=== PATIENT | male | born 1930 | race Caucasian/White ===

== ENCOUNTER 2016-08-02 15:20 | Emergency (ER) | payer OTHER ==
[~2016-08-02] VITALS: Ht 175.3 cm; Wt 87.0 kg
[~2016-08-02 15:20] MED LIST: ADVIN25/60 INH; ALBU1AER9 INH; AMLO-110 PO; AZITTAB PO; CLR10 PO; CYAN500T PO; CZR50 PO; FERR325T51 PO; PRED10TA PO; ZNTT/150 PO
[2016-08-02 15:33] VITALS: TEMP 37; Ht 175.3 cm; Wt 87.0 kg
[2016-08-02] MEDS ORDERED: NVLRPUC SQ (15:54)
[2016-08-02] MEDS ORDERED: METF500T5 PO (15:54)
[2016-08-02] MEDS ORDERED: LEVOFLOXACIN 250 MG TAB PO STA (15:58)
[2016-08-02] MEDS ORDERED: OXYCODONE/ACETAMINOPHEN 5-325 TAB PO ONE (16:00)
[2016-08-02] MEDS ORDERED: OXYC-57 PO (16:02)
[2016-08-02] MEDS ORDERED: LEVO1TAB34 PO (16:02)
--- NOTE | 2016-08-02 16:04 | EMERGENCY ROOM VISIT NOTE ---
History Report prepared by Carol: Jenn Jhaveri Under the Supervision of: Dr. Hitesh Rehman D.O. First contact with patient: 15:38 Chief Complaint: OTHER COMPLAINT Stated Complaint: ACHES,SLEEPLESSNESS,AORTIC ANEURYSM History of Present Illness The patient is a 86 year old male who presents to the Emergency Room with complaints of hip pain worsening for the last several days [employer]. The patient rates his current pain as a 7/10 in severity. The patient also states that the pain radiates up to his back between his shoulder blades. He states that his hip pain is chronic and has discussed the possibility to getting his hips replaced but they did not decide to replace them. The patient;s family states they called his doctor at the [facility] and they said his increase in pain recently could be do to his prostate cancer or his aortic aneurysm. The patient' s family states the patient has also been complaining of a productive yellow cough along with body aches. Source of History: patient, family Onset: several days [employer] Position: pelvis Symptom Intensity: 7/10 Timing: worsening Associated Symptoms: + back pain, + cough (productive) Note: Associated symptoms: body aches. Review of Systems See HPI for pertinent positives & negatives. A total of 10 systems reviewed and were otherwise negative. Past Medical & Surgical Medical Problems: (1) Abdominal aortic aneurysm (2) Anemia (3) Chronic kidney disease stage 3 (4) Chronic obstructive lung disease (5) Diabetes mellitus (6) Hyperlipidemia (7) Hypertension (8) Osteoarthritis of knee (9) Prostate Cancer (10) Small bowel obstruction Surgical Problems: (1) H/O colonoscopy with polypectomy (2) History of back surgery (3) Hx of cataract surgery Family History Diabetes mellitus FH: cancer FH: heart disease FH: lung disease Hypertension Social History Smoking Status: Former Smoker Alcohol Use: none Drug Use: none Marital Status: Housing Status: lives with significant other Occupation Status: retired Current/Historical Medications Scheduled Amlodipine (Norvasc), 5 MG PO QAM Azithromycin (Zithromax Z-Aamir), 1 PKT PO UD Cyanocobalamin (Vitamin B-12), 500 MCG PO QAM Ferrous Sulfate (Iron Supplement), 1 TAB PO QAM Insulin Human Regular (Novolin R), 1 DOSE SQ SLIDING SCALE Levofloxacin (Levaquin), 1 TAB PO DAILY Loratadine (Claritin), 10 MG PO QAM Losartan Potassium (Losartan Potassium), 50 MG PO QAM Metformin Hcl Er (Glucophage Er), 500 MG PO BID Prednisone Tab (Prednisone), 10 MG PO UD Ranitidine (Zantac), 150 MG PO QAM Scheduled PRN Albuterol (Proair Hfa), 2 PUFF INH UD PRN for Shortness of Breath Fluticasone Prop/Salmeterol (Advair Diskus 250/50 60 Dose), 1 PUFF INH BID PRN for COPD Oxycodone/Acetaminophen 5MG/325MG (Percocet 5MG/325MG), 1 TAB PO Q6H PRN for Pain Allergies Coded Allergies: No Known Allergies (Unverified , 08/02/16) Physical Exam Vital Signs Date Time Temp Pulse Resp B/P Pulse Ox O2 Delivery O2 Flow Rate FiO2 08/02/16 15:33 37.0 91 18 133/74 94 Room Air Physical Exam CONSTITUTIONAL/VITAL SIGNS: Reviewed / noted above. GENERAL: Non-toxic in appearance. INTEGUMENTARY: Warm, dry, and [place]. HEAD: Normocephalic. EYES: without scleral icterus or trauma. ENT/OROPHARYNX: clear and moist. LYMPHADENOPATHY/NECK: Is supple without lymphadenopathy or meningismus. RESPIRATORY: Lungs have crackles in left base. CARDIOVASCULAR: Regular rate and rhythm. GI/ABDOMEN: Soft and nontender. No organomegaly or pulsatile mass. No rebound or guarding. Normal bowel sounds. EXTREMITIES: Warm and well perfused. BACK: No CVA tenderness. NEUROLOGICAL: Intact without focal deficits. PSYCHIATRIC: normal affect. MUSCULOSKELETAL: Normally developed with good muscle tone. Medical Decision & Procedures ED Course 1540: Previous medical records were reviewed. The patient was evaluated in room C6. A complete history and physical examination was performed. I discussed with him a treatment plan and he agreed to the plan. The patient was hemodynamically stable and the patient was discharged home. 1558: Ordered Levaquin Tab 500 mg PO. 1600: Ordered Oxycodone/ Acetaminophen 1 tab PO. Medical Decision Differential includes acute coronary syndrome, myocardial infarction, CVA, TIA, anemia, infection, pneumonia, UTI, pyelonephritis, poor nutrition, dehydration, electrolyte disturbance,hypoglycemia. This is an 86-year-old male who presents to the ED with a chief complaint of body aches for the past 3 weeks. He is also been increasingly sleepy. He has a history of chronic back and hip pain. He has not yet seen an orthopedist. He reports a cough with yellow sputum and some shortness of breath with exertion. His vital signs are stable. Physical exam revealed some crackles in the left base. Is in no distress. He is well-appearing. Based on the patient' s symptoms, he appears to have at a minimum bronchitis and likely pneumonia. He was discharged on Levaquin after being given a dose here. He was given a prescription for Percocet for his pain and cough. He was told to follow-up with orthopedist for his chronic hip and back pain. He was felt to be stable for discharge. Impression Primary Impression: Bronchitis Additional Impression: LLL pneumonia Scribe Attestation The scribe's documentation has been prepared under my direction and personally reviewed by me in its entirety. I confirm that the note above accurately reflects all work, treatment, procedures, and medical decision making performed by me. Departure Information Dispostion Home / Self-Care Prescriptions Levofloxacin (LEVAQUIN) 500 Mg Tab 1 TAB PO DAILY for 7 Days, #7 TAB Prov: Hitesh Rehman D.O. 08/02/16 Oxycodone/Acetaminophen 5MG/325MG (PERCOCET 5MG/325MG) Tab 1 TAB PO Q6H Y for Pain, #20 TAB Prov: Hitesh Rehman D.O. 08/02/16 Referrals Johnson Gordon M.D. (PCP) Forms HOME CARE DOCUMENTATION FORM, IMPORTANT VISIT INFORMATION, WORK / SCHOOL INSTRUCTIONS Patient Instructions My [facility] Additional Instructions Levaquin as prescribed. Percocet as prescribed. No driving within 6 hours of use. Do not take additional Tylenol while taking Percocet. Follow-up with your doctor for further care and evaluation in 1-2 days. Return to the emergency department for worsening or new symptoms or any concerns. You have been examined and treated today on an emergency basis only. This is not a substitute for, or an effort to provide, complete comprehensive medical care. It is impossible to recognize and treat all injuries or illnesses in a single emergency department visit. It is therefore important that you follow up closely with your doctor. Call as soon as possible for an appointment. Problem Qualifiers
[2016-08-02 16:20] VITALS: BP 147/83; PULSE 80; O2SAT 97
== END 2016-08-02 16:30 | disposition home or self-care (01) ==
LOC: C.EDB 15:22 → C.EDC 16:30
DX: J40 Bronchitis, not specified as acute or chronic (principal); J18.9 Pneumonia, unspecified organism; N18.3 Chronic kidney disease, stage 3 (moderate); E11.22 Type 2 diabetes mellitus with diabetic chronic kidney disease; I12.9 Hypertensive chronic kidney disease with stage 1 through stage 4 chronic kidney disease, or unspecified chronic kidney disease; Z79.899 Other long term (current) drug therapy; Z79.4 Long term (current) use of insulin

== ENCOUNTER 2017-06-10 10:00 | Inpatient (IN) | payer OTHER ==
[~2017-06-10] VITALS: Ht 175.3 cm; Wt 85.2 kg
[~2017-06-10 10:00] MED LIST changes: +METF500T5 PO; +NVLRPUC SQ
[2017-06-10] MEDS ORDERED: ALBUT/IPRATROP 3MG/0.5MG NEB 3 ML VIAL INH STA (10:49)
--- NOTE | 2017-06-10 11:07 | EMERGENCY ROOM VISIT NOTE ---
History Report prepared by Carol: Daniela Robert Under the Supervision of: Dr. Chase Smith D.O. First contact with patient: 10:44 Chief Complaint: SHORTNESS OF BREATH Stated Complaint: VERY SHORT OF BREATH, COUGH,HAS FLU Nursing Triage Summary: pt to the ED with c/o SOB and couging up yellow sputum pt has the flu History of Present Illness The patient is a 87 year old male who presents to the Emergency Room with complaints of persistent shortness of breath that worsened yesterday. The patient states that he recently tested positive for the flu. He notes that since yesterday he has been experiencing body aches and coughing. The patient denies any swelling in the legs or having a fever. He notes that he has an inhaler at home, which helped relieved some of his symptoms. The patient notes a history of COPD, noting it originated from bronchitis. He states that he has not smoked in over 30 years. He notes a 5.7cm aneurism. Source of History: patient Onset: yesterday Position: other (global) Quality: other (shortness of breath) Timing: other (persistent ) Associated Symptoms: + cough, No fevers Review of Systems See HPI for pertinent positives & negatives. A total of 10 systems reviewed and were otherwise negative. Past Medical & Surgical Medical Problems: (1) Abdominal aortic aneurysm (2) Allergic reaction (3) Anemia (4) Chronic kidney disease stage 3 (5) Chronic obstructive lung disease (6) COPD exacerbation (7) Diabetes mellitus (8) Hyperlipidemia (9) Hypertension (10) Influenza (11) Osteoarthritis of knee (12) Pneumonia (13) Prostate Cancer (14) Small bowel obstruction Surgical Problems: (1) H/O colonoscopy with polypectomy (2) History of back surgery (3) Hx of cataract surgery Family History Diabetes mellitus FH: cancer FH: heart disease FH: lung disease Hypertension Social History Smoking Status: Former Smoker Alcohol Use: none Drug Use: none Marital Status: Housing Status: lives with significant other Occupation Status: retired Current/Historical Medications Scheduled Amlodipine (Norvasc), 5 MG PO QAM Azithromycin (Zithromax Z-Aamir), 1 PKT PO UD Cyanocobalamin (Vitamin B-12), 500 MCG PO QAM Fluticasone Propionate (Nasal) (Flonase Allergy Relief), 2 SPRAYS AUNG DAILY Losartan Potassium (Losartan Potassium), 50 MG PO QAM Metformin HCl (Metformin HCl ER), 1 TAB PO BID Prednisone Tab (Prednisone), 10 MG PO UD Scheduled PRN Albuterol Hfa (Ventolin Hfa), 2 PUFFS INH Q6H PRN for SOB/Wheezing Allergies Coded Allergies: No Known Allergies (Unverified , 06/10/17) Physical Exam Vital Signs Date Time Temp Pulse Resp B/P (MAP) Pulse Ox O2 Delivery O2 Flow Rate FiO2 06/10/17 12:30 97 20 131/71 91 Room Air 06/10/17 11:08 94 06/10/17 11:00 90 Room Air 06/10/17 10:10 37.8 105 20 151/84 93 Room Air Physical Exam GENERAL: Patient is awake, alert, and in no acute distress. Patient is resting comfortably and showing no signs of anxiety EYES: The conjunctivae are clear. The pupils are round and reactive. EARS, NOSE, MOUTH AND THROAT: The nose is without any evidence of any deformity. Mucous membranes are moist tongue is midline NECK: The neck is nontender and supple. RESPIRATORY: Lung sounds diminished with scattered rhonchi. No tachypnea or conversational dyspnea noted. CARDIOVASCULAR: Regular rate and rhythm noted there no murmurs rubs or gallops normal S1 normal S2 GASTROINTESTINAL: The abdomen is soft. Bowel sounds are present in all quadrants. Abdomen is nontender MUSCULOSKELETAL/EXTREMITIES: There is no evidence of gross deformity full range of motion is noted in the hips and shoulders SKIN: There is no obvious evidence of any rash. There are no petechiae, pallor or cyanosis noted. NEUROLOGIC: Patient is awake alert and oriented x3 strength is symmetric patellar reflexes are 2+ bilaterally Medical Decision & Procedures ER Provider Diagnostic Interpretation: Radiology results as stated below per my review and radiologist interpretation: CHEST ONE VIEW PORTABLE CLINICAL HISTORY: Sepsis COMPARISON STUDY: Chest radiograph May 2012. FINDINGS: There is apparent mild nodular left basilar opacity. There is minimal right lower lung opacity. Cardiac size is normal. Pulmonary vascularity is normal. IMPRESSION: Mild bibasilar opacities, greater on the left. The findings may reflect pneumonia. Radiographic follow-up to ensure resolution is recommended. Electronically signed by: Robin Gamez M.D. 06/10/2017 11:20 AM Dictated Date/Time: 06/10/2017 11:13 AM Laboratory Results 06/10/17 11:05 Red Blood Count 3.73, Mean Corpuscular Volume 92.5, Mean Corpuscular Hemoglobin 30.3, Mean Corpuscular Hemoglobin Concent 32.8, Mean Platelet Volume 9.9, Neutrophils (%) (Auto) 88.3, Lymphocytes (%) (Auto) 4.7, Monocytes (%) (Auto) 6.1, Eosinophils (%) (Auto) 0.2, Basophils (%) (Auto) 0.1, Neutrophils # (Auto) 21.20, Lymphocytes # (Auto) 1.13, Monocytes # (Auto) 1.47, Eosinophils # (Auto) 0.06, Basophils # (Auto) 0.02 06/10/17 11:05 Test 06/10/17 11:05 06/10/17 11:16 White Blood Count 24.03 K/uL (4.8-10.8) Red Blood Count 3.73 M/uL (4.7-6.1) Hemoglobin 11.3 g/dL (14.0-18.0) Hematocrit 34.5 % (42-52) Mean Corpuscular Volume 92.5 fL (80-100) Mean Corpuscular Hemoglobin 30.3 pg (25-34) Mean Corpuscular Hemoglobin Concent 32.8 g/dl (32-36) Platelet Count 210 K/uL (130-400) Mean Platelet Volume 9.9 fL (7.4-10.4) Neutrophils (%) (Auto) 88.3 % Lymphocytes (%) (Auto) 4.7 % Monocytes (%) (Auto) 6.1 % Eosinophils (%) (Auto) 0.2 % Basophils (%) (Auto) 0.1 % Neutrophils # (Auto) 21.20 K/uL (1.4-6.5) Lymphocytes # (Auto) 1.13 K/uL (1.2-3.4) Monocytes # (Auto) 1.47 K/uL (0.11-0.59) Eosinophils # (Auto) 0.06 K/uL (0-0.5) Basophils # (Auto) 0.02 K/uL (0-0.2) RDW Standard Deviation 47.0 fL (36.4-46.3) RDW Coefficient of Variation 13.9 % (11.5-14.5) Immature Granulocyte % (Auto) 0.6 % Immature Granulocyte # (Auto) 0.15 K/uL (0.00-0.02) Erythrocyte Sedimentation Rate 13 mm/hr (0-14) Prothrombin Time 9.3 SECONDS (9.0-12.0) Prothromb Time International Ratio 0.9 (0.9-1.1) Activated Partial Thromboplast Time 21.7 SECONDS (21.0-31.0) Partial Thromboplastin Ratio 0.8 Anion Gap 7.0 mmol/L (3-11) Est Creatinine Clear Calc Drug Dose 43.0 ml/min Estimated GFR () 54.2 Estimated GFR (Non- 46.8 BUN/Creatinine Ratio 24.3 (10-20) Calcium Level 8.8 mg/dl (8.5-10.1) Magnesium Level 1.8 mg/dl (1.8-2.4) Total Bilirubin 0.5 mg/dl (0.2-1) Aspartate Amino Transf (AST/SGOT) 8 U/L (15-37) Alanine Aminotransferase (ALT/SGPT) 28 U/L (12-78) Alkaline Phosphatase 65 U/L (45-117) Total Creatine Kinase 43 U/L (39-308) Creatine Kinase MB 1.5 ng/ml (0.5-3.6) Creatine Kinase MB Ratio 3.5 (0-3.0) Troponin I < 0.015 ng/ml (0-0.045) C-Reactive Protein 1.90 mg/dl (0-0.29) Pro-B-Type Natriuretic Peptide 453 pg/ml (0-1800) Total Protein 6.7 gm/dl (6.4-8.2) Albumin 3.2 gm/dl (3.4-5.0) Globulin 3.5 gm/dl (2.5-4.0) Albumin/Globulin Ratio 0.9 (0.9-2) Beta-Hydroxybutyric Acid 1.49 mg/dL (0.2-2.81) Bedside Lactic Acid Venous 3.12 mmol/L (0.90-1.70) Laboratory results per my review. Medications Administered Medications (Trade) Dose Ordered Sig/Clara Route Start Time Stop Time Status Last Admin Dose Admin Albuterol/ Ipratropium (Duoneb) 3 ml NOW STAT INH 06/10/17 10:49 06/10/17 10:50 DC 06/10/17 11:15 3 ML Sodium Chloride 1,000 ml @ 999 mls/hr Q1H1M STAT IV 06/10/17 11:45 06/10/17 12:45 DC 06/10/17 12:25 999 MLS/HR Levofloxacin (Levaquin / D5W) 750 mg NOW STAT IV 06/10/17 11:45 06/10/17 11:47 DC 06/10/17 12:26 750 MG ECG Indication: SOB/dyspnea Rate (beats per minute): 97 Rhythm: normal sinus Findings: RBBB, no acute ischemic change, no ectopy Change: no significant change (12/05/15) ED Course 1045: The patient was evaluated in room C7. A complete history and physical examination were performed. 1049: Ordered Duoneb 3ml INH. 1145: Ordered Sodium Chloride 1000ml @ 999mls/hr IV and Levaquin 750mg IV. 1219: I discussed the patient's case with Leela Escobar PA-C. The patient will be evaluated for further management. Medical Decision Prior records/ancillary studies reviewed. Triage Nursing notes reviewed. Additional history obtained from the family. The patient's history was concerning for respiratory difficulties. Differential diagnosis: Etiologies such as infections, reactive airway disease, pneumonia, pneumothorax , COPD, CHF, cardiac ischemia, pulmonary embolism, musculoskeletal, gastrointestinal, as well as others were entertained. The patient is an 87-year-old male who presented to the emergency department with family members for an evaluation of cough and fever. The patient was diagnosed with influenza recently. The patient presents today with worsening symptoms of cough. His overall history and physical exam appear to be consistent with pneumonia. Chest x-ray did reveal signs of infiltrate. He was treated with IV fluids as well as IV antibiotic. He was also treated with bronchodilator therapy. On subsequent reevaluation he was feeling somewhat improved. I discussed the patient's condition with the on-call [facility] hospitalist group. They've agreed to evaluate the patient in the emergency apartment for further management and disposition. Medication Reconcilliation Current Medication List: was personally reviewed by me Consults Time Called: 1215 Consulting Physician: Leela Escobar PA-C Returned Call: [phone] I discussed the patient's case with Leela Escobar PA-C. The patient will be evaluated for further management. Impression Primary Impression: Pneumonia Additional Impressions: Fever Elevated white blood cell count Scribe Attestation The scribe's documentation has been prepared under my direction and personally reviewed by me in its entirety. I confirm that the note above accurately reflects all work, treatment, procedures, and medical decision making performed by me. Departure Information Dispostion Being Evaluated By Hospitalist Mukesh Almeida D.O. (PCP) Forms HOME CARE DOCUMENTATION FORM, IMPORTANT VISIT INFORMATION Patient Instructions My [facility] Problem Qualifiers Primary Impression: Pneumonia Pneumonia type: due to unspecified organism Laterality: unspecified laterality Lung location: unspecified part of lung Qualified Codes: J18.9 - Pneumonia, unspecified organism Additional Impressions: Fever Fever type: unspecified Qualified Codes: R50.9 - Fever, unspecified Elevated white blood cell count Leukocytosis type: unspecified Qualified Codes: D72.829 - Elevated white blood cell count, unspecified
--- NOTE | 2017-06-10 11:21 | DIAGNOSTIC IMAGING REPORT ---
CHEST ONE VIEW PORTABLE CLINICAL HISTORY: Sepsis COMPARISON STUDY: Chest radiograph May 2012. FINDINGS: There is apparent mild nodular left basilar opacity. There is minimal right lower lung opacity. Cardiac size is normal. Pulmonary vascularity is normal. IMPRESSION: Mild bibasilar opacities, greater on the left. The findings may reflect pneumonia. Radiographic follow-up to ensure resolution is recommended. Electronically signed by: Robin Gamez M.D. 06/10/2017 11:20 AM Dictated Date/Time: 06/10/2017 11:13 AM
[2017-06-10] MEDS ORDERED: VNTHFA/IN INH (11:23)
[2017-06-10 11:27] LABS: HEMATOCRIT 34.5 % (42-52); HEMOGLOBIN 11.3 g/dL (14.0-18.0); MEAN CELL VOLUME 92.5 fL (80-100); MEAN CORPUSCULAR HEMOGLOBIN 30.3 pg (25-34); MEAN CORPUSCULAR HGB CONC 32.8 g/dl (32-36); MEAN PLATELET VOLUME 9.9 fL (7.4-10.4); PLATELET COUNT 210 K/uL (130-400); RED CELL DISTRIBUTION WIDTH CV 13.9 % (11.5-14.5); WHITE BLOOD COUNT 24.03 K/uL (4.8-10.8)
[2017-06-10 11:37] LABS: INR 0.9 (0.9-1.1); PTT PATIENT 21.7 SECONDS (21.0-31.0)
[2017-06-10] MEDS ORDERED: LEVAQUIN 750MG / 150ML D5W IV STA (11:45)
[2017-06-10] MEDS ORDERED: SODIUM CHLORIDE 0.9% 1000ML 1,000 ML IV STA (11:45)
[2017-06-10 11:47] LABS: BASO % 0.1 %; BASO ABS # 0.02 K/uL (0-0.2); EOS % 0.2 %; EOS ABS # 0.06 K/uL (0-0.5); IG# 0.15 K/uL (0.00-0.02); LYMPH % 4.7 %; LYMPH ABS # 1.13 K/uL (1.2-3.4); MONO % 6.1 %; MONO ABS # 1.47 K/uL (0.11-0.59); NEUT % 88.3 %
[2017-06-10 11:58] LABS: ALBUMIN 3.2 gm/dl (3.4-5.0); ALKALINE PHOSPHATASE 65 U/L (45-117); ALT/SGPT 28 U/L (12-78); AST/SGOT 8 U/L (15-37); BLOOD UREA NITROGEN 33 mg/dl (7-18); CALCIUM 8.8 mg/dl (8.5-10.1); CARBON DIOXIDE 23 mmol/L (21-32); CKMB 1.5 ng/ml (0.5-3.6); CREATININE 1.36 mg/dl (0.60-1.40); GLUCOSE 371 mg/dl (70-99); POTASSIUM 4.3 mmol/L (3.5-5.1); SODIUM 131 mmol/L (136-145); TOTAL PROTEIN 6.7 gm/dl (6.4-8.2)
[2017-06-10] MEDS ORDERED: LEVALBUTEROL/IPRATROPIUM NEB INH PRN (13:30)
[2017-06-10] MEDS ORDERED: NITROGLYCERIN 0.4 MG SL PER TAB CHARGE SL PRN (13:30)
[2017-06-10] MEDS ORDERED: MAGNESIUM HYDROXIDE SUSP 30 ML UDC PO PRN (13:30)
[2017-06-10] MEDS ORDERED: ONDANSETRON INJ 2 MG/ML 2 ML VIAL IV PRN (13:30)
[2017-06-10] MEDS ORDERED: ACETAMINOPHEN 325 MG TAB PO PRN (13:30)
[2017-06-10] MEDS ORDERED: GLUCAGON FOR INJ 1 MG VIAL SQ PRN (13:45)
[2017-06-10] MEDS ORDERED: DEXTROSE 50% 50 ML SYR IV PRN (13:45)
[2017-06-10] MEDS ORDERED: GLUCOSE 10 TABS/TUBE PO PRN (13:45)
[2017-06-10] MEDS ORDERED: GLUCOSE 40% GEL 15 GM TUBE PO PRN (13:45)
[2017-06-10] MEDS ORDERED: FLUT0.15 NAE (13:51)
[2017-06-10] MEDS ORDERED: METF-841 PO (13:51)
[2017-06-10] MEDS ORDERED: PHARMACY GLYCEMIC MGMT CONSULT PRN (13:57)
[2017-06-10 14:27] VITALS: BP 118/65; PULSE 93; TEMP 37; O2SAT 95; BMI 28.9
--- NOTE | 2017-06-10 14:43 | History and Physical ---
History & Physical Date & Time of Service: Jun 10, 2017 at 13:53 Chief Complaint: Very Short Of Breath, Cough,Has Flu Primary Care Physician: Mukesh Ko D.O. History of Present Illness Source: patient, family, clinic records, hospital records Pt is 87 y/o M with PMH HTN, DM II, prostate CA, COPD, CKD III, AAA presented to ER with c/o SOB. Pt states greater than one week ago started with cough and slight SOB. He has rescue pack of prednisone 10mg tab taper (6 tabs po daily x 6 d, 5 po x 4 d, 4 po x 4 d and tapered down) and zithromax. He finished course of zithromax. States SOB and cough increased and cough productive yellow sputum. Also with rhinorrhea and scratchy throat. He saw PCP at [place] [facility] on 06/07 and had positive influenza swab and was started on tamiflu. Pt states still with SOB worse with exertion and cough and past several days feeling chills and sweats. He reports today started 2 tabs prednisone taper. Pt states increased BS since being on prednisone, fasting BS has been 150's. He reports was taken off his Advair but has albuterol inhaler to use and has been using that with some relief of SOB. States intermittent loose stools, none today or yesterday. Denies N/V, hematochezia, melena, hemoptysis, VILLALOBOS, dizziness, syncope, vision changes, neck pain, CP, orthopnea, palpitations, choking, otalgia,abdominal pain , paresthesias, extremity weakness, extremity edema, rashes, urinary symptoms. In ER temp: 37.8, P: 105-94, R: 20, BP: 131/71, 90-93% on RA, 95% on 2L O2. WBC : 24. lactic acid: 3. negative troponin. corrected Na: 135, Gluc:371. normal beta-hydroxybutyric acid. Cr: 1.3 (baseline 1.2). CXR: bibasilar opacities greater on left. pending blood cultures. EKG: NSR, RBBB. Given 1L NSS, Levaquin 750mg IV, Duoneb. Pt reports feeling much better after duoneb tx. Past Medical/Surgical History Medical Problems: (1) Abdominal aortic aneurysm Status: Chronic (2) Allergic reaction Status: Resolved (3) Anemia Permanent Comment: Fe deficiency CKD Status: Chronic (4) Chronic kidney disease stage 3 Status: Chronic (5) Chronic obstructive lung disease Status: Chronic (6) Diabetes mellitus Status: Chronic (7) Hyperlipidemia Status: Chronic (8) Hypertension Status: Chronic (9) Osteoarthritis of knee Status: Chronic (10) Prostate Cancer Status: Chronic (11) Small bowel obstruction Status: Resolved Surgical Problems: (1) H/O colonoscopy with polypectomy Permanent Comment: 5 polyps, 2010 Status: Resolved (2) History of back surgery Status: Chronic (3) Hx of cataract surgery Status: Chronic Family History Diabetes mellitus FH: cancer FH: heart disease FH: lung disease Hypertension Social History Smoking Status: Former Smoker (Quit 1979, smoked 3ppd x 28 years) Smokeless Tobacco Use: No Alcohol Use: 1 beer couple times a week Drug Use: none Marital Status: Housing status: lives with family Occupational Status: retired Immunizations History of Influenza Vaccine: Yes Influenza Vaccine Date: Feb 21, 2013 History of Tetanus Vaccine?: Unknown Tetanus Immunization Date: Dec 24, 2011 History of Pneumococcal: 2010 Pneumococcal Date: Dec 08, 2010 History of Hepatitis B Vaccine: No Multi-Drug Resistant Organisms History of MDRO: No Allergies Coded Allergies: No Known Allergies (Unverified , 06/10/17) Home Medications Scheduled Amlodipine (Norvasc), 5 MG PO QAM Azithromycin (Zithromax Z-Aamir), 1 PKT PO UD Cyanocobalamin (Vitamin B-12), 500 MCG PO QAM Fluticasone Propionate (Nasal) (Flonase Allergy Relief), 2 SPRAYS AUNG DAILY Losartan Potassium (Losartan Potassium), 50 MG PO QAM Metformin HCl (Metformin HCl ER), 1 TAB PO BID Prednisone Tab (Prednisone), 10 MG PO UD Scheduled PRN Albuterol Hfa (Ventolin Hfa), 2 PUFFS INH Q6H PRN for SOB/Wheezing Review of Systems Constitutional: + chills (see HPI), + sweats, + weakness, No weight loss Eyes: No eye pain, No redness, No discharge ENT: + problem reported (see HPI), No unusual epistaxis, No trouble swallowing Respiratory: + problem reported (see HPI) Cardiovascular: No chest pain, No orthopnea, No PND, No edema, No palpitations Abdomen: + problem reported (see HPI), No pain, No nausea, No vomiting, No constipation, No GI bleeding Musculoskeletal: No joint pain, No muscle pain, No swelling, No calf pain Genitourinary - Male: No hematuria, No dysuria, No urinary frequency, No urinary urgency Neurologic: No numbness/tingling, No vertigo Psychiatric: No depression symptoms, No anxiety Endocrine: No excessive thirst, No excessive urination Hematologic / Lymphatic: No abnormal bleeding/bruising, No clotting problems Integumentary: No rash, No itch Physical Exam Vital Signs Date Time Temp Pulse Resp B/P (MAP) Pulse Ox O2 Delivery O2 Flow Rate FiO2 06/10/17 13:04 98 06/10/17 12:30 97 20 131/71 91 Room Air 06/10/17 11:08 94 06/10/17 11:00 90 Room Air 06/10/17 10:10 37.8 105 20 151/84 93 Room Air General Appearance: WD/WN, no apparent distress Head: normocephalic, atraumatic Eyes: normal inspection, PERRL, EOMI, sclerae normal ENT: hearing grossly normal (with hearing aids), pharynx normal, + pertinent finding (mildly dry) Neck: supple, no JVD, trachea midline Respiratory/Chest: chest non-tender, no respiratory distress, no accessory muscle use, + pertinent finding (diminished throughout, faint wheeze) Cardiovascular: regular rate, rhythm (rate 96), no edema Abdomen/GI: normal bowel sounds, non tender, soft Extremities/Musculoskelatal: normal inspection, no calf tenderness, normal capillary refill, no pedal edema, non-tender Neurologic/Psych: alert, normal mood/affect, oriented x 3 Skin: normal color, warm/dry Diagnostics Laboratory Results Results Past 24 Hours Test 06/10/17 11:05 06/10/17 11:16 Range/Units White Blood Count 24.03 4.8-10.8 K/uL Red Blood Count 3.73 4.7-6.1 M/uL Hemoglobin 11.3 14.0-18.0 g/dL Hematocrit 34.5 42-52 % Mean Corpuscular Volume 92.5 80-100 fL Mean Corpuscular Hemoglobin 30.3 25-34 pg Mean Corpuscular Hemoglobin Concent 32.8 32-36 g/dl Platelet Count 210 130-400 K/uL Mean Platelet Volume 9.9 7.4-10.4 fL Neutrophils (%) (Auto) 88.3 % Lymphocytes (%) (Auto) 4.7 % Monocytes (%) (Auto) 6.1 % Eosinophils (%) (Auto) 0.2 % Basophils (%) (Auto) 0.1 % Neutrophils # (Auto) 21.20 1.4-6.5 K/uL Lymphocytes # (Auto) 1.13 1.2-3.4 K/uL Monocytes # (Auto) 1.47 0.11-0.59 K/uL Eosinophils # (Auto) 0.06 0-0.5 K/uL Basophils # (Auto) 0.02 0-0.2 K/uL RDW Standard Deviation 47.0 36.4-46.3 fL RDW Coefficient of Variation 13.9 11.5-14.5 % Immature Granulocyte % (Auto) 0.6 % Immature Granulocyte # (Auto) 0.15 0.00-0.02 K/uL Erythrocyte Sedimentation Rate 13 0-14 mm/hr Prothrombin Time 9.3 9.0-12.0 SECONDS Prothromb Time International Ratio 0.9 0.9-1.1 Activated Partial Thromboplast Time 21.7 21.0-31.0 SECONDS Partial Thromboplastin Ratio 0.8 Sodium Level 131 136-145 mmol/L Potassium Level 4.3 3.5-5.1 mmol/L Chloride Level 101 98-107 mmol/L Carbon Dioxide Level 23 21-32 mmol/L Anion Gap 7.0 3-11 mmol/L Blood Urea Nitrogen 33 7-18 mg/dl Creatinine 1.36 0.60-1.40 mg/dl Est Creatinine Clear Calc Drug Dose 43.0 ml/min Estimated GFR () 54.2 Estimated GFR (Non- 46.8 BUN/Creatinine Ratio 24.3 10-20 Random Glucose 371 70-99 mg/dl Calcium Level 8.8 8.5-10.1 mg/dl Magnesium Level 1.8 1.8-2.4 mg/dl Total Bilirubin 0.5 0.2-1 mg/dl Aspartate Amino Transf (AST/SGOT) 8 15-37 U/L Alanine Aminotransferase (ALT/SGPT) 28 12-78 U/L Alkaline Phosphatase 65 45-117 U/L Total Creatine Kinase 43 39-308 U/L Creatine Kinase MB 1.5 0.5-3.6 ng/ml Creatine Kinase MB Ratio 3.5 0-3.0 Troponin I < 0.015 0-0.045 ng/ml C-Reactive Protein 1.90 0-0.29 mg/dl Pro-B-Type Natriuretic Peptide 453 0-1800 pg/ml Total Protein 6.7 6.4-8.2 gm/dl Albumin 3.2 3.4-5.0 gm/dl Globulin 3.5 2.5-4.0 gm/dl Albumin/Globulin Ratio 0.9 0.9-2 Beta-Hydroxybutyric Acid 1.49 0.2-2.81 mg/dL Bedside Lactic Acid Venous 3.12 0.90-1.70 mmol/L Microbiology Results 06/10/17 Blood Culture, Received Pending 06/10/17 Blood Culture, Received Pending Diagnostic Radiology CXR: IMPRESSION: Mild bibasilar opacities, greater on the left. The findings may reflect pneumonia. Radiographic follow-up to ensure resolution is recommended. EKG EKG: NSR, rate 97, RBBB Impression Assessment and Plan SOB 2/2 COPD EXACERBATION, CAP, INFLUENZA Pt hx COPD started with cough almost 2 weeks ago, self started rescue pack of prednisone taper and zithromax. 06/07/16 flu + at [facility] started on tamiflu. Increased yellow productive cough and SOB. In ER temp: 37.8, P: 105-94, R: 20, BP: 131/71, 90-93% on RA, 95% on 2L O2. WBC: 24. lactic acid: 3. negative troponin. CXR: bibasilar opacities greater on left. pending blood cultures. EKG : NSR, RBBB. Given 1L NSS, Levaquin 750mg IV, Duoneb. Pt reports feeling much better after duoneb tx. -blood cultures pending, trend lactic acid -Xopenex/Atrovent nebs -Levaquin -Continue prednisone taper - 20mg daily -Tamiflu today and tomorrow to finish 5 day course -O2 per protocol -IVF -repeat CXR tomorrow -repeat CBC, PRP in am DM II Gluc:371. normal beta-hydroxybutyric acid. Give Insulin R 8 units and monitor glucose. -hold metformin -NovoLog sliding scale per protocol -glycemic pharmacy consult to assist as pt continue on steroids HYPONATREMIA Na: 131. corrected Na: 135 with Gluc:371. normal beta-hydroxybutyric acid. -prp in am CKD III Cr: 1.3 (baseline 1.2). -continue to monitor renal functions -avoid nephrotoxic agents HTN Stable -continue amlodipine -continue losartan DVT PROPHYLAXIS -heparin SQ DISPOSITION -admit tele -DNR, DNI as per discussion with pt -Follows with Dr Ko for routine care Pt was seen with Dr Monsivais. See addendum ADDENDUM: This is an 87 year old male with a recent diagnosis of influenza +, ongoing Tamiflu use at this time Complaining of shortness of breath - had been on a prednisone taper. Presented here and received duoneb treatments which helped his breathing. CXR suggests bilateral opacities. I saw him in room 209, with much improved symptoms; no wheezing on exam, no edema, no other issues to note. Plan: can finish course of Tamiflu (two more days) can finish course of prednisone; currently on 20mg Xopenox inhalers currently started on Levaquin for CAP wean O2 as tolerated Level of Care Telemetry Resuscitation Status DO NOT RESUSCITATE VTE Prophylaxis VTE Risk Assessment Done? Y/N: Yes Risk Level: Moderate Given or contraindicated: Unfractionated heparin SQ Additional Copies To Mukesh Ko D.O.
[2017-06-10] MEDS ORDERED: LEVALBUTEROL/IPRATROPIUM NEB INH SCH (15:00)
--- NOTE | 2017-06-10 15:07 | Pharmacy Progress Note ---
Glycemic Control Intl Consult Date of Service Jun 10, 2017. Scope Glycemic Pharmacist consulted for glycemic control and to write orders per [facility] inpatient glycemic control protocol Objective Weight (Kilograms): 88.800 Accuchecks BSG (last 24hrs): Test 06/10/17 11:05 Random Glucose 371 mg/dl (70-99) Laboratory Data (last 24hrs) Test 06/10/17 11:05 Anion Gap 7.0 mmol/L BUN/Creatinine Ratio 24.3 Blood Urea Nitrogen 33 mg/dl Creatinine 1.36 mg/dl Potassium Level 4.3 mmol/L Sodium Level 131 mmol/L White Blood Count 24.03 K/uL Red Blood Count 3.73 M/uL Hemoglobin 11.3 g/dL Hematocrit 34.5 % Mean Corpuscular Volume 92.5 fL Mean Corpuscular Hemoglobin 30.3 pg Mean Corpuscular Hemoglobin Concent 32.8 g/dl Platelet Count 210 K/uL Mean Platelet Volume 9.9 fL Neutrophils (%) (Auto) 88.3 % Lymphocytes (%) (Auto) 4.7 % Monocytes (%) (Auto) 6.1 % Eosinophils (%) (Auto) 0.2 % Basophils (%) (Auto) 0.1 % Neutrophils # (Auto) 21.20 K/uL Lymphocytes # (Auto) 1.13 K/uL Monocytes # (Auto) 1.47 K/uL Eosinophils # (Auto) 0.06 K/uL Basophils # (Auto) 0.02 K/uL HbA1c Item Value Date Time Hemoglobin A1c 10.4 % H 12/06/15 0552 Recent Pertinent Medications Outpatient Anti-diabetic Regimen: * metformin 1,000mg PO BIDM Risk Factors for Insulin Resistance: * Steroids * Infection * Diet Assessment & Plan ASSESSMENT: * 87yo T2DM male known to pharmacy from previous admissions/glycemic consults * Pt with unknown degree of outpatient control - A1c is outdated. Will re- ordered per protocol. * Pt with severe hyperglycemia secondary to infection and prednisone. * Pt is maintained on oral antidiabetic agents as an outpatient * Oral agents are not recommended for inpatient use d/t drug interactions, changing PO intake, and difficulty titrating for acute hyper/hypoglycemia. ADA recommends re-initiating outpatient oral agents 1-2 days prior to discharge if/ when appropriate if they were held on admission. * Will hold oral agents for admission and utilize SQ basal bolus insulin regimen which is the recommended regimen for inpatient glycemic control. * Will initiate weight based insulin dosing for insulin carmelo patient and titrate based on BSG trends. * Will use similar dosing from 11/2015 admission PLAN FOR INPATIENT GLYCEMIC CONTROL: * A1c with AM labs tomorrow * Holding outpatient oral diabetes medications * Basal insulin * NPH 18 units (0.2 units/kg) SQ daily - first dose now * This is based on once daily prednisone dosing of 20mg/day and weight * Bolus insulin * NovoLog per scale ACHS or Q6hrs while NPO * Goal Range: Low 140 mg/dL - High 180 mg/dL * Correction Factor: 25 mg/dL/unit * Nutritional / Prandial insulin per carb ratio of 1 unit per 9 grams CHO consumed * Please note that the plan above was derived based on current level of insulin resistance and hospital stress. These recommendations are appropriate for inpatient admission only. Plan of care upon discharge will need to be reassessed to avoid potential outpatient hypo/hyperglycemia. Thank you.
[2017-06-10] MEDS ORDERED: INSULIN HUMAN REGULAR PER UNIT 8 UNITS in SYRINGE 7.92 ML IV ONE (15:30)
[2017-06-10 15:37] VITALS: BP 174/78; PULSE 93; TEMP 37.1; O2SAT 94
[2017-06-10] MEDS ORDERED: SODIUM CHLORIDE 0.9% 1000ML 1,000 ML IV SCH (15:45)
[2017-06-10] MEDS ORDERED: IPRATROPIUM BROMIDE NEB SOLN 0.02% 2.5 ML VIAL INH PRN (15:45)
[2017-06-10] MEDS ORDERED: LEVALBUTEROL 1.25MG/0.5ML NEB INH PRN (15:45)
[2017-06-10] MEDS: INSULIN ASPART 100 UNITS/ML 3 ML PEN SC SCH ×2 (15:51→21:00)
[2017-06-10 15:58] VITALS: BMI 28.9
[2017-06-10] MEDS: INSULIN HUMAN NPH SC SCH (15:58)
[2017-06-10 16:00] VITALS: O2SAT 95
[2017-06-10] MEDS ORDERED: OSELTAMIVIR PHOSPHATE SUSP 30 MG/5 ML UDP PO SCH (16:00)
[2017-06-10] MEDS ORDERED: INSULIN GLARGINE SOLOSTAR 100 UNITS/ML 3 ML PEN SC SCH (16:45)
[2017-06-10] MEDS ORDERED: INSULIN HUMAN NPH SC SCH (16:45)
[2017-06-10 18:50] VITALS: BP_SYST 157; PULSE 92; TEMP 36.9; O2SAT 93
[2017-06-10] MEDS: LEVALBUTEROL 1.25MG/0.5ML NEB INH SCH (19:04)
[2017-06-10] MEDS: IPRATROPIUM BROMIDE NEB SOLN 0.02% 2.5 ML VIAL INH SCH (19:04)
[2017-06-10 19:06] VITALS: PULSE 86; O2SAT 94
[2017-06-10] MEDS: OSELTAMIVIR PHOSPHATE SUSP 30 MG/5 ML UDP PO SCH (22:11)
[2017-06-10] MEDS: HEPARIN SOD 5000 UNIT/0.5 ML CARP SQ SCH (22:14)
[2017-06-11] VITALS (10 sets, daily range): BP systolic 120–165; BP diastolic 63–85; PULSE 80–90; TEMP 36.5–37; O2SAT 91–96
[2017-06-11] MEDS: LEVALBUTEROL 1.25MG/0.5ML NEB INH SCH ×4 (03:17→19:23)
[2017-06-11] MEDS: IPRATROPIUM BROMIDE NEB SOLN 0.02% 2.5 ML VIAL INH SCH ×4 (03:17→19:23)
[2017-06-11] MEDS: INSULIN ASPART 100 UNITS/ML 3 ML PEN SC SCH ×6 (04:00→21:40)
[2017-06-11 06:26] LABS: BASO % 0.1 %; BASO ABS # 0.02 K/uL (0-0.2); EOS % 0.9 %; EOS ABS # 0.14 K/uL (0-0.5); HEMATOCRIT 30.9 % (42-52); HEMOGLOBIN 10.2 g/dL (14.0-18.0); IG# 0.09 K/uL (0.00-0.02); LYMPH % 19.5 %; LYMPH ABS # 3.19 K/uL (1.2-3.4); MEAN CELL VOLUME 92.5 fL (80-100); MEAN CORPUSCULAR HEMOGLOBIN 30.5 pg (25-34); MEAN PLATELET VOLUME 9.3 fL (7.4-10.4); MONO % 8.9 %; MONO ABS # 1.45 K/uL (0.11-0.59); NEUT ABS # 11.44 K/uL (1.4-6.5); PLATELET COUNT 173 K/uL (130-400); RED CELL DISTRIBUTION WIDTH CV 13.8 % (11.5-14.5); RED CELL DISTRIBUTION WIDTH SD 46.9 fL (36.4-46.3); WHITE BLOOD COUNT 16.33 K/uL (4.8-10.8)
[2017-06-11 07:00] LABS: CALCIUM 8.3 mg/dl (8.5-10.1); CREATININE 1.22 mg/dl (0.60-1.40); POTASSIUM 3.7 mmol/L (3.5-5.1)
[2017-06-11 07:01] LABS: HEMOGLOBIN A1C 8.4 % (4.5-5.6)
[2017-06-11] MEDS: LOSARTAN POTASSIUM 50 MG TAB PO SCH (07:54)
[2017-06-11] MEDS: FLUTICASONE PROPIONATE NA SPR 16 GM BTL NAE SCH (07:54)
[2017-06-11] MEDS: CYANOCOBALAMIN 500 MCG TAB (VIT B-12) PO SCH (07:55)
[2017-06-11] MEDS: AMLODIPINE BESYLATE 5 MG TAB PO SCH (07:55)
[2017-06-11] MEDS: INSULIN HUMAN NPH SC SCH (08:00)
[2017-06-11] MEDS: HEPARIN SOD 5000 UNIT/0.5 ML CARP SQ SCH ×2 (08:02→21:39)
--- NOTE | 2017-06-11 10:15 | DIAGNOSTIC IMAGING REPORT ---
CHEST 2 VIEWS ROUTINE CLINICAL HISTORY: sob, copd, pneumonia, flu dyspnea COMPARISON STUDY: 06/10/2017 FINDINGS: Improving focal parenchymal infiltrate left base. Mild residual interstitial prominence throughout both hemithoraces. No evidence for cardiac enlargement. Diaphragms are smooth. IMPRESSION: Improving parenchymal infiltrate left base. Slight bilateral interstitial prominence. The above report was generated using voice recognition software. It may contain grammatical, syntax or spelling errors. Electronically signed by: Skip Alfonso M.D. 06/11/2017 10:14 AM Dictated Date/Time: 06/11/2017 10:13 AM
[2017-06-11] MEDS: OSELTAMIVIR PHOSPHATE SUSP 30 MG/5 ML UDP PO SCH ×2 (10:28→21:40)
--- NOTE | 2017-06-11 18:55 | Progress Note ---
Internal Med Progress Note Date of Service: Jun 11, 2017. Provider Documentation: SUBJECTIVE: cough has improved minimum SOB , no audible wheeze, no fever or chills OBJECTIVE: Vital Signs-as noted below Exam: General-elderly male , pleasant , no sign of distress Eyes-sclera non icteric , PERRLA/EOMI ENT-moist oral mucosa Neck-no thyromegaly , trachea midline Lungs-diminished, scatted wheeze Heart-regular S1/S2 Abdomen-soft ,non tender . bowel sound active Extremities-no lower ext edema , no calf tenderness Neuro-AAO x3, no focal neurological deficit Lab data as noted below. ASSESSMENT & PLAN: SOB 2/2 COPD EXACERBATION, CAP, INFLUENZA presented with cough symptoms for 2 weeks , increased yellow productive cough , SOB no improvement with rescue pack of prednisone taper and Zithromax. 06/07/16 flu + at [place] [facility] started on Tamiflu. respiratory symptom much improved minimum cough no fever pt is continued with Levaquin will be changed PO next 24 hrs -Continue prednisone taper - 20mg daily -Tamiflu to complete total 5 days course TYPE 2 DM : Bsg elevated due to steroid -hold metformin -NovoLog sliding scale per protocol -glycemic pharmacy consult to assist as pt continue on steroids HYPONATREMIA corrected CKD III renal function to approx baseline HTN Stable -continue amlodipine -continue losartan DVT PROPHYLAXIS -heparin SQ DNR /DNI DISPOSITION expected to return home when medically stable -Follows with Dr Ko at [place] Vital Signs: Date Time Temp Pulse Resp B/P (MAP) Pulse Ox O2 Delivery O2 Flow Rate FiO2 06/12/17 18:44 36.8 78 18 90 06/12/17 16:25 Room Air 06/12/17 15:30 36.8 78 18 153/73 (99) 90 Room Air 06/12/17 14:15 85 16 94 Room Air 06/12/17 12:00 Room Air 06/12/17 12:00 36.9 87 20 137/69 (91) 92 Room Air 06/12/17 08:00 Room Air 06/12/17 07:35 36.6 86 20 182/76 (111) 92 Room Air 06/12/17 07:21 75 16 94 Room Air 06/12/17 04:07 36.6 82 18 107/63 (78) 95 Room Air 06/12/17 04:00 Room Air 06/12/17 00:31 36.7 86 19 133/73 (93) 93 Room Air 06/12/17 00:02 Room Air 06/11/17 20:00 Room Air 06/11/17 19:59 36.8 88 18 163/78 (106) 91 Room Air 06/11/17 19:24 81 16 95 Room Air Lab Results: Results Past 24 Hours Test 06/11/17 20:44 06/12/17 06:44 06/12/17 11:18 06/12/17 16:15 Range/Units Bedside Glucose 231 159 153 286 70-99 mg/dl
[2017-06-12] VITALS (11 sets, daily range): BP systolic 102–182; BP diastolic 59–76; PULSE 60–94; TEMP 36.6–36.9; O2SAT 90–95
[2017-06-12] MEDS: LEVALBUTEROL 1.25MG/0.5ML NEB INH SCH ×4 (01:59→19:13)
[2017-06-12] MEDS: IPRATROPIUM BROMIDE NEB SOLN 0.02% 2.5 ML VIAL INH SCH ×4 (01:59→19:13)
[2017-06-12] MEDS: CYANOCOBALAMIN 500 MCG TAB (VIT B-12) PO SCH (07:48)
[2017-06-12] MEDS: AMLODIPINE BESYLATE 5 MG TAB PO SCH (07:49)
[2017-06-12] MEDS: LOSARTAN POTASSIUM 50 MG TAB PO SCH (07:49)
[2017-06-12] MEDS: FLUTICASONE PROPIONATE NA SPR 16 GM BTL NAE SCH (07:49)
[2017-06-12] MEDS: INSULIN ASPART 100 UNITS/ML 3 ML PEN SC SCH ×4 (07:53→20:38)
[2017-06-12] MEDS: HEPARIN SOD 5000 UNIT/0.5 ML CARP SQ SCH ×2 (07:54→20:38)
[2017-06-12] MEDS ORDERED: LEVOFLOXACIN / D5W 750 MG in PREMIXED IN D5W 150 ML IV SCH (09:00)
[2017-06-12] MEDS ORDERED: INSULIN HUMAN NPH SC SCH (09:00)
--- NOTE | 2017-06-12 11:03 | Pharmacy Progress Note ---
Pharmacy Glycemic Short Note 2 Date of Service Jun 12, 2017. OUTPATIENT ANTIDIABETIC REGIMEN: * metformin 1,000mg PO BIDM ASSESSMENT: * 87yo T2DM male known to pharmacy from previous admissions/glycemic consults * Pt with adequate degree of outpatient control per A1c of 8.4% today. * Pt with severe hyperglycemia secondary to infection and prednisone, now resolving with the addition of SQ basal bolus insulin regimen while outpatient oral agents on hold * Pt is ordered NPH 0.2units/kg to cover Prednisone 20mg daily * BSGs adequate in the AM while fasting but then rise throughout the day indicating that a dose increase of NPH is needed. * BSGs 06/11: 124, 133, 188, 252, 231. Patient received 45 units of insulin ( 18 units NPH + 27 units NovoLog) * BSGs 06/12: 159 PLAN FOR INPATIENT GLYCEMIC CONTROL: * Hold outpatient oral diabetes medications * Basal insulin: increase dose * NPH 23 units (0.3 units/kg) SQ daily * Bolus insulin : no change * NovoLog per scale ACHS or Q6hrs while NPO * Goal Range: Low 140 mg/dL - High 180 mg/dL * Correction Factor: 25 mg/dL/unit * Nutritional / Prandial insulin per carb ratio of 1 unit per 9 grams CHO consumed
[2017-06-12] MEDS: OSELTAMIVIR PHOSPHATE SUSP 30 MG/5 ML UDP PO SCH (11:37)
--- NOTE | 2017-06-12 19:27 | Progress Note ---
Internal Med Progress Note Date of Service: Jun 12, 2017. Provider Documentation: SUBJECTIVE: has minimum dry cough denies of any SOB , no fever or chills no hypoxia noted able to ambulate OBJECTIVE: Vital Signs-as noted below Exam: General-elderly male , pleasant , no sign of distress Eyes-sclera non icteric , PERRLA/EOMI ENT-moist oral mucosa Neck-no thyromegaly , trachea midline Lungs-diminished, no audible wheeze Heart-regular S1/S2 Abdomen-soft ,non tender . bowel sound active Extremities-no lower ext edema , no calf tenderness Neuro-AAO x3, no focal neurological deficit Lab data as noted below. ASSESSMENT & PLAN: SEPSIS DUE TO PNEUMONIA , INFLUENZA presented with cough with productive sputum fever 37.8 /Tachycardia /Tachypnea leukocytosis 24K .Lactic acid 3.12 Hyperglycemia BSG 371 lactic acid level normalized with IV hydration pt is treated empirically with IV Levaquin blood cultures no growth remains afebrile Cxray : Improving parenchymal infiltrate left base. Slight bilateral interstitial prominence. INFLUENZA A 06/07/16 flu + at [place] [facility] started on Tamiflu. droplet isolation completed 5 days course of Tamiflu SOB/COPD EXACERBATION respiratory symptom much improved minimum cough no fever Levaquin changed to PO , on PO prednisone taper TYPE 2 DM : Bsg was elevated due to steroid -hold metformin -NovoLog sliding scale per protocol -appreciate glycemic pharmacy consult for blood sugar control HYPONATREMIA corrected CKD III renal function to approx baseline HTN Stable -continue amlodipine -continue losartan DVT PROPHYLAXIS -heparin SQ DNR /DNI DISPOSITION expected to return home tomorrow -Follows with Dr Ko at [place] Vital Signs: Date Time Temp Pulse Resp B/P (MAP) Pulse Ox O2 Delivery O2 Flow Rate FiO2 06/13/17 09:14 Room Air 06/13/17 07:36 36.5 80 18 154/66 (95) 99 Room Air 06/13/17 07:09 78 16 93 Room Air 06/13/17 00:00 Room Air 06/12/17 22:58 36.7 94 18 125/75 (92) 92 Room Air 06/12/17 20:00 Room Air 06/12/17 19:15 77 16 95 Room Air 06/12/17 18:44 36.8 78 18 90 06/12/17 16:25 Room Air 06/12/17 15:30 36.8 78 18 153/73 (99) 90 Room Air 06/12/17 14:15 85 16 94 Room Air 06/12/17 12:00 Room Air 06/12/17 12:00 36.9 87 20 137/69 (91) 92 Room Air Lab Results: Results Past 24 Hours Test 06/12/17 11:18 06/12/17 16:15 06/12/17 20:36 06/13/17 07:41 Range/Units Bedside Glucose 153 286 99 142 70-99 mg/dl Test 06/13/17 10:14 Range/Units
[2017-06-12] MEDS ORDERED: LVQ750 PO (19:29)
--- NOTE | 2017-06-12 19:33 | Discharge Instructions ---
Discharge Instructions Date of Service Jun 12, 2017. Admission Reason for Admission: Copd Exacerbation, Influenza, Pneumonia Discharge Discharge Diagnosis / Problem: SEPSIS /LEFT LOWER LOBE PNEUMONIA /INFLUENZA A / COPD EXACERBATION Discharge Goals Goal(s): Decrease discomfort, Improve function, Increase independence, Improve disease control, Diagnostic testing, Therapeutic intervention Activity Recommendations Activity Limitations: resume your previous activity . Instructions / Follow-Up Instructions / Follow-Up HOSPITAL FOLLOW UP WITH DR TK CHÁVEZ IN A WEEK PLEASE CALL OFFICE FOR APPOINTMENT Current Hospital Diet Patient's current hospital diet: Diabetes Type 2 Diet Discharge Diet Recommended Diet: Diabetes Type 2 Diet Pending Studies Studies pending at discharge: no Laboratory Results Hemoglobin A1c Test 06/11/17 06:13 Range/Units Estimated Average Glucose 194 mg/dl Hemoglobin A1c 8.4 H 4.5-5.6 % Medical Emergencies . Who to Call and When: Medical Emergencies: If at any time you feel your situation is an emergency, please call 911 immediately. . Non-Emergent Contact Non-Emergency issues call your: Primary Care Provider . . "Provider Documentation" section prepared by Amalia Haynes. . VTE Core Measure Inpt VTE Proph given/why not?: Unfractionated heparin SQ
[2017-06-13] MEDS: LEVALBUTEROL 1.25MG/0.5ML NEB INH SCH (03:00)
[2017-06-13] MEDS: IPRATROPIUM BROMIDE NEB SOLN 0.02% 2.5 ML VIAL INH SCH (03:00)
[2017-06-13 07:09] VITALS: PULSE 78; O2SAT 93
[2017-06-13 07:36] VITALS: BP 154/66; PULSE 80; TEMP 36.5; O2SAT 99
[2017-06-13] MEDS: LOSARTAN POTASSIUM 50 MG TAB PO SCH (07:59)
[2017-06-13] MEDS: CYANOCOBALAMIN 500 MCG TAB (VIT B-12) PO SCH (07:59)
[2017-06-13] MEDS: AMLODIPINE BESYLATE 5 MG TAB PO SCH (07:59)
[2017-06-13] MEDS: INSULIN ASPART 100 UNITS/ML 3 ML PEN SC SCH ×2 (08:08→11:00)
[2017-06-13] MEDS: HEPARIN SOD 5000 UNIT/0.5 ML CARP SQ SCH (08:08)
[2017-06-13] MEDS ORDERED: INSULIN HUMAN NPH SC SCH (09:00)
[2017-06-13] MEDS: FLUTICASONE PROPIONATE NA SPR 16 GM BTL NAE SCH (09:00)
--- NOTE | 2017-06-13 09:20 | Pharmacy Progress Note ---
Pharmacy Glycemic Short Note 2 Date of Service Jun 13, 2017. OUTPATIENT ANTIDIABETIC REGIMEN: * metformin 1,000mg PO BIDM ASSESSMENT: * 87yo T2DM male known to pharmacy from previous admissions/glycemic consults * Pt with adequate degree of outpatient control per A1c of 8.4% . This is in goal range for patient based on age/comorbidities. * Pt with severe hyperglycemia secondary to infection and prednisone, now resolving with the addition of SQ basal bolus insulin regimen while outpatient oral agents on hold * Pt is ordered NPH 0.25units/kg (23 units) to cover hyperglycemia from Prednisone 20mg daily * BSGs 06/11: 124, 133, 188, 252, 231. Patient received 45 units of insulin ( 18 units NPH + 27 units NovoLog) * BSGs 06/12: 159, 153, 286, 99 * Prednisone discontinued. Will empirically reduce SQ insulin dosing for step down in steroid dosing. Will continue conservative SQ basal bolus insulin regimen while metformin on hold. PLAN FOR INPATIENT GLYCEMIC CONTROL: * Hold outpatient oral diabetes medications * Basal insulin: decrease dose * NPH 20 units (0.2 units/kg) SQ daily * Bolus insulin : no change * NovoLog per scale ACHS or Q6hrs while NPO * Goal Range: Low 140 mg/dL - High 180 mg/dL * Correction Factor: 25 mg/dL/unit * Nutritional / Prandial insulin per carb ratio of 1 unit per 9 grams CHO consumed Looking ahead to discharge: * Degree of outpatient control is adequate with metformin. No changes needed to outpatient regimen. A1c may even be slightly elevated secondary to recent prednisone use causing hyperglycemia.
--- NOTE | 2017-06-13 09:54 | Clinical Documentation Query ---
CLINICAL DOCUMENTATION QUERY Dr. HUGHES, In your clinical opinion is this patient being managed for: (x ) possible Sepsis, POA ( ) Not Agree ( ) Other explanation of clinical findings (Please Explain) ( ) Unable to determine (Please Define) ( ) Need to Discuss The medical record reflects the following clinical findings, treatment, and risk factors. Clinical Indicators: 87 yo male presenting with persistent dyspnea and cough productive for yellow sputum. VS 37.8-105-20, 151/84, 93% on Room Air. WBC 24.03, lactic acid 3.12, glucose 371 Treatment: blood cultures, IV levaquin, 1L NSS bolus, prednisone, tamiflu, nebs, O2 support, IV fluids, serial CBC/PRP Risk Factors:outpatient treatment with unresolved/worsening symptoms, COPD, DM, CKD stage III Please clarify and document your clinical opinion in the progress notes and discharge summary. Terms such as "probable", "suspected", "likely", "questionable", "possible", or "still to be ruled out" are acceptable. IF IN AGREEMENT, YOU MUST DOCUMENT ABOVE DIAGNOSTIC STATEMENT IN DAILY PROGRESS NOTES AND DISCHARGE SUMMARY. This document is not part of the patient's record. Thank You, Kaykay Toscano, KARSON [phone]
[2017-06-13] MEDS ORDERED: BENZONATATE 100MG CAP PO PRN (10:30)
[2017-06-13 10:54] LABS: HEMATOCRIT 32.9 % (42-52); HEMOGLOBIN 10.9 g/dL (14.0-18.0); MEAN CELL VOLUME 92.4 fL (80-100); MEAN CORPUSCULAR HEMOGLOBIN 30.6 pg (25-34); MEAN CORPUSCULAR HGB CONC 33.1 g/dl (32-36); MEAN PLATELET VOLUME 9.6 fL (7.4-10.4); PLATELET COUNT 237 K/uL (130-400); RED CELL DISTRIBUTION WIDTH CV 13.8 % (11.5-14.5); WHITE BLOOD COUNT 14.77 K/uL (4.8-10.8)
--- NOTE | 2017-06-13 12:19 | Progress Note ---
Subjective Date of Service: Jun 13, 2017. Subjective Pt evaluation today including: conversation w/ patient, physical exam, lab review, review of studies, review of inpatient medication list Saw/examined the patient in room 257 He's doing well today c/o cough, but no shortness of breath, no fevers/chills, no chest pain/ palpitations Eager to get home. Problem List Medical Problems: (1) Balanitis Status: Acute (2) Bronchitis Status: Acute (3) Elevated white blood cell count Status: Acute (4) Fever Status: Acute (5) Hyperglycemia Status: Acute (6) LLL pneumonia Status: Acute (7) On prednisone therapy Status: Acute (8) Recurrent urticaria Status: Acute (9) Renal insufficiency Status: Acute Review of Systems Constitutional: No fever, No chills, No weakness Respiratory: + cough, + sputum, No wheezing, No shortness of breath, No dyspnea on exertion, No dyspnea at rest, No hemoptysis Cardiac: No chest pain, No edema, No palpitations Medications Current Inpatient Medications Medications (Trade) Dose Ordered Sig/Clara Route Start Time Stop Time Status Last Admin Dose Admin Heparin Sodium (Porcine) (Heparin Sq 5000 Unit/0.5ml) 5,000 unit Q12 SQ 06/10/17 21:00 07/10/17 20:59 06/13/17 08:08 5,000 UNIT Acetaminophen (Tylenol Tab) 650 mg Q4H PRN PO 06/10/17 13:30 07/10/17 13:29 Magnesium Hydroxide (Milk Of Magnesia Susp) 30 ml Q12H PRN PO 06/10/17 13:30 07/10/17 13:29 Ondansetron HCl (Zofran Inj) 4 mg Q6H PRN IV 06/10/17 13:30 07/10/17 13:29 Nitroglycerin (Nitrostat Tab) 0.4 mg UD PRN SL 06/10/17 13:30 07/10/17 13:29 Insulin Aspart (novoLOG ASPART) SLIDING SCALE If C... ACHS SC 06/10/17 16:00 07/10/17 15:59 06/13/17 08:08 8 UNITS Glucose (Glucose 40% Gel) 15-30 GRAMS 15 GRAMS... UD PRN PO 1/12/18 13:45 07/10/17 13:44 Glucose (Glucose Chew Tab) 4-8 Tablets 4 Tabl... UD PRN PO 06/10/17 13:45 07/10/17 13:44 Dextrose (Dextrose 50% 50ML Syringe) 25-50ML OF 50% DW IV FOR... UD PRN IV 06/10/17 13:45 07/10/17 13:44 Glucagon (Glucagon Inj) 1 mg UD PRN SQ 06/10/17 13:45 07/10/17 13:44 Miscellaneous Information (Consult Glycemic Management Pharmacy) 1 ea UD PRN N/A 06/10/17 13:57 07/10/17 13:56 Amlodipine Besylate (Norvasc Tab) 5 mg QAM PO 06/11/17 09:00 07/11/17 08:59 06/13/17 07:59 5 MG Cyanocobalamin (Vitamin B-12 Tab) 500 mcg QAM PO 06/11/17 09:00 07/11/17 08:59 06/13/17 07:59 500 MCG Fluticasone Propionate (Flonase Nasal [place]) 2 sprays DAILY AUNG 06/11/17 09:00 07/11/17 08:59 06/13/17 09:00 2 SPRAYS Losartan Potassium (coZAAR TAB) 50 mg QAM PO 06/11/17 09:00 07/11/17 08:59 06/13/17 07:59 50 MG Ipratropium [place] (Atrovent 0.02% 0.5MG/2.5ML Neb) 0.5 mg Q6R INH 06/10/17 21:00 07/10/17 20:59 06/12/17 19:13 0.5 MG Levalbuterol (Xopenex 1.25MG/ 0.5ML Neb) 1.25 mg Q6R INH 06/10/17 21:00 07/10/17 20:59 06/12/17 19:13 1.25 MG Levalbuterol (Xopenex 1.25MG/ 0.5ML Neb) 1.25 mg Q6R PRN INH 06/10/17 15:45 07/10/17 15:44 Ipratropium [place] (Atrovent 0.02% 0.5MG/2.5ML Neb) 0.5 mg Q6R PRN INH 06/10/17 15:45 07/10/17 15:44 Levofloxacin (Levaquin Tab) 750 mg Q2D@11 PO 06/14/17 11:00 06/16/17 23:59 Insulin Human NPH (novoLIN-N NPH) 20 units QAM SC 06/13/17 09:00 07/13/17 08:59 06/13/17 08:08 20 UNITS Benzonatate (Tessalon Perles Cap) 100 mg TID PRN PO 06/13/17 10:30 07/13/17 10:29 Objective Vital Signs Date Time Temp Pulse Resp B/P (MAP) Pulse Ox O2 Delivery O2 Flow Rate FiO2 06/13/17 09:14 Room Air 06/13/17 07:36 36.5 80 18 154/66 (95) 99 Room Air 06/13/17 07:09 78 16 93 Room Air 06/13/17 00:00 Room Air 06/12/17 22:58 36.7 94 18 125/75 (92) 92 Room Air 06/12/17 20:00 Room Air 06/12/17 19:15 77 16 95 Room Air 06/12/17 18:44 36.8 78 18 90 06/12/17 16:25 Room Air 06/12/17 15:30 36.8 78 18 153/73 (99) 90 Room Air 06/12/17 14:15 85 16 94 Room Air Physical Exam General Appearance: no apparent distress Respiratory/Chest: chest non-tender, lungs clear, normal breath sounds, no respiratory distress, no accessory muscle use Cardiovascular: regular rate, rhythm, no edema, no murmur Extremities: normal inspection, no pedal edema Laboratory Results Last 24 Hours Test 06/12/17 16:15 06/12/17 20:36 06/13/17 07:41 06/13/17 10:33 Bedside Glucose 286 mg/dl 99 mg/dl 142 mg/dl White Blood Count 14.77 K/uL Red Blood Count 3.56 M/uL Hemoglobin 10.9 g/dL Hematocrit 32.9 % Mean Corpuscular Volume 92.4 fL Mean Corpuscular Hemoglobin 30.6 pg Mean Corpuscular Hemoglobin Concent 33.1 g/dl RDW Standard Deviation 47.0 fL RDW Coefficient of Variation 13.8 % Platelet Count 237 K/uL Mean Platelet Volume 9.6 fL Test 06/13/17 11:03 Bedside Glucose 118 mg/dl Assessment and Plan This is an 87 year old male with a recent diagnosis of influenza +, HTN, DM2, COPD, CKD stage 3 presents with shortness of breath and found to have pneumonia Community Acquired Pneumonia on admission, CXR suggested bibasilar opacities L > R was started on Levaquin - WBC improved from 24k to 14k repeat CXR suggested improving infiltrate afebrile and hemodynamically stable will d/c on Levaquin to total 10 days (5 more days) Acute COPD Exacerbation - resolved patient with wheezing on admission likely secondary to influenza and pneumonia now off of the prednisone should be on a maintenance inhaler as an outpatient (Spiriva vs. combined LABA/ ICS) follow-up with outpatient doctor regarding this Influenza A completed Tamiflu course recommended to stay well hydrated DM2 uncontrolled due to steroid use initially will continue metformin 1000mg BID f/u with PCP for Ha1c recheck in 3 months CKD stage 3 creatinine at baseline HTN BP stable, continue home medications DVT ppx subq heparin DNR/DNI
[2017-06-13] MEDS ORDERED: BENZ100C7 PO (12:20)
--- NOTE | 2017-06-13 12:26 | Discharge Instructions ---
Discharge Instructions Date of Service Jun 13, 2017. Admission Reason for Admission: Copd Exacerbation, Influenza, Pneumonia Discharge Discharge Diagnosis / Problem: Acute COPD Exacerbation, Pneumonia, Influenza Discharge Goals Goal(s): Decrease discomfort, Improve function, Diagnostic testing, Therapeutic intervention Activity Recommendations Activity Limitations: resume your previous activity . Instructions / Follow-Up Instructions / Follow-Up Please follow-up with Dr. Ko (primary care physician) on 06/14 at 9AM * You will be discharged on one more day of Levaquin - take this on 06/14 * Primary care physician should discuss starting you on an inhaler like Advair, Dulera, or Spiriva * You can take tessalon perles (cough medication) up to three times daily; do not take this for longer than 5 days without discussing it with primary care doctor * Your Ha1c is 8.4% which means your diabetes is not well controlled; please follow-up with your primary care to recheck this in around 3 months Current Hospital Diet Patient's current hospital diet: Diabetes Type 2 Diet Discharge Diet Recommended Diet: Diabetes Type 2 Diet Pending Studies Studies pending at discharge: no Laboratory Results Hemoglobin A1c Test 06/11/17 06:13 Range/Units Estimated Average Glucose 194 mg/dl Hemoglobin A1c 8.4 H 4.5-5.6 % Medical Emergencies . Who to Call and When: Medical Emergencies: If at any time you feel your situation is an emergency, please call 911 immediately. . Non-Emergent Contact Non-Emergency issues call your: Primary Care Provider . . "Provider Documentation" section prepared by [place]. . VTE Core Measure Inpt VTE Proph given/why not?: Unfractionated heparin SQ
--- NOTE | 2017-06-13 12:29 | Discharge Summary ---
Discharge Summary Date of Service Jun 13, 2017. Discharge Summary Admission Date: Jun 10, 2017 at 12:52 Discharge Date: Jun 13, 2017 Discharge Disposition: Home Principal Diagnosis: Community Acquired Pneumonia Acute COPD Exacerbation Influenza A Uncontrolled DM2 Medication Reconciliation New Medications: Benzonatate (Benzonatate) 100 Mg Cap 100 MG PO TID PRN for cough for 5 Days, #15 CAP Levofloxacin (Levofloxacin) 750 Mg Tab 750 MG PO Q2D, #1 TAB take it on tuesday06/14/16 Continued Medications: Albuterol Hfa (Ventolin Hfa) 200 Puffs/20494 Mcg Aers 2 PUFFS INH Q6H PRN for SOB/Wheezing, #1 INHALER Amlodipine (Norvasc) 5 Mg Tab 5 MG PO QAM Azithromycin (Zithromax Z-Aamir) 250 Mg Tab 1 PKT PO UD for 5 Days, #6 TAB COPD RESCUE KIT Cyanocobalamin (Vitamin B-12) 500 Mcg Tab 500 MCG PO QAM Fluticasone Propionate (Nasal) (Flonase Allergy Relief) 50 Mcg/Act Spr 2 SPRAYS AUNG DAILY Losartan Potassium (Losartan Potassium) 50 Mg Tab 50 MG PO QAM Metformin HCl (Metformin HCl ER) 1,000 Mg Tab 1 TAB PO BID Prednisone Tab (Prednisone) 10 Mg Tab 10 MG PO UD, TAB COPD RESCUE KIT Admission Information HPI (per Admitting provider): Pt is 87 y/o M with PMH HTN, DM II, prostate CA, COPD, CKD III, AAA presented to ER with c/o SOB. Pt states greater than one week ago started with cough and slight SOB. He has rescue pack of prednisone 10mg tab taper (6 tabs po daily x 6 d, 5 po x 4 d, 4 po x 4 d and tapered down) and zithromax. He finished course of zithromax. States SOB and cough increased and cough productive yellow sputum. Also with rhinorrhea and scratchy throat. He saw PCP at [facility] on 06/07 and had positive influenza swab and was started on tamiflu. Pt states still with SOB worse with exertion and cough and past several days feeling chills and sweats. He reports today started 2 tabs prednisone taper. Pt states increased BS since being on prednisone, fasting BS has been 150's. He reports was taken off his Advair but has albuterol inhaler to use and has been using that with some relief of SOB. States intermittent loose stools, none today or yesterday. Denies N/V, hematochezia, melena, hemoptysis, VILLALOBOS, dizziness, syncope, vision changes, neck pain, CP, orthopnea, palpitations, choking, otalgia,abdominal pain , paresthesias, extremity weakness, extremity edema, rashes, urinary symptoms. In ER temp: 37.8, P: 105-94, R: 20, BP: 131/71, 90-93% on RA, 95% on 2L O2. WBC : 24. lactic acid: 3. negative troponin. corrected Na: 135, Gluc:371. normal beta-hydroxybutyric acid. Cr: 1.3 (baseline 1.2). CXR: bibasilar opacities greater on left. pending blood cultures. EKG: NSR, RBBB. Given 1L NSS, Levaquin 750mg IV, Duoneb. Pt reports feeling much better after duoneb tx. Physical Exam (per Admitting): General Appearance: WD/WN, no apparent distress Head: normocephalic, atraumatic Eyes: normal inspection, PERRL, EOMI, sclerae normal ENT: hearing grossly normal (with hearing aids), pharynx normal, + pertinent finding (mildly dry) Neck: supple, no JVD, trachea midline Respiratory/Chest: chest non-tender, no respiratory distress, no accessory muscle use, + pertinent finding (diminished throughout, faint wheeze) Cardiovascular: regular rate, rhythm (rate 96), no edema Abdomen/GI: normal bowel sounds, non tender, soft Extremities/Musculoskelatal: normal inspection, no calf tenderness, normal capillary refill, no pedal edema, non-tender Neurologic/Psych: alert, normal mood/affect, oriented x 3 Skin: normal color, warm/dry Hospital Course This is an 87 year old male with a recent diagnosis of influenza +, HTN, DM2, COPD, CKD stage 3 presents with shortness of breath and found to have pneumonia Community Acquired Pneumonia on admission, CXR suggested bibasilar opacities L > R was started on Levaquin - WBC improved from 24k to 14k repeat CXR suggested improving infiltrate afebrile and hemodynamically stable will d/c on Levaquin to total 10 days (5 more days) Acute COPD Exacerbation - resolved patient with wheezing on admission likely secondary to influenza and pneumonia now off of the prednisone should be on a maintenance inhaler as an outpatient (Spiriva vs. combined LABA/ ICS) follow-up with outpatient doctor regarding this Influenza A completed Tamiflu course recommended to stay well hydrated DM2 uncontrolled due to steroid use initially will continue metformin 1000mg BID f/u with PCP for Ha1c recheck in 3 months CKD stage 3 creatinine at baseline HTN BP stable, continue home medications DVT ppx subq heparin DNR/DNI Total time spent on discharge = 35 minutes This includes examination of the patient, discharge planning, medication reconciliation, and communication with other providers. Discharge Instructions Please follow-up with Dr. Ko (primary care physician) on 06/14 at 9AM * You will be discharged on one more day of Levaquin - take this on 06/14 * Primary care physician should discuss starting you on an inhaler like Advair, Dulera, or Spiriva * You can take tessalon perles (cough medication) up to three times daily; do not take this for longer than 5 days without discussing it with primary care doctor * Your Ha1c is 8.4% which means your diabetes is not well controlled; please follow-up with your primary care to recheck this in around 3 months
[2017-06-13 13:00] VITALS: Ht 175.3 cm; Wt 85.2 kg
[2017-06-13 13:13] VITALS: BP 154/66; PULSE 80; TEMP 36.5; O2SAT 99
[2017-06-14] MEDS ORDERED: LEVOFLOXACIN 750 MG TAB PO SCH (11:00)
== END 2017-06-13 13:31 | disposition home or self-care (01) | DRG 871 ==
LOC: C.EDB 10:02 → C.2E 12:52 → ENRESERV 13:15 → C.MS2W 06-12 20:19
PROVIDERS: ADMIT Family Medicine; ATTEND Family Medicine
DX: A41.9 Sepsis, unspecified organism (principal); J11.00 Influenza due to unidentified influenza virus with unspecified type of pneumonia; E87.1 Hypo-osmolality and hyponatremia; J44.1 Chronic obstructive pulmonary disease with (acute) exacerbation; N18.3 Chronic kidney disease, stage 3 (moderate); E11.9 Type 2 diabetes mellitus without complications; I12.9 Hypertensive chronic kidney disease with stage 1 through stage 4 chronic kidney disease, or unspecified chronic kidney disease; E78.5 Hyperlipidemia, unspecified; Z66 Do not resuscitate; Z83.6 Family history of other diseases of the respiratory system; Z87.01 Personal history of pneumonia (recurrent); Z85.46 Personal history of malignant neoplasm of prostate; Z87.891 Personal history of nicotine dependence; Z83.3 Family history of diabetes mellitus; Z82.49 Family history of ischemic heart disease and other diseases of the circulatory system

== ENCOUNTER 2017-06-18 16:20 | Inpatient (IN) | payer OTHER ==
[~2017-06-18] VITALS: Ht 175.3 cm; Wt 90.0 kg
[~2017-06-18 16:20] MED LIST changes: -ADVIN25/60 INH; -ALBU1AER9 INH; +BENZ100C7 PO; -CLR10 PO; -FERR325T51 PO; +FLUT0.15 NAE; +LVQ750 PO; +METF-841 PO; -METF500T5 PO; -NVLRPUC SQ; +VNTHFA/IN INH; -ZNTT/150 PO
[2017-06-18] MEDS ORDERED: ALBUTEROL 0.083% NEBU SOLN 3 ML VIAL INH STA (16:33)
[2017-06-18] MEDS ORDERED: SODIUM CHLORIDE 0.9% 500ML 500 ML IV STA (16:33)
--- NOTE | 2017-06-18 16:48 | DIAGNOSTIC IMAGING REPORT ---
SINGLE VIEW CHEST CLINICAL HISTORY: Atypical chest pain. FINDINGS: An AP, portable, upright chest radiograph is compared to study dated 06/11/2017. The heart is mildly enlarged and there is atherosclerotic calcification of the thoracic aorta. The pulmonary vasculature is noncongested. Patchy airspace opacities are present at both lung bases. No large pleural effusion or pneumothorax is seen. The skeletal structures are osteopenic. The bony thorax is grossly intact. IMPRESSION: 1. Cardiac enlargement without radiographic evidence of congestive failure. 2. Patchy airspace opacities are present at both lung bases. This could represent atelectasis versus an infectious/inflammatory pneumonitis. Clinical correlation will be required. Electronically signed by: Terrance Fang M.D. 06/18/2017 4:46 PM Dictated Date/Time: 06/18/2017 4:45 PM
[2017-06-18] MEDS ORDERED: HYDROCODONE/HOMATROPINE SYRUP 5MG/1.5MG 5ML UDP PO STA ×2 (17:05→18:32)
[2017-06-18 17:58] LABS: BASO % 0.2 %; BASO ABS # 0.02 K/uL (0-0.2); EOS % 2.1 %; EOS ABS # 0.25 K/uL (0-0.5); HEMATOCRIT 29.6 % (42-52); HEMOGLOBIN 9.7 g/dL (14.0-18.0); IG# 0.04 K/uL (0.00-0.02); LYMPH % 15.3 %; LYMPH ABS # 1.86 K/uL (1.2-3.4); MEAN CELL VOLUME 91.4 fL (80-100); MEAN CORPUSCULAR HEMOGLOBIN 29.9 pg (25-34); MEAN CORPUSCULAR HGB CONC 32.8 g/dl (32-36); MEAN PLATELET VOLUME 9.2 fL (7.4-10.4); MONO ABS # 1.82 K/uL (0.11-0.59); NEUT % 67.1 %; NEUT ABS # 8.17 K/uL (1.4-6.5); PLATELET COUNT 270 K/uL (130-400); RED CELL DISTRIBUTION WIDTH CV 13.8 % (11.5-14.5); RED CELL DISTRIBUTION WIDTH SD 46.2 fL (36.4-46.3); WHITE BLOOD COUNT 12.16 K/uL (4.8-10.8)
[2017-06-18 18:02] LABS: INFLUENZA B ANTIGEN Neg for Influ B (NEG)
[2017-06-18] MEDS ORDERED: METHYLPREDNISOLONE 125 MG VIAL IV STA (18:06)
[2017-06-18 18:16] LABS: BLOOD UREA NITROGEN 20 mg/dl (7-18); CALCIUM 8.9 mg/dl (8.5-10.1); CARBON DIOXIDE 26 mmol/L (21-32); CREATININE 1.39 mg/dl (0.60-1.40); GLUCOSE 138 mg/dl (70-99); SODIUM 132 mmol/L (136-145)
[2017-06-18] MEDS ORDERED: LEVALBUTEROL 0.63MG/3 ML NEB INH STA (18:32)
[2017-06-18] MEDS ORDERED: GLUCOSE 40% GEL 15 GM TUBE PO PRN (18:45)
[2017-06-18] MEDS ORDERED: GLUCAGON FOR INJ 1 MG VIAL SQ PRN (18:45)
[2017-06-18] MEDS ORDERED: ACETAMINOPHEN 325 MG TAB PO PRN (18:45)
[2017-06-18] MEDS ORDERED: DEXTROSE 50% 50 ML SYR IV PRN ×2 (18:45)
[2017-06-18] MEDS ORDERED: GLUCOSE 10 TABS/TUBE PO PRN (18:45)
--- NOTE | 2017-06-18 19:15 | History and Physical ---
History & Physical Date & Time of Service: Jun 18, 2017 at 18:59 Chief Complaint: Cough 20/12, Run Down, No Sleep Primary Care Physician: Mukesh Ko D.O. History of Present Illness Source: patient, family, clinic records, hospital records This is an 87 year old male with a PMH of CKD stage 3, HTN, HLD, DM2, AAA - presents with worsening cough. He was admitted at [facility] - discharged on 06/13. He was diagnosed with Influenza at that time and completed his course of Tamiflu. He was also diagnosed with CAP and COPD exacerbation at that time. He completed his course of antibiotics and received his steroid course as well. He got home and stated that the cough was bad - he took Tessalon, but no help. He took OTC cough medication with no help. As per , she developed bronchitis earlier in the week and is wondering if he could have gotten it from her. She states that he does not sleep at night due to this cough and now has lack of appetite. Denies fevers/chills, denies chest pain. Past Medical/Surgical History Medical Problems: (1) Abdominal aortic aneurysm Status: Chronic (2) Allergic reaction Status: Resolved (3) Anemia Permanent Comment: Fe deficiency CKD Status: Chronic (4) Chronic kidney disease stage 3 Status: Chronic (5) Chronic obstructive lung disease Status: Chronic (6) Diabetes mellitus Status: Chronic (7) Hyperlipidemia Status: Chronic (8) Hypertension Status: Chronic (9) Osteoarthritis of knee Status: Chronic (10) Prostate Cancer Status: Chronic (11) Small bowel obstruction Status: Resolved Surgical Problems: (1) H/O colonoscopy with polypectomy Permanent Comment: 5 polyps, 2010 Status: Resolved (2) History of back surgery Status: Chronic (3) Hx of cataract surgery Status: Chronic Family History Diabetes mellitus FH: cancer FH: heart disease FH: lung disease Hypertension Social History Smoking Status: Former Smoker Drug Use: none Marital Status: Housing status: lives with family Occupational Status: retired Immunizations History of Influenza Vaccine: Yes Influenza Vaccine Date: Feb 21, 2013 History of Tetanus Vaccine?: Unknown Tetanus Immunization Date: Dec 24, 2011 History of Pneumococcal: 2010 Pneumococcal Date: Dec 08, 2010 History of Hepatitis B Vaccine: No Multi-Drug Resistant Organisms History of MDRO: No Allergies Coded Allergies: No Known Allergies (Unverified , 06/10/17) Home Medications Scheduled Amlodipine (Norvasc), 5 MG PO QAM Cyanocobalamin (Vitamin B-12), 500 MCG PO QAM Fluticasone Propionate (Nasal) (Flonase Allergy Relief), 2 SPRAYS AUNG DAILY Losartan Potassium (Losartan Potassium), 50 MG PO QAM Metformin HCl (Metformin HCl ER), 1 TAB PO BID Scheduled PRN Albuterol Hfa (Ventolin Hfa), 2 PUFFS INH Q6H PRN for SOB/Wheezing Review of Systems Constitutional: + weakness, + fatigue, No fever, No chills Respiratory: + cough, + sputum, + wheezing, + shortness of breath, No dyspnea on exertion, No dyspnea at rest, No hemoptysis Cardiovascular: No chest pain, No edema, No palpitations Abdomen: No pain, No nausea, No vomiting, No diarrhea Musculoskeletal: No joint pain, No muscle pain Neurologic: + weakness, No numbness/tingling, No vertigo Psychiatric: No depression symptoms, No anxiety, No insomnia Endocrine: No fatigue Hematologic / Lymphatic: No abnormal bleeding/bruising Integumentary: No rash Allergic / Immunologic: No environmental allergies, No seasonal allergies Physical Exam Vital Signs Date Time Temp Pulse Resp B/P (MAP) Pulse Ox O2 Delivery O2 Flow Rate FiO2 06/18/17 18:09 92 06/18/17 18:01 96 Nasal Cannula 3.0 06/18/17 17:55 97 20 169/76 89 Room Air 06/18/17 17:45 88 Room Air 06/18/17 17:31 94 Room Air 06/18/17 16:35 93 Room Air 06/18/17 16:22 37.5 98 20 112/73 94 Room Air General Appearance: WD/WN, no apparent distress, + pertinent finding (O2 via nasal cannula) Head: normocephalic, atraumatic Respiratory/Chest: lungs clear, normal breath sounds, no respiratory distress, no accessory muscle use Cardiovascular: no edema, no murmur, + tachycardia Abdomen/GI: normal bowel sounds, non tender, soft Extremities/Musculoskelatal: normal inspection, no calf tenderness, normal capillary refill, no pedal edema, normal range of motion 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, no motor/sensory deficits, alert, normal mood/affect, oriented x 3 Skin: normal color, warm/dry, no rash Lymphatic: no adenopathy Diagnostics Laboratory Results Results Past 24 Hours Test 06/18/17 17:15 06/18/17 17:50 06/18/17 18:32 Range/Units Influenza Type A Antigen Neg for Influ A NEG Influenza Type B Antigen Neg for Influ B NEG White Blood Count 12.16 4.8-10.8 K/uL Red Blood Count 3.24 4.7-6.1 M/uL Hemoglobin 9.7 14.0-18.0 g/dL Hematocrit 29.6 42-52 % Mean Corpuscular Volume 91.4 80-100 fL Mean Corpuscular Hemoglobin 29.9 25-34 pg Mean Corpuscular Hemoglobin Concent 32.8 32-36 g/dl Platelet Count 270 130-400 K/uL Mean Platelet Volume 9.2 7.4-10.4 fL Neutrophils (%) (Auto) 67.1 % Lymphocytes (%) (Auto) 15.3 % Monocytes (%) (Auto) 15.0 % Eosinophils (%) (Auto) 2.1 % Basophils (%) (Auto) 0.2 % Neutrophils # (Auto) 8.17 1.4-6.5 K/uL Lymphocytes # (Auto) 1.86 1.2-3.4 K/uL Monocytes # (Auto) 1.82 0.11-0.59 K/uL Eosinophils # (Auto) 0.25 0-0.5 K/uL Basophils # (Auto) 0.02 0-0.2 K/uL RDW Standard Deviation 46.2 36.4-46.3 fL RDW Coefficient of Variation 13.8 11.5-14.5 % Immature Granulocyte % (Auto) 0.3 % Immature Granulocyte # (Auto) 0.04 0.00-0.02 K/uL Sodium Level 132 136-145 mmol/L Potassium Level 4.0 3.5-5.1 mmol/L Chloride Level 99 98-107 mmol/L Carbon Dioxide Level 26 21-32 mmol/L Anion Gap 7.0 3-11 mmol/L Blood Urea Nitrogen 20 7-18 mg/dl Creatinine 1.39 0.60-1.40 mg/dl Est Creatinine Clear Calc Drug Dose 42.3 ml/min Estimated GFR () 52.8 Estimated GFR (Non- 45.6 BUN/Creatinine Ratio 14.2 10-20 Random Glucose 138 70-99 mg/dl Calcium Level 8.9 8.5-10.1 mg/dl Troponin I < 0.015 0-0.045 ng/ml Diagnostic Radiology SINGLE VIEW CHEST CLINICAL HISTORY: Atypical chest pain. FINDINGS: An AP, portable, upright chest radiograph is compared to study dated 06/11/2017. The heart is mildly enlarged and there is atherosclerotic calcification of the thoracic aorta. The pulmonary vasculature is noncongested. Patchy airspace opacities are present at both lung bases. No large pleural effusion or pneumothorax is seen. The skeletal structures are osteopenic. The bony thorax is grossly intact. IMPRESSION: 1. Cardiac enlargement without radiographic evidence of congestive failure. 2. Patchy airspace opacities are present at both lung bases. This could represent atelectasis versus an infectious/inflammatory pneumonitis. Clinical correlation will be required. EKG NSR, RBBB No change from prior EKG Impression Assessment and Plan This is an 87 year old male with a PMH of CKD stage 3, HTN, HLD, DM2, AAA - presents with worsening cough Acute, Complicated Bronchitis in the setting of COPD and recent Infection at this point, this likely represents a post-infectious reactive airway disease is also sick with bronchitis I would like to start solu-medrol 40mg q12; he is not wheezing, but it may decrease bronchiole inflammation I will start Hycodan PRN for significant coughing fits nebulizers - Xopenex prior to discharge will write a script for Xopenox as he has a nebulizer machine at home elevated white count; unsure if due to recent prednisone use vs. infectious process will check lactic acid and procalcitonin recheck CXR in AM will give one dose of Azithromycin for now HTN continue current medications DM2 hold oral agents tight sliding scale DVT ppx subq heparin DNR VTE Prophylaxis VTE Risk Assessment Done? Y/N: Yes Risk Level: Moderate
[2017-06-18 19:27] VITALS: BMI 29.3
[2017-06-18 20:00] VITALS: BP 155/77; PULSE 93; TEMP 37.3; O2SAT 95
[2017-06-18 20:30] VITALS: O2SAT 96
[2017-06-18] MEDS ORDERED: AZITHROMYCIN IV 500 MG in DEXTROSE 5% 250ML 250 ML IV ONE (20:30)
[2017-06-18] MEDS: METHYLPREDNISOLONE IV 40 MG in SYRINGE 0 ML IV SCH (21:27)
[2017-06-18] MEDS: INSULIN ASPART 100 UNITS/ML 3 ML PEN SC SCH (21:29)
[2017-06-18] MEDS: LEVALBUTEROL 0.63MG/3 ML NEB INH SCH (21:35)
[2017-06-18 21:37] VITALS: PULSE 94; O2SAT 96
[2017-06-18 21:44] LABS: HEMATOCRIT 29.2 % (42-52); HEMOGLOBIN 9.4 g/dL (14.0-18.0); MEAN CELL VOLUME 91.5 fL (80-100); MEAN CORPUSCULAR HEMOGLOBIN 29.5 pg (25-34); MEAN CORPUSCULAR HGB CONC 32.2 g/dl (32-36); MEAN PLATELET VOLUME 9.4 fL (7.4-10.4); PLATELET COUNT 271 K/uL (130-400); RED CELL DISTRIBUTION WIDTH CV 13.6 % (11.5-14.5); RED CELL DISTRIBUTION WIDTH SD 45.4 fL (36.4-46.3); WHITE BLOOD COUNT 13.59 K/uL (4.8-10.8)
[2017-06-18 21:55] LABS: PTT PATIENT 33.3 SECONDS (21.0-31.0)
--- NOTE | 2017-06-18 23:54 | EMERGENCY ROOM VISIT NOTE ---
History Report prepared by Ericibsarah: Teja Anders Under the Supervision of: Dr. Jarrett Cox D.O. 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 The patient was recently hospitalized June 10, 2017 and discharged June 13, 2017 for influenza A and pneumonia. The patient has had OTC NyQuil, though no relief. He states that his cough is bothering him the most, though he also notes a sore throat, runny nose, and general weakness. He currently rates his discomfort a 6/10 in severity. Per family, the patient has not been sleeping or eating well. The patient notes back pain, though he states that he sleeps in a chair from time to time. The patient has a history of COPD. Pt denies headache, change in vision , ear pain, fevers, chest pain, shortness of breath, nausea, vomiting, diarrhea , pain with urination, and melena. 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 He denies any change in vision or ear pain. Review of Systems See HPI for pertinent positives & negatives. A total of 10 systems reviewed and were otherwise negative. Past Medical & Surgical Medical Problems: (1) Abdominal aortic aneurysm (2) Allergic reaction (3) Anemia (4) Chronic kidney disease stage 3 (5) Chronic obstructive lung disease (6) COPD exacerbation (7) Diabetes mellitus (8) Hyperlipidemia (9) Hypertension (10) Influenza (11) Osteoarthritis of knee (12) Pneumonia (13) Prostate Cancer (14) Reactive airway disease (15) Small bowel obstruction Surgical Problems: (1) H/O colonoscopy with polypectomy (2) History of back surgery (3) Hx of cataract surgery Family History Diabetes mellitus FH: cancer FH: heart disease FH: lung disease Hypertension Social History Smoking Status: Former Smoker Alcohol Use: none Drug Use: none Marital Status: Housing Status: lives with significant other Occupation Status: retired Current/Historical Medications Scheduled Amlodipine (Norvasc), 5 MG PO QAM Cyanocobalamin (Vitamin B-12), 500 MCG PO QAM Fluticasone Propionate (Nasal) (Flonase Allergy Relief), 2 SPRAYS AUNG DAILY Losartan Potassium (Losartan Potassium), 50 MG PO QAM Metformin HCl (Metformin HCl ER), 1 TAB PO BID Scheduled PRN Albuterol Hfa (Ventolin Hfa), 2 PUFFS INH Q6H PRN for SOB/Wheezing Allergies Coded Allergies: No Known Allergies (Unverified , 06/10/17) Physical Exam Vital Signs Date Time Temp Pulse Resp B/P (MAP) Pulse Ox O2 Delivery O2 Flow Rate FiO2 06/18/17 18:09 92 06/18/17 18:01 96 Nasal Cannula 3.0 06/18/17 17:55 97 20 169/76 89 Room Air 06/18/17 17:45 88 Room Air 06/18/17 17:31 94 Room Air 06/18/17 16:35 93 Room Air 06/18/17 16:22 37.5 98 20 112/73 94 Room Air Physical Exam GENERAL: Sitting up in bed, alert, well appearing, well nourished, no distress, non-toxic EYE EXAM: normal conjunctiva. OROPHARYNX: no exudate, no erythema, lips, buccal mucosa, and tongue normal and mucous membranes are moist NECK: supple, no nuchal rigidity, no adenopathy, non-tender. No JVD. LUNGS: Faint wheezing bilaterally. Normal chest wall mechanics HEART: no murmurs, S1 normal and S2 normal ABDOMEN: abdomen soft, non-tender, normo-active bowel sounds, no masses, no rebound or guarding. BACK: Back is symmetrical on inspection and there is no deformity, no midline tenderness, no CVA tenderness. SKIN: no rashes and no bruising UPPER EXTREMITIES: upper extremities are grossly normal. LOWER EXTREMITIES: No pitting edema. Calves are equal and bilateral. NEURO EXAM: Normal sensorium, cranial nerves II-XII grossly intact, normal speech, no gross weakness of arms, no gross weakness of legs. Medical Decision & Procedures ER Provider Diagnostic Interpretation: Radiology results as stated below per my review and the radiologist's interpretation: SINGLE VIEW CHEST CLINICAL HISTORY: Atypical chest pain. FINDINGS: An AP, portable, upright chest radiograph is compared to study dated 06/11/2017. The heart is mildly enlarged and there is atherosclerotic calcification of the thoracic aorta. The pulmonary vasculature is noncongested. Patchy airspace opacities are present at both lung bases. No large pleural effusion or pneumothorax is seen. The skeletal structures are osteopenic. The bony thorax is grossly intact. IMPRESSION: 1. Cardiac enlargement without radiographic evidence of congestive failure. 2. Patchy airspace opacities are present at both lung bases. This could represent atelectasis versus an infectious/inflammatory pneumonitis. Clinical correlation will be required. Electronically signed by: Terrance Fang M.D. 06/18/2017 4:46 PM Dictated Date/Time: 06/18/2017 4:45 PM Laboratory Results 06/18/17 17:50 Test 06/18/17 17:15 06/18/17 17:50 Influenza Type A Antigen Neg for Influ A (NEG) Influenza Type B Antigen Neg for Influ B (NEG) Immature Granulocyte % (Auto) 0.3 % White Blood Count 12.16 K/uL (4.8-10.8) Red Blood Count 3.24 M/uL (4.7-6.1) Hemoglobin 9.7 g/dL (14.0-18.0) Hematocrit 29.6 % (42-52) Mean Corpuscular Volume 91.4 fL (80-100) Mean Corpuscular Hemoglobin 29.9 pg (25-34) Mean Corpuscular Hemoglobin Concent 32.8 g/dl (32-36) Platelet Count 270 K/uL (130-400) Mean Platelet Volume 9.2 fL (7.4-10.4) Neutrophils (%) (Auto) 67.1 % Lymphocytes (%) (Auto) 15.3 % Monocytes (%) (Auto) 15.0 % Eosinophils (%) (Auto) 2.1 % Basophils (%) (Auto) 0.2 % Neutrophils # (Auto) 8.17 K/uL (1.4-6.5) Lymphocytes # (Auto) 1.86 K/uL (1.2-3.4) Monocytes # (Auto) 1.82 K/uL (0.11-0.59) Eosinophils # (Auto) 0.25 K/uL (0-0.5) Basophils # (Auto) 0.02 K/uL (0-0.2) Immature Granulocyte # (Auto) 0.04 K/uL (0.00-0.02) Anion Gap 7.0 mmol/L (3-11) Est Creatinine Clear Calc Drug Dose 42.3 ml/min Estimated GFR () 52.8 Estimated GFR (Non- 45.6 BUN/Creatinine Ratio 14.2 (10-20) Calcium Level 8.9 mg/dl (8.5-10.1) Troponin I < 0.015 ng/ml (0-0.045) Laboratory results per my review. Medications Administered Medications (Trade) Dose Ordered Sig/Clara Route Start Time Stop Time Status Last Admin Dose Admin Sodium Chloride 500 ml @ 999 mls/hr Q31M STAT IV 06/18/17 16:33 06/18/17 17:03 DC 06/18/17 17:51 999 MLS/HR Albuterol Sulfate (Ventolin 0.083% 2.5MG/3ML Neb) 2.5 mg NOW STAT INH 06/18/17 16:33 06/18/17 16:35 DC 06/18/17 17:20 2.5 MG Hydrocodone Bit/ Homatropine Methylb (Hycodan Syrup) 5 ml NOW STAT PO 06/18/17 17:05 06/18/17 17:06 DC 06/18/17 17:20 5 ML Methylprednisolone Sodium Succinate (Solu-Medrol IV) 125 mg NOW STAT IV 06/18/17 18:06 06/18/17 18:08 DC 06/18/17 18:49 125 MG Hydrocodone Bit/ Homatropine Methylb (Hycodan Syrup) 5 ml NOW STAT PO 06/18/17 18:32 06/18/17 20:48 DC 06/18/17 21:26 5 ML ECG Indication: SOB/dyspnea Rate (beats per minute): 91 Rhythm: normal sinus Findings: 1st degree AV block, nonspecific-ST abn (Inferior), RBBB, left axis deviation Comparison ECG Date: Patient's electrocardiogram interpreted by me ED Course ED COURSE: Vital signs were reviewed and showed normal. The patients medical record was reviewed The above diagnostic studies were performed and reviewed. ED treatments and interventions as stated above. 1626: The patient was evaluated in room B2. A complete history and physical examination was performed. 1633: Ordered Albuterol Sulfate 2.5 mg INH and Sodium Chloride 500 ml @ 999 mls/ hr IV 1705: Ordered Hycodan 5 ml PO 180: Ordered Solu-Medrol 125 mg IV 1809: [facility] We discussed the patients case. [facility]. 1811: Upon reevaluation, I discussed my findings with the patient and he understands and agrees with the treatment plan. Based on the patients age, coexisting illnesses, exam and lab findings the decision to treat as an inpatient was made. The patient remained stable while under my care. The patient will be evaluated for further management. Medical Decision Differential diagnoses includes but is not limited to pneumonia, bronchitis, COPD/Asthma exacerbation, pneumothorax, pulmonary embolism, congestive heart failure, acute coronary syndrome. Patient is an 87-year-old male who presents to ER for runny nose, cough and a history of COPD. He was recently admitted and discharged for pneumonia and influenza. He notes he has been coughing and more short of breath recently. On exam he is hypoxic at 88% on room air. Placed on nasal cannula. CBC shows a mild leukocytosis. BMP was unremarkable. Lactate was normal. Troponin was negative. Influence and B were negative. Patient was given a neb. Chest x- ray was slightly improved from previous. Discussed with family patient was admitted to internal medicine for hypoxia likely secondary to COPD exacerbation is a resolving pneumonia/influenza. Medication Reconcilliation Current Medication List: was personally reviewed by me Blood Pressure Screening Patient's blood pressure: Normal blood pressure Consults Time Called: 1804 [facility]ing Phys[facility] Returned Call: 1809 I [facility] We discussed the patients case. [facility]. Impression Primary Impression: COPD exacerbation Additional Impression: Hypoxia Scribe Attestation The scribe's documentation has been prepared under my direction and personally reviewed by me in its entirety. I confirm that the note above accurately reflects all work, treatment, procedures, and medical decision making performed by me. Departure Information Dispostion Being Evaluated By Hospitalist Referrals Mukesh Ko D.O. (PCP) Patient Instructions My [facility] Problem Qualifiers
[2017-06-19] VITALS (9 sets, daily range): BP systolic 121–154; BP diastolic 69–75; PULSE 71–88; TEMP 36.4–36.7; O2SAT 93–97
[2017-06-19] MEDS: LEVALBUTEROL 0.63MG/3 ML NEB INH SCH ×4 (02:06→19:39)
[2017-06-19 07:19] LABS: HEMATOCRIT 30.4 % (42-52); HEMOGLOBIN 10.2 g/dL (14.0-18.0); MEAN CELL VOLUME 90.5 fL (80-100); MEAN CORPUSCULAR HEMOGLOBIN 30.4 pg (25-34); MEAN CORPUSCULAR HGB CONC 33.6 g/dl (32-36); MEAN PLATELET VOLUME 9.4 fL (7.4-10.4); PLATELET COUNT 276 K/uL (130-400); RED CELL DISTRIBUTION WIDTH CV 13.2 % (11.5-14.5); RED CELL DISTRIBUTION WIDTH SD 43.8 fL (36.4-46.3); WHITE BLOOD COUNT 12.27 K/uL (4.8-10.8)
--- NOTE | 2017-06-19 07:25 | DIAGNOSTIC IMAGING REPORT ---
CHEST ONE VIEW PORTABLE HISTORY: 87 years-old Male r/o pna acute atypical chest pain. Bibasilar opacities and comparison study. COMPARISON: Chest radiograph 06/18/2017, 06/11/2017, 06/10/2017, CT 02/05/2015 TECHNIQUE: Portable AP view the chest FINDINGS: Cardiac silhouette is upper limits of normal, unchanged. Atherosclerosis of the aorta. No pneumothorax or pleural effusion. Subtle patchy subsegmental bibasilar opacities redemonstrated. Bones of the chest appear grossly intact. IMPRESSION: Persistent subtle subsegmental bibasilar opacities suggest atelectasis with pneumonia thought to be less likely. The above report was generated using voice recognition software. It may contain grammatical, syntax or spelling errors. Electronically signed by: Waylon Morillo M.D. 06/19/2017 7:24 AM Dictated Date/Time: 06/19/2017 7:21 AM
[2017-06-19 08:00] LABS: CALCIUM 9.3 mg/dl (8.5-10.1); CREATININE 1.23 mg/dl (0.60-1.40); POTASSIUM 4.2 mmol/L (3.5-5.1)
[2017-06-19] MEDS: LOSARTAN POTASSIUM 50 MG TAB PO SCH (08:18)
[2017-06-19] MEDS: METHYLPREDNISOLONE IV 40 MG in SYRINGE 0 ML IV SCH (08:18)
[2017-06-19] MEDS: AMLODIPINE BESYLATE 5 MG TAB PO SCH (08:19)
[2017-06-19] MEDS: FLUTICASONE PROPIONATE NA SPR 16 GM BTL NAE SCH (08:19)
[2017-06-19] MEDS ORDERED: INSULIN HUMAN REGULAR PER UNIT 10 UNITS in SYRINGE 9.9 ML IV STA (08:20)
[2017-06-19] MEDS: INSULIN ASPART 100 UNITS/ML 3 ML PEN SC SCH ×4 (08:21→20:24)
[2017-06-19] MEDS: HEPARIN SOD 5000 UNIT/0.5 ML CARP SQ SCH ×2 (08:22→20:27)
[2017-06-19] MEDS: CYANOCOBALAMIN 500 MCG TAB (VIT B-12) PO SCH (08:23)
[2017-06-19] MEDS ORDERED: INSULIN GLARGINE SOLOSTAR 100 UNITS/ML 3 ML PEN SC SCH ×2 (09:00→21:00)
--- NOTE | 2017-06-19 10:44 | Progress Note ---
Subjective Date of Service: Jun 19, 2017. Subjective Pt evaluation today including: conversation w/ patient, physical exam, lab review, review of studies, review of inpatient medication list Saw/examined the patient in room 254 Patient states he's breathing better cough persists, but he did get some sleep last night, which he could not do at home blood sugars very elevated this morning. Problem List Medical Problems: (1) Balanitis Status: Acute (2) Bronchitis Status: Acute (3) Elevated white blood cell count Status: Acute (4) Fever Status: Acute (5) Hyperglycemia Status: Acute (6) Hypoxia Status: Acute (7) LLL pneumonia Status: Acute (8) On prednisone therapy Status: Acute (9) Recurrent urticaria Status: Acute (10) Renal insufficiency Status: Acute Review of Systems Constitutional: No fever, No chills Respiratory: + cough, + sputum, No wheezing, No shortness of breath, No dyspnea on exertion, No dyspnea at rest, No hemoptysis Cardiac: No chest pain, No palpitations Medications Current Inpatient Medications Medications (Trade) Dose Ordered Sig/Clara Route Start Time Stop Time Status Last Admin Dose Admin Hydrocodone Bit/ Homatropine Methylb (Hycodan Syrup) 5 ml Q8 PRN PO 06/18/17 18:45 2 18:44 Amlodipine Besylate (Norvasc Tab) 5 mg QAM PO 06/19/17 09:00 07/19/17 08:59 06/19/17 08:19 5 MG Cyanocobalamin (Vitamin B-12 Tab) 500 mcg QAM PO 06/19/17 09:00 07/19/17 08:59 Fluticasone Propionate (Flonase Nasal [place]) 2 sprays DAILY AUNG 06/19/17 09:00 07/19/17 08:59 06/19/17 08:19 2 SPRAYS Losartan Potassium (coZAAR TAB) 50 mg QAM PO 06/19/17 09:00 07/19/17 08:59 06/19/17 08:18 50 MG Levalbuterol (Xopenex 0.63 Mg/ 3 Ml Neb) 0.63 mg Q6R INH 06/18/17 21:00 07/18/17 20:59 06/19/17 07:09 0.63 MG Acetaminophen (Tylenol Tab) 650 mg Q4H PRN PO 06/18/17 18:45 07/18/17 18:44 Heparin Sodium (Porcine) (Heparin Sq 5000 Unit/0.5ml) 5,000 unit Q12H SQ 06/19/17 09:00 07/19/17 08:59 06/19/17 08:22 5,000 UNIT Glucose (Glucose 40% Gel) 15-30 GRAMS 15 GRAMS... UD PRN PO 06/18/17 18:45 07/18/17 18:44 Glucose (Glucose Chew Tab) 4-8 Tablets 4 Tabl... UD PRN PO 06/18/17 18:45 07/18/17 18:44 Glucagon (Glucagon Inj) 1 mg UD PRN SQ 06/18/17 18:45 07/18/17 18:44 Dextrose (Dextrose 50% 50ML Syringe) 25-50ML OF 50% DW IV FOR... UD PRN IV 06/18/17 18:45 07/18/17 18:44 Insulin Aspart (novoLOG ASPART) SLIDING SCALE If C... ACHS SC 06/18/17 21:00 07/18/17 20:59 06/19/17 08:21 15 UNITS Insulin Glargine (Lantus Solostar Pen) 10 units BID SC 06/19/17 09:00 07/19/17 08:59 06/19/17 08:46 10 UNITS Prednisone (PredniSONE TAB) 40 mg DAILY PO 06/20/17 09:00 07/20/17 08:59 UNV Objective Vital Signs Date Time Temp Pulse Resp B/P (MAP) Pulse Ox O2 Delivery O2 Flow Rate FiO2 06/19/17 07:27 36.4 78 18 145/75 (98) 94 Nasal Cannula 2.0 06/19/17 07:11 74 16 95 Nasal Cannula 2.0 06/19/17 02:08 71 18 97 Nasal Cannula 2.0 06/19/17 00:20 Nasal Cannula 2.0 06/19/17 00:17 36.7 88 20 121/73 (89) 93 2.0 06/18/17 21:37 94 18 96 Nasal Cannula 2.0 06/18/17 20:30 96 Nasal Cannula 2.0 06/18/17 20:00 37.3 93 20 155/77 (103) 95 Nasal Cannula 2.0 06/18/17 19:27 Nasal Cannula 3.0 06/18/17 18:09 92 06/18/17 18:01 96 Nasal Cannula 3.0 06/18/17 17:55 97 20 169/76 89 Room Air 06/18/17 17:45 88 Room Air 06/18/17 17:31 94 Room Air 06/18/17 16:35 93 Room Air 06/18/17 16:22 37.5 98 20 112/73 94 Room Air Physical Exam General Appearance: no apparent distress Respiratory/Chest: chest non-tender, lungs clear, normal breath sounds, no respiratory distress, no accessory muscle use Cardiovascular: regular rate, rhythm, no edema, no murmur Extremities: normal inspection, no pedal edema Neurologic/Psychiatric: no motor/sensory deficits, alert, normal mood/affect Laboratory Results Last 24 Hours Test 06/18/17 17:15 06/18/17 17:50 06/18/17 19:08 06/18/17 21:16 Influenza Type A Antigen Neg for Influ A Influenza Type B Antigen Neg for Influ B White Blood Count 12.16 K/uL 13.59 K/uL Red Blood Count 3.24 M/uL 3.19 M/uL Hemoglobin 9.7 g/dL 9.4 g/dL Hematocrit 29.6 % 29.2 % Mean Corpuscular Volume 91.4 fL 91.5 fL Mean Corpuscular Hemoglobin 29.9 pg 29.5 pg Mean Corpuscular Hemoglobin Concent 32.8 g/dl 32.2 g/dl Platelet Count 270 K/uL 271 K/uL Mean Platelet Volume 9.2 fL 9.4 fL Neutrophils (%) (Auto) 67.1 % Lymphocytes (%) (Auto) 15.3 % Monocytes (%) (Auto) 15.0 % Eosinophils (%) (Auto) 2.1 % Basophils (%) (Auto) 0.2 % Neutrophils # (Auto) 8.17 K/uL Lymphocytes # (Auto) 1.86 K/uL Monocytes # (Auto) 1.82 K/uL Eosinophils # (Auto) 0.25 K/uL Basophils # (Auto) 0.02 K/uL RDW Standard Deviation 46.2 fL 45.4 fL RDW Coefficient of Variation 13.8 % 13.6 % Immature Granulocyte % (Auto) 0.3 % Immature Granulocyte # (Auto) 0.04 K/uL Sodium Level 132 mmol/L Potassium Level 4.0 mmol/L Chloride Level 99 mmol/L Carbon Dioxide Level 26 mmol/L Anion Gap 7.0 mmol/L Blood Urea Nitrogen 20 mg/dl Creatinine 1.39 mg/dl Est Creatinine Clear Calc Drug Dose 42.3 ml/min Estimated GFR () 52.8 Estimated GFR (Non- 45.6 BUN/Creatinine Ratio 14.2 Random Glucose 138 mg/dl Calcium Level 8.9 mg/dl Troponin I < 0.015 ng/ml Lactic Acid Level 0.7 mmol/L Procalcitonin 0.18 ng/ml Prothrombin Time 10.2 SECONDS Prothromb Time International Ratio 1.0 Activated Partial Thromboplast Time 33.3 SECONDS Partial Thromboplastin Ratio 1.3 Test 06/18/17 21:18 06/19/17 06:57 06/19/17 08:03 Bedside Glucose 272 mg/dl 356 mg/dl White Blood Count 12.27 K/uL Red Blood Count 3.36 M/uL Hemoglobin 10.2 g/dL Hematocrit 30.4 % Mean Corpuscular Volume 90.5 fL Mean Corpuscular Hemoglobin 30.4 pg Mean Corpuscular Hemoglobin Concent 33.6 g/dl RDW Standard Deviation 43.8 fL RDW Coefficient of Variation 13.2 % Platelet Count 276 K/uL Mean Platelet Volume 9.4 fL Sodium Level 132 mmol/L Potassium Level 4.2 mmol/L Chloride Level 100 mmol/L Carbon Dioxide Level 21 mmol/L Anion Gap 11.0 mmol/L Blood Urea Nitrogen 26 mg/dl Creatinine 1.23 mg/dl Est Creatinine Clear Calc Drug Dose 47.8 ml/min Estimated GFR () 61.2 Estimated GFR (Non- 52.8 BUN/Creatinine Ratio 21.1 Random Glucose 368 mg/dl Calcium Level 9.3 mg/dl Magnesium Level 2.4 mg/dl Beta-Hydroxybutyric Acid 6.10 mg/dL Assessment and Plan This is an 87 year old male with a PMH of CKD stage 3, HTN, HLD, DM2, AAA - presents with worsening cough Acute, Complicated Bronchitis in the setting of COPD and recent Infection 06/19 patient is doing better today plan to taper solu-medrol 40mg q12 to prednisone 40mg daily continue nebulizers continue Hycodan PRN no need for abx. 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 infectious process will check lactic acid and procalcitonin recheck CXR in AM will give one dose of Azithromycin for now DM2 patient's blood sugars have been >350 will taper steroids down given 10 units of IV regular insulin plan for an insulin drip glycemic control pharmacist consulted HTN continue current medications DVT ppx subq heparin DNR
[2017-06-19] MEDS ORDERED: INSULIN IV INFUSION PROTOCOL STA (10:49)
[2017-06-19] MEDS ORDERED: PHARMACY GLYCEMIC MGMT CONSULT SCH (10:52)
[2017-06-19] MEDS ORDERED: INSULIN HUMAN REGULAR IV BOLUS 3.5 UNIT in SYRINGE 0 ML IV SCH (11:00)
[2017-06-19] MEDS ORDERED: SEVERE STRESS LEVEL ONE (11:00)
[2017-06-19] MEDS ORDERED: INSULIN PROTOCOL GOAL RANGE ONE (11:00)
[2017-06-19] MEDS: HYDROCODONE/HOMATROPINE SYRUP 5MG/1.5MG 5ML UDP PO PRN ×2 (11:03→20:28)
[2017-06-19] MEDS: INSULIN REGULAR 250 UNITS in SODIUM CHLORIDE 0.9% 250ML 250 ML IV SCH ×8 (11:12→18:21)
[2017-06-19] MEDS ORDERED: NURSING VERBAL MED ORDER ONE (11:30)
[2017-06-19] MEDS ORDERED: SODIUM CHLORIDE 0.9% 1000ML 1,000 ML IV SCH (11:45)
--- NOTE | 2017-06-19 14:08 | Pharmacy Progress Note ---
Glycemic Control Intl Consult Date of Service Jun 19, 2017. Scope Glycemic Pharmacist consulted by Dr Monsivais on 06/19/17 for glycemic control and to write orders per [facility] inpatient glycemic control protocol Objective Weight (Kilograms): 90.000 Accuchecks BSG (last 24hrs): Test 06/18/17 17:50 06/18/17 21:18 06/19/17 06:57 06/19/17 08:03 Random Glucose 138 mg/dl (70-99) 368 mg/dl (70-99) Bedside Glucose 272 mg/dl (70-99) 356 mg/dl (70-99) Test 06/19/17 10:59 06/19/17 12:10 06/19/17 13:14 Bedside Glucose 393 mg/dl (70-99) 344 mg/dl (70-99) 390 mg/dl (70-99) Laboratory Data (last 24hrs) Test 06/18/17 17:50 06/18/17 21:16 06/19/17 06:57 Anion Gap 7.0 mmol/L 11.0 mmol/L BUN/Creatinine Ratio 14.2 21.1 Blood Urea Nitrogen 20 mg/dl 26 mg/dl Creatinine 1.39 mg/dl 1.23 mg/dl Potassium Level 4.0 mmol/L 4.2 mmol/L Sodium Level 132 mmol/L 132 mmol/L White Blood Count 12.16 K/uL 13.59 K/uL 12.27 K/uL Red Blood Count 3.24 M/uL Hemoglobin 9.7 g/dL Hematocrit 29.6 % Mean Corpuscular Volume 91.4 fL Mean Corpuscular Hemoglobin 29.9 pg Mean Corpuscular Hemoglobin Concent 32.8 g/dl Platelet Count 270 K/uL Mean Platelet Volume 9.2 fL Neutrophils (%) (Auto) 67.1 % Lymphocytes (%) (Auto) 15.3 % Monocytes (%) (Auto) 15.0 % Eosinophils (%) (Auto) 2.1 % Basophils (%) (Auto) 0.2 % Neutrophils # (Auto) 8.17 K/uL Lymphocytes # (Auto) 1.86 K/uL Monocytes # (Auto) 1.82 K/uL Eosinophils # (Auto) 0.25 K/uL Basophils # (Auto) 0.02 K/uL HbA1c 06/11/17 = 8.4% Recent Pertinent Medications Outpatient Anti-diabetic Regimen: * Metformin ER 1000mg PO BID * A1c = 8.4 % 06/11/17 The patient is currently receiving: * Basal insulin: Lantus 10 units every 12 hours * Correctional Insulin: Novolog Correction per scale ACHS Goal Range: Low 140 mg/dL - High 180 mg/dL Correction Factor: 20 mg/dL/unit * Prandial insulin: Per carb ratio of 1 unit per 7 grams CHO consumed * Oral Agents: None currently Risk Factors for Insulin Resistance: * Steroids: Solu-medrol 125mg IV x 1 yesterday evening, then 40mg IV Q 12 hours x 2 doses, changing to prednisone 40mg PO daily * Diet: ordered T2DM diet Assessment & Plan ASSESSMENT: 06/19/17 * Type 2 diabetic, managed w/ metformin monotherapy prior to admission, admitted for worsening cough, recent dx PNX and COPD exacerbation * Glycemic control deteriorated quickly with the administration of high dose IV corticosteroids - despite current SQ orders * Severe hyperglycemia present on AM labs with mild elevation in BOHB, but no AG or acidosis * Plan is to begin IV insulin protocol to quickly and safely gain control of hyperglycemia * Would like to transition to a SQ regimen tomorrow AM once hyperglycemia is better controlled. This patient may be a candidate for once daily NPH in the AM with prednisone. PLAN FOR INPATIENT GLYCEMIC CONTROL: * Starting IV insulin infusion per SEVERE stress protocol * Goal Range 120 - 210 mg/dl * plan is to continue the insulin drip through tomorrow AM given current BSGs still in the upper 300's range at this time of day * Holding outpatient oral diabetes medications (metformin) * Discontinue current Lantus order in anticipation of converting the patient to NPH tomorrow AM (with AM dose of Prednisone) * Correctional Insulin with NOVOLOG per insulin infusion adjustment calculator * Please note that the plan above was derived based on current level of insulin resistance and hospital stress. These recommendations are appropriate for inpatient admission only. Plan of care upon discharge will need to be reassessed to avoid potential outpatient hypo/hyperglycemia. Thank you.
[2017-06-19] MEDS: SODIUM CHLORIDE 0.9% 1000ML 1,000 ML IV SCH (14:19)
[2017-06-20] VITALS (8 sets, daily range): BP systolic 125–173; BP diastolic 65–89; PULSE 61–89; TEMP 36.5–36.7; O2SAT 92–95; Ht 175.3 cm; Wt 90.0 kg
[2017-06-20] MEDS: SODIUM CHLORIDE 0.9% 1000ML 1,000 ML IV SCH (00:27)
[2017-06-20] MEDS: LEVALBUTEROL 0.63MG/3 ML NEB INH SCH ×4 (02:05→20:07)
[2017-06-20] MEDS ORDERED: NURSING VERBAL MED ORDER ONE (07:30)
[2017-06-20] MEDS: FLUTICASONE PROPIONATE NA SPR 16 GM BTL NAE SCH (07:43)
[2017-06-20] MEDS: LOSARTAN POTASSIUM 50 MG TAB PO SCH (07:43)
[2017-06-20] MEDS: AMLODIPINE BESYLATE 5 MG TAB PO SCH (07:43)
[2017-06-20] MEDS: CYANOCOBALAMIN 500 MCG TAB (VIT B-12) PO SCH (07:44)
[2017-06-20] MEDS: HEPARIN SOD 5000 UNIT/0.5 ML CARP SQ SCH ×2 (07:47→20:54)
[2017-06-20] MEDS: INSULIN ASPART 100 UNITS/ML 3 ML PEN SC SCH ×4 (09:20→20:53)
[2017-06-20] MEDS: INSULIN HUMAN NPH SC SCH (09:21)
--- NOTE | 2017-06-20 11:25 | Progress Note ---
Subjective Date of Service: Jun 20, 2017. Subjective Pt evaluation today including: conversation w/ patient, physical exam, lab review, review of studies, review of inpatient medication list Saw/examined the patient in room 254 +coughing persists breathing is improving no chest pain, no fevers/chills +weakness Problem List Medical Problems: (1) Balanitis Status: Acute (2) Bronchitis Status: Acute (3) Elevated white blood cell count Status: Acute (4) Fever Status: Acute (5) Hyperglycemia Status: Acute (6) Hypoxia Status: Acute (7) LLL pneumonia Status: Acute (8) On prednisone therapy Status: Acute (9) Recurrent urticaria Status: Acute (10) Renal insufficiency Status: Acute Review of Systems Constitutional: + weakness, + fatigue, No fever, No chills Respiratory: + cough, + sputum, No wheezing, No shortness of breath, No dyspnea on exertion, No dyspnea at rest, No hemoptysis Cardiac: No chest pain, No edema, No palpitations Medications Current Inpatient Medications Medications (Trade) Dose Ordered Sig/Clara Route Start Time Stop Time Status Last Admin Dose Admin Hydrocodone Bit/ Homatropine Methylb (Hycodan Syrup) 5 ml Q8 PRN PO 06/18/17 18:45 07/02/17 18:44 06/19/17 20:28 5 ML Amlodipine Besylate (Norvasc Tab) 5 mg QAM PO 06/19/17 09:00 07/19/17 08:59 06/20/17 07:43 5 MG Cyanocobalamin (Vitamin B-12 Tab) 500 mcg QAM PO 06/19/17 09:00 07/19/17 08:59 Fluticasone Propionate (Flonase Nasal [place]) 2 sprays DAILY AUNG 06/19/17 09:00 07/19/17 08:59 06/20/17 07:43 2 SPRAYS Losartan Potassium (coZAAR TAB) 50 mg QAM PO 06/19/17 09:00 07/19/17 08:59 06/20/17 07:43 50 MG Levalbuterol (Xopenex 0.63 Mg/ 3 Ml Neb) 0.63 mg Q6R INH 06/18/17 21:00 07/18/17 20:59 06/20/17 07:33 0.63 MG Acetaminophen (Tylenol Tab) 650 mg Q4H PRN PO 06/18/17 18:45 07/18/17 18:44 Heparin Sodium (Porcine) (Heparin Sq 5000 Unit/0.5ml) 5,000 unit Q12H SQ 06/19/17 09:00 07/19/17 08:59 06/20/17 07:47 5,000 UNIT Glucose (Glucose 40% Gel) 15-30 GRAMS 15 GRAMS... UD PRN PO 06/18/17 18:45 07/18/17 18:44 Glucose (Glucose Chew Tab) 4-8 Tablets 4 Tabl... UD PRN PO 06/18/17 18:45 07/18/17 18:44 Glucagon (Glucagon Inj) 1 mg UD PRN SQ 06/18/17 18:45 07/18/17 18:44 Dextrose (Dextrose 50% 50ML Syringe) 25-50ML OF 50% DW IV FOR... UD PRN IV 06/18/17 18:45 07/18/17 18:44 Prednisone (PredniSONE TAB) 40 mg DAILY PO 06/20/17 09:00 07/20/17 08:59 06/20/17 07:44 40 MG Miscellaneous Information (Consult Glycemic Management Pharmacy) 1 ea UD N/A 06/19/17 10:52 07/19/17 10:51 Insulin Aspart (novoLOG ASPART) SLIDING SCALE If C... ACHS SC 06/20/17 07:45 07/20/17 07:44 06/20/17 09:20 12 UNITS Insulin Human NPH (novoLIN-N NPH) 20 units QDB SC 06/20/17 08:00 07/20/17 07:59 06/20/17 09:21 20 UNITS Objective Vital Signs Date Time Temp Pulse Resp B/P (MAP) Pulse Ox O2 Delivery O2 Flow Rate FiO2 06/20/17 08:17 36.5 81 20 134/77 (96) 93 Room Air 06/20/17 08:00 Room Air 06/20/17 07:41 76 173/89 (117) 06/20/17 07:33 80 16 95 Room Air 06/20/17 02:05 84 16 94 Room Air 06/20/17 00:25 Room Air 06/19/17 23:00 36.5 85 18 154/69 (97) 94 Room Air 06/19/17 19:39 87 16 94 Room Air 06/19/17 16:00 96 Nasal Cannula 2.0 06/19/17 14:31 36.4 82 18 121/71 (88) 96 2.0 06/19/17 14:13 82 15 96 Nasal Cannula 2.0 Physical Exam General Appearance: no apparent distress Respiratory/Chest: lungs clear, normal breath sounds, no respiratory distress, no accessory muscle use Cardiovascular: regular rate, rhythm, no edema, no murmur Extremities: normal inspection, no pedal edema Neurologic/Psychiatric: no motor/sensory deficits, alert, normal mood/affect Laboratory Results Last 24 Hours Test 06/19/17 12:10 06/19/17 13:14 06/19/17 14:12 06/19/17 15:13 Bedside Glucose 344 mg/dl 390 mg/dl 399 mg/dl 329 mg/dl Test 06/19/17 16:18 06/19/17 17:16 06/19/17 18:18 06/19/17 19:12 Bedside Glucose 318 mg/dl 253 mg/dl 250 mg/dl 151 mg/dl Test 06/19/17 19:46 06/19/17 20:19 06/20/17 07:36 Bedside Glucose 107 mg/dl 98 mg/dl 258 mg/dl Assessment and Plan This is an 87 year old male with a PMH of CKD stage 3, HTN, HLD, DM2, AAA - presents with worsening cough Acute, Complicated Bronchitis in the setting of COPD and recent Infection 06/20 prednisone 40mg for today, quick taper would be recommended (30mg x2 days, 20mg x2 days, 10mg x2 days) Hycodan PRN - will likely need this on discharge Xopenex for nebulizer on discharge - patient already has a nebulizer machine at home 06/19 patient is doing better today plan to taper solu-medrol 40mg q12 to prednisone 40mg daily continue nebulizers continue Hycodan PRN no need for abx. 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 infectious process will check lactic acid and procalcitonin recheck CXR in AM will give one dose of Azithromycin for now DM2 06/20 stopped insulin drip NPH as per pharmacy glycemic control short taper prednisone 06/19 patient's blood sugars have been >350 will taper steroids down given 10 units of IV regular insulin plan for an insulin drip glycemic control pharmacist consulted HTN continue current medications DVT ppx subq heparin DNR
[2017-06-20] MEDS ORDERED: INSULIN HUMAN NPH SC ONE (14:15)
--- NOTE | 2017-06-20 15:18 | Pharmacy Progress Note ---
Pharmacy Glycemic Short Note 2 Date of Service Jun 20, 2017. Outpatient Anti-diabetic Regimen: * Metformin ER 1000mg PO BID * A1c = 8.4 % 06/11/17 ASSESSMENT: 06/20/17: * Insulin gtt stopped last evening around 1900. BSGs have been high thus far today. * NPH initiated in the am with scheduled prednisone doses. Will continue to titrate as needed to gain control of BSGs and adjust as steroid tapers. 06/19/17 * Type 2 diabetic, managed w/ metformin monotherapy prior to admission, admitted for worsening cough, recent dx PNX and COPD exacerbation * Glycemic control deteriorated quickly with the administration of high dose IV corticosteroids - despite current SQ orders * Severe hyperglycemia present on AM labs with mild elevation in BOHB, but no AG or acidosis * Plan is to begin IV insulin protocol to quickly and safely gain control of hyperglycemia * Would like to transition to a SQ regimen tomorrow AM once hyperglycemia is better controlled. This patient may be a candidate for once daily NPH in the AM with prednisone. PLAN FOR INPATIENT GLYCEMIC CONTROL: * Holding outpatient oral diabetes medications (metformin) * NPH 30 units SQ today * Correctional Insulin with NOVOLOG per scale ACHS * Goal range: 120-150 mg/dL * Correction factor: 20 mg/dL/unit * Carb ratio: 1 unit per 7 gm CHO consumed * Please note that the plan above was derived based on current level of insulin resistance and hospital stress. These recommendations are appropriate for inpatient admission only. Plan of care upon discharge will need to be reassessed to avoid potential outpatient hypo/hyperglycemia. Thank you.
[2017-06-20] MEDS: HYDROCODONE/HOMATROPINE SYRUP 5MG/1.5MG 5ML UDP PO PRN (20:54)
[2017-06-21] VITALS (7 sets, daily range): BP systolic 145–153; BP diastolic 75–84; PULSE 74–80; TEMP 36.7; O2SAT 94–96
[2017-06-21] MEDS ORDERED: INSULIN ASPART 100 UNITS/ML 3 ML PEN SC ONE (01:00)
[2017-06-21] MEDS: LEVALBUTEROL 0.63MG/3 ML NEB INH SCH ×3 (01:50→14:16)
[2017-06-21] MEDS: AMLODIPINE BESYLATE 5 MG TAB PO SCH (07:36)
[2017-06-21] MEDS: LOSARTAN POTASSIUM 50 MG TAB PO SCH (07:36)
[2017-06-21] MEDS: CYANOCOBALAMIN 500 MCG TAB (VIT B-12) PO SCH (07:36)
[2017-06-21] MEDS: FLUTICASONE PROPIONATE NA SPR 16 GM BTL NAE SCH (07:37)
[2017-06-21] MEDS: HEPARIN SOD 5000 UNIT/0.5 ML CARP SQ SCH (07:39)
[2017-06-21 08:16] LABS: HEMATOCRIT 28.6 % (42-52); HEMOGLOBIN 9.5 g/dL (14.0-18.0); MEAN CELL VOLUME 90.8 fL (80-100); MEAN CORPUSCULAR HEMOGLOBIN 30.2 pg (25-34); MEAN CORPUSCULAR HGB CONC 33.2 g/dl (32-36); MEAN PLATELET VOLUME 9.4 fL (7.4-10.4); PLATELET COUNT 351 K/uL (130-400); RED CELL DISTRIBUTION WIDTH CV 13.7 % (11.5-14.5); RED CELL DISTRIBUTION WIDTH SD 45.6 fL (36.4-46.3); WHITE BLOOD COUNT 13.21 K/uL (4.8-10.8)
[2017-06-21 08:51] LABS: CALCIUM 9.5 mg/dl (8.5-10.1); CREATININE 1.22 mg/dl (0.60-1.40); POTASSIUM 4.1 mmol/L (3.5-5.1)
[2017-06-21] MEDS: INSULIN ASPART 100 UNITS/ML 3 ML PEN SC SCH ×2 (09:17→12:28)
[2017-06-21] MEDS: INSULIN HUMAN NPH SC SCH (09:17)
--- NOTE | 2017-06-21 10:28 | Pharmacy Progress Note ---
Pharmacy Glycemic Short Note 2 Date of Service Jun 21, 2017. Outpatient Anti-diabetic Regimen: * Metformin ER 1000mg PO BID * A1c = 8.4 % 06/11/17 ASSESSMENT: 06/21/17: * Patient's BSGs have looked good during the past ~24 hours after receiving some supplemental NPH yesterday. * Will continue NPH and adjust as needed to cover for steroid-induced hyperglycemia. 06/20/17 * Insulin gtt stopped last evening around 1900. BSGs have been high thus far today. * NPH initiated in the am with scheduled prednisone doses. Will continue to titrate as needed to gain control of BSGs and adjust as steroid tapers. 06/19/17 * Type 2 diabetic, managed w/ metformin monotherapy prior to admission, admitted for worsening cough, recent dx PNX and COPD exacerbation * Glycemic control deteriorated quickly with the administration of high dose IV corticosteroids - despite current SQ orders * Severe hyperglycemia present on AM labs with mild elevation in BOHB, but no AG or acidosis * Plan is to begin IV insulin protocol to quickly and safely gain control of hyperglycemia * Would like to transition to a SQ regimen tomorrow AM once hyperglycemia is better controlled. This patient may be a candidate for once daily NPH in the AM with prednisone. PLAN FOR INPATIENT GLYCEMIC CONTROL: * Holding outpatient oral diabetes medications (metformin) * NPH 20 units SQ daily * Correctional Insulin with NOVOLOG per scale ACHS * Goal range: 120-150 mg/dL * Correction factor: 20 mg/dL/unit * Carb ratio: 1 unit per 7 gm CHO consumed * Please note that the plan above was derived based on current level of insulin resistance and hospital stress. These recommendations are appropriate for inpatient admission only. Plan of care upon discharge will need to be reassessed to avoid potential outpatient hypo/hyperglycemia. Thank you.
[2017-06-21] MEDS ORDERED: NURSING VERBAL MED ORDER ONE (10:30)
[2017-06-21] MEDS ORDERED: POLYETHYLENE (MIRALAX) 17 GM PACK PO PRN (10:45)
[2017-06-21] MEDS: HYDROCODONE/HOMATROPINE SYRUP 5MG/1.5MG 5ML UDP PO PRN (13:56)
--- NOTE | 2017-06-21 14:49 | Progress Note ---
Internal Med Progress Note Date of Service: Jun 21, 2017. Provider Documentation: SUBJECTIVE: Patient breathing on room air. Reports some cough still but otherwise well appearing and denies other complaints OBJECTIVE: General Appearance: no apparent distress Eyes- EOMI ENT- tracea midline Respiratory/Chest: lungs clear, normal breath sounds, no respiratory distress, no accessory muscle use Cardiovascular: regular rate, rhythm, no edema, no murmur Abdomen: truncal obesity, soft, nontender,+ bowel sounds Extremities: normal inspection, no pedal edema Neurologic/Psychiatric: no motor/sensory deficits, alert, normal mood/affect ASSESSMENT & PLAN: This is an 87 year old male with a PMH of CKD stage 3, HTN, HLD, DM2, AAA - presents with worsening cough. He was admitted at [facility] - discharged on 06/13. He was diagnosed with Influenza at that time and completed his course of Tamiflu. He was also diagnosed with CAP and COPD exacerbation at that time. He completed his course of antibiotics and received his steroid course. Patient returns to the hospital for persistent cough Acute, Complicated Bronchitis (post-infectious reactive airway disease) in the setting of COPD and recent Infection On this admission, patient had negative procalcitonin, lactic acid, CXR does not suggest pneumonia Patient to be discharged with Guaifensin Patient to be discharged with Xopenex nebulizer treatments and nebulizer machine for use at home Patient was treated with solumedrol IV and then switched to prednisone. Patient to be discharged on prednisone taper of 30mg x2 days, 20mg x2 days, 10mg Patient required in the hospital likely due to steroid uses but can continue metformin at home while on steroid taper Patient to continue Losartan and amlodipine for Hypertension Discharge home with follow to see his primary care doctor [facility] the [place] or follow up with 06/28/2017 1:20 PM Johnson Gordon MD [facility] Vital Signs: Date Time Temp Pulse Resp B/P (MAP) Pulse Ox O2 Delivery O2 Flow Rate FiO2 06/21/17 14:17 76 16 96 Room Air 06/21/17 13:47 36.7 74 18 94 Room Air 06/21/17 08:05 36.7 74 18 153/84 (107) 94 Room Air 06/21/17 08:00 Room Air 06/21/17 07:35 78 145/75 (98) 06/21/17 07:06 74 16 94 Room Air 06/21/17 01:50 80 16 95 Room Air 06/21/17 00:52 95 Room Air 06/20/17 23:25 36.7 89 20 167/80 (109) 93 Room Air 06/20/17 20:08 79 16 94 Room Air 06/20/17 16:20 Room Air 06/20/17 16:00 36.6 85 20 125/65 (85) 92 Lab Results: Results Past 24 Hours Test 06/20/17 16:24 06/20/17 20:20 06/21/17 01:07 06/21/17 07:20 Range/Units Bedside Glucose 190 184 187 97 70-99 mg/dl Test 06/21/17 07:50 Range/Units White Blood Count 13.21 4.8-10.8 K/uL Red Blood Count 3.15 4.7-6.1 M/uL Hemoglobin 9.5 14.0-18.0 g/dL Hematocrit 28.6 42-52 % Mean Corpuscular Volume 90.8 80-100 fL Mean Corpuscular Hemoglobin 30.2 25-34 pg Mean Corpuscular Hemoglobin Concent 33.2 32-36 g/dl RDW Standard Deviation 45.6 36.4-46.3 fL RDW Coefficient of Variation 13.7 11.5-14.5 % Platelet Count 351 130-400 K/uL Mean Platelet Volume 9.4 7.4-10.4 fL Sodium Level 138 136-145 mmol/L Potassium Level 4.1 3.5-5.1 mmol/L Chloride Level 105 98-107 mmol/L Carbon Dioxide Level 25 21-32 mmol/L Anion Gap 8.0 3-11 mmol/L Blood Urea Nitrogen 36 7-18 mg/dl Creatinine 1.22 0.60-1.40 mg/dl Est Creatinine Clear Calc Drug Dose 48.2 ml/min Estimated GFR () 61.8 Estimated GFR (Non- 53.4 BUN/Creatinine Ratio 29.1 10-20 Random Glucose 104 70-99 mg/dl Calcium Level 9.5 8.5-10.1 mg/dl
[2017-06-21] MEDS ORDERED: XPNINS INH (14:59)
[2017-06-21] MEDS ORDERED: LEVALBUTEROL 0.63MG/3 ML NEB INH SCH ×2 (15:00→16:00)
[2017-06-21] MEDS ORDERED: DEXTSYP27 OR (15:06)
[2017-06-21] MEDS ORDERED: PRD10 OR (15:06)
--- NOTE | 2017-06-21 15:21 | Discharge Instructions ---
Discharge Instructions Date of Service Jun 21, 2017. Admission Reason for Admission: Copd Exacerbation, Reactive Airway Disease Discharge Discharge Diagnosis / Problem: Bronchitis (post-infectious reactive airway disease), Diabetes, HTN Discharge Goals Goal(s): Decrease discomfort, Improve function, Improve disease control Activity Recommendations Activity Limitations: per Instructions/Follow-up section Shower/Bathe: no limitations . Instructions / Follow-Up Instructions / Follow-Up 06/21/17 07:50 06/21/17 07:50 This is an 87 year old male with a PMH of CKD stage 3, HTN, HLD, DM2, AAA - presents with worsening cough. He was admitted at [facility] - discharged on 06/13. He was diagnosed with Influenza at that time and completed his course of Tamiflu. He was also diagnosed with CAP and COPD exacerbation at that time. He completed his course of antibiotics and received his steroid course. Patient returns to the hospital for persistent cough Acute, Complicated Bronchitis (post-infectious reactive airway disease) in the setting of COPD and recent Infection On this admission, patient had negative procalcitonin, lactic acid, CXR does not suggest pneumonia Patient to be discharged with Guaifensin Patient to be discharged with Xopenex nebulizer treatments and nebulizer machine for use at home Patient was treated with solumedrol IV and then switched to prednisone. Patient to be discharged on prednisone taper of 30mg x2 days, 20mg x2 days, 10mg Patient required in the hospital likely due to steroid uses but can continue metformin at home while on steroid taper Patient to continue Losartan and Amlodipine for Hypertension Discharge home with follow to see his primary care doctor [facility] [place] in the [place] or follow up with 06/28/2017 1:20 PM Johnson Gordon MD [facility] Current Hospital Diet Patient's current hospital diet: Diabetes Type 2 Diet Discharge Diet Recommended Diet: Diabetes Type 2 Diet Pending Studies Studies pending at discharge: no Laboratory Results 06/21/17 07:50 06/21/17 07:50 Test 06/18/17 17:15 06/18/17 17:50 06/18/17 19:08 06/18/17 21:16 Influenza Type A Antigen Neg for Influ A (NEG) Influenza Type B Antigen Neg for Influ B (NEG) Immature Granulocyte % (Auto) 0.3 % White Blood Count 12.16 K/uL (4.8-10.8) Red Blood Count 3.24 M/uL (4.7-6.1) Hemoglobin 9.7 g/dL (14.0-18.0) Hematocrit 29.6 % (42-52) Mean Corpuscular Volume 91.4 fL (80-100) Mean Corpuscular Hemoglobin 29.9 pg (25-34) Mean Corpuscular Hemoglobin Concent 32.8 g/dl (32-36) Platelet Count 270 K/uL (130-400) Mean Platelet Volume 9.2 fL (7.4-10.4) Neutrophils (%) (Auto) 67.1 % Lymphocytes (%) (Auto) 15.3 % Monocytes (%) (Auto) 15.0 % Eosinophils (%) (Auto) 2.1 % Basophils (%) (Auto) 0.2 % Neutrophils # (Auto) 8.17 K/uL (1.4-6.5) Lymphocytes # (Auto) 1.86 K/uL (1.2-3.4) Monocytes # (Auto) 1.82 K/uL (0.11-0.59) Eosinophils # (Auto) 0.25 K/uL (0-0.5) Basophils # (Auto) 0.02 K/uL (0-0.2) Immature Granulocyte # (Auto) 0.04 K/uL (0.00-0.02) Troponin I < 0.015 ng/ml (0-0.045) Lactic Acid Level 0.7 mmol/L (0.4-2.0) Procalcitonin 0.18 ng/ml (0-0.5) Prothrombin Time 10.2 SECONDS (9.0-12.0) Prothromb Time International Ratio 1.0 (0.9-1.1) Activated Partial Thromboplast Time 33.3 SECONDS (21.0-31.0) Partial Thromboplastin Ratio 1.3 Test 06/19/17 06:57 06/21/17 07:20 06/21/17 07:50 Magnesium Level 2.4 mg/dl (1.8-2.4) Beta-Hydroxybutyric Acid 6.10 mg/dL (0.2-2.81) Bedside Glucose 97 mg/dl (70-99) Red Blood Count 3.15 M/uL (4.7-6.1) Mean Corpuscular Volume 90.8 fL (80-100) Mean Corpuscular Hemoglobin 30.2 pg (25-34) Mean Corpuscular Hemoglobin Concent 33.2 g/dl (32-36) RDW Standard Deviation 45.6 fL (36.4-46.3) RDW Coefficient of Variation 13.7 % (11.5-14.5) Mean Platelet Volume 9.4 fL (7.4-10.4) Anion Gap 8.0 mmol/L (3-11) Est Creatinine Clear Calc Drug Dose 48.2 ml/min Estimated GFR () 61.8 Estimated GFR (Non- 53.4 BUN/Creatinine Ratio 29.1 (10-20) Calcium Level 9.5 mg/dl (8.5-10.1) Hemoglobin A1c Test 06/11/17 06:13 Range/Units Estimated Average Glucose 194 mg/dl Hemoglobin A1c 8.4 H 4.5-5.6 % Medical Emergencies . Who to Call and When: Medical Emergencies: If at any time you feel your situation is an emergency, please call 911 immediately. . Non-Emergent Contact Non-Emergency issues call your: Primary Care Provider Call Non-Emergent contact if: you have a fever, your pain is not controlled . . "Provider Documentation" section prepared by John Ortega. . VTE Core Measure Inpt VTE Proph given/why not?: SCD's
--- NOTE | 2017-06-21 15:24 | Discharge Summary ---
Discharge Summary Date of Service Jun 21, 2017. Discharge Summary Admission Date: Jun 18, 2017 at 18:41 Discharge Date: Jun 21, 2017 Discharge Disposition: Home Principal Diagnosis: Bronchitis (post-infectious reactive airway disease), Diabetes, HTN Medication Reconciliation New Medications: Dextromethorphan-Guaifenesin (Guaifenesin Dm) 1 Syp Syp 200 MG OR Q6H for Cough for 5 Days, #4000 MG Prednisone (Prednisone) 10 Mg Tab 1 TAB OR DIRECTED for 6 Days, #12 TAB take 30mg for 2 days, then 20mg for 2 days, then 10mg for 2 days Levalbuterol (Levalbuterol HCl) 0.63 Mg/3 Ml Nebu 0.63 MG INH Q6R for 30 Days, #120 UNITS 1 Refill Continued Medications: Albuterol Hfa (Ventolin Hfa) 200 Puffs/27957 Mcg Aers 2 PUFFS INH Q6H PRN for SOB/Wheezing, #1 INHALER Amlodipine (Norvasc) 5 Mg Tab 5 MG PO QAM Cyanocobalamin (Vitamin B-12) 500 Mcg Tab 500 MCG PO QAM Fluticasone Propionate (Nasal) (Flonase Allergy Relief) 50 Mcg/Act Spr 2 SPRAYS AUNG DAILY Losartan Potassium (Losartan Potassium) 50 Mg Tab 50 MG PO QAM Metformin HCl (Metformin HCl ER) 1,000 Mg Tab 1 TAB PO BID Admission Information HPI (per Admitting provider): This is an 87 year old male with a PMH of CKD stage 3, HTN, HLD, DM2, AAA - presents with worsening cough. He was admitted at [facility] - discharged on 06/13. He was diagnosed with Influenza at that time and completed his course of Tamiflu. He was also diagnosed with CAP and COPD exacerbation at that time. He completed his course of antibiotics and received his steroid course as well. He got home and stated that the cough was bad - he took Tessalon, but no help. He took OTC cough medication with no help. As per , she developed bronchitis earlier in the week and is wondering if he could have gotten it from her. She states that he does not sleep at night due to this cough and now has lack of appetite. Denies fevers/chills, denies chest pain. Physical Exam (per Admitting): General Appearance: WD/WN, no apparent distress, + pertinent finding (O2 via nasal cannula) Head: normocephalic, atraumatic Respiratory/Chest: lungs clear, normal breath sounds, no respiratory distress, no accessory muscle use Cardiovascular: no edema, no murmur, + tachycardia Abdomen/GI: normal bowel sounds, non tender, soft Extremities/Musculoskelatal: normal inspection, no calf tenderness, normal capillary refill, no pedal edema, normal range of motion Neurologic/Psych: manager supply II-XII nml as tested, no motor/sensory deficits, alert , normal mood/affect, oriented x 3 Skin: normal color, warm/dry, no rash Lymphatic: no adenopathy Hospital Course This is an 87 year old male with a PMH of CKD stage 3, HTN, HLD, DM2, AAA - presents with worsening cough. He was admitted at [facility] - discharged on 06/13. He was diagnosed with Influenza at that time and completed his course of Tamiflu. He was also diagnosed with CAP and COPD exacerbation at that time. He completed his course of antibiotics and received his steroid course. Patient returns to the hospital for persistent cough Acute, Complicated Bronchitis (post-infectious reactive airway disease) in the setting of COPD and recent Infection On this admission, patient had negative procalcitonin, lactic acid, CXR does not suggest pneumonia Patient to be discharged with Guaifensin Patient to be discharged with Xopenex nebulizer treatments and nebulizer machine for use at home Patient was treated with solumedrol IV and then switched to prednisone. Patient to be discharged on prednisone taper of 30mg x2 days, 20mg x2 days, 10mg Patient required in the hospital likely due to steroid uses but can continue metformin at home while on steroid taper Patient to continue Losartan and amlodipine for Hypertension Discharge home with follow to see his primary care doctor Stefani in the [place] or follow up with 06/28/2017 1:20 PM Johnson Gordon MD [facility] Total time spent on discharge = This includes examination of the patient, discharge planning, medication reconciliation, and communication with other providers. Discharge Instructions see above
== END 2017-06-21 16:00 | disposition home or self-care (01) | DRG 192 ==
LOC: C.EDB 16:21 → C.MS2W 18:41 → ENRESERV 19:10
PROVIDERS: ADMIT Family Medicine; ATTEND Hospitalist
DX: J44.0 Chronic obstructive pulmonary disease with (acute) lower respiratory infection (principal); J20.9 Acute bronchitis, unspecified; J44.1 Chronic obstructive pulmonary disease with (acute) exacerbation; I71.4 Abdominal aortic aneurysm, without rupture; N18.3 Chronic kidney disease, stage 3 (moderate); E11.9 Type 2 diabetes mellitus without complications; E78.5 Hyperlipidemia, unspecified; I10 Essential (primary) hypertension; R09.02 Hypoxemia; D63.1 Anemia in chronic kidney disease; Z79.84 Long term (current) use of oral hypoglycemic drugs; N48.1 Balanitis; Z87.891 Personal history of nicotine dependence; Z85.46 Personal history of malignant neoplasm of prostate

== ENCOUNTER 2017-09-24 08:36 | Inpatient (IN) | payer OTHER ==
[~2017-09-24] VITALS: Ht 175.3 cm; Wt 83.2 kg
[~2017-09-24 08:36] MED LIST changes: -AZITTAB PO; -BENZ100C7 PO; +DEXTSYP27 OR; -LVQ750 PO; +PRD10 OR; -PRED10TA PO; +XPNINS INH
[2017-09-24] MEDS ORDERED: RANI150T85 PO (09:25)
--- NOTE | 2017-09-24 09:27 | DIAGNOSTIC IMAGING REPORT ---
CHEST ONE VIEW PORTABLE CLINICAL HISTORY: EVALUATE WEAKNESS dyspnea COMPARISON STUDY: 06/19/2017 FINDINGS: Mild basilar chronic interstitial fibrosis. Mid and upper lungs are considered clear. No significant cardiac enlargement. Diaphragms are smooth. IMPRESSION: Chronic change. No acute process. The above report was generated using voice recognition software. It may contain grammatical, syntax or spelling errors. Electronically signed by: Skip Alfonso M.D. 09/24/2017 9:26 AM Dictated Date/Time: 09/24/2017 9:25 AM
[2017-09-24 09:30] LABS: BASO % 0.3 %; BASO ABS # 0.03 K/uL (0-0.2); EOS % 2.4 %; EOS ABS # 0.28 K/uL (0-0.5); HEMATOCRIT 32.4 % (42-52); HEMOGLOBIN 10.5 g/dL (14.0-18.0); IG# 0.06 K/uL (0.00-0.02); LYMPH % 17.4 %; LYMPH ABS # 2.02 K/uL (1.2-3.4); MEAN CORPUSCULAR HEMOGLOBIN 28.8 pg (25-34); MEAN CORPUSCULAR HGB CONC 32.4 g/dl (32-36); MEAN PLATELET VOLUME 9.3 fL (7.4-10.4); MONO % 15.5 %; NEUT % 63.9 %; NEUT ABS # 7.42 K/uL (1.4-6.5); PLATELET COUNT 292 K/uL (130-400); RED CELL DISTRIBUTION WIDTH CV 13.4 % (11.5-14.5); RED CELL DISTRIBUTION WIDTH SD 44.1 fL (36.4-46.3); WHITE BLOOD COUNT 11.61 K/uL (4.8-10.8)
[2017-09-24] MEDS ORDERED: METHYLPREDNISOLONE 125 MG VIAL IV STA (09:30)
[2017-09-24] MEDS ORDERED: ALBUT/IPRATROP 3MG/0.5MG NEB 3 ML VIAL INH STA ×2 (09:30→10:59)
[2017-09-24] MEDS ORDERED: ONDANSETRON INJ 2 MG/ML 2 ML VIAL IV STA (09:31)
[2017-09-24 09:36] LABS: INR 0.9 (0.9-1.1); PTT PATIENT 28.1 SECONDS (21.0-31.0)
[2017-09-24 09:47] LABS: ALBUMIN 2.9 gm/dl (3.4-5.0); ALT/SGPT 16 U/L (12-78); AST/SGOT 12 U/L (15-37); BLOOD UREA NITROGEN 18 mg/dl (7-18); CALCIUM 8.6 mg/dl (8.5-10.1); CARBON DIOXIDE 24 mmol/L (21-32); CREATININE 1.36 mg/dl (0.60-1.40); GLUCOSE 164 mg/dl (70-99); LIPASE 82 U/L (73-393); POTASSIUM 3.7 mmol/L (3.5-5.1); SODIUM 137 mmol/L (136-145)
[2017-09-24 09:58] LABS: ALKALINE PHOSPHATASE 76 U/L (45-117); TOTAL PROTEIN 7.4 gm/dl (6.4-8.2)
[2017-09-24] MEDS ORDERED: PANTOprazole SOD 40 MG TAB PO STA (12:08)
[2017-09-24] MEDS ORDERED: GLUCAGON FOR INJ 1 MG VIAL SQ PRN (12:15)
[2017-09-24] MEDS ORDERED: ACETAMINOPHEN 325 MG TAB PO PRN (12:15)
[2017-09-24] MEDS ORDERED: MAGNESIUM HYDROXIDE SUSP 30 ML UDC PO PRN (12:15)
[2017-09-24] MEDS ORDERED: GLUCOSE 10 TABS/TUBE PO PRN (12:15)
[2017-09-24] MEDS ORDERED: ALUMINUM/MAGNESIUM/SIMETH (MAALOX MAX) 30 ML UDC PO PRN (12:15)
[2017-09-24] MEDS ORDERED: AZITHROMYCIN 250 MG TAB PO ONE (12:15)
[2017-09-24] MEDS ORDERED: ONDANSETRON INJ 2 MG/ML 2 ML VIAL IV PRN (12:15)
[2017-09-24] MEDS ORDERED: GLUCOSE 40% GEL 15 GM TUBE PO PRN (12:15)
[2017-09-24] MEDS ORDERED: DEXTROSE 50% 50 ML SYR IV PRN (12:15)
[2017-09-24 12:40] VITALS: O2SAT 98; Ht 175.3 cm; Wt 83.2 kg
--- NOTE | 2017-09-24 13:01 | History and Physical ---
History & Physical Date & Time of Service: Sep 24, 2017 at 12:30 Chief Complaint: Cough,Weakness,Very Tired,Vomiting Primary Care Physician: Mukesh Ko D.O. History of Present Illness Source: patient, family, clinic records, hospital records This is an 87 year old male with a past medical history of HTN, HLD, DM2, CKD stage 3, AAA, mitral regurgitation - presents with worsening cough, shortness of breath. Had been admitted in May 2017 with similar symptoms; at that time diagnosed with bronchitis/reactive airway disease and COPD. He was discharged and he felt fine for the next few months. Around September 07, he felt sick and developed a worsening cough. His cough and shortness of breath persisted since then. As per , she was sick and she felt she had an ear infection and pneumonia and her father also developed it. His coughing fits became worse to the point where he developed nausea/vomiting. As per patient, he has been having trouble swallowing with things getting stuck in his throat. Patient's tells me that patient has been having diarrhea for the past 4-6 weeks as well. Patient presented to the ED, found to be hypoxic. Received IV steroids, nebulizers, etc. with only minimal improvement. Past Medical/Surgical History Medical Problems: (1) Abdominal aortic aneurysm (2) Allergic reaction (3) Anemia (4) Balanitis (5) Bronchitis (6) Chronic kidney disease stage 3 (7) Chronic obstructive lung disease (8) COPD exacerbation (9) Diabetes mellitus (10) Elevated white blood cell count (11) Fever (12) Hyperglycemia (13) Hyperlipidemia (14) Hypertension (15) Hypoxia (16) Influenza (17) LLL pneumonia (18) Mitral valve regurgitation (19) On prednisone therapy (20) Osteoarthritis of knee (21) Pneumonia (22) Prostate Cancer (23) Reactive airway disease (24) Recurrent urticaria (25) Renal insufficiency (26) Small bowel obstruction Surgical Problems: (1) H/O colonoscopy with polypectomy (2) History of back surgery (3) Hx of cataract surgery Family History Diabetes mellitus FH: cancer FH: heart disease FH: lung disease Hypertension Social History Smoking Status: Former Smoker Drug Use: none Marital Status: Housing status: lives with family Occupational Status: retired Immunizations History of Influenza Vaccine: Yes Influenza Vaccine Date: Feb 21, 2013 History of Tetanus Vaccine?: Unknown Tetanus Immunization Date: Dec 24, 2011 History of Pneumococcal: 2010 Pneumococcal Date: Dec 08, 2010 History of Hepatitis B Vaccine: No Allergies Coded Allergies: No Known Allergies (Unverified , 09/24/17) Home Medications Scheduled Amlodipine (Norvasc), 5 MG PO QAM Fluticasone Propionate (Nasal) (Flonase Allergy Relief), 2 SPRAYS AUNG DAILY Levalbuterol (Levalbuterol HCl), 0.63 MG INH Q6R Losartan Potassium (Losartan Potassium), 50 MG PO QAM Metformin HCl (Metformin HCl ER), 1,000 MG PO BID Ranitidine (Zantac), 150 MG PO BID Scheduled PRN Albuterol Hfa (Ventolin Hfa), 2 PUFFS INH Q6H PRN for SOB/Wheezing Review of Systems Constitutional: + weakness, No fever, No chills, No sweats Eyes: No worsening of vision ENT: + trouble swallowing, No hearing loss, No unusual epistaxis, No nasal symptoms, No sore throat, No tinnitus, No dental problems Respiratory: + cough, + sputum, + shortness of breath, + dyspnea on exertion, No wheezing, No dyspnea at rest, No hemoptysis Cardiovascular: No chest pain, No orthopnea, No PND, No edema, No claudication , No palpitations Abdomen: + nausea, + vomiting, + diarrhea, No pain, No constipation, No GI bleeding Musculoskeletal: No joint pain, No muscle pain Genitourinary - Male: No hematuria, No dysuria, No urinary frequency, No urinary urgency Neurologic: No weakness, No numbness/tingling, No vertigo, No balance problems Psychiatric: No depression symptoms, No anxiety, No insomnia Endocrine: No fatigue Hematologic / Lymphatic: No abnormal bleeding/bruising Integumentary: No rash, No itch Allergic / Immunologic: No environmental allergies, No seasonal allergies Physical Exam Vital Signs Date Time Temp Pulse Resp B/P (MAP) Pulse Ox O2 Delivery O2 Flow Rate FiO2 09/24/17 11:04 91 09/24/17 11:02 98 Nasal Cannula 2.0 09/24/17 11:01 91 20 130/73 85 Room Air 09/24/17 09:20 92 Room Air 09/24/17 08:40 37.1 103 18 144/77 94 Room Air General Appearance: WD/WN, no apparent distress Head: normocephalic, atraumatic Eyes: normal inspection ENT: hearing grossly normal Neck: supple, no adenopathy, thyroid normal, no JVD Respiratory/Chest: chest non-tender, lungs clear, normal breath sounds, no respiratory distress, no accessory muscle use Cardiovascular: regular rate, rhythm, no edema, no gallop, no JVD, + systolic murmur Abdomen/GI: normal bowel sounds, non tender, soft Back: normal inspection, no CVA tenderness, no muscle spasm, normal range of motion Extremities/Musculoskelatal: normal inspection, no calf tenderness, normal capillary refill, no pedal edema, normal range of motion 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, no motor/sensory deficits, alert, normal mood/affect, oriented x 3 Skin: normal color, warm/dry, no rash Lymphatic: no adenopathy Diagnostics Laboratory Results Results Past 24 Hours Test 09/24/17 09:09 Range/Units White Blood Count 11.61 4.8-10.8 K/uL Red Blood Count 3.64 4.7-6.1 M/uL Hemoglobin 10.5 14.0-18.0 g/dL Hematocrit 32.4 42-52 % Mean Corpuscular Volume 89.0 80-100 fL Mean Corpuscular Hemoglobin 28.8 25-34 pg Mean Corpuscular Hemoglobin Concent 32.4 32-36 g/dl Platelet Count 292 130-400 K/uL Mean Platelet Volume 9.3 7.4-10.4 fL Neutrophils (%) (Auto) 63.9 % Lymphocytes (%) (Auto) 17.4 % Monocytes (%) (Auto) 15.5 % Eosinophils (%) (Auto) 2.4 % Basophils (%) (Auto) 0.3 % Neutrophils # (Auto) 7.42 1.4-6.5 K/uL Lymphocytes # (Auto) 2.02 1.2-3.4 K/uL Monocytes # (Auto) 1.80 0.11-0.59 K/uL Eosinophils # (Auto) 0.28 0-0.5 K/uL Basophils # (Auto) 0.03 0-0.2 K/uL RDW Standard Deviation 44.1 36.4-46.3 fL RDW Coefficient of Variation 13.4 11.5-14.5 % Immature Granulocyte % (Auto) 0.5 % Immature Granulocyte # (Auto) 0.06 0.00-0.02 K/uL Prothrombin Time 9.8 9.0-12.0 SECONDS Prothromb Time International Ratio 0.9 0.9-1.1 Activated Partial Thromboplast Time 28.1 21.0-31.0 SECONDS Partial Thromboplastin Ratio 1.1 Sodium Level 137 136-145 mmol/L Potassium Level 3.7 3.5-5.1 mmol/L Chloride Level 105 98-107 mmol/L Carbon Dioxide Level 24 21-32 mmol/L Anion Gap 8.0 3-11 mmol/L Blood Urea Nitrogen 18 7-18 mg/dl Creatinine 1.36 0.60-1.40 mg/dl Est Creatinine Clear Calc Drug Dose 39.0 ml/min Estimated GFR () 54.2 Estimated GFR (Non- 46.8 BUN/Creatinine Ratio 12.9 10-20 Random Glucose 164 70-99 mg/dl Calcium Level 8.6 8.5-10.1 mg/dl Magnesium Level 1.6 1.8-2.4 mg/dl Total Bilirubin 0.4 0.2-1 mg/dl Direct Bilirubin < 0.1 0-0.2 mg/dl Aspartate Amino Transf (AST/SGOT) 12 15-37 U/L Alanine Aminotransferase (ALT/SGPT) 16 12-78 U/L Alkaline Phosphatase 76 45-117 U/L Troponin I < 0.015 0-0.045 ng/ml Total Protein 7.4 6.4-8.2 gm/dl Albumin 2.9 3.4-5.0 gm/dl Lipase 82 73-393 U/L Thyroid Stimulating Hormone (TSH) 1.040 0.300-4.500 uIu/ml Microbiology Results 09/24/17 Blood Culture, Received Pending 09/24/17 Blood Culture, Received Pending Diagnostic Radiology CHEST ONE VIEW PORTABLE CLINICAL HISTORY: EVALUATE WEAKNESS dyspnea COMPARISON STUDY: 06/19/2017 FINDINGS: Mild basilar chronic interstitial fibrosis. Mid and upper lungs are considered clear. No significant cardiac enlargement. Diaphragms are smooth. IMPRESSION: Chronic change. No acute process. EKG Normal sinus rhythm Left axis deviation Right bundle branch block Impression Assessment and Plan This is an 87 year old male with a past medical history of HTN, HLD, DM2, CKD stage 3, AAA, mitral regurgitation - presents with worsening cough, shortness of breath. Acute Hypoxic Respiratory Failure secondary to Acute, Complicated Bronchitis Mild Acute COPD Exacerbation 09/24 - CXR - no infectious process - due to bronchitis - will start IV solu-medrol for now - nebulizers PRN - O2 as needed and will wean as tolerated - starting Azithromycin 500mg x1, then 250mg x4 days - may need two step prior to discharge Post-Tussive Emesis Dysphagia 09/24 - Zofran PRN for post-tussive emesis - will consult speech therapy due to problems with dysphagia - aspiration precautions - mechanical soft diet DM2 - monitor BSGs, especially with solu-medrol use - insulin sliding scale for now - hold metformin HTN - continue Cozaar + Amlodipine DVT ppx - subq heparin DNR/DNI Resuscitation Status VTE Prophylaxis Will order VTE Prophylaxis: Yes
[2017-09-24] MEDS ORDERED: PNEUMOCOCCAL POLYSACCHARIDES 25 MCG/0.5 ML VIAL/SYR IM. ONE (14:30)
[2017-09-24] MEDS ORDERED: PNEUMOCOCCAL ADMINISTRATION CHARGE ONE (14:30)
--- NOTE | 2017-09-24 14:31 | EMERGENCY ROOM VISIT NOTE ---
History Report prepared by Carol: Karan Quintero Under the Supervision of: Dr. Akbar Felton M.D. First contact with patient: 08:55 Chief Complaint: ILLNESS Stated Complaint: COUGH,WEAKNESS,VERY TIRED,VOMITING History of Present Illness The patient is a 87 year old male who presents to the Emergency Room with complaints of waxing and waning illness symptoms that began 17 days ago. Patient states that the symptoms were worse yesterday and that he feels "better but not great" while at the ER. Patient has symptoms of wheezing, weakness, fatigue, nausea, cough, and vomiting. Patient states that he gets chest pain when he coughs. He adds that he has chronic shortness of breath due to a history of COPD. Patient adds that he had "diarrhea for a couple of weeks". Patient states that he is currently nauseas in the ER. He states that he uses a nebulizer at home. Patient adds that he has taken Doxycycline for past "4-5 days" without relief of the symptoms. Patient states that his primary doctor is Dr. Ko. Pertinent past medical history includes diabetes. Pt denies LOC, headache, fevers, chills, diaphoresis, visual changes, neck pain, abdominal pain , back pain, melena, hematochezia, urinary symptoms, numbness, lymphadenopathy, rash, or other complaints. Source of History: patient Onset: 17 days ago Position: other (Global) Timing: waxes/wanes Associated Symptoms: + cough, + chest pain, + nausea, + vomiting, + diarrhea , + fatigue Review of Systems See HPI for pertinent positives and negatives. A total of ten systems were reviewed and were otherwise negative. Past Medical & Surgical Medical Problems: (1) Abdominal aortic aneurysm (2) Allergic reaction (3) Anemia (4) Chronic kidney disease stage 3 (5) Chronic obstructive lung disease (6) COPD exacerbation (7) Diabetes mellitus (8) Hyperlipidemia (9) Hypertension (10) Influenza (11) Osteoarthritis of knee (12) Pneumonia (13) Prostate Cancer (14) Reactive airway disease (15) Small bowel obstruction Surgical Problems: (1) H/O colonoscopy with polypectomy (2) History of back surgery (3) Hx of cataract surgery Family History Diabetes mellitus FH: cancer FH: heart disease FH: lung disease Hypertension Social History Smoking Status: Former Smoker Alcohol Use: none Drug Use: none Marital Status: Housing Status: lives with significant other Occupation Status: retired Current/Historical Medications Scheduled Amlodipine (Norvasc), 5 MG PO QAM Fluticasone Propionate (Nasal) (Flonase Allergy Relief), 2 SPRAYS AUNG DAILY Levalbuterol (Levalbuterol HCl), 0.63 MG INH Q6R Losartan Potassium (Losartan Potassium), 50 MG PO QAM Metformin HCl (Metformin HCl ER), 1,000 MG PO BID Ranitidine (Zantac), 150 MG PO BID Scheduled PRN Albuterol Hfa (Ventolin Hfa), 2 PUFFS INH Q6H PRN for SOB/Wheezing Allergies Coded Allergies: No Known Allergies (Unverified , 09/24/17) Physical Exam Vital Signs Date Time Temp Pulse Resp B/P (MAP) Pulse Ox O2 Delivery O2 Flow Rate FiO2 09/24/17 13:13 100 20 126/79 98 Nasal Cannula 2.0 09/24/17 12:40 98 Nasal Cannula 2.0 09/24/17 12:28 97 18 111/68 98 Nasal Cannula 2.0 09/24/17 11:04 91 09/24/17 11:02 98 Nasal Cannula 2.0 09/24/17 11:01 91 20 130/73 85 Room Air 09/24/17 09:20 92 Room Air 09/24/17 08:40 37.1 103 18 144/77 94 Room Air Physical Exam GENERAL: Awake, alert, well-appearing, in no distress HENT: Normocephalic, atraumatic. Oropharynx unremarkable. EYES: Normal conjunctiva. Sclera non-icteric. NECK: Supple. No nuchal rigidity. FROM. No masses. RESPIRATORY: Frequent cough present. Clear to auscultation. No wheezes. No rales. Normal respiratory effort. CARDIAC: Normal rate. Normal rhythm. No murmurs. No rubs. Extremities warm and well perfused. Pulses equal. No JVD. GI: Soft, non-distended. No tenderness to palpation. No rebound or guarding. No masses. RECTAL: Deferred. MUSCULOSKELETAL: Atraumatic. Chest examination reveals no tenderness. The back is symmetrical on inspection without obvious abnormality. There is no CVA tenderness to palpation. No joint edema. LOWER EXTREMITIES: Calves are equal size bilaterally and non-tender. No edema. No discoloration. NEURO: Normal sensorium. No sensory or motor deficits noted. SKIN: No rash or jaundice noted. Medical Decision & Procedures ER Provider Diagnostic Interpretation: Radiology results as stated below per my review and radiologist interpretation: CHEST ONE VIEW PORTABLE CLINICAL HISTORY: EVALUATE WEAKNESS dyspnea COMPARISON STUDY: 06/19/2017 FINDINGS: Mild basilar chronic interstitial fibrosis. Mid and upper lungs are considered clear. No significant cardiac enlargement. Diaphragms are smooth. IMPRESSION: Chronic change. No acute process. The above report was generated using voice recognition software. It may contain grammatical, syntax or spelling errors. Electronically signed by: Skip Alfonso M.D. 09/24/2017 9:26 AM Laboratory Results 09/24/17 09:09 Red Blood Count 3.64, Mean Corpuscular Volume 89.0, Mean Corpuscular Hemoglobin 28.8, Mean Corpuscular Hemoglobin Concent 32.4, Mean Platelet Volume 9.3, Neutrophils (%) (Auto) 63.9, Lymphocytes (%) (Auto) 17.4, Monocytes (%) (Auto) 15.5, Eosinophils (%) (Auto) 2.4, Basophils (%) (Auto) 0.3, Neutrophils # (Auto ) 7.42, Lymphocytes # (Auto) 2.02, Monocytes # (Auto) 1.80, Eosinophils # (Auto ) 0.28, Basophils # (Auto) 0.03 09/24/17 09:09 Test 09/24/17 09:09 White Blood Count 11.61 K/uL (4.8-10.8) Red Blood Count 3.64 M/uL (4.7-6.1) Hemoglobin 10.5 g/dL (14.0-18.0) Hematocrit 32.4 % (42-52) Mean Corpuscular Volume 89.0 fL (80-100) Mean Corpuscular Hemoglobin 28.8 pg (25-34) Mean Corpuscular Hemoglobin Concent 32.4 g/dl (32-36) Platelet Count 292 K/uL (130-400) Mean Platelet Volume 9.3 fL (7.4-10.4) Neutrophils (%) (Auto) 63.9 % Lymphocytes (%) (Auto) 17.4 % Monocytes (%) (Auto) 15.5 % Eosinophils (%) (Auto) 2.4 % Basophils (%) (Auto) 0.3 % Neutrophils # (Auto) 7.42 K/uL (1.4-6.5) Lymphocytes # (Auto) 2.02 K/uL (1.2-3.4) Monocytes # (Auto) 1.80 K/uL (0.11-0.59) Eosinophils # (Auto) 0.28 K/uL (0-0.5) Basophils # (Auto) 0.03 K/uL (0-0.2) RDW Standard Deviation 44.1 fL (36.4-46.3) RDW Coefficient of Variation 13.4 % (11.5-14.5) Immature Granulocyte % (Auto) 0.5 % Immature Granulocyte # (Auto) 0.06 K/uL (0.00-0.02) Prothrombin Time 9.8 SECONDS (9.0-12.0) Prothromb Time International Ratio 0.9 (0.9-1.1) Activated Partial Thromboplast Time 28.1 SECONDS (21.0-31.0) Partial Thromboplastin Ratio 1.1 Anion Gap 8.0 mmol/L (3-11) Est Creatinine Clear Calc Drug Dose 39.0 ml/min Estimated GFR () 54.2 Estimated GFR (Non- 46.8 BUN/Creatinine Ratio 12.9 (10-20) Calcium Level 8.6 mg/dl (8.5-10.1) Magnesium Level 1.6 mg/dl (1.8-2.4) Total Bilirubin 0.4 mg/dl (0.2-1) Direct Bilirubin < 0.1 mg/dl (0-0.2) Aspartate Amino Transf (AST/SGOT) 12 U/L (15-37) Alanine Aminotransferase (ALT/SGPT) 16 U/L (12-78) Alkaline Phosphatase 76 U/L (45-117) Troponin I < 0.015 ng/ml (0-0.045) Total Protein 7.4 gm/dl (6.4-8.2) Albumin 2.9 gm/dl (3.4-5.0) Lipase 82 U/L (73-393) Thyroid Stimulating Hormone (TSH) 1.040 uIu/ml (0.300-4.500) Laboratory results reviewed by me Medications Administered Medications (Trade) Dose Ordered Sig/Clara Route Start Time Stop Time Status Last Admin Dose Admin Albuterol/ Ipratropium (Duoneb) 3 ml NOW STAT INH 09/24/17 09:30 09/24/17 09:31 DC 09/24/17 09:47 3 ML Methylprednisolone Sodium Succinate (Solu-Medrol IV) 125 mg NOW STAT IV 09/24/17 09:30 09/24/17 09:31 DC 09/24/17 09:47 125 MG Ondansetron HCl (Zofran Inj) 4 mg NOW STAT IV 09/24/17 09:31 09/24/17 09:32 DC 09/24/17 09:47 4 MG Albuterol/ Ipratropium (Duoneb) 3 ml NOW STAT INH 09/24/17 10:59 09/24/17 11:00 DC 09/24/17 10:59 3 ML Pantoprazole Sodium (Protonix Tab) 40 mg NOW STAT PO 09/24/17 12:08 09/24/17 13:08 DC 09/24/17 13:30 40 MG Azithromycin (Zithromax Tab) 500 mg NOW ONCE PO 09/24/17 12:15 09/24/17 13:08 DC 09/24/17 13:30 500 MG ECG Per My Interpretation Indication: SOB/dyspnea, other (Cough) Rate (beats per minute): 98 Rhythm: normal sinus Findings: Q waves (Inferior), RBBB, left axis deviation Comparison ECG Date: 06/18/2017 Change: no significant change ED Course 0857: The patient was evaluated in room B4. A complete history and physical exam was performed. 0930: Solu-Medrol IV 125mg IV, Duoneb 3ml INH, and Zofran Inj 4mg IV. 1033: I reassessed the patient. He had an oxygen saturation of 85%. I will try giving the patient a second nebulizer treatment and will call the hospitalist. 1059: Duoneb 3ml INH. 1132: Upon reexamination, the patient will be further evaluated. I discussed the test results and treatment plan with Dr. Monsivais. The patient will be evaluated for further management. Medical Decision Prior records/ancillary studies reviewed. Triage Nursing notes reviewed and agree them. Additional history obtained from the family. The patient's history was concerning for shortness of breath. Differential diagnosis: Etiologies such as pneumonia, COPD, reactive airway disease, CHF, cardiac ischemia, pulmonary embolism, pneumothorax, musculoskeletal, infections, gastrointestinal, as well as others were entertained. Physical examination: As above. Patient was noted to have a resting oxygen saturation that went down to 85%. He was placed on supplemental oxygen and this resolved. ER treatment provided: DuoNeb Solu-Medrol Supplemental oxygen On reassessment the patient felt better. Diagnostic interpretation by me: The electrocardiogram was negative for pathologic change. The labs revealed An unremarkable CBC and chemistry panel. Cardiac markers negative. Imaging studies: Chest x-ray as above. Consultation: A consultation was placed with the hospitalist. The case was discussed and diagnostics were reviewed. The patient was evaluated in the ER for further treatment. Medication Reconcilliation Current Medication List: was personally reviewed by me Blood Pressure Screening Patient's blood pressure: Elevated blood pressure Referred to hospitalist. Consults Time Called: 1110 Consulting Physician: Dr. Loi Henderson Hospitalist Returned Call: [phone] Discussed the patient's case. The patient will be evaluated for further treatment and disposition. Impression Primary Impression: COPD (chronic obstructive pulmonary disease) Additional Impression: Hypoxia Scribe Attestation The scribe's documentation has been prepared under my direction and personally reviewed by me in its entirety. I confirm that the note above accurately reflects all work, treatment, procedures, and medical decision making performed by me. Departure Information Dispostion Being Evaluated By Hospitalist Referrals Mukesh Ko D.O. (PCP) Forms HOME CARE DOCUMENTATION FORM, IMPORTANT VISIT INFORMATION, WORK / SCHOOL INSTRUCTIONS Patient Instructions My [facility] Problem Qualifiers
[2017-09-24 14:35] VITALS: BP 150/70; PULSE 97; TEMP 36.8; O2SAT 97
[2017-09-24] MEDS ORDERED: LEVALBUTEROL/IPRATROPIUM NEB INH SCH (15:00)
[2017-09-24] MEDS: METHYLPREDNISOLONE IV 40 MG in SYRINGE 0 ML IV SCH (17:03)
[2017-09-24] MEDS: INSULIN ASPART 100 UNITS/ML 3 ML PEN SC SCH ×2 (17:03→21:23)
[2017-09-24] MEDS: IPRATROPIUM BROMIDE NEB SOLN 0.02% 2.5 ML VIAL INH SCH (19:36)
[2017-09-24] MEDS: LEVALBUTEROL 0.63MG/3 ML NEB INH SCH (19:36)
[2017-09-24 19:39] VITALS: PULSE 93; O2SAT 96
[2017-09-24] MEDS: GUAIFENESIN 600 MG TABCR PO SCH (21:15)
[2017-09-24] MEDS: RANITIDINE HCL 150 MG TAB PO SCH (21:15)
[2017-09-24] MEDS: HEPARIN SOD 5000 UNIT/0.5 ML CARP SQ SCH (21:23)
[2017-09-25] VITALS (9 sets, daily range): BP systolic 103–164; BP diastolic 67–78; PULSE 81–93; TEMP 36.4–36.8; O2SAT 94–98
[2017-09-25] MEDS: LEVALBUTEROL 0.63MG/3 ML NEB INH SCH ×4 (01:50→19:35)
[2017-09-25] MEDS: IPRATROPIUM BROMIDE NEB SOLN 0.02% 2.5 ML VIAL INH SCH ×4 (01:50→19:35)
[2017-09-25] MEDS: METHYLPREDNISOLONE IV 40 MG in SYRINGE 0 ML IV SCH ×2 (01:53→10:01)
[2017-09-25] MEDS: HEPARIN SOD 5000 UNIT/0.5 ML CARP SQ SCH ×3 (06:14→20:55)
[2017-09-25 06:51] LABS: HEMATOCRIT 31.1 % (42-52); HEMOGLOBIN 10.3 g/dL (14.0-18.0); MEAN CELL VOLUME 87.6 fL (80-100); MEAN CORPUSCULAR HGB CONC 33.1 g/dl (32-36); MEAN PLATELET VOLUME 9.2 fL (7.4-10.4); PLATELET COUNT 309 K/uL (130-400); RED CELL DISTRIBUTION WIDTH CV 13.2 % (11.5-14.5); RED CELL DISTRIBUTION WIDTH SD 42.8 fL (36.4-46.3); WHITE BLOOD COUNT 12.78 K/uL (4.8-10.8)
[2017-09-25 07:27] LABS: CREATININE 1.5 mg/dl (0.60-1.40); POTASSIUM 3.9 mmol/L (3.5-5.1)
[2017-09-25] MEDS: RANITIDINE HCL 150 MG TAB PO SCH ×2 (08:51→20:46)
[2017-09-25] MEDS: PANTOprazole SOD 40 MG TAB PO SCH (08:51)
[2017-09-25] MEDS: LOSARTAN POTASSIUM 50 MG TAB PO SCH (08:53)
[2017-09-25] MEDS: AZITHROMYCIN 250 MG TAB PO SCH (08:53)
[2017-09-25] MEDS: AMLODIPINE BESYLATE 5 MG TAB PO SCH (08:53)
[2017-09-25] MEDS: GUAIFENESIN 600 MG TABCR PO SCH ×2 (08:53→20:46)
[2017-09-25] MEDS: FLUTICASONE PROPIONATE NA SPR 16 GM BTL NAE SCH (08:54)
[2017-09-25] MEDS: INSULIN ASPART 100 UNITS/ML 3 ML PEN SC SCH ×4 (09:02→20:55)
[2017-09-25] MEDS ORDERED: MAGNESIUM SULFATE 1GM / D5W 100 ML IV STA (11:39)
[2017-09-25] MEDS ORDERED: POTASSIUM CHLR 10 MEQ / WTR 100 ML IV STA (11:39)
[2017-09-25] MEDS: SODIUM CHLORIDE 0.9% 1000ML 1,000 ML IV SCH (12:24)
--- NOTE | 2017-09-25 13:35 | Progress Note ---
Subjective Date of Service: Sep 25, 2017. Subjective Pt evaluation today including: conversation w/ patient, physical exam, lab review, review of studies, review of inpatient medication list Saw/examined the patient in room 262 He is doing well, states his breathing is better He feels improved; diarrhea improving No complaints at this time Problem List Medical Problems: (1) Balanitis Status: Acute (2) Bronchitis Status: Acute (3) COPD (chronic obstructive pulmonary disease) Status: Acute (4) Elevated white blood cell count Status: Acute (5) Fever Status: Acute (6) Hyperglycemia Status: Acute (7) Hypoxia Status: Acute (8) Hypoxia Status: Acute (9) LLL pneumonia Status: Acute (10) On prednisone therapy Status: Acute (11) Recurrent urticaria Status: Acute (12) Renal insufficiency Status: Acute Review of Systems Constitutional: + weakness, + fatigue, No fever, No chills Respiratory: No shortness of breath (improved) Cardiac: No chest pain, No edema, No palpitations Abdomen: No pain, No nausea, No vomiting, No diarrhea Medications Current Inpatient Medications Medications (Trade) Dose Ordered Sig/Clara Route Start Time Stop Time Status Last Admin Dose Admin Insulin Aspart (novoLOG ASPART) SLIDING SCALE If C... ACHS SC 09/24/17 16:30 10/24/17 16:29 09/25/17 12:43 7 UNITS Glucose (Glucose 40% Gel) 15-30 GRAMS 15 GRAMS... UD PRN PO 09/24/17 12:15 10/24/17 12:14 Glucose (Glucose Chew Tab) 4-8 Tablets 4 Tabl... UD PRN PO 09/24/17 12:15 10/24/17 12:14 Dextrose (Dextrose 50% 50ML Syringe) 25-50ML OF 50% DW IV FOR... UD PRN IV 09/24/17 12:15 10/24/17 12:14 Glucagon (Glucagon Inj) 1 mg UD PRN SQ 09/24/17 12:15 10/24/17 12:14 Heparin Sodium (Porcine) (Heparin Sq 5000 Unit/0.5ml) 5,000 unit Q8 SQ 09/24/17 22:00 10/24/17 21:59 09/25/17 06:14 5,000 UNIT Acetaminophen (Tylenol Tab) 650 mg Q4H PRN PO 09/24/17 12:15 10/24/17 12:14 Al Hydrox/Mg Hydrox/Simethicone (Maalox Max Susp) 15 ml Q4H PRN PO 09/24/17 12:15 10/24/17 12:14 Magnesium Hydroxide (Milk Of Magnesia Susp) 30 ml Q6H PRN PO 09/24/17 12:15 10/24/17 12:14 Ondansetron HCl (Zofran Inj) 4 mg Q6H PRN IV 09/24/17 12:15 10/24/17 12:14 Amlodipine Besylate (Norvasc Tab) 5 mg QAM PO 09/25/17 09:00 10/25/17 08:59 09/25/17 08:53 5 MG Fluticasone Propionate (Flonase Nasal [place]) 2 sprays DAILY AUNG 09/25/17 09:00 10/25/17 08:59 09/25/17 08:54 2 SPRAYS Losartan Potassium (coZAAR TAB) 50 mg QAM PO 09/25/17 09:00 10/25/17 08:59 09/25/17 08:53 50 MG Ranitidine HCl (zANTac TAB) 150 mg BID PO 09/24/17 21:00 10/24/17 20:59 09/25/17 08:51 150 MG Pantoprazole Sodium (Protonix Tab) 40 mg QAM PO 09/25/17 09:00 09/29/17 08:59 09/25/17 08:51 40 MG Methylprednisolone Sodium Succinate 40 mg/Syringe 0.64 ml @ 1.5 mls/min Q8H IV 09/24/17 18:00 10/24/17 17:59 09/25/17 10:01 1.5 MLS/MIN Azithromycin (Zithromax Tab) 250 mg QAM PO 09/25/17 09:00 10/02/17 08:59 09/25/17 08:53 250 MG Guaifenesin (Mucinex Contr Rel Tab) 600 mg Q12 PO 09/24/17 21:00 10/24/17 20:59 09/25/17 08:53 600 MG Ipratropium [place] (Atrovent 0.02% 0.5MG/2.5ML Neb) 0.5 mg Q6R INH 09/24/17 21:00 10/24/17 20:59 09/25/17 06:57 0.5 MG Levalbuterol (Xopenex 0.63 Mg/ 3 Ml Neb) 0.63 mg Q6R INH 09/24/17 21:00 10/24/17 20:59 09/25/17 06:57 0.63 MG Sodium Chloride 1,000 ml @ 80 mls/hr [id number] IV 09/25/17 11:45 10/25/17 11:44 09/25/17 12:24 80 MLS/HR Objective Vital Signs Date Time Temp Pulse Resp B/P (MAP) Pulse Ox O2 Delivery O2 Flow Rate FiO2 09/25/17 08:00 95 1.0 09/25/17 07:31 36.5 81 20 156/78 (104) 98 09/25/17 06:57 87 16 98 Nasal Cannula 2.0 09/25/17 01:52 88 16 96 Nasal Cannula 2.0 09/25/17 00:38 36.8 93 20 164/77 (106) 97 Nasal Cannula 2.0 09/25/17 00:00 Nasal Cannula 2.0 09/24/17 20:00 Nasal Cannula 2.0 09/24/17 19:39 93 18 96 Nasal Cannula 3.0 09/24/17 16:00 Nasal Cannula 3.0 09/24/17 14:35 36.8 97 20 150/70 (96) 97 Nasal Cannula 3.0 Physical Exam General Appearance: no apparent distress Respiratory/Chest: lungs clear, normal breath sounds, no respiratory distress, no accessory muscle use Cardiovascular: + systolic murmur Extremities: normal inspection, no pedal edema Neurologic/Psychiatric: no motor/sensory deficits, alert, normal mood/affect Laboratory Results Last 24 Hours Test 09/24/17 15:24 09/24/17 20:52 09/24/17 21:34 09/25/17 06:39 Bedside Glucose 282 mg/dl 227 mg/dl Urine Color YELLOW Urine Appearance CLEAR Urine pH 5.0 Urine Specific [place] 1.021 Urine Protein 1+ Urine Glucose (UA) TRACE Urine Ketones TRACE Urine Occult Blood NEG Urine Nitrite NEG Urine Bilirubin NEG Urine Urobilinogen NEG Urine Leukocyte Esterase NEG Urine WBC (Auto) 1-5 /hpf Urine RBC (Auto) 0-4 /hpf Urine Hyaline Casts (Auto) 1-5 /lpf Urine Epithelial Cells (Auto) 5-10 /lpf Urine Bacteria (Auto) NEG White Blood Count 12.78 K/uL Red Blood Count 3.55 M/uL Hemoglobin 10.3 g/dL Hematocrit 31.1 % Mean Corpuscular Volume 87.6 fL Mean Corpuscular Hemoglobin 29.0 pg Mean Corpuscular Hemoglobin Concent 33.1 g/dl RDW Standard Deviation 42.8 fL RDW Coefficient of Variation 13.2 % Platelet Count 309 K/uL Mean Platelet Volume 9.2 fL Sodium Level 134 mmol/L Potassium Level 3.9 mmol/L Chloride Level 103 mmol/L Carbon Dioxide Level 21 mmol/L Anion Gap 11.0 mmol/L Blood Urea Nitrogen 26 mg/dl Creatinine 1.50 mg/dl Est Creatinine Clear Calc Drug Dose 35.4 ml/min Estimated GFR () 48.2 Estimated GFR (Non- 41.6 BUN/Creatinine Ratio 17.6 Random Glucose 211 mg/dl Calcium Level 9.0 mg/dl Test 09/25/17 07:18 09/25/17 11:44 Bedside Glucose 214 mg/dl 198 mg/dl Assessment and Plan This is an 87 year old male with a past medical history of HTN, HLD, DM2, CKD stage 3, AAA, mitral regurgitation - presents with worsening cough, shortness of breath. Acute Hypoxic Respiratory Failure secondary to Acute, Complicated Bronchitis Mild Acute COPD Exacerbation 09/25 - will switch IV solu-medrol to prednisone 40mg, can do this x4 days and then stop, no need to taper - Azithromycin 250mg x4 days - nebs PRN - may need two step prior to discharge 09/24 - CXR - no infectious process - due to bronchitis - will start IV solu-medrol for now - nebulizers PRN - O2 as needed and will wean as tolerated - starting Azithromycin 500mg x1, then 250mg x4 days - may need two step prior to discharge Post-Tussive Emesis Dysphagia 09/24 - Zofran PRN for post-tussive emesis - will consult speech therapy due to problems with dysphagia - aspiration precautions - mechanical soft diet DM2 - monitor BSGs, especially with solu-medrol use - insulin sliding scale for now - hold metformin HTN - continue Cozaar + Amlodipine DVT ppx - subq heparin DNR/DNI
[2017-09-26] MEDS: LEVALBUTEROL 0.63MG/3 ML NEB INH SCH ×2 (01:52→07:11)
[2017-09-26] MEDS: IPRATROPIUM BROMIDE NEB SOLN 0.02% 2.5 ML VIAL INH SCH ×2 (01:52→07:11)
[2017-09-26 01:54] VITALS: PULSE 86; O2SAT 96
[2017-09-26] MEDS: SODIUM CHLORIDE 0.9% 1000ML 1,000 ML IV SCH ×2 (03:22→12:30)
[2017-09-26] MEDS: HEPARIN SOD 5000 UNIT/0.5 ML CARP SQ SCH (05:58)
[2017-09-26 06:19] LABS: HEMATOCRIT 31.5 % (42-52); HEMOGLOBIN 10.4 g/dL (14.0-18.0); MEAN CORPUSCULAR HEMOGLOBIN 29.4 pg (25-34); MEAN PLATELET VOLUME 9.2 fL (7.4-10.4); PLATELET COUNT 301 K/uL (130-400); RED CELL DISTRIBUTION WIDTH CV 13.4 % (11.5-14.5); RED CELL DISTRIBUTION WIDTH SD 43.4 fL (36.4-46.3); WHITE BLOOD COUNT 13.83 K/uL (4.8-10.8)
[2017-09-26 06:54] LABS: CALCIUM 9.1 mg/dl (8.5-10.1); CREATININE 1.46 mg/dl (0.60-1.40)
[2017-09-26 07:03] VITALS: BP 169/92; PULSE 76; TEMP 36.5; O2SAT 94
[2017-09-26 07:11] VITALS: PULSE 79; O2SAT 94
[2017-09-26] MEDS: PANTOprazole SOD 40 MG TAB PO SCH (08:15)
[2017-09-26] MEDS: FLUTICASONE PROPIONATE NA SPR 16 GM BTL NAE SCH (08:15)
[2017-09-26] MEDS: LOSARTAN POTASSIUM 50 MG TAB PO SCH (08:15)
[2017-09-26] MEDS: GUAIFENESIN 600 MG TABCR PO SCH (08:15)
[2017-09-26] MEDS: AZITHROMYCIN 250 MG TAB PO SCH (08:15)
[2017-09-26] MEDS: RANITIDINE HCL 150 MG TAB PO SCH (08:15)
[2017-09-26] MEDS: AMLODIPINE BESYLATE 5 MG TAB PO SCH (08:15)
[2017-09-26] MEDS: INSULIN ASPART 100 UNITS/ML 3 ML PEN SC SCH ×2 (08:17→12:37)
[2017-09-26] MEDS ORDERED: ALBUTEROL HFA 8 GM INHALER INH PRN (09:45)
--- NOTE | 2017-09-26 12:15 | Progress Note ---
Subjective Date of Service: Sep 26, 2017. Subjective Pt evaluation today including: conversation w/ patient, physical exam, lab review, review of studies, review of inpatient medication list Saw/examined the patient in room 262 He's doing well, off of oxygen, has no breathing issues, ambulating well on his own Is very eager to take him home. wants to take him home a well. Problem List Medical Problems: (1) Balanitis Status: Acute (2) Bronchitis Status: Acute (3) COPD (chronic obstructive pulmonary disease) Status: Acute (4) Elevated white blood cell count Status: Acute (5) Fever Status: Acute (6) Hyperglycemia Status: Acute (7) Hypoxia Status: Acute (8) Hypoxia Status: Acute (9) LLL pneumonia Status: Acute (10) On prednisone therapy Status: Acute (11) Recurrent urticaria Status: Acute (12) Renal insufficiency Status: Acute Review of Systems Constitutional: No fever, No chills, No weakness Respiratory: No cough, No sputum, No wheezing, No shortness of breath, No dyspnea on exertion, No dyspnea at rest, No hemoptysis Cardiac: No chest pain, No edema, No palpitations Medications Current Inpatient Medications Medications (Trade) Dose Ordered Sig/Clara Route Start Time Stop Time Status Last Admin Dose Admin Insulin Aspart (novoLOG ASPART) SLIDING SCALE If C... ACHS SC 09/24/17 16:30 10/24/17 16:29 09/26/17 08:17 4 UNITS Glucose (Glucose 40% Gel) 15-30 GRAMS 15 GRAMS... UD PRN PO 09/24/17 12:15 10/24/17 12:14 Glucose (Glucose Chew Tab) 4-8 Tablets 4 Tabl... UD PRN PO 09/24/17 12:15 10/24/17 12:14 Dextrose (Dextrose 50% 50ML Syringe) 25-50ML OF 50% DW IV FOR... UD PRN IV 09/24/17 12:15 10/24/17 12:14 Glucagon (Glucagon Inj) 1 mg UD PRN SQ 09/24/17 12:15 10/24/17 12:14 Heparin Sodium (Porcine) (Heparin Sq 5000 Unit/0.5ml) 5,000 unit Q8 SQ 09/24/17 22:00 10/24/17 21:59 09/26/17 05:58 5,000 UNIT Acetaminophen (Tylenol Tab) 650 mg Q4H PRN PO 09/24/17 12:15 10/24/17 12:14 Al Hydrox/Mg Hydrox/Simethicone (Maalox Max Susp) 15 ml Q4H PRN PO 09/24/17 12:15 10/24/17 12:14 Magnesium Hydroxide (Milk Of Magnesia Susp) 30 ml Q6H PRN PO 09/24/17 12:15 10/24/17 12:14 Ondansetron HCl (Zofran Inj) 4 mg Q6H PRN IV 09/24/17 12:15 10/24/17 12:14 Amlodipine Besylate (Norvasc Tab) 5 mg QAM PO 09/25/17 09:00 10/25/17 08:59 09/26/17 08:15 5 MG Fluticasone Propionate (Flonase Nasal [place]) 2 sprays DAILY AUNG 09/25/17 09:00 10/25/17 08:59 09/26/17 08:15 2 SPRAYS Losartan Potassium (coZAAR TAB) 50 mg QAM PO 09/25/17 09:00 10/25/17 08:59 09/26/17 08:15 50 MG Ranitidine HCl (zANTac TAB) 150 mg BID PO 09/24/17 21:00 10/24/17 20:59 09/26/17 08:15 150 MG Pantoprazole Sodium (Protonix Tab) 40 mg QAM PO 09/25/17 09:00 09/29/17 08:59 09/26/17 08:15 40 MG Azithromycin (Zithromax Tab) 250 mg QAM PO 09/25/17 09:00 10/02/17 08:59 09/26/17 08:15 250 MG Guaifenesin (Mucinex Contr Rel Tab) 600 mg Q12 PO 09/24/17 21:00 10/24/17 20:59 09/26/17 08:15 600 MG Sodium Chloride 1,000 ml @ 80 mls/hr [id number] IV 09/25/17 11:45 10/25/17 11:44 09/26/17 03:22 80 MLS/HR Prednisone (PredniSONE TAB) 40 mg QAM PO 09/26/17 09:00 10/26/17 08:59 09/26/17 08:15 40 MG Albuterol (Ventolin Hfa Inhaler) 2 puffs Q4 PRN INH 09/26/17 09:45 10/26/17 09:44 Objective Vital Signs Date Time Temp Pulse Resp B/P (MAP) Pulse Ox O2 Delivery O2 Flow Rate FiO2 09/26/17 08:00 Room Air 09/26/17 07:11 79 16 94 Room Air 09/26/17 07:03 36.5 76 20 169/92 (117) 94 Room Air 09/26/17 01:54 86 16 96 Room Air 09/26/17 00:00 Room Air 09/25/17 23:58 36.5 88 20 103/67 (79) 95 Room Air 09/25/17 20:00 Room Air 09/25/17 19:35 85 16 94 Room Air 09/25/17 16:00 Nasal Cannula 1.0 09/25/17 14:58 85 16 94 Nasal Cannula 1.0 09/25/17 14:56 36.4 86 20 130/68 (88) 96 Physical Exam General Appearance: no apparent distress Respiratory/Chest: chest non-tender, lungs clear, normal breath sounds, no respiratory distress, no accessory muscle use Cardiovascular: regular rate, rhythm, no edema, no murmur Extremities: normal range of motion, non-tender, normal inspection, no pedal edema, no calf tenderness Neurologic/Psychiatric: no motor/sensory deficits, alert, normal mood/affect Laboratory Results Last 24 Hours Test 09/25/17 16:57 09/25/17 20:14 09/26/17 05:56 09/26/17 07:36 Bedside Glucose 255 mg/dl 213 mg/dl 120 mg/dl White Blood Count 13.83 K/uL Red Blood Count 3.54 M/uL Hemoglobin 10.4 g/dL Hematocrit 31.5 % Mean Corpuscular Volume 89.0 fL Mean Corpuscular Hemoglobin 29.4 pg Mean Corpuscular Hemoglobin Concent 33.0 g/dl RDW Standard Deviation 43.4 fL RDW Coefficient of Variation 13.4 % Platelet Count 301 K/uL Mean Platelet Volume 9.2 fL Sodium Level 139 mmol/L Potassium Level 4.0 mmol/L Chloride Level 108 mmol/L Carbon Dioxide Level 24 mmol/L Anion Gap 8.0 mmol/L Blood Urea Nitrogen 31 mg/dl Creatinine 1.46 mg/dl Est Creatinine Clear Calc Drug Dose 36.3 ml/min Estimated GFR () 49.8 Estimated GFR (Non- 42.9 BUN/Creatinine Ratio 21.3 Random Glucose 139 mg/dl Calcium Level 9.1 mg/dl Magnesium Level 2.1 mg/dl Test 09/26/17 11:53 Bedside Glucose 147 mg/dl Assessment and Plan This is an 87 year old male with a past medical history of HTN, HLD, DM2, CKD stage 3, AAA, mitral regurgitation - presents with worsening cough, shortness of breath. Acute Hypoxic Respiratory Failure secondary to Acute, Complicated Bronchitis Mild Acute COPD Exacerbation 09/26 - plan to d/c home today - can d/c with prednisone 40mg x3 days, Azithromycin x3 days - will prescribed Protonix and Ranitidine - can use Nasacort 09/25 - will switch IV solu-medrol to prednisone 40mg, can do this x4 days and then stop, no need to taper - Azithromycin 250mg x4 days - nebs PRN - may need two step prior to discharge 09/24 - CXR - no infectious process - due to bronchitis - will start IV solu-medrol for now - nebulizers PRN - O2 as needed and will wean as tolerated - starting Azithromycin 500mg x1, then 250mg x4 days - may need two step prior to discharge Post-Tussive Emesis Dysphagia 09/24 - Zofran PRN for post-tussive emesis - will consult speech therapy due to problems with dysphagia - aspiration precautions - mechanical soft diet DM2 - monitor BSGs, especially with solu-medrol use - insulin sliding scale for now - hold metformin HTN - continue Cozaar + Amlodipine DVT ppx - subq heparin DNR/DNI
[2017-09-26] MEDS ORDERED: AZIT-57 PO (12:17)
[2017-09-26] MEDS ORDERED: PRED20TA PO (12:25)
[2017-09-26] MEDS ORDERED: PRT40 PO (12:25)
[2017-09-26] MEDS ORDERED: GFNSR600 PO (12:25)
[2017-09-26] MEDS ORDERED: TRIA1SPR4 NAE (12:25)
--- NOTE | 2017-09-26 12:27 | Discharge Instructions ---
Discharge Instructions Date of Service Sep 26, 2017. Admission Reason for Admission: Copd Exacerbation, Reactive Airway Disease Discharge Discharge Diagnosis / Problem: Bronchitis, COPD exacerbation Discharge Goals Goal(s): Decrease discomfort, Improve function, Diagnostic testing, Therapeutic intervention Activity Recommendations Activity Limitations: resume your previous activity . Instructions / Follow-Up Instructions / Follow-Up Please follow-up with your primary care physician * You will be prescribed prednisone 40mg and Azithromycin 250mg for three days * You will be prescribed Protonix - continue taking Ranitidine * Change Flonase to Nasacort Current Hospital Diet Patient's current hospital diet: Diabetes Type 2 Diet, AHA Diet (Heart Healthy) Discharge Diet Recommended Diet: AHA Diet (Heart Healthy), Diabetes Type 2 Diet Pending Studies Studies pending at discharge: no Medical Emergencies . Who to Call and When: Medical Emergencies: If at any time you feel your situation is an emergency, please call 911 immediately. . Non-Emergent Contact Non-Emergency issues call your: Primary Care Provider . . "Provider Documentation" section prepared by Den Monsivais. .
--- NOTE | 2017-09-26 12:43 | Discharge Summary ---
Discharge Summary Date of Service Sep 26, 2017. Discharge Summary Admission Date: Sep 24, 2017 at 12:28 Discharge Date: Sep 26, 2017 Discharge Disposition: Home Principal Diagnosis: Acute Hypoxic Respiratory Failure secondary to Acute, Complicated Bronchitis Mild Acute COPD Exacerbation Post-Tussive Emesis Dysphagia DM2 HTN Medication Reconciliation New Medications: Prednisone (Prednisone) 20 Mg Tab 2 TAB PO DAILY for 3 Days, #6 TAB Triamcinolone Acetonide (Nasal (Nasacort Allergy 24Hr) 55 Mcg/Act Spr 2 SPRAYS AUNG DAILY for 30 Days, #1 INHALER Azithromycin (Azithromycin) 250 Mg Tab 250 MG PO QAM for 3 Days, #3 TAB Guaifenesin Ext Rel (Mucinex Ext Rel) 600 Mg Tabcr 600 MG PO Q12 for 3 Days, #6 TABS Pantoprazole (Pantoprazole Sodium) 40 Mg Tab 40 MG PO QAM for 30 Days, #30 TAB Continued Medications: Albuterol Hfa (Ventolin Hfa) 200 Puffs/38696 Mcg Aers 2 PUFFS INH Q6H PRN for SOB/Wheezing, #1 INHALER Amlodipine (Norvasc) 5 Mg Tab 5 MG PO QAM Levalbuterol (Levalbuterol HCl) 0.63 Mg/3 Ml Nebu 0.63 MG INH Q6R for 30 Days, #120 UNITS 1 Refill Losartan Potassium (Losartan Potassium) 50 Mg Tab 50 MG PO QAM Metformin HCl (Metformin HCl ER) 1,000 Mg Tab 1000 MG PO BID Ranitidine (Zantac) 150 Mg Tab 150 MG PO BID Discontinued Medications: Fluticasone Propionate (Nasal) (Flonase Allergy Relief) 50 Mcg/Act Spr 2 SPRAYS AUNG DAILY Admission Information HPI (per Admitting provider): This is an 87 year old male with a past medical history of HTN, HLD, DM2, CKD stage 3, AAA, mitral regurgitation - presents with worsening cough, shortness of breath. Had been admitted in May 2017 with similar symptoms; at that time diagnosed with bronchitis/reactive airway disease and COPD. He was discharged and he felt fine for the next few months. Around September 07, he felt sick and developed a worsening cough. His cough and shortness of breath persisted since then. As per , she was sick and she felt she had an ear infection and pneumonia and her father also developed it. His coughing fits became worse to the point where he developed nausea/vomiting. As per patient, he has been having trouble swallowing with things getting stuck in his throat. Patient's tells me that patient has been having diarrhea for the past 4-6 weeks as well. Patient presented to the ED, found to be hypoxic. Received IV steroids, nebulizers, etc. with only minimal improvement. Physical Exam (per Admitting): General Appearance: WD/WN, no apparent distress Head: normocephalic, atraumatic Eyes: normal inspection ENT: hearing grossly normal Neck: supple, no adenopathy, thyroid normal, no JVD Respiratory/Chest: chest non-tender, lungs clear, normal breath sounds, no respiratory distress, no accessory muscle use Cardiovascular: regular rate, rhythm, no edema, no gallop, no JVD, + systolic murmur Abdomen/GI: normal bowel sounds, non tender, soft Back: normal inspection, no CVA tenderness, no muscle spasm, normal range of motion Extremities/Musculoskelatal: normal inspection, no calf tenderness, normal capillary refill, no pedal edema, normal range of motion 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 Acute Hypoxic Respiratory Failure secondary to Acute, Complicated Bronchitis Mild Acute COPD Exacerbation 09/26 - plan to d/c home today - can d/c with prednisone 40mg x3 days, Azithromycin x3 days - will prescribed Protonix and Ranitidine - can use Nasacort 09/25 - will switch IV solu-medrol to prednisone 40mg, can do this x4 days and then stop, no need to taper - Azithromycin 250mg x4 days - nebs PRN - may need two step prior to discharge 09/24 - CXR - no infectious process - due to bronchitis - will start IV solu-medrol for now - nebulizers PRN - O2 as needed and will wean as tolerated - starting Azithromycin 500mg x1, then 250mg x4 days - may need two step prior to discharge Post-Tussive Emesis Dysphagia 09/24 - Zofran PRN for post-tussive emesis - will consult speech therapy due to problems with dysphagia - aspiration precautions - mechanical soft diet DM2 - monitor BSGs, especially with solu-medrol use - insulin sliding scale for now - hold metformin HTN - continue Cozaar + Amlodipine DVT ppx - subq heparin DNR/DNI Total time spent on discharge = 40 minutes This includes examination of the patient, discharge planning, medication reconciliation, and communication with other providers. Discharge Instructions Please follow-up with your primary care physician * You will be prescribed prednisone 40mg and Azithromycin 250mg for three days * You will be prescribed Protonix - continue taking Ranitidine * Change Flonase to Nasacort
[2017-09-26 12:49] VITALS: BP 169/92; PULSE 79; TEMP 36.5; O2SAT 94
== END 2017-09-26 13:35 | disposition home or self-care (01) | DRG 190 ==
LOC: C.EDB 08:37 → C.MS2W 12:28 → ENRESERV 13:02
PROVIDERS: ADMIT Family Medicine; ATTEND Family Medicine
DX: J44.0 Chronic obstructive pulmonary disease with (acute) lower respiratory infection (principal); J96.01 Acute respiratory failure with hypoxia; J44.1 Chronic obstructive pulmonary disease with (acute) exacerbation; J20.9 Acute bronchitis, unspecified; R11.10 Vomiting, unspecified; R13.10 Dysphagia, unspecified; E11.22 Type 2 diabetes mellitus with diabetic chronic kidney disease; I12.9 Hypertensive chronic kidney disease with stage 1 through stage 4 chronic kidney disease, or unspecified chronic kidney disease; N18.3 Chronic kidney disease, stage 3 (moderate); Z66 Do not resuscitate; Z87.891 Personal history of nicotine dependence; Z79.84 Long term (current) use of oral hypoglycemic drugs; Z79.899 Other long term (current) drug therapy; Z83.6 Family history of other diseases of the respiratory system; Z82.49 Family history of ischemic heart disease and other diseases of the circulatory system; Z83.3 Family history of diabetes mellitus

== ENCOUNTER 2018-10-16 15:26 | Observation (INO) ==
--- NOTE | 2018-10-16 17:10 | Emergency Department Note ---
Entered by Suly Martinez acting as a scribe for Terrance Weston MD History of Present Illness General Chief complaint: Cough Stated complaint: COUGH, MUSCLE ACHES Time Seen by Provider: 10/16/18 16:23 Source: patient History of Present Illness Provider complaint: bruising to abdomen and left flank Onset (ago): week(s) 1 Location: back, abdomen and left Maximum Pain Intensity: 5 Quality: + other (bruising) Associated symptoms: + denies other symptoms (denies dizziness) and + other (abdominal pain); no chest pain and no shortness of breath The patient is an 88 year old male who presents to the Emergency Department with complaints of bruising to his abdomen and left flank for 1 week. The patient also reports having abdominal pain for 2 weeks. He states that he diagnosed with bronchitis on October 06--and his cough is better. He denies chest pain, shortness of breath, and dizziness. The patient denies any falls or injuries to his abdomen. He denies a history of hernias and abdominal surgeries. He reports a history of COPD, diabetes, hypertension, and a AAA. [facility] reports that [facility] Home Medications Home Medications Medication Instructions Recorded Confirmed Type Steriod Shot 1 dose IM Q3M 08/05/18 10/06/18 History albuterol sulfate [Ventolin HFA] 2 puff INHALATION Q6H PRN 08/05/18 10/06/18 History amlodipine 10 mg PO QAM 08/05/18 10/06/18 History atenolol 12.5 mg PO QAM 08/05/18 10/06/18 History cyclobenzaprine 5 mg PO BID PRN #14 tab 08/05/18 10/06/18 Rx glipizide 2.5 mg PO BID 08/05/18 10/06/18 History levalbuterol HCl 0.63 mg INHALATION Q6H PRN 08/05/18 10/06/18 History losartan 100 mg PO QAM 08/05/18 10/06/18 History pantoprazole 40 mg PO QAM 08/05/18 10/06/18 History ranitidine HCl 150 mg PO BID 08/05/18 10/06/18 History triamcinolone acetonide [Nasacort] 2 spray INTRANASAL QAM 08/05/18 10/06/18 History acetaminophen [Tylenol Arthritis 650 mg PO Q12H PRN 10/06/18 10/06/18 History Pain] amoxicillin-pot clavulanate 1 tab PO BID #14 tab 10/06/18 Rx [Augmentin] benzonatate [Tessalon Perles] 100 mg PO TID PRN #20 cap 10/06/18 Rx Allergies Allergy/AdvReac Type Severity Reaction Status Date / Time No Known Allergies Allergy Unverified 10/06/18 13:01 Past Med/Surg History Medical History COPD exacerbation (Acute) Diabetes mellitus HTN (hypertension) Surgical History H/O colonoscopy Social History Preferred Language: Macedonian Feels Safe at Home: Yes Smoking Status: Never smoker Review of Systems See HPI for pertinent positives & negatives. and A total of 10 systems reviewed and were otherwise negative Physical Exam Vital Signs Vital Signs - 24 hr 10/16/18 15:54 10/16/18 17:52 10/16/18 18:00 Temperature 37.2 C Temperature Source Oral Sepsis Recent Fever Within 48 Hours No Sepsis New/Unexplained Change in Mental Status No Sepsis Action Taken by Nursing No Action Required Pulse Rate 83 73 78 Pulse Rate from SpO2 Sensor 76 78 Respiratory Rate 18 23 27 H Blood Pressure 149/79 H 142/94 H 171/85 H Blood Pressure Mean 102 110 113 Pulse Oximetry 94 94 92 Oxygen Delivery Method Room Air GENERAL: Patient is in no acute distress. HEENT: No acute trauma, normocephalic atraumatic, mucous membranes moist, no nasal congestion, no scleral icterus. NECK: No stridor, no adenopathy, no meningismus, trachea is midline. LUNGS: Clear to auscultation bilaterally, no wheeze, no rhonchi, breath sounds equal. HEART: Without murmurs gallops or rubs, regular rate and rhythm. ABDOMEN: Some abdominal distension noted. There is contusion from the umbilicus tracking to the left flank. He is tender over this area. No peritonitis. EXTREMITIES: No cyanosis or edema, full range of motion of all the joints witho ut pain or difficulty, no signs for acute trauma. NEUROLOGIC: Oriented x 3, no acute motor or sensory deficits, no focal weakness. SKIN: No rash, no jaundice, no diaphoresis. Course 1629: The patient was evaluated by Dr. Musa-Resident. 1701: The patient was evaluated in room A2. A history and physical were performed. The patient and family were given all the results. Case management was involved. The on-call hospitalist was consulted for potential admission/observation. Administered Medications Ioversol (Optiray 320 100ml) 120 ml IV ONCE PRN PRN Reason: Interaction Checking Stop: 10/20/18 17:49 Last Admin: 10/16/18 17:50 Dose: 120 ml Documented by: [id number] Medical Decision Making Differential Diagnosis Differentials include abdominal wall hematoma, leaking abdominal aortic aneurysm, coagulopathy, anemia, electrolyte imbalance, contusion, and trauma. Medical Records Attestation: I reviewed the patient's medical records. Home Medications Current Medication List: was personally reviewed by me Laboratory Data Attestation: I reviewed the patient's lab results. Result diagrams: 10/16/18 16:31 10/16/18 16:31 Lab Results 10/16/18 10/16/18 10/16/18 Range/Units 16:31 16:31 16:31 WBC 18.74 H (4.8-10.8) K/uL RBC 3.17 L (4.7-6.1) M/uL Hgb 9.3 L (14.0-18.0) g/dL Hct 28.5 L (42-52) % MCV 89.9 (80-100) fL MCH 29.3 (25-34) pg MCHC 32.6 (32-36) g/dL RDW Std Deviation 48.4 H (36.4-46.3) fL RDW Coeff of Nav 14.6 H (11.5-14.5) % Plt Count 370 (130-400) K/uL MPV 9.7 (7.4-10.4) fL Immature Gran % (Auto) 0.7 % Neut % (Auto) 68.0 % Lymph % (Auto) 16.8 % Branch % (Auto) 12.1 % Eos % (Auto) 2.1 % Baso % (Auto) 0.3 % Immature Gran # (Auto) 0.13 H (0.00-0.02) K/uL Neut # (Auto) 12.76 H (1.4-6.5) K/uL Lymph # (Auto) 3.15 (1.2-3.4) K/uL Branch # (Auto) 2.26 H (0.11-0.59) K/uL Eos # (Auto) 0.39 (0-0.5) K/uL Baso # (Auto) 0.05 (0-0.2) K/uL PT 9.7 (9.0-12.0) Seconds INR 0.9 (0.9-1.1) APTT (21.0-31.0) Seconds PTT Ratio Sodium 136 (136-145) mmol/L Potassium 3.8 (3.5-5.1) mmol/L Chloride 105 (98-107) mmol/L Carbon Dioxide 25 (21-32) mmol/L Anion Gap 6.0 (3-11) BUN 20 H (7-18) mg/dl Creatinine 1.24 (0.6-1.4) mg/dl Est Cr Clr Drug Dosing 46.7 ml/min Est GFR ( Amer) 60.2 Est GFR (Non-Af Amer) 51.9 BUN/Creatinine Ratio 16.2 (10-20) Glucose 103 H (70-99) mg/dl Calcium 8.7 (8.5-10.1) mg/dl Total Bilirubin 0.5 (0.2-1) mg/dl AST 12 L (15-37) U/L ALT 18 (12-78) U/L Alkaline Phosphatase 95 (45-117) U/L Total Protein 7.3 (6.4-8.2) gm/dl Albumin 2.9 L (3.4-5.0) gm/dl Globulin 4.4 H (2.5-4.0) gm/dl Albumin/Globulin Ratio 0.7 L (0.9-2) Lipase 69 L (73-393) U/L 10/16/18 Range/Units 16:31 WBC (4.8-10.8) K/uL RBC (4.7-6.1) M/uL Hgb (14.0-18.0) g/dL Hct (42-52) % MCV (80-100) fL MCH (25-34) pg MCHC (32-36) g/dL RDW Std Deviation (36.4-46.3) fL RDW Coeff of Nav (11.5-14.5) % Plt Count (130-400) K/uL MPV (7.4-10.4) fL Immature Gran % (Auto) % Neut % (Auto) % Lymph % (Auto) % Branch % (Auto) % Eos % (Auto) % Baso % (Auto) % Immature Gran # (Auto) (0.00-0.02) K/uL Neut # (Auto) (1.4-6.5) K/uL Lymph # (Auto) (1.2-3.4) K/uL Branch # (Auto) (0.11-0.59) K/uL Eos # (Auto) (0-0.5) K/uL Baso # (Auto) (0-0.2) K/uL PT (9.0-12.0) Seconds INR (0.9-1.1) APTT 25.6 (21.0-31.0) Seconds PTT Ratio 0.9 Sodium (136-145) mmol/L Potassium (3.5-5.1) mmol/L Chloride (98-107) mmol/L Carbon Dioxide (21-32) mmol/L Anion Gap (3-11) BUN (7-18) mg/dl Creatinine (0.6-1.4) mg/dl Est Cr Clr Drug Dosing ml/min Est GFR ( Amer) Est GFR (Non-Af Amer) BUN/Creatinine Ratio (10-20) Glucose (70-99) mg/dl Calcium (8.5-10.1) mg/dl Total Bilirubin (0.2-1) mg/dl AST (15-37) U/L ALT (12-78) U/L Alkaline Phosphatase (45-117) U/L Total Protein (6.4-8.2) gm/dl Albumin (3.4-5.0) gm/dl Globulin (2.5-4.0) gm/dl Albumin/Globulin Ratio (0.9-2) Lipase (73-393) U/L Imaging Data Radiologist's Impression: Radiology results as stated below per my review and the radiologist's interpretation: XR chest 1V portable HISTORY: 88 years-old Male cough, sob acute cough with shortness of breath COMPARISON: Chest radiographs 10/06/2018 TECHNIQUE: Portable AP view of the chest FINDINGS: Cardiomediastinal and hilar silhouettes are unchanged. Calcification the thoracic aortic arch. Minimal bibasilar opacities suggest atelectasis. Mild chronic interstitial coarsening without pneumothorax, pleural effusion, focal airspace consolidation or overt pulmonary edema. Degenerative changes are seen about the shoulders and spine. IMPRESSION: No acute process. The above report was generated using voice recognition software. It may contain grammatical, syntax or spelling errors. Electronically signed by: Waylon Morillo M.D. 10/16/2018 5:16 PM Abdominal and pelvis CT angiogram: IMPRESSION: 1. Fusiform aneurysmal dilation of the infrarenal abdominal aorta redemonstrated, 5.8 x 5.2 cm extending to the left bifurcation, stable from comparison. No evidence of aneurysm leak or rupture. 2. Acute left rectus sheath hematoma, measures up to 12.7 cm. 3. No bowel obstruction or focal bowel wall thickening. 4. Additional findings as above. The above report was generated using voice recognition software. It may contain grammatical, syntax or spelling errors. Electronically signed by: Waylon Morillo M.D. 10/16/2018 6:10 PM Blood Pressure Blood Pressure Findings: Elevated blood pressure Blood Pressure Disposition: further management by hospitalist RACHANA Vieira There is a moderate leukocytosis of 18,000, this could be consistent with infection or just the stress of his situation. Patient is anemic with a hemoglobin of 9.3, this is a drop for him looking back at previous testing. The platelet count is normal. There is no coagulopathy. No significant electrolyte abnormality or kidney failure. No concerning liver enzyme elevation. No evidence for pancreatitis. Chest x-ray does not show free air or pneumonia. No pneumothorax. Abdominal and pelvis CT angiogram shows an aneurysm which is s table and not leaking. There is a 12 cm abdominal wall hematoma which I think corresponds to his pain and contusion. Patient has not required anything for pain, he is resting comfortably. His pain is present mostly with palpation and coughing. The patient is aware of his findings. Given the large nature to the hematoma, given the drop in his hemoglobin, given the rise of his white count, a hospital stay was felt warranted. Case management has been involved. The on-call hospitalist was consulted. Impression & Plan Abdominal wall hematoma, Cough, Anemia Discharge Plan Visit Data Chief Complaint: Cough Stated Complaint: COUGH, MUSCLE ACHES ED Provider: Terrance Weston ED Midlevel Provider: Pamella Musa Discharge Problem: Abdominal wall hematoma, Cough, Anemia Patient Disposition: Being Evaluated by Hospitalist Condition: Good Forms Stand Alone Forms: [facility] [place] [employer] Prescriptions Prescriptions: No Action levalbuterol HCl 0.63 mg/3 mL solution for nebulization 0.63 mg Inhalation Q6H PRN (Reason: Shortness Of Breath Or Wheezing) RF: 0 atenolol 25 mg tablet 12.5 mg PO QAM RF: 0 amlodipine 10 mg tablet 10 mg PO QAM RF: 0 pantoprazole 40 mg tablet,delayed release (DR/EC) 40 mg PO QAM RF: 0 ranitidine HCl 150 mg tablet 150 mg PO BID RF: 0 triamcinolone acetonide [Nasacort] 55 mcg aerosol,spray 2 spray Intranasal QAM RF: 0 albuterol sulfate [Ventolin HFA] 90 mcg/actuation Hfa Aerosol Inhaler 2 puff INHALATION Q6H PRN (Reason: Shortness Of Breath Or Wheezing) RF: 0 losartan 100 mg tablet 100 mg PO QAM RF: 0 glipizide 5 mg tablet 2.5 mg PO BID RF: 0 Steriod Shot 1 dose IM Q3M RF: 0 cyclobenzaprine 5 mg tablet 5 mg PO BID PRN (Reason: muscle spasm) Qty: 14 RF: 0 acetaminophen [Tylenol Arthritis Pain] 650 mg Tablet Extended Release 650 mg PO Q12H PRN (Reason: Pain) RF: 0 benzonatate [Tessalon Perles] 100 mg capsule 100 mg PO TID PRN (Reason: cough) Qty: 20 RF: 0 amoxicillin-pot clavulanate [Augmentin] 875-125 mg tablet 1 tab PO BID Qty: 14 RF: 0 Referrals Referrals: Mukesh Ko [Primary Care Provider] - Discharge Problem: Abdominal wall hematoma Qualifiers: Encounter type: initial encounter Qualified Code(s): S30.1XXA - Contusion of abdominal wall, initial encounter Anemia Qualifiers: Anemia type: unspecified type Qualified Code(s): D64.9 - Anemia, unspecified The scribe's documentation has been prepared under my direction and personally reviewed by me in its entirety. I confirm that the note above accurately reflects all work, treatment, procedures, and medical decision making performed by me.
--- NOTE | 2018-10-16 17:17 | XRay Report ---
XR chest 1V portable HISTORY: 88 years-old Male cough, sob acute cough with shortness of breath COMPARISON: Chest radiographs 10/06/2018 TECHNIQUE: Portable AP view of the chest FINDINGS: Cardiomediastinal and hilar silhouettes are unchanged. Calcification the thoracic aortic arch. Minima l bibasilar opacities suggest atelectasis. Mild chronic interstitial coarsening without pneumothorax, pleural effusion, focal airspace consolidation or overt pulmonary edema. Degenerative changes are se en about the shoulders and spine. IMPRESSION: No acute process. The above report was generated using voice recognition software. It may contain grammatical, syntax o r spelling errors. Electronically signed by: Waylon Morillo M.D. 10/16/2018 5:16 PM
[2018-10-16 17:22] LABS: Basophils # (auto) 0.05 K/uL (0-0.2); Basophils % (auto) 0.3 %; Eosinophils # (auto) 0.39 K/uL (0-0.5); Eosinophils % (auto) 2.1 %; Hematocrit (blood only) 28.5 % (42-52); Hemoglobin 9.3 g/dL (14.0-18.0); Immature Granulocytes # (auto) 0.13 K/uL (0.00-0.02); Immature Granulocytes % (auto) 0.7 %; Lymphocytes # (auto) 3.15 K/uL (1.2-3.4); Lymphocytes % (auto) 16.8 %; Mean Corpuscular Hgb Conc 32.6 g/dL (32-36); Mean Corpuscular Volume 89.9 fL (80-100); Mean Platelet Volume 9.7 fL (7.4-10.4); Monocytes # (auto) 2.26 K/uL (0.11-0.59); Monocytes % (auto) 12.1 %; Neutrophils # (auto) 12.76 K/uL (1.4-6.5); Platelet Count 370 K/uL (130-400); RDW Coefficient of Variation 14.6 % (11.5-14.5); RDW Standard Deviation 48.4 fL (36.4-46.3); Red Blood Count 3.17 M/uL (4.7-6.1); White Blood Count 18.74 K/uL (4.8-10.8)
--- NOTE | 2018-10-16 17:24 | Emergency Department Note ---
ED Visit Note I, Pamella Musa, PGY-2, saw and assisted in the care of this patient with Dr. Weston. . Resident Activity Tracking Resident Involvement: Resident Care Provided Care Provided: Adult ED
[2018-10-16 17:35] LABS: INR 0.9 (0.9-1.1); Prothrombin Time 9.7 Seconds (9.0-12.0)
[2018-10-16 17:43] LABS: Albumin Level 2.9 gm/dl (3.4-5.0); BUN Creatinine Ratio 16.2 (10-20); Creatinine Clr Calc Pharmacy 46.7 ml/min; Est GFR (African American) 60.2; Est GFR (Non-African American) 51.9; Potassium 3.8 mmol/L (3.5-5.1)
[2018-10-16 17:45] LABS: Partial Thromboplastin Ratio 0.9; Partial Thromboplastin Time 25.6 Seconds (21.0-31.0)
[2018-10-16 17:48] LABS: Albumin Globulin Ratio 0.7 (0.9-2); Bilirubin,Total 0.5 mg/dl (0.2-1); Calcium 8.7 mg/dl (8.5-10.1); Globulin 4.4 gm/dl (2.5-4.0); Total Protein 7.3 gm/dl (6.4-8.2)
[2018-10-16] MEDS ORDERED: IOVERSOL 100ml IV PRN (17:50)
--- NOTE | 2018-10-16 18:12 | CT Scan Report ---
CT angio abdomen pelvis w con CLINICAL HISTORY: 88 years-old Male with known AAA, left flank bruising, r/o leak/rupture follow-u p study in a patient with abdominal aortic aneurysm. Acute left flank pain. COMPARISON STUDY: CTA of 10/06/2018 TECHNIQUE: Following the IV administration of 120 cc of Optiray 320, CT angiogram of the abdomen and pelvis was performed from the lung bases the proximal femora. Images are reviewed in the axial, sagit tammie, and coronal planes. 3-D MIPS images are created and assessed. IV contrast was administered witho ut complication. All measurements were obtained according to NASCET criteria. A dose lowering techni que was utilized adhering to the principles of ALARA. CT DOSE: 775.29 mGy.cm FINDINGS: CT ABDOMEN/PELVIS: Emphysema with bibasilar bronchial wall thickening and mild mucous plugging. Minimal dependent subseg mental bibasilar atelectasis. No pneumatosis or pneumoperitoneum. There are a few ill-defined areas of increased attenuation about the right hepatic lobe measuring up to 1.3 cm which may reflect arterial enhancing lesions or areas of AV shunting. Liver is otherwise un remarkable. Diminutive morphology of the spleen. Pancreas and adrenal glands are unremarkable. Gallbl adder is within normal limits. Multiple bilateral renal cysts, largest which measures 7.1 cm on the left. Indeterminate 5 mm hyperde nse lesion involves the interpolar aspect of the right kidney, too small to characterize. 6 mm nonobs tructing calculus of the inferior pole left kidney. No renal or ureteral calculi identified. Mild non specific wall thickening of the urinary bladder. Small left and moderate right fat filled inguinal he rnias. No adenopathy by CT size criteria. Small hiatal hernia. No bowel obstruction or focal bowel wall thickening. Colonic diverticulosis with out acute diverticulitis. Terminal ileum and appendix are unremarkable. Tiny fat filled periumbilical hernia. Left rectus sheath hematoma, 9.5 x 3.4 x 12.7 cm. Mild subcutaneous stranding about the left anterior abdominal wall. Mildly demineralized appearance of the bones. Degenerative changes of the s pine, pelvis and hips. Prior laminectomy with posterior interbody shreyas and screw fusion and discectomy at L3-L4. CTA: Coronary arterial calcifications. Imaged inferior cardiac chambers are mildly enlarged. Extensive mix ed plaque formation about the aorta and proximal branches. Plaque formation at the origin of the willy ac trunk causes less than 50% stenosis. Extensive plaque formation at the origin of the SMA results i n approximate 60% stenosis. Extensive mixed plaque formation about the bilateral renal arteries cause s less than 50% stenosis on the right and approximately 70% stenosis at the origin on the left. Exten sive mixed plaque formation of the iliac arteries bilaterally. Fusiform aneurysmal dilation of the in frarenal abdominal aorta redemonstrated, 5.8 x 5.2 cm extending for a cranial caudal length of 5.8 cm terminating at the iliac bifurcation. This appears unchanged from comparison. The PAT is noted exten ding through the aneurysm sac demonstrates atheromatous plaque formation. No evidence of aneurysm nena k or rupture. IMPRESSION: 1. Fusiform aneurysmal dilation of the infrarenal abdominal aorta redemonstrated, 5.8 x 5.2 cm extend ing to the left bifurcation, stable from comparison. No evidence of aneurysm leak or rupture. 2. Acute left rectus sheath hematoma, measures up to 12.7 cm. 3. No bowel obstruction or focal bowel wall thickening. 4. Additional findings as above. The above report was generated using voice recognition software. It may contain grammatical, syntax o r spelling errors. Electronically signed by: Waylon Morillo M.D. 10/16/2018 6:10 PM
[2018-10-16] MEDS ORDERED: MoRPHine SULFATE 2 MG/ML CARP IV PRN (21:04)
[2018-10-16] MEDS ORDERED: ONDANSETRON INJ 2 MG/ML 2 ML VIAL IV PRN (21:04)
[2018-10-16] MEDS ORDERED: OXYCODONE HCL IR 5 MG TAB (IMMEDIATE RELEASE) PO PRN (21:04)
[2018-10-16] MEDS ORDERED: POLYETHYLENE (MIRALAX) 17 GM PACK PO PRN (21:04)
[2018-10-16] MEDS ORDERED: CYCLOBENZAPRINE HCL 5 MG TAB PO PRN (21:04)
[2018-10-16] MEDS ORDERED: LEVALBUTEROL HCL 0.63 MG/3 ML NEB INH PRN (21:04)
[2018-10-16] MEDS ORDERED: ACETAMINOPHEN 325 MG TAB PO PRN (21:04)
[2018-10-16] MEDS ORDERED: ALBUTEROL HFA 8 GM INHALER INH PRN (21:04)
[2018-10-16] MEDS ORDERED: BENZONATATE 100 MG CAPSULE PO PRN (21:04)
[2018-10-16] MEDS ORDERED: GLUCOSE 10 TABS/TUBE PO PRN (21:30)
[2018-10-16] MEDS ORDERED: DEXTROSE 50% 50 ML SYRINGE IV PRN (21:30)
[2018-10-16] MEDS ORDERED: CARBOHYDRATES FOR HYPOGLYCEMIA PO PRN (21:30)
[2018-10-16] MEDS ORDERED: GLUCAGON FOR INJ 1 MG VIAL IM PRN (21:30)
[2018-10-16] MEDS ORDERED: GLUCOSE 40% GEL 15 GM TUBE PO PRN (21:30)
[2018-10-16] MEDS: INSULIN ASPART 100 UNITS/ML 3 ML PEN SC SCH (21:43)
[2018-10-16] MEDS: PANTOprazole 40 MG TAB PO SCH (22:01)
--- NOTE | 2018-10-16 23:07 | History and Physical Report ---
DATE OF ADMISSION: 10/16/2018 CHIEF COMPLAINT: Abdominal pain, more with cough. HISTORY OF PRESENT ILLNESS: This is an 88-year-old male with past medical history significant for hypertension, hyperlipidemia, type 2 diabetes, chronic kidney stage III, abdominal aortic aneurysm, mitral regurgitation, chronic obstructive pulmonary disease, malignant neoplasm of prostate and peptic ulcer disease who presents with abdominal pain. The patient is having bronchitis and cough for the last 2 weeks. He was in the Emergency Room with abdominal pain with cough on October 06 . He has a history of abdominal aortic aneurysm. CTA of the chest, abdomen and pelvis was done which was okay. There is no leakage of the aneurysm. The patient was discharged. He was treated with Augmentin for his bronchitis. The cough is much improved, but in the last couple of days, he noticed bruises and ecchymosis in his abdomen . Has abdominal pain which is worse with coughing. When he is resting, the pain is okay.In the Emergency Room and CTA of the chest, abdomen and pelvis done today shows there is no abdominal aortic aneurysm leakage, but now it is showing rectal sheath hematoma. The patient is not on any blood thinners. Currently, resting comfortably and hemodynamically stable. Denies any headache. No blurred vision. No earache. No runny nose. No sore throat. No difficulty swallowing. Appetite is okay. No chest pain. No shortness of breath. Cough with phlegm, but cough is better since on antibiotic. No nausea. No vomiting. Pain in the abdomen whenever he coughs. No hematuria or burning micturition. Normal bowel and bladder movements. No black stools or hematochezia. No swelling in the legs. No rash. ALLERGIES: No known drug allergies. PAST MEDICAL HISTORY: As mentioned above. PAST SURGICAL HISTORY: Colonoscopy with biopsy, cystoscopy, ureteral stent placement, back surgery, cataract surgery, US transrectal and biopsy. FAMILY HISTORY: Significant for mother has heart disorder. Significant for hypertension. SOCIAL HISTORY: Former smoker, quit in 1979, smoked for 3 packs a day for 20 years. Alcohol occasional. No drug use. and lives with his . MEDICATIONS: The patient is on albuterol 2 puffs inhalation q. 6 hours p.r.n., amlodipine 10 mg p.o. daily, atenolol 12.5 mg p.o. daily, glipizide 5 mg p.o. daily, ibuprofen 400 mg p.o. t.i.d. p.r.n., levalbuterol inhalation q. 6 hours p.r.n., losartan 100 mg p.o. daily, Protonix 40 mg p.o. b.i.d., Zantac 150 mg p.o. b.i.d., steroid shot IM every 3 months. REVIEW OF SYSTEMS: As per HPI. Rest of review of systems negative. PHYSICAL EXAMINATION: GENERAL: The patient is of moderate build, not in acute distress. VITAL SIGNS: Temperature 37.2, pulse 85, respiratory rate 20, blood pressure 183/100 and oxygen 92% on room air. HEENT: No pallor. No icterus. Pupils are equal, round and reactive to light. NECK: No JVD. No neck masses. No carotid bruit. CARDIOVASCULAR: S1, S2 heard. Regular rate and rhythm. No murmur. No gallop. RESPIRATORY SYSTEM: Normal AP diameter. No accessory muscle use. No wheezing. No crackles. ABDOMEN: Soft. Bowel sounds present. Ecchymosis seen on his umbilical and left flank region. Tenderness in his periumbilical region. Mild guarding. CENTRAL NERVOUS SYSTEM: Cranial nerves II through XII grossly intact. Nonfocal. EXTREMITIES: No edema. No erythema. LABORATORY DATA: WBC 18.7, hemoglobin 9.3, hematocrit 28.5, platelets 370. PT 9.7, INR 0.9 and APTT 25.6. Sodium 136, potassium 3.8, chloride 105, bicarbonate 25, BUN 20, creatinine 1.2, serum glucose 103, calcium 8.7, total bilirubin 0.5, AST 12, ALT 18, alkaline phosphatase 95 and lipase 69. Chest x-ray, no acute process seen. CT of the abdomen and pelvis shows acute left rectus sheath hematoma measuring up to 12.7cm. 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 ASSESSMENT AND PLAN: This is an 88-year-old male who presents with cough with abdominal pain and ecchymosis on the abdomen and found to have rectal sheath hematoma.. 1. Abdominal pain, rectal sheath hematoma . Mostly straining from coughing.The cough is better now. This is going on for the last 2 weeks. He is not on any blood thinners. We will control his pain. We will monitor him in the Med/Surg Tele. Surgical consult for any other recommendations. 2. Anemia, acute on chronic, last hemoglobin was11.2 in 07/2018 and it was 10.4 on 10/06/2018 right now it is 9.3. We will monitor the laboratories in a.m. 3. Abdominal aortic aneurysm .closely follow up with Vascular Surgery. Also has SMA and celiac stenosis. 4. Chronic obstructive pulmonary disease, currently stable. Continue his home inhaler. 5. Hypertension, continue amlodipine, atenolol and losartan. Monitor his blood pressure. 6. Diabetes, hold his glipizide. Place him on insulin sliding scale and follow HbA1c levels. 7. History of gastroesophageal reflux disease, continue his Protonix and Zantac. 8. Chronic kidney disease, seems stable. 9. Deep venous thrombosis prophylaxis, sequential compression devices for now. 10. Disposition: physical therapy and occupational therapy prior to discharge. Social Service to help with discharge planning. Level 1 full code. MTDD
[2018-10-17 06:07] LABS: Basophils # (auto) 0.03 K/uL (0-0.2); Basophils % (auto) 0.2 %; Eosinophils # (auto) 0.39 K/uL (0-0.5); Eosinophils % (auto) 2.7 %; Hematocrit (blood only) 27.9 % (42-52); Immature Granulocytes # (auto) 0.11 K/uL (0.00-0.02); Immature Granulocytes % (auto) 0.8 %; Lymphocytes % (auto) 17.2 %; Mean Corpuscular Hgb Conc 32.3 g/dL (32-36); Mean Corpuscular Volume 90.9 fL (80-100); Mean Platelet Volume 9.5 fL (7.4-10.4); Monocytes # (auto) 1.74 K/uL (0.11-0.59); Neutrophils # (auto) 9.75 K/uL (1.4-6.5); Neutrophils % (auto) 67.1 %; Platelet Count 312 K/uL (130-400); RDW Coefficient of Variation 14.6 % (11.5-14.5); RDW Standard Deviation 48.1 fL (36.4-46.3); Red Blood Count 3.07 M/uL (4.7-6.1); White Blood Count 14.52 K/uL (4.8-10.8)
[2018-10-17 06:31] LABS: Estimated Average Glucose 183 mg/dl
[2018-10-17 06:37] LABS: BUN Creatinine Ratio 16.4 (10-20); Calcium 8.6 mg/dl (8.5-10.1); Creatinine Clr Calc Pharmacy 44.8 ml/min; Est GFR (African American) 57.4; Est GFR (Non-African American) 49.5; Magnesium 1.9 mg/dl (1.8-2.4)
[2018-10-17] MEDS: PANTOprazole 40 MG TAB PO SCH (08:38)
[2018-10-17] MEDS: INSULIN ASPART 100 UNITS/ML 3 ML PEN SC SCH ×2 (08:41→12:41)
[2018-10-17] MEDS ORDERED: LOSARTAN POTASSIUM 50 MG TAB PO SCH (09:00)
[2018-10-17] MEDS ORDERED: TRIAMCINOLONE ACET NASAL SPRAY 10.8ML BTL SCH (09:00)
[2018-10-17] MEDS ORDERED: AMLODIPINE BESYLATE 5 MG TAB PO SCH (09:00)
[2018-10-17] MEDS ORDERED: ATENOLOL 25 MG TABLET PO SCH (09:00)
--- NOTE | 2018-10-17 09:20 | Surgery Consultation ---
Date of Consultation October 17, 2018 Assessment & Plan (1) Abdominal wall hematoma: This patient has a rectus sheath hematoma. There was no blush within the CT arteriogram was performed. I doubt there is ongoing bleeding. I would continue with conservative management. I would not recommend surgical intervention. History of Present Illness Reason for Consultation: Rectus sheath hematoma Requesting Physician: Amalia Haynes MD Attending Physician: Amalia Haynes MD History of Present Illness I have been asked by Dr. Haynes to see this 88-year-old male who presented to the emergency room with a complaint of abdominal pain. He had had a cough for about 2 weeks. He was seen in the emergency room earlier in the week. CT at that time was negative. He then developed some ecchymosis in the left flank area as well as in the periumbilical region. He has a history of a abdominal aortic aneurysm that measures now about 5.[address] scan today showed no evidence of leak of the aneurysm but there is a left-sided rectus sheath hematoma. He is not on anticoagulation. The abdominal discomfort that he is experiencing is mostly only with motion and is located in the periumbilical region and in the area of the left rectus sheath. He has no associated nausea or vomiting. His appetite is good. He has no change in his bowel habits. He has had no melena or hematochezia. Allergies Allergy/AdvReac Type Severity Reaction Status Date / Time No Known Allergies Allergy Unverified 10/16/18 19:06 Home Medications Home Medications Medication Instructions Recorded Confirmed Type Steriod Shot 1 dose IM Q3M 08/05/18 10/16/18 History albuterol sulfate [Ventolin HFA] 2 puff INHALATION Q6H PRN 08/05/18 10/16/18 History amlodipine 10 mg PO QAM 08/05/18 10/16/18 History atenolol 12.5 mg PO QAM 08/05/18 10/16/18 History cyclobenzaprine 5 mg PO BID PRN #14 tab 08/05/18 10/16/18 Rx glipizide 5 mg PO QAM 08/05/18 10/16/18 History levalbuterol HCl 0.63 mg INHALATION Q6H PRN 08/05/18 10/16/18 History losartan 100 mg PO QAM 08/05/18 10/16/18 History pantoprazole 40 mg PO BID 08/05/18 10/16/18 History ranitidine HCl 150 mg PO BID 08/05/18 10/16/18 History triamcinolone acetonide [Nasacort] 2 spray INTRANASAL QAM 08/05/18 10/16/18 History ibuprofen 400 mg PO TID PRN 10/16/18 10/16/18 History Patient History Medical History COPD exacerbation (Acute) Diabetes mellitus HTN (hypertension) Surgical History H/O colonoscopy Social History Preferred Language: Mauritanian Communication Ability: Effective Chief Commercial Officer Required: No Beliefs That Will Affect Care: None Current Living Situation: Spouse and Family Current Living Situation Comment: with and dtr Other Information That Helps Us Care for You: No Feels Safe at Home: Yes Safety Concerns: Feels Safe At This Time Smoking Status: Former smoker Do You Dip or Chew Tobacco: No Smoking End Date: at age 53 Hx Alcohol Use: Yes Alcohol type: beer Hx Substance Use: No Review of Systems Review of Systems: All systems reviewed & are unremarkable except as noted in HPI & below Physical Exam Constitutional: well developed; no acute distress Neck: Thyroid: + abnormal thyroid Respiratory: normal respiratory effort, lungs clear to auscultation Cardiovascular: Rate/Rhythm: regular rate and regular rhythm Gastrointestinal (Abdomen): Inspection/Auscultation: normal bowel sounds Percussion/Palpation: + abdomen tender (Along the length of rectus sheath with some firmness there) and abdomen soft Ecchymosis in the left flank as well as periumbilical region Skin: no rashes, warm and dry Results & Data Vital Signs (Past 12 Hours) Vital Signs Temp Pulse Pulse Resp BP BP Pulse Ox 10/17/18 07:47 37.1 C 79 20 172/88 H 92 10/17/18 03:37 37.1 C 83 18 138/64 91 10/17/18 02:30 78 10/16/18 22:54 37.1 C 78 20 144/72 H 96 10/16/18 21:21 37 C 85 20 174/88 H 95 Laboratory Results 10/17/18 10/17/18 10/17/18 Range/Units 05:45 05:45 05:45 WBC 14.52 H (4.8-10.8) K/uL RBC 3.07 L (4.7-6.1) M/uL Hgb 9.0 L (14.0-18.0) g/dL Hct 27.9 L (42-52) % MCV 90.9 (80-100) fL MCH 29.3 (25-34) pg MCHC 32.3 (32-36) g/dL RDW Std Deviation 48.1 H (36.4-46.3) fL RDW Coeff of Nav 14.6 H (11.5-14.5) % Plt Count 312 (130-400) K/uL MPV 9.5 (7.4-10.4) fL Immature Gran % (Auto) 0.8 % Neut % (Auto) 67.1 % Lymph % (Auto) 17.2 % Dickens % (Auto) 12.0 % Eos % (Auto) 2.7 % Baso % (Auto) 0.2 % Immature Gran # (Auto) 0.11 H (0.00-0.02) K/uL Neut # (Auto) 9.75 H (1.4-6.5) K/uL Lymph # (Auto) 2.50 (1.2-3.4) K/uL Dickens # (Auto) 1.74 H (0.11-0.59) K/uL Eos # (Auto) 0.39 (0-0.5) K/uL Baso # (Auto) 0.03 (0-0.2) K/uL PT (9.0-12.0) Seconds INR (0.9-1.1) APTT (21.0-31.0) Seconds PTT Ratio Sodium 138 (136-145) mmol/L Potassium 4.0 (3.5-5.1) mmol/L Chloride 105 (98-107) mmol/L Carbon Dioxide 26 (21-32) mmol/L Anion Gap 7.0 (3-11) BUN 21 H (7-18) mg/dl Creatinine 1.29 (0.6-1.4) mg/dl Est Cr Clr Drug Dosing 44.8 ml/min Est GFR ( Amer) 57.4 Est GFR (Non-Af Amer) 49.5 BUN/Creatinine Ratio 16.4 (10-20) Glucose 156 H (70-99) mg/dl POC Glucose (70-99) Estimat Average Glucose 183 mg/dl Hemoglobin A1c 8.0 H (4.5-5.6) % Calcium 8.6 (8.5-10.1) mg/dl Magnesium 1.9 (1.8-2.4) mg/dl Total Bilirubin (0.2-1) mg/dl AST (15-37) U/L ALT (12-78) U/L Alkaline Phosphatase (45-117) U/L Total Protein (6.4-8.2) gm/dl Albumin (3.4-5.0) gm/dl Globulin (2.5-4.0) gm/dl Albumin/Globulin Ratio (0.9-2) Lipase (73-393) U/L 10/16/18 10/16/18 10/16/18 Range/Units 21:31 16:31 16:31 WBC (4.8-10.8) K/uL RBC (4.7-6.1) M/uL Hgb (14.0-18.0) g/dL Hct (42-52) % MCV (80-100) fL MCH (25-34) pg MCHC (32-36) g/dL RDW Std Deviation (36.4-46.3) fL RDW Coeff of Nav (11.5-14.5) % Plt Count (130-400) K/uL MPV (7.4-10.4) fL Immature Gran % (Auto) % Neut % (Auto) % Lymph % (Auto) % Dickens % (Auto) % Eos % (Auto) % Baso % (Auto) % Immature Gran # (Auto) (0.00-0.02) K/uL Neut # (Auto) (1.4-6.5) K/uL Lymph # (Auto) (1.2-3.4) K/uL Dickens # (Auto) (0.11-0.59) K/uL Eos # (Auto) (0-0.5) K/uL Baso # (Auto) (0-0.2) K/uL PT (9.0-12.0) Seconds INR (0.9-1.1) APTT 25.6 (21.0-31.0) Seconds PTT Ratio 0.9 Sodium 136 (136-145) mmol/L Potassium 3.8 (3.5-5.1) mmol/L Chloride 105 (98-107) mmol/L Carbon Dioxide 25 (21-32) mmol/L Anion Gap 6.0 (3-11) BUN 20 H (7-18) mg/dl Creatinine 1.24 (0.6-1.4) mg/dl Est Cr Clr Drug Dosing 46.7 ml/min Est GFR ( Amer) 60.2 Est GFR (Non-Af Amer) 51.9 BUN/Creatinine Ratio 16.2 (10-20) Glucose 103 H (70-99) mg/dl POC Glucose 140 H (70-99) Estimat Average Glucose mg/dl Hemoglobin A1c (4.5-5.6) % Calcium 8.7 (8.5-10.1) mg/dl Magnesium (1.8-2.4) mg/dl Total Bilirubin 0.5 (0.2-1) mg/dl AST 12 L (15-37) U/L ALT 18 (12-78) U/L Alkaline Phosphatase 95 (45-117) U/L Total Protein 7.3 (6.4-8.2) gm/dl Albumin 2.9 L (3.4-5.0) gm/dl Globulin 4.4 H (2.5-4.0) gm/dl Albumin/Globulin Ratio 0.7 L (0.9-2) Lipase 69 L (73-393) U/L 10/16/18 10/16/18 Range/Units 16:31 16:31 WBC 18.74 H (4.8-10.8) K/uL RBC 3.17 L (4.7-6.1) M/uL Hgb 9.3 L (14.0-18.0) g/dL Hct 28.5 L (42-52) % MCV 89.9 (80-100) fL MCH 29.3 (25-34) pg MCHC 32.6 (32-36) g/dL RDW Std Deviation 48.4 H (36.4-46.3) fL RDW Coeff of Nav 14.6 H (11.5-14.5) % Plt Count 370 (130-400) K/uL MPV 9.7 (7.4-10.4) fL Immature Gran % (Auto) 0.7 % Neut % (Auto) 68.0 % Lymph % (Auto) 16.8 % Dickens % (Auto) 12.1 % Eos % (Auto) 2.1 % Baso % (Auto) 0.3 % Immature Gran # (Auto) 0.13 H (0.00-0.02) K/uL Neut # (Auto) 12.76 H (1.4-6.5) K/uL Lymph # (Auto) 3.15 (1.2-3.4) K/uL Dickens # (Auto) 2.26 H (0.11-0.59) K/uL Eos # (Auto) 0.39 (0-0.5) K/uL Baso # (Auto) 0.05 (0-0.2) K/uL PT 9.7 (9.0-12.0) Seconds INR 0.9 (0.9-1.1) APTT (21.0-31.0) Seconds PTT Ratio Sodium (136-145) mmol/L Potassium (3.5-5.1) mmol/L Chloride (98-107) mmol/L Carbon Dioxide (21-32) mmol/L Anion Gap (3-11) BUN (7-18) mg/dl Creatinine (0.6-1.4) mg/dl Est Cr Clr Drug Dosing ml/min Est GFR ( Amer) Est GFR (Non-Af Amer) BUN/Creatinine Ratio (10-20) Glucose (70-99) mg/dl POC Glucose (70-99) Estimat Average Glucose mg/dl Hemoglobin A1c (4.5-5.6) % Calcium (8.5-10.1) mg/dl Magnesium (1.8-2.4) mg/dl Total Bilirubin (0.2-1) mg/dl AST (15-37) U/L ALT (12-78) U/L Alkaline Phosphatase (45-117) U/L Total Protein (6.4-8.2) gm/dl Albumin (3.4-5.0) gm/dl Globulin (2.5-4.0) gm/dl Albumin/Globulin Ratio (0.9-2) Lipase (73-393) U/L Diagnostic Findings CT angio abdomen pelvis w con CLINICAL HISTORY: 88 years-old Male with known AAA, left flank bruising, r/o leak/rupture follow-up study in a patient with abdominal aortic aneurysm. Acute left flank pain. COMPARISON STUDY: CTA of 10/06/2018 TECHNIQUE: Following the IV administration of 120 cc of Optiray 320, CT angiogram of the abdomen and pelvis was performed from the lung bases the proximal femora. Images are reviewed in the axial, sagittal, and coronal planes. 3-D MIPS images are created and assessed. IV contrast was administered without complication. All measurements were obtained according to NASCET criteria. A dose lowering technique was utilized adhering to the principles of ALARA. CT DOSE: 775.29 mGy.cm FINDINGS: CT ABDOMEN/PELVIS: Emphysema with bibasilar bronchial wall thickening and mild mucous plugging. Minimal dependent subsegmental bibasilar atelectasis. No pneumatosis or pneumoperitoneum. There are a few ill-defined areas of increased attenuation about the right he patic lobe measuring up to 1.3 cm which may reflect arterial enhancing lesions or areas of AV shunting. Liver is otherwise unremarkable. Diminutive morphology of the spleen. Pancreas and adrenal glands are unremarkable. Gallbladder is within normal limits. Multiple bilateral renal cysts, largest which measures 7.1 cm on the left. Indeterminate 5 mm hyperdense lesion involves the interpolar aspect of the right kidney, too small to characterize. 6 mm nonobstructing calculus of the inferior pole left kidney. No renal or ureteral calculi identified. Mild nonspecific wall thickening of the urinary bladder. Small left and moderate right fat filled inguinal hernias. No adenopathy by CT size criteria. Small hiatal hernia. No bowel obstruction or focal bowel wall thickening. Colonic diverticulosis without acute diverticulitis. Terminal ileum and appendix are unremarkable. Tiny fat filled periumbilical hernia. Left rectus sheath hematoma, 9.5 x 3.4 x 12.7 cm. Mild subcutaneous stranding about the left anterior abdominal wall. Mildly demineralized appearance of the bones. Degenerative changes of the spine, pelvis and hips. Prior laminectomy with posterior interbody shreyas and screw fusion and discectomy at L3-L4. CTA: Coronary arterial calcifications. Imaged inferior cardiac chambers are mildly enlarged. Extensive mixed plaque formation about the aorta and proximal branches. Plaque formation at the origin of the celiac trunk causes less than 50% stenosis. Extensive plaque formation at the origin of the SMA results in approximate 60% stenosis. Extensive mixed plaque formation about the bilateral renal arteries causes less than 50% stenosis on the right and approximately 70% stenosis at the origin on the left. Extensive mixed plaque formation of the iliac arteries bilaterally. Fusiform aneurysmal dilation of the infrarenal abdominal aorta redemonstrated, 5.8 x 5.2 cm extending for a cranial caudal length of 5.8 cm terminating at the iliac bifurcation. This appears unchanged from comparison. The PAT is noted extending through the aneurysm sac demonstrates atheromatous plaque formation. No evidence of aneurysm leak or rupture. IMPRESSION: 1. Fusiform aneurysmal dilation of the infrarenal abdominal aorta redemonstrated, 5.8 x 5.2 cm extending to the left bifurcation, stable from comparison. No evidence of aneurysm leak or rupture. 2. Acute left rectus sheath hematoma, measures up to 12.7 cm. 3. No bowel obstruction or focal bowel wall thickening. 4. Additional findings as above. (1) Abdominal wall hematoma Encounter type: initial encounter Qualified Code(s): S30.1XXA - Contusion of abdominal wall, initial encounter
--- NOTE | 2018-10-17 17:14 | Hospitalist Progress Note ---
Date of Service October 17, 2018 Assessment & Plan (1) Rectus sheath hematoma: Presented with severe left-sided flank pain, CT abdomen pelvis shows: IMPRESSION: 1. Fusiform aneurysmal dilation of the infrarenal abdominal aorta re demonstrated, 5.8 x 5.2 cm extending to the left bifurcation, stable from comparison. No evidence of aneurysm leak or rupture. 2. Acute left rectus sheath hematoma, measures up to 12.7 cm. 3. No bowel obstruction or focal bowel wall thickening. 4. Additional findings as above. Patient recently being treated for bronchitis, had constant coughing No recent history of trauma, patient is not on blood thinner Appreciate input from general surgery, No surgical intervention needed, recommend conservative approach, Avoid antiplatelets, Avoid any trauma, limit lifting weight more than 10 pounds in next 2 to 3 weeks Expect to have spontaneous resolution of hematoma Stable to be discharged home today Present on Admission?: Yes (2) Anemia: Anemia of chronic disease, H&H remained stable, no acute drop noted Patient is asked to avoid antiplatelets, NSAIDs, in the setting of acute rectus sheath hematoma (3) Cough: Secondary to upper airway infection, recovering from recent bronchitis Completed 10 days of p.o. Augmentin No further duration of antibiotic needed Patient is asked to utilize cough drops, given prescription for Robitussin-AC to be taken as needed for cough Patient follows with family physician at the [facility] (4) Muscle strain: (5) Diabetes mellitus: Treated with insulin sliding scale during admission Oral antidiabetic regimen will be resumed on discharge (6) Hypertension: Blood pressure stable, continue outpatient meds (7) COPD (chronic obstructive pulmonary disease): Respiratory status stable no evidence of exacerbation, no shortness of breath wheeze Nonproductive cough from recent bronchitis (8) GERD (gastroesophageal reflux disease): Continue PPI (9) Abdominal aortic aneurysm (AAA) greater than 5.5 cm in diameter in male: Chronic: Follows with vascular surgery closely CT abdomen pelvis shows stable abdominal aortic aneurysm CODE STATUS: Full code DVT prophylaxis: SCD and teds patient is encouraged to ambulate Disposition: Stable to be discharged home today Patient will continue to follow with his family physician at [facility] Subjective Left flank pain has improved markedly No fever chills, cough has improved Eager to be discharged home Walking independently in room, multiple family members present at bedside Physical Exam Constitutional: WD/WN, vitals as above no acute distress Eyes: PERRL, conjunctivae normal, anicteric sclerae ENMT: external ear and nose normal, oropharynx normal Neck: trachea midline, no thyromegaly Respiratory: normal respiratory effort, lungs clear to auscultation Cardiovascular: RRR, no murmur, no edema Gastrointestinal (Abdomen): normal bowel sounds, soft, nontender, no hepatosplenomegaly Musculoskeletal: Diffuse ecchymosis on left flank noted, patient denies of any tenderness, Skin: Trauma: + hematoma (Left flank area) Ecchymosis on left flank area Neurologic: PERRL, EOMI, accommodation nl, no face palsy, no dysarthria Psychiatric: A+Ox3, euthymic affect Results & Data Vital Signs (Past 12 Hours) Vital Signs Temp Pulse Resp BP Pulse Ox 10/17/18 14:53 36.9 C 80 20 158/77 H 93 10/17/18 13:53 94 10/17/18 07:47 37.1 C 79 20 172/88 H 92 (1) Anemia Anemia type: unspecified type Qualified Code(s): D64.9 - Anemia, unspecified
--- NOTE | 2018-10-17 17:32 | Discharge Summary ---
Date of Service October 17, 2018 Admission HPI Per Admitting Provider [facility] [place], [place] History and Physical Report Signed Patient: JONATHAN JACKSON EAdmit Date: 10/16/18 MR#: [id number] Phy: Amalia Haynes M.D. Acct ID:[id number] Phy: Mukesh Ko D.O. Date: 1930m Phy: Age: 88Location: 2W Sex: M Room/Bed: W255-2 cc: Familia Ramon MD~ DICTATED BY: Familia Ramon MD DATE OF ADMISSION: 10/16/2018 CHIEF COMPLAINT: Abdominal pain, more with cough. HISTORY OF PRESENT ILLNESS: This is an 88-year-old male with past medical history significant for hypertension, hyperlipidemia, type 2 diabetes, chronic kidney stage III, abdominal aortic aneurysm, mitral regurgitation, chronic obstructive pulmonary disease, malignant neoplasm of prostate and peptic ulcer disease who presents with abdominal pain. The patient is having bronchitis and cough for the last 2 weeks. He was in the Emergency Room with abdominal pain with cough on October 06 . He has a history of abdominal aortic aneurysm. CTA of the chest, abdomen and pelvis was done which was okay. There is no leakage of the aneurysm. The patient was discharged. He was treated with Augmentin for his bronchitis. The cough is much improved, but in the last couple of days, he noticed bruises and ecchymosis in his abdomen . Has abdominal pain which is worse with coughing. When he is resting, the pain is okay.In the Emergency Room and CTA of the chest, abdomen and pelvis done today shows there is no abdominal aortic aneurysm leakage, but now it is showing rectal sheath hematoma. The patient is not on any blood thinners. Currently, resting comfortably and hemodynamically stable. Denies any headache. No blurred vision. No earache. No runny nose. No sore throat. No difficulty swallowing. Appetite is okay. No chest pain. No shortness of breath. Cough with phlegm, but cough is better since on antibiotic. No nausea. No vomiting. Pain in the abdomen whenever he coughs. No hematuria or burning micturition. Normal bowel and bladder movements. No black stools or hematochezia. No swelling in the legs. No rash. Principal Diagnosis Rectus sheath hematoma: Spontaneous, Discharge Exam Constitutional WD/WN, vitals as above no acute distress Eyes PERRL, conjunctivae normal, anicteric sclerae ENMT external ear and nose normal, oropharynx normal Neck trachea midline, no thyromegaly Respiratory normal respiratory effort, lungs clear to auscultation Cardiovascular RRR, no murmur, no edema Gastrointestinal (Abdomen) normal bowel sounds, soft, nontender, no hepatosplenomegaly Skin Trauma: + hematoma (Left flank area) Neurologic PERRL, EOMI, accommodation nl, no face palsy, no dysarthria Psychiatric A+Ox3, euthymic affect Discharge Data Allergies Allergy/AdvReac Type Severity Reaction Status Date / Time No Known Allergies Allergy Unverified 10/16/18 19:06 Consultations 10/16/18 18:34 ED Decision to Admit Stat 10/16/18 21:04 Consult Case Management - Discharge Planning Routine 10/17/18 08:00 Consult General Surgery Routine Ordered Studies 10/16/18 16:51 CT angio abdomen pelvis w con Stat Hospital Course (1) Rectus sheath hematoma: Presented with severe left-sided flank pain, CT abdomen pelvis shows: IMPRESSION: 1. Fusiform aneurysmal dilation of the infrarenal abdominal aorta re demonstrated, 5.8 x 5.2 cm extending to the left bifurcation, stable from comparison. No evidence of aneurysm leak or rupture. 2. Acute left rectus sheath hematoma, measures up to 12.7 cm. 3. No bowel obstruction or focal bowel wall thickening. 4. Additional findings as above. Patient recently being treated for bronchitis, had constant coughing No recent history of trauma, patient is not on blood thinner Appreciate input from general surgery, No surgical intervention needed, recommend conservative approach, Avoid antiplatelets, Avoid any trauma, limit lifting weight more than 10 pounds in next 2 to 3 weeks Expect to have spontaneous resolution of hematoma Stable to be discharged home today (2) Anemia: Anemia of chronic disease, H&H remained stable, no acute drop noted Patient is asked to avoid antiplatelets, NSAIDs, in the setting of acute rectus sheath hematoma (3) Cough: Secondary to upper airway infection, recovering from recent bronchitis Completed 10 days of p.o. Augmentin No further duration of antibiotic needed Patient is asked to utilize cough drops, given prescription for Robitussin-AC to be taken as needed for cough Patient follows with family physician at the [facility] (4) Muscle strain: (5) Diabetes mellitus: Treated with insulin sliding scale during admission Oral antidiabetic regimen will be resumed on discharge (6) Hypertension: Blood pressure stable, continue outpatient meds (7) COPD (chronic obstructive pulmonary disease): Respiratory status stable no evidence of exacerbation, no shortness of breath wheeze Nonproductive cough from recent bronchitis (8) GERD (gastroesophageal reflux disease): Continue PPI (9) Abdominal aortic aneurysm (AAA) greater than 5.5 cm in diameter in male: Chronic: Follows with vascular surgery closely CT abdomen pelvis shows stable abdominal aortic aneurysm CODE STATUS: Full code DVT prophylaxis: SCD and teds patient is encouraged to ambulate Disposition: Stable to be discharged home today Patient will continue to follow with his family physician at [facility] Total Time Total Time Spent Total Time Spent (In Minutes): Approximate 45 minutes Total Time Includes: Examination of the Patient, Discharge Planning and Medication Reconciliation Discharge Plan Discharge Items Patient Disposition: Home - Self-Care Reason For Visit: ABD PAIN AND ECCHYMOSIS ON HIS ABD Discharge Diagnosis: RECTUS SHEATH HEMATOMA /COUGH /BRONCHITIS Condition: Good Discharge Goals: Decrease discomfort and Therapeutic intervention Activity: As commented below Activity Comment: DO NOT LIFT MORE THAN 10 LBS FOR 2 WEEKS Lifting: No more than 10 pounds Lifting Comment: FOR 2 WEEKS Non-emergency contact: Primary Care Provider Call non-emergency contact if: you have any medication questions Follow-up/Referrals: Mukesh Ko [Primary Care Provider] - Diet: Heart Healthy Addtl Provider Instructions: DO NOT TAKE ASPIRIN AVOID NSAID'S -MOTRIN, ADVIL , IBUPROPHEN, ALEVE , NAPROXEN CAN TAKE TYLENOL NEEDED USE HEATING PAD NEEDED FOR PAIN RELIEF TAKE MIRALAX /STOOL SOFTENER TO PREVENT CONSTIPATION , STRAINING CAN WORSEN THE BLEEDING Prescriptions: New codeine-guaifenesin 10-100 mg/5 mL liquid 5 ml PO Q6H PRN (Reason: cough) Qty: 120 RF: 0 Continued levalbuterol HCl 0.63 mg/3 mL solution for nebulization 0.63 mg Inhalation Q6H PRN (Reason: Shortness Of Breath Or Wheezing) RF: 0 atenolol 25 mg tablet 12.5 mg PO QAM RF: 0 amlodipine 10 mg tablet 10 mg PO QAM RF: 0 pantoprazole 40 mg tablet,delayed release (DR/EC) 40 mg PO BID RF: 0 ranitidine HCl 150 mg tablet 150 mg PO BID RF: 0 triamcinolone acetonide [Nasacort] 55 mcg aerosol,spray 2 spray Intranasal QAM RF: 0 albuterol sulfate [Ventolin HFA] 90 mcg/actuation Hfa Aerosol Inhaler 2 puff INHALATION Q6H PRN (Reason: Shortness Of Breath Or Wheezing) RF: 0 losartan 100 mg tablet 100 mg PO QAM RF: 0 glipizide 5 mg tablet 5 mg PO QAM RF: 0 Steriod Shot 1 dose IM Q3M RF: 0 cyclobenzaprine 5 mg tablet 5 mg PO BID PRN (Reason: muscle spasm) Qty: 14 RF: 0 Discontinued ibuprofen 200 mg Tablet 400 mg PO TID PRN (Reason: Pain) RF: 0 Stand-Alone Forms: [facility] Discharge Orders: Discharge Order (Routine); Ordered 10/17/18 Ordered By: Amalia Haynes Admission Data Admit Date/Time: 10/16/18 20:03 Attending Provider: Amalia Haynes Admit Provider: Familia Ramon Primary Care Provider: Mukesh Ko Other Providers: Familia Ramon ; Skip Joy Service: Telemetry
== END 2018-10-17 19:35 | disposition home or self-care (01) ==
LOC: ED 15:26 → 2W 15:26

== ENCOUNTER 2019-12-04 06:49 | Inpatient (IN) ==
[2019-12-04] MEDS ORDERED: CEFEPIME 2,000 MG/12.5 ML VIAL IV STA (07:12)
[2019-12-04] MEDS ORDERED: SODIUM CHLORIDE 0.9% 500 ML IV SCH (07:15)
--- NOTE | 2019-12-04 07:38 | XRay Report ---
XR chest 1V portable HISTORY: 89 years-old Male fever, sob acute fever with shortness of breath COMPARISON: Chest radiograph 10/16/2018 TECHNIQUE: Portable AP view of the chest FINDINGS: Cardiac silhouette is upper limits of normal in size. Mild reticular opacities of the mid and lower l shahram zones. Calcified plaque of the thoracic aortic arch. Mild blunting of the costophrenic angles. No pneumothorax or overt pulmonary edema. Emphysema. Degenerative changes of the shoulders and spine. IMPRESSION: 1. Mildly progressed interstitial coarsening of the lung bases may be secondary to atelectasis or a n onspecific pneumonitis. 2. Emphysema. ACT 112: Negative or not required by law. The above report was generated using voice recognition software. It may contain grammatical, syntax o r spelling errors. Electronically signed by: Waylon Morillo M.D. 12/04/2019 7:36 AM
[2019-12-04] MEDS ORDERED: ALBUT/IPRATROP 3MG/0.5MG NEB 3 ML VIAL NEB STA (07:42)
--- NOTE | 2019-12-04 07:50 | Emergency Department Note ---
History of Present Illness General Chief Complaint: Shortness of Breath/Dyspnea Stated Complaint: SOB,LEG SWELLING,NO APPETITE Time Seen by Provider: 12/04/19 07:12 Source: patient Limitations: physical limitation History of Present Illness Provider Complaint: shortness of breath Onset (ago): day(s) (3) Severity: moderate Consistency/Duration: + constant Maximum Pain Intensity: 0 Exacerbated By: + exertion Context: + recent illness Known history of: COPD Associated symptoms: + fever, + cough and + wheezing Treatment prior to arrival: bronchodilator HPI Narrative: This is an 89-year-old male who presents to the ED with a chief complaint of shortness of breath that is worse with exertion. He also reports a productive cough for yellowish-brown sputum. The patient states that he was discharged from the [facility] in [place] on Tuesday. His symptoms started on Tuesday. He has had the symptoms for the past 2 days. The patient has no other specific complaints at this time other than generalized weakness. Symptoms are moderate. Worse with exertion. He does have oxygen at home for use at night. Home Medications Home Medications Medication Instructions Recorded Confirmed Type albuterol sulfate [Ventolin HFA] 2 puff INHALATION Q6H PRN 08/05/18 12/04/19 History amlodipine 10 mg PO QAM 08/05/18 12/04/19 History glipizide 2.5 mg PO BID 08/05/18 12/04/19 History levalbuterol HCl 0.63 mg INHALATION Q6H PRN 08/05/18 12/04/19 History losartan 100 mg PO QAM 08/05/18 12/04/19 History pantoprazole 40 mg PO QAM 08/05/18 12/04/19 History magnesium 200 mg tablet 200 mg PO QAM 01/01/19 12/04/19 History triamcinolone acetonide 55 mcg 2 spray INTRANASAL QAM PRN 01/01/19 12/04/19 History nasal spray aerosol atenolol 25 mg tablet 25 mg PO QAM #90 tab 02/19/19 12/04/19 Rx amoxicillin-pot clavulanate 1 tab PO BID 12/04/19 12/04/19 History Allergies Allergy/AdvReac Type Severity Reaction Status Date / Time No Known Drug Allergies Allergy Verified 12/04/19 07:21 Past Med/Surg History Medical History Abdominal aortic aneurysm (AAA) greater than 5.5 cm in diameter in male (Chronic) COPD exacerbation (Chronic) Diabetes mellitus (Chronic) GERD (gastroesophageal reflux disease) (Chronic) HTN (hypertension) (Chronic) Hypertension (Chronic) Kidney stones (Chronic) Prostate cancer (Chronic) Reactive airway disease (Chronic) Spinal stenosis (Chronic) Surgical History H/O colonoscopy (Chronic) History of cataract surgery (Chronic) Hx of cataract surgery (Chronic) Hx of lumbosacral spine surgery (Chronic) Social History Preferred Language: [place] Communication Ability: Effective Visual Impairment: Limited Hearing Ability: Use of Hearing Aid Pyrotechnician Required: No Beliefs That Will Affect Care: None marital status: Current Living Situation: Spouse and Family Current Living Situation Comment: with and dtr Feels Safe at Home: Yes Smoking Status: Former smoker Hx Alcohol Use: Yes Alcohol type: beer Hx Substance Use: No Review of Systems A total of 10 systems reviewed and were otherwise negative Physical Exam Vital Signs: Vital Signs - 24 hr 12/04/19 06:52 12/04/19 07:30 12/04/19 07:45 Temperature 38.2 C H Temperature Source Oral Pulse Rate 84 82 Pulse Rate [Apical ] 80 Pulse Rate from Sp O2 Sensor Pulse Rhythm Regular Pulse Rhythm [Apic al] Regular Pulse Strength Normal Pulse Strength [Ap ical] Normal Respiratory Rate 21 17 17 Respiratory Effort / Characteristics Non-Labored Sponta neous Non-Labored Sponta neous Respiratory Depth Normal Normal Respiratory Patter n Regular Regular Blood Pressure 151/79 H Blood Pressure [Ri ght Arm] 154/70 H Blood Pressure Katelynn n 103 Blood Pressure Katelynn n [Right Arm] 98 Blood Pressure Pos ition Sitting Blood Pressure Pos ition [Right Arm] Sitting Pulse Oximetry 91 93 Oxygen Delivery Me thod Room Air Room Air Sepsis Recent Feve r Within 48 Hours Yes Sepsis Action Take n by Nursing Physician Notified 12/04/19 07:46 12/04/19 08:00 12/04/19 08:01 Temperature Temperature Source Pulse Rate 77 81 78 Pulse Rate [Apical ] Pulse Rate from Sp O2 Sensor 80 82 78 Pulse Rhythm Pulse Rhythm [Apic al] Pulse Strength Pulse Strength [Ap ical] Respiratory Rate 13 17 20 Respiratory Effort / Characteristics Respiratory Depth Respiratory Patter n Blood Pressure 154/71 H 148/75 H Blood Pressure [Ri ght Arm] Blood Pressure Katelynn n 100 112 Blood Pressure Katelynn n [Right Arm] Blood Pressure Pos ition Blood Pressure Pos ition [Right Arm] Pulse Oximetry 90 95 91 Oxygen Delivery Me thod Sepsis Recent Feve r Within 48 Hours Sepsis Action Take n by Nursing 12/04/19 08:30 12/04/19 08:54 12/04/19 09:00 Temperature Temperature Source Pulse Rate 76 80 78 Pulse Rate [Apical ] 80 Pulse Rate from Sp O2 Sensor 77 80 78 Pulse Rhythm Pulse Rhythm [Apic al] Pulse Strength Pulse Strength [Ap ical] Respiratory Rate 22 21 22 Respiratory Effort / Characteristics Non-Labored Sponta neous Respiratory Depth Respiratory Patter n Blood Pressure 161/78 H 177/70 H Blood Pressure [Ri ght Arm] Blood Pressure Katelynn n 93 99 Blood Pressure Katelynn n [Right Arm] Blood Pressure Pos ition Blood Pressure Pos ition [Right Arm] Pulse Oximetry 92 91 99 Oxygen Delivery Me thod Room Air Sepsis Recent Feve r Within 48 Hours Sepsis Action Take n by Nursing 12/04/19 09:18 12/04/19 09:30 12/04/19 09:31 Temperature Temperature Source Pulse Rate 66 79 77 Pulse Rate [Apical ] Pulse Rate from Sp O2 Sensor 60 78 79 Pulse Rhythm Pulse Rhythm [Apic al] Pulse Strength Pulse Strength [Ap ical] Respiratory Rate 12 17 16 Respiratory Effort / Characteristics Respiratory Depth Respiratory Patter n Blood Pressure 114/74 177/66 H Blood Pressure [Ri ght Arm] Blood Pressure Katelynn n 83 78 Blood Pressure Katelynn n [Right Arm] Blood Pressure Pos ition Blood Pressure Pos ition [Right Arm] Pulse Oximetry 98 90 92 Oxygen Delivery Me thod Sepsis Recent Feve r Within 48 Hours Sepsis Action Take n by Nursing Physical Exam: CONSTITUTIONAL/VITAL SIGNS: Reviewed / noted above. GENERAL: Non-toxic in appearance. INTEGUMENTARY: Warm, dry, and [place]. HEAD: Normocephalic. EYES: without scleral icterus or trauma. ENT/OROPHARYNX: clear and moist. LYMPHADENOPATHY/NECK: Is supple without lymphadenopathy or meningismus. RESPIRATORY: Lungs reveal some scattered wheezes and diminished in the bases. CARDIOVASCULAR: Regular rate and rhythm. GI/ABDOMEN: Soft and nontender. No organomegaly or pulsatile mass. No rebound or guarding. Normal bowel sounds. EXTREMITIES: Warm and well perfused. BACK: No CVA tenderness. NEUROLOGICAL: Intact without focal deficits. PSYCHIATRIC: normal affect. MUSCULOSKELETAL: Normally developed with good muscle tone. TRIAGE NURSING DOCUMENTATION REVIEWED. Course Administered Medications Discontinued Medications Albuterol (Duoneb) 3 ml NEB NOW STA Stop: 12/04/19 07:43 Last Admin: 12/04/19 08:58 Dose: 3 ml Documented by: [id number] Sodium Chloride (Nss) 500 mls @ 999 mls/hr IV .Q31M MARISSA Stop: 12/04/19 07:45 Last Admin: 12/04/19 08:50 Dose: 999 mls/hr Documented by: [id number] Cefepime HCl (Maxipime) 2,000 mg in 12.5 mls @ 3.125 mls/min IV NOW STA Stop: 12/04/19 07:15 Last Admin: 12/04/19 08:50 Dose: 3.125 mls/min Documented by: [id number] Medical Decision Making Differential Diagnosis Differential includes viral illness, influenza, streptococcal pharyngitis, meningitis, pneumonia, sinusitis, UTI, pyelonephritis, otitis media. Medical Records Attestation: I reviewed the patient's medical records. Home Medications Current Medication List: was personally reviewed by me Laboratory Data Attestation: I reviewed the patient's lab results. Result diagrams: 12/04/19 08:14 12/04/19 08:14 Lab Results 12/04/19 12/04/19 Range/Units 08:14 08:14 WBC 15.19 H (4.8-10.8) K/uL RBC 2.67 L (4.7-6.1) M/uL Hgb 8.0 L (14.0-18.0) g/dL Hct 24.8 L (42-52) % MCV 92.9 (80-100) fL MCH 30.0 (25-34) pg MCHC 32.3 (32-36) g/dL RDW Std Deviation 46.5 H (36.4-46.3) fL RDW Coeff of Nav 13.7 (11.5-14.5) % Plt Count 370 (130-400) K/uL MPV 10.0 (7.4-10.4) fL Immature Gran % (Auto) 1.0 % Neut % (Auto) 72.8 % Lymph % (Auto) 11.5 % [place] % (Auto) 13.6 % Eos % (Auto) 0.8 % Baso % (Auto) 0.3 % Neut # (Auto) 11.08 H (1.4-6.5) K/uL Lymph # (Auto) 1.74 (1.2-3.4) K/uL [place] # (Auto) 2.06 H (0.11-0.59) K/uL Eos # (Auto) 0.12 (0-0.5) K/uL Baso # (Auto) 0.04 (0-0.2) K/uL Immature Gran # (Auto) 0.15 H (0.00-0.02) K/uL Sodium 137 (136-145) mmol/L Potassium 3.4 L (3.5-5.1) mmol/L Chloride 105 (98-107) mmol/L Carbon Dioxide 26 (21-32) mmol/L Anion Gap 7.0 (3-11) BUN 19 H (7-18) mg/dl Creatinine 1.59 H (0.6-1.4) mg/dl Est Cr Clr Drug Dosing Not Reportable Est GFR ( Amer) 44.3 Est GFR (Non-Af Amer) 38.2 BUN/Creatinine Ratio 12.1 (10-20) Glucose 193 H (70-99) mg/dl Calcium 8.2 L (8.5-10.1) mg/dl Total Bilirubin 0.3 (0.2-1) mg/dl AST 14 L (15-37) U/L ALT 26 (12-78) U/L Alkaline Phosphatase 75 (45-117) U/L Troponin I 0.031 (0-0.045) ng/ml Total Protein 6.9 (6.4-8.2) gm/dl Albumin 2.2 L (3.4-5.0) gm/dl Globulin 4.7 H (2.5-4.0) gm/dl Albumin/Globulin Ratio 0.5 L (0.9-2) Imaging Data Attestation: I personally reviewed and interpreted this imaging study as foll ows: My Impression: Bilateral lower lobe infiltrate Radiologist's Impression: XR chest 1V portable HISTORY: 89 years-old Male fever, sob acute fever with shortness of breath COMPARISON: Chest radiograph 10/16/2018 TECHNIQUE: Portable AP view of the chest FINDINGS: Cardiac silhouette is upper limits of normal in size. Mild reticular opacities of the mid and lower lung zones. Calcified plaque of the thoracic aortic arch. Mild blunting of the costophrenic angles. No pneumothorax or overt pulmonary edema. Emphysema. Degenerative changes of the shoulders and spine. IMPRESSION: 1. Mildly progressed interstitial coarsening of the lung bases may be secondary to atelectasis or a nonspecific pneumonitis. 2. Emphysema. ECG Data Attestation: I personally reviewed and interpreted this ECG as follows: (Per my interpretation there is a sinus rhythm at a rate of 83 with a first-degree AV block. No ST elevation. No PVCs.) Blood Pressure Blood Pressure Findings: Elevated blood pressure MDM Narrative This is an 89-year-old male who presents to the ED with a chief complaint of shortness of breath that is worse with exertion. He also reports a productive cough for yellowish-brown sputum. The patient states that he was discharged from the [facility] in [place] on Tuesday. His symptoms started on Tuesday. He has had the symptoms for the past 2 days. The patient has no other specific complaints at this time other than generalized weakness. Symptoms are moderate. Worse with exertion. He does have oxygen at home for use at night. The patient's vital signs reveal a fever of 38.2. His blood pressure is elevated. Pulse ox is 91% on room air. His exam reveals that he has some generalized weakness. He does not appear to be in significant respiratory distress. He does have a productive cough for yellow/brown sputum. He has some mild lower extremity edema. His lungs sound diminished in the bases with some scattered wheezes. The patient's x-ray suggests a lower lobe pneumonia bilaterally. There is also an elevation of the white blood cell count of 15,000. His hemoglobin is 8. This was 11.2 on the of last month. The patient's reports that he did have a COVID test while he was in the hospital at the [facility] a week or 2 ago. This was negative. The patient was treated with IV cefepime, IV vancomycin and a DuoNeb treatment. He will be seen by the hospitalist for further inpatient evaluation and care. Impression & Plan Pneumonia of both lower lobes, Anemia, Generalized muscle weakness Discharge Plan Visit Data Chief Complaint: Shortness of Breath/Dyspnea Stated Complaint: SOB,LEG SWELLING,NO APPETITE ED Provider: Hitesh Rehman Discharge Problem: Pneumonia of both lower lobes, Anemia, Generalized muscle weakness Patient Disposition: Being Evaluated by Hospitalist Forms Stand Alone Forms: [facility] Prescriptions Prescriptions: No Action magnesium 200 mg tablet 200 mg PO QAM RF: 0 atenolol 25 mg tablet 25 mg PO QAM Qty: 90 RF: 3 levalbuterol HCl 0.63 mg/3 mL solution for nebulization 0.63 mg Inhalation Q6H PRN (Reason: Shortness Of Breath Or Wheezing) RF: 0 amlodipine 10 mg tablet 10 mg PO QAM RF: 0 pantoprazole 40 mg tablet,delayed release (DR/EC) 40 mg PO QAM RF: 0 albuterol sulfate [Ventolin HFA] 90 mcg/actuation Hfa Aerosol Inhaler 2 puff INHALATION Q6H PRN (Reason: Shortness Of Breath Or Wheezing) RF: 0 losartan 100 mg tablet 100 mg PO QAM RF: 0 glipizide 5 mg tablet 2.5 mg PO BID RF: 0 triamcinolone acetonide [Nasacort] 55 mcg aerosol,spray 2 spray Intranasal QAM PRN (Reason: Congestion) RF: 0 amoxicillin-pot clavulanate 875-125 mg tablet 1 tab PO BID RF: 0 Referrals Referrals: Shawn Lambert MD [Primary Care Provider] -
[2019-12-04 08:24] LABS: Basophils # (auto) 0.04 K/uL (0-0.2); Basophils % (auto) 0.3 %; Eosinophils # (auto) 0.12 K/uL (0-0.5); Eosinophils % (auto) 0.8 %; Hematocrit (blood only) 24.8 % (42-52); Immature Granulocytes # (auto) 0.15 K/uL (0.00-0.02); Lymphocytes # (auto) 1.74 K/uL (1.2-3.4); Lymphocytes % (auto) 11.5 %; Mean Corpuscular Hgb Conc 32.3 g/dL (32-36); Mean Corpuscular Volume 92.9 fL (80-100); Monocytes # (auto) 2.06 K/uL (0.11-0.59); Monocytes % (auto) 13.6 %; Neutrophils # (auto) 11.08 K/uL (1.4-6.5); Neutrophils % (auto) 72.8 %; Platelet Count 370 K/uL (130-400); RDW Coefficient of Variation 13.7 % (11.5-14.5); RDW Standard Deviation 46.5 fL (36.4-46.3); Red Blood Count 2.67 M/uL (4.7-6.1); White Blood Count 15.19 K/uL (4.8-10.8)
[2019-12-04 08:41] LABS: Alanine Aminotransferase 26 U/L (12-78); Albumin Level 2.2 gm/dl (3.4-5.0); Aspartate Aminotransferase 14 U/L (15-37); BUN Creatinine Ratio 12.1 (10-20); Blood Urea Nitrogen 19 mg/dl (7-18); Calcium 8.2 mg/dl (8.5-10.1); Carbon Dioxide 26 mmol/L (21-32); Chloride 105 mmol/L (98-107); Est GFR (African American) 44.3; Est GFR (Non-African American) 38.2; Glucose 193 mg/dl (70-99); Potassium 3.4 mmol/L (3.5-5.1); Sodium 137 mmol/L (136-145)
[2019-12-04 08:45] LABS: Albumin Globulin Ratio 0.5 (0.9-2); Alkaline Phosphatase 75 U/L (45-117); Bilirubin,Total 0.3 mg/dl (0.2-1); Globulin 4.7 gm/dl (2.5-4.0); Total Protein 6.9 gm/dl (6.4-8.2); Troponin I 0.031 ng/ml (0-0.045)
[2019-12-04] MEDS ORDERED: VANCOMYCIN HCL 2,000 MG in SODIUM CHLORIDE 0.9% 500 ML IV ONE (09:07)
[2019-12-04] MEDS ORDERED: VANCOMYCIN CONSULT ACTIVE PRN ×2 (09:07→14:41)
[2019-12-04] MEDS ORDERED: POTASSIUM CHLORIDE 20 MEQ TABCR PO STA (09:43)
[2019-12-04] MEDS ORDERED: NSS + 20MEQ KCL 20 MEQ/1,000 ML BAG IV SCH (10:00)
[2019-12-04 10:17] LABS: Ferritin 359.4 ng/ml (8-388)
[2019-12-04 10:57] LABS: Folate (Folic Acid) 15.87 ng/ml (>5.38)
[2019-12-04 11:38] LABS: Appearance Urine Cloudy (Clear); Bacteria Urine Automated Negative (Negative); Bilirubin Urine Negative (Negative); Blood Urine Negative (Negative); Color Urine Yellow; Glucose Urine UA Trace (Negative); Ketones Urine Negative (Negative); Leukocyte Esterase Urine Negative (Negative); Nitrite Urine Negative (Negative); Protein Urine 2+ (Negative); RBC Urine Automated 0-4 /hpf (0-4); Urobilinogen Urine Negative (Negative)
[2019-12-04] MEDS ORDERED: AMLODIPINE BESYLATE 5 MG TAB PO STA (12:09)
[2019-12-04] MEDS ORDERED: LOSARTAN POTASSIUM 50 MG TAB PO STA (12:09)
--- NOTE | 2019-12-04 12:22 | History & Physical Report ---
Date of Service December 04, 2019 Assessment & Plan (1) Sepsis: (2) Pneumonia of both lower lobes: This is an 89-year-old male who has significant PMH of T2DM, HTN, HLD, AAA infrarenal 6.3 x 5.4 cm nonsurgical candidate, COPD, CKD stage III, carotid artery stenosis, renal artery stenosis, history of prostate cancer, GERD, hepatic steatosis, history of rectus sheath hematoma who presents to ED secondary to worsening cough, shortness of breath and lower extremity edema x3 days. In ED patient was significantly hypertensive and febrile at 38.2. His O2 saturations were approximately 91% on room air. Per CMS guidelines he did meet sepsis criteria with leukocytosis and fever. Chest x-ray concerning for bibasilar pneumonitis. Lactate WNL, procalcitonin 0.26. Lab work notable for WBC 15.1 9K, H&H 8.0 24.8, K3.4, BUN 19, creatinine 1.59, glucose 193, lactic acid 1.0, troponin 0.031, procalcitonin 0.26. COVID-19 PCR negative. He did receive broad-spectrum IV antibiotics with vancomycin and cefepime. admit to PCU continue IV Vanco and Zosyn blood and urine culture pending obtain RUQ U/S Duoneb, incentive spirometry supplemental O2 PRN APAP prn fever (3) Cholecystitis: Patient with recent diagnosis of acute cholecystitis Transfer to tertiary care center [facility] in [place] Was treated conservatively with IV antibiotics, WBC peaked at 25,000 and at discharge was 11 K LFTS WNL Treated with Vanco and IV Zosyn and discharged home on oral Augmentin twice daily GI symptoms currently absent and denies abdominal pain, nausea or vomiting He is tolerating regular diet Obtain right upper quadrant ultrasound to monitor continue Vanco/zosyn for above If symptoms were to worsen patient will need transfer to [facility] for IR drain placement (4) CHF (congestive heart failure): Acute CHF of unspecified type due to no baseline echo in records, but likely diastolic pt with volume overload on exam and reports of orthopnea probnp [id number] Give Lasix IV 20mg x 1 and start 40mg oral Lasix daily daily weights, strict I and O obtain echo - no echocardiogram on record FR 1800cc daily (5) Anemia: H&H 8.0 and 24.8 Iron 16, ferritin 359, TIBC 194 Anemia of renal disease No signs or symptoms of bleeding Monitor H&H, check fecal occult blood (6) COPD (chronic obstructive pulmonary disease): With acute exacerbation given increasing shortness of breath and sputum production Continue Symbicort and DuoNeb Incentive spirometry No role for corticosteroids at this point, but monitor (7) Abdominal aortic aneurysm (AAA) greater than 5.5 cm in diameter in male: Follows vascular and [facility] cardiology Recent slight increase in size 6.3 x 5.4 cm infrarenal aortic aneurysm Not surgical candidate maintain good BP control (8) Diabetes mellitus: Last A1C 8.0 09/2018 repeat A1C in a.m. hold glipizide Insulin sliding scale per protocol (9) HTN (hypertension): Blood pressure significantly elevated in ED and patient admit BP mostly in 180 systolically at home Amlodipine recently increased to 10mg daily, continue atenolol Reduce losartan to 25mg daily given B/L RIGOBERTO (10) CKD (chronic kidney disease) stage 3, GFR 30-59 ml/min: baseline Cr 1.3-1.5 BUN/creatinine 19 and 1.59 Monitor (11) Bilateral renal artery stenosis: Patient underwent CTA abdomen pelvis on 11/24 which revealed severe bilateral renal artery stenosis He also has known further vascular disease with carotid artery stenosis and enlarging AAA At [facility] he was started on aspirin 81 mg daily; however, this was not continued Resume ASA 81mg daily, recommend starting statin when medically stable Reduce losartan from 100mg to 25mg. Risk outweighs benefit with ARB given need to control BP in setting of AAA Consider discontinuing losartan all together if rise in cr (12) DVT prophylaxis: SQ heparin Disposition: admit to PCU, case management consulted Follow up: PCP Dr. Lambert at [facility] upon discharge Pt was seen and examined in collaboration with Dr. Lincoln, please see addendum History of Present Illness Chief Complaint: Worsening shortness of breath, cough and lower extremity edema x3 days. Primary Care Provider: Shawn Lambert MD This is an 89-year-old male who has significant PMH of T2DM, HTN, HLD, AAA infrarenal 6.3 x 5.4 cm nonsurgical candidate, COPD, CKD stage III, carotid artery stenosis, renal artery stenosis, history of prostate cancer, GERD, hepatic steatosis, history of rectus sheath hematoma who presents to ED secondary to worsening cough, shortness of breath and lower extremity edema x3 days. Of significance patient was seen and evaluated in the ED on 11/24 and transferred to [facility] in [place] secondary to acute cholecystitis. Given his significant AAA it was felt he would benefit from tertiary center due to possible need for PERC tube placement. He was admitted from 11/24 to 11/30/2019. He was initially treated with IV Zosyn however WBC increased to 25,000 and therefore vancomycin was added. MRSA swab was negative therefore vancomycin was discontinued and he continued treatment with Zosyn with improvement in abdominal pain and leukocytosis. On day of discharge his WBC was 11k. According to records per family surgery was not preferred and therefore he was treated conservatively, a percutaneous drain was considered if he did not improve. He was discharged home on oral Augmentin twice a day for 10 days. He has been compliant with antibiotics. According to patient and his symptoms have worsened over the past 3 days including increasing shortness of breath, productive cough of brown sputum, orthopnea, increased lower extremity swelling and general malaise. He denies feeling feverish, chills, sweats, lightheadedness, dizziness, syncope, chest pain, shortness breath at rest, nausea, vomiting, abdominal pain, diarrhea, melena, hematochezia, dysuria, increased urgency or frequency with urination, hematuria. In ED patient was significantly hypertensive and febrile at 38.2. His O2 saturations were approximately 91% on room air. Per CMS guidelines he did meet sepsis criteria with leukocytosis and fever. Chest x-ray concerning for bibasilar pneumonitis. Lab work notable for WBC 15.1 9K, H&H 8.0 24.8, K3.4, BUN 19, creatinine 1.59, glucose 193, lactic acid 1.0, troponin 0.031, procalcitonin 0.26. COVID-19 PCR negative. He did receive broad-spectrum IV antibiotics with vancomycin and cefepime. Allergies Allergy/AdvReac Type Severity Reaction Status Date / Time No Known Drug Allergies Allergy Verified 12/04/19 07:21 Home Medications Home Medications Medication Instructions Recorded Confirmed Type albuterol sulfate [Ventolin HFA] 2 puff INHALATION Q6H PRN 08/05/18 12/04/19 History amlodipine 10 mg PO QAM 08/05/18 12/04/19 History glipizide 2.5 mg PO BID 08/05/18 12/04/19 History levalbuterol HCl 0.63 mg INHALATION Q6H PRN 08/05/18 12/04/19 History losartan 100 mg PO QAM 08/05/18 12/04/19 History pantoprazole 40 mg PO QAM 08/05/18 12/04/19 History magnesium 200 mg tablet 200 mg PO QAM 01/01/19 12/04/19 History triamcinolone acetonide 55 mcg 2 spray INTRANASAL QAM PRN 01/01/19 12/04/19 History nasal spray aerosol atenolol 25 mg tablet 25 mg PO QAM #90 tab 02/19/19 12/04/19 Rx amoxicillin-pot clavulanate 1 tab PO BID 12/04/19 12/04/19 History budesonide-formoterol 2 puff INHALATION Q12H 12/04/19 12/04/19 History Past Med/Surg History Medical History Abdominal aortic aneurysm (AAA) greater than 5.5 cm in diameter in male (Chronic) COPD exacerbation (Chronic) Diabetes mellitus (Chronic) GERD (gastroesophageal reflux disease) (Chronic) HTN (hypertension) (Chronic) Hypertension (Chronic) Kidney stones (Chronic) Prostate cancer (Chronic) Reactive airway disease (Chronic) Spinal stenosis (Chronic) Surgical History H/O colonoscopy (Chronic) History of cataract surgery (Chronic) Hx of cataract surgery (Chronic) Hx of lumbosacral spine surgery (Chronic) Social History Preferred Language: [place] Communication Ability: Effective Visual Impairment: Limited Hearing Ability: Use of Hearing Aid Straddle Carrier Operator Required: No Beliefs That Will Affect Care: None marital status: Current Living Situation: Spouse and Family Current Living Situation Comment: with and dtr Other Information That Helps Us Care for You: No Feels Safe at Home: Yes Safety Concerns: Feels Safe At This Time Smoking Status: Former smoker Hx Alcohol Use: Yes Alcohol type: beer Hx Substance Use: No Review of Systems Review of Systems: All systems reviewed & are unremarkable except as noted in HPI & below Physical Exam Physical Exam: Constitutional: WD/WN, elderly, M, vitals as above, NAD, sitting up in bed, pleasant, conversing easily Head: Normocephalic, Atraumatic Eyes: PERRL, conjunctivae normal, anicteric sclerae ENMT: b/l hearing aides intact, external ear and nose normal, oropharynx normal Neck: trachea midline, no thyromegaly normal visual inspection Respiratory: increased respiratory effort, lungs clear to auscultation, bibasilar crackles noted with prolonged exp phase, no wheeze or rhonchi. No accessory muscle use Cardiovascular: RRR, 2/6 SJ noted RUSB, b/l +1 pretibial edema, no erythema, negative homans, b/l pedal pulse +1 Vessels: no JVD or carotid bruit Chest: normal inspection of chest Abdomen:protuberant abd, normal bowel sounds, firm, nontender, no hepatosplenomegaly Musculoskeletal: no cyanosis or clubbing, extremities motor strength 5/5 Skin: no rashes, warm and dry normal turgor Neurologic: PERRL, EOMI, accommodation nl, no face palsy, no dysarthria CN's II-XI intact bilaterally and moves all extremities Psychiatric: A+Ox3, euthymic affect Lymphatic: no cervical or axillary lymphadenopathy : deferred Results & Data Results & Data ([facility]) Vital Signs (Past 12 Hours) Vital Signs Temp Pulse Pulse Resp BP BP Pulse Ox 12/04/19 10:31 78 22 91 12/04/19 10:30 78 21 192/80 H 90 12/04/19 10:17 81 19 93 12/04/19 10:16 83 16 170/78 H 91 12/04/19 10:00 79 22 90 12/04/19 09:31 77 16 92 12/04/19 09:30 79 17 177/66 H 90 12/04/19 09:18 66 12 114/74 98 12/04/19 09:00 78 80 22 177/70 H 99 12/04/19 08:54 80 21 161/78 H 91 12/04/19 08:30 76 22 92 12/04/19 08:01 78 20 91 12/04/19 08:00 81 17 148/75 H 95 12/04/19 07:46 77 13 154/71 H 90 12/04/19 07:45 82 17 12/04/19 07:30 80 17 154/70 H 93 12/04/19 06:52 38.2 C H 84 21 151/79 H 91 Laboratory Results Short CBC 12/04/19 12/04/19 Range/Units 08:14 08:14 WBC 15.19 H (4.8-10.8) K/uL Hgb 8.0 L (14.0-18.0) g/dL Hct 24.8 L (42-52) % Plt Count 370 (130-400) K/uL Creatinine 1.59 H (0.6-1.4) mg/dl Troponin I 0.031 (0-0.045) ng/ml BMP 12/04/19 08:14 Sodium 137 Potassium 3.4 L Chloride 105 Carbon Dioxide 26 BUN 19 H Creatinine 1.59 H Glucose 193 H Calcium 8.2 L Cardiac Enzymes 12/04/19 Range/Units 08:14 Troponin I 0.031 (0-0.045) ng/ml Liver Function 12/04/19 Range/Units 08:14 Total Bilirubin 0.3 (0.2-1) mg/dl AST 14 L (15-37) U/L ALT 26 (12-78) U/L Alkaline Phosphatase 75 (45-117) U/L Albumin 2.2 L (3.4-5.0) gm/dl Urine 12/04/19 Range/Units 11:20 Urine Color Yellow Urine Appearance Cloudy A (Clear) Urine pH 5.0 (4.5-7.5) Ur Specific [place] 1.020 (1.000-1.030) Urine Protein 2+ H (Negative) Urine Glucose (UA) Trace H (Negative) Diagnostic Findings CXR: IMPRESSION: 1. Mildly progressed interstitial coarsening of the lung bases may be secondary to atelectasis or a nonspecific pneumonitis. 2. Emphysema. Medications Administered Discontinued Medications Albuterol (Duoneb) 3 ml NEB NOW STA Stop: 12/04/19 07:43 Last Admin: 12/04/19 08:58 Dose: 3 ml Documented by: [id number] Sodium Chloride (Nss) 500 mls @ 999 mls/hr IV .Q31M MARISSA Stop: 12/04/19 07:45 Last Infusion: 12/04/19 09:21 Dose: 0 mls/hr Documented by: [id number] Admin: 12/04/19 08:50 Dose: 999 mls/hr Documented by: [id number] Cefepime HCl (Maxipime) 2,000 mg in 12.5 mls @ 3.125 mls/min IV NOW STA Stop: 12/04/19 07:15 Last Admin: 12/04/19 08:50 Dose: 3.125 mls/min Documented by: [id number] Vancomycin HCl 2,000 mg/ (Sodium Chloride) 540 mls @ 200 mls/hr IV NOW ONE Stop: 12/04/19 11:36 Last Admin: 12/04/19 10:14 Dose: 200 mls/hr Documented by: [id number] Potassium Chloride (Klor-Con M20) 40 meq PO NOW STA Stop: 12/04/19 09:44 Last Admin: 12/04/19 10:32 Dose: 40 meq Documented by: [id number] ECG Rate (beats per minute): 83 Rhythm: normal sinus Findings: + 1st degree AV block and + prolonged QT (qtc 500ms) Code Status & VTE Plan Code Status Full code VTE Prophylaxis Plan VTE Prophylaxis will be ordered: Yes Supervising Physician Co-Signing Physician Notes Patient is an 89-year-old male with complex medical history as outlined above presents with history of cough with productive sputum, SOB, worsening lower extremity edema since 3 days duration. Patient was recently evaluated at a hospital in [place] for acute cholecystitis and was treated conservatively. Patient currently denies any nausea, vomiting, abdominal pain, diarrhea. Please review HPI for complete details of presentation. Patient was noted to have a leukocytosis 15,000, hypokalemia 3.4. His chest x-ray suggestive of mildly progressed interstitial coarsening of the lung bases suggestive of possible pneumonitis. Abdominal ultrasound showed cholelithiasis with gallbladder distention and edematous thickened wall, trace pericholecystic fluid suggestive of possible acute cholecystitis. No bile dilatation noted. No transaminitis on labs. Patient was thought to be a poor surgical candidate previously for cholecystectomy. On exam patient is elderly, in no apparent distress, normo cephalic atraumatic, lungs--decreased breath sounds predominantly on the left side, basal crackles, scattered wheezes.cvs--S1-S2, soft systolic murmur, distant heart sounds, 1-2+ bilateral lower extremity edema, abdomen--mildly distended, soft to firm, no guarding or rigidity, no tenderness, alert awake and oriented x3, grossly no focal neurological deficits. Patient is admitted for management of sepsis secondary to pneumonia, acute cholecystitis. Will start on broad-spectrum antibiotics including IV vancomycin, Zosyn given mild volume overload status, will hold IV fluids for now. Normal lactate and procalcitonin noted. Obtained blood, sputum, urine cultures. Surgery consulted for input. Monitor hemoglobin for anemia. Currently no sources of bleeding. Will check fecal occult. Noted prolonged QTC on EKG. Avoid QTC prolonging meds as able. Patient admits to missing to take his home medications. Blood pressure uncontrolled on presentation. Started on Lasix for volume overload. Will restart losartan at lower dose given renal artery stenosis. May need to hold ARB, if renal function deteriorates. If needs any surgery, procedures given his complex history, patient would need cardiology clearance prior to any procedures. If blood pressure remains uncontrolled, patient likely needs transition from atenolol to metoprolol for cardio protective effect. I personally reviewed the record. Patient is interviewed and examined at bedside. Patient's care is coordinated with Sabrina Zhang PA-C. Please refer to the documentation above for details of patient's presentation and for discussion of other issues. (1) Pneumonia of both lower lobes Pneumonia type: due to unspecified organism Qualified Code(s): J18.9 - Pneumonia, unspecified organism
--- NOTE | 2019-12-04 14:23 | Ultrasound Report ---
US venous doppler LE BI CLINICAL HISTORY: Bilateral leg edema COMPARISON STUDY: May 2012 FINDINGS: Real-time and color flow Doppler imaging were performed. Flow was seen within the femoral, popliteal and calf veins with no intraluminal thrombus demonstrated. The saphenous vein is patent. IMPRESSION: No evidence of lower extremity DVT. ACT 112: Negative or not required by law. Electronically signed by: Ameya Chatman M.D. 12/04/2019 2:21 PM
--- NOTE | 2019-12-04 14:26 | Ultrasound Report ---
US abdomen limited HISTORY: 89 years-old Male eval gallbladder acute right upper quadrant abdominal pain COMPARISON: CTA abdomen and pelvis 11/25/2019 TECHNIQUE: Multiple real-time sonographic images of the abdominal right upper quadrant were obtained assessing grayscale appearance and color flow FINDINGS: Visualized pancreas is unremarkable. Increased echogenicity of the liver suggests hepatic steatosis. No hepatic mass lesion. Common bile duct is normal, 5 mm. The gallbladder is distended. The bladder w all is thickened and edematous measuring up to 5 mm. Possible mucosal septations near the gallbladder fundus. Cholelithiasis with mild layering sludge. Ringdown artifact of the gallbladder fundus may re flect adenomyomatosis. Trace pericholecystic fluid. Sonographic Casas sign reported as negative. Mul tiple right-sided renal cysts redemonstrated. IMPRESSION: 1. Cholelithiasis with gallbladder distention and edematous thickened wall is noted in conjunction wi th trace pericholecystic fluid suspicious for acute cholecystitis. 2. No biliary ductal dilation. 3. Hepatic steatosis. ACT 112: Negative or not required by law. The above report was generated using voice recognition software. It may contain grammatical, syntax o r spelling errors. Electronically signed by: Waylon Morillo M.D. 12/04/2019 2:25 PM
[2019-12-04] MEDS ORDERED: DEXTROSE 50% 50 ML SYRINGE IV PRN (14:41)
[2019-12-04] MEDS ORDERED: ALUMINUM/MAGNESIUM SUSP 30 ML UDC PO PRN (14:41)
[2019-12-04] MEDS ORDERED: GLUCOSE 40% GEL 15 GM TUBE PO PRN (14:41)
[2019-12-04] MEDS ORDERED: MAGNESIUM HYDROXIDE SUSP 30 ML UDC PO PRN (14:41)
[2019-12-04] MEDS ORDERED: FUROSEMIDE 40 MG TAB PO SCH (14:41)
[2019-12-04] MEDS ORDERED: POLYETHYLENE (MIRALAX) 17 GM PACK PO PRN (14:41)
[2019-12-04] MEDS ORDERED: FUROSEMIDE 40 MG/4 ML VIAL IV STA (14:41)
[2019-12-04] MEDS ORDERED: GLUCAGON FOR INJ 1 MG VIAL SQ PRN (14:41)
[2019-12-04] MEDS ORDERED: PIPERACILL/TAZOBAC CONSULT ACTIVE PRN (14:41)
[2019-12-04] MEDS ORDERED: CARBOHYDRATES FOR HYPOGLYCEMIA PO PRN (14:41)
[2019-12-04] MEDS ORDERED: GLUCOSE 10 TABS/TUBE PO PRN (14:41)
[2019-12-04] MEDS: ALBUT/IPRATROP 3MG/0.5MG NEB 3 ML VIAL NEB SCH ×2 (15:11→19:28)
[2019-12-04] MEDS: HEPARIN SOD 5,000 UNIT/0.5 ML VIAL SQ SCH ×2 (15:29→22:32)
[2019-12-04] MEDS: ATENOLOL 25 MG TABLET PO SCH (15:30)
[2019-12-04] MEDS ORDERED: PIPERACILLIN/TAZOBACTAM 3.375 GM in DEXTROSE 5% 100 ML IV ONE (15:30)
[2019-12-04] MEDS: PANTOprazole 40 MG TAB PO SCH (15:31)
--- NOTE | 2019-12-04 16:25 | Surgery Consultation ---
Date of Consultation December 04, 2019 Assessment & Plan (1) Acute cholecystitis: 89 year-old with recent transfer from our ED to [facility] on 11/25/2019 for acute cholecystitis for percutaneous cholecystostomy tube who presented to hospital today with complaint of shortness of breath and lower extremity edema. Currently denying any abdominal pain, nausea or vomiting. Uncertain why he did not have the drain placed in his gallbladder out in [place]. Ultrasound showed gallstones/sludge, wall thickening at 5 mm, and mild pericholecystic fluid concerning for acute cholecystitis. T. bili and lfts wnl. Leukcytosis of 15k. Febrile in ED at 38.2. Plan: Given patients age, comorbidities, and AAA would not recommend surgical intervention for acute cholecystitis but rather transfer to tertiary center percutaneous cholecystostomy tube placement. Patient is currently completely asymptomatic in regards to cholecystitis and pretty benign abdominal examination other than mild RUQ tenderness on deep palpation. Uncertain if his sepsis is secondary to respiratory complications or acute cholecystitis. Could obtain HIDA scan to rule out cystic duct obstruction. If there is cystic duct obstruction, he would need percutaneous cholecystectomy tube. Discussed with Sabrina Zhang PA-C with [facility] hospitalist group. Would continue IV Zosyn Would repeat am labs including cbc, cmp to monitor leukocytosis and lfts/t.bili Discussed with patient given his comorbidities and age would not recommend surgical intervention and rather the percutaneous cholecystostomy tube. He would need transfer again if this is required. Patient understood but questioned why this was not done in [place] the first time. Continue current medical management (2) Sepsis: Etiology respiratory (pneumonia) vs gastrointestinal (acute cholecystitis) is unknown at this point. Patient is not having abdominal pain, nausea or vomiting from gallbadder standpoint but he was recently treated in [place] with IV Zosyn and Vancomycin and transitioned to oral abx once discharged. He is an elderly male with diabetes which can mask severity of acute cholecystitis at times. Could obtain HIDA scan to rule out cystic duct obstruction as noted above refer to plan above. Patient was seen in consultation with Dr. Erickson who agrees with above. 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 CT scan concerning for acute cholecystitis and given his extensive comorbidities, age, and AAA he was transferred to [facility] for possible percutaneous cholecystostomy tube. Per patient he had no treatment during is 5 day stay there. States they did nothing. I spoke with Sabrina Zhang PA-C with hospitalist group who admitted patient who stated per [place] records they decided against placement of cholecystostomy tube and just conservative treatment with IV antibiotics. He was placed on IV Zosyn originally in [place] and then white count increased to 25K and IV Vancomycin was added. White count improved down to 11K and was discharged home on oral Augmentin. He presented to ED this time with shortness of breath and bilateral lower extremity edema. States he has no abdominal pain, nausea or vomiting. Had an ultrasound which showed, gallstones, sludge, wall thickening at 5 mm with trace pericholecystic fluid concerning for acute cholecystitis. labs showed leukocytosis of 15K. Febrile in ED with temp of 38.2. Allergies Allergy/AdvReac Type Severity Reaction Status Date / Time No Known Drug Allergies Allergy Verified 12/04/19 07:21 Home Medications Home Medications Medication Instructions Recorded Confirmed Type albuterol sulfate [Ventolin HFA] 2 puff INHALATION Q6H PRN 08/05/18 12/04/19 History amlodipine 10 mg PO QAM 08/05/18 12/04/19 History glipizide 2.5 mg PO BID 08/05/18 12/04/19 History levalbuterol HCl 0.63 mg INHALATION Q6H PRN 08/05/18 12/04/19 History losartan 100 mg PO QAM 08/05/18 12/04/19 History pantoprazole 40 mg PO QAM 08/05/18 12/04/19 History magnesium 200 mg tablet 200 mg PO QAM 01/01/19 12/04/19 History triamcinolone acetonide 55 mcg 2 spray INTRANASAL QAM PRN 01/01/19 12/04/19 History nasal spray aerosol atenolol 25 mg tablet 25 mg PO QAM #90 tab 02/19/19 12/04/19 Rx amoxicillin-pot clavulanate 1 tab PO BID 12/04/19 12/04/19 History budesonide-formoterol 2 puff INHALATION Q12H 12/04/19 12/04/19 History Patient History Medical History Abdominal aortic aneurysm (AAA) greater than 5.5 cm in diameter in male (Chronic) COPD exacerbation (Chronic) Diabetes mellitus (Chronic) GERD (gastroesophageal reflux disease) (Chronic) HTN (hypertension) (Chronic) Hypertension (Chronic) Kidney stones (Chronic) Prostate cancer (Chronic) Reactive airway disease (Chronic) Spinal stenosis (Chronic) Surgical History H/O colonoscopy (Chronic) History of cataract surgery (Chronic) Hx of cataract surgery (Chronic) Hx of lumbosacral spine surgery (Chronic) Social History Preferred Language: American Communication Ability: Effective Visual Impairment: Limited Hearing Ability: Use of Hearing Aid Internal Medicine Veterinary Technician Required: No Beliefs That Will Affect Care: None marital status: Current Living Situation: Spouse and Family Current Living Situation Comment: with and dtr Other Information That Helps Us Care for You: No Feels Safe at Home: Yes Safety Concerns: Feels Safe At This Time Smoking Status: Former smoker Hx Alcohol Use: Yes Alcohol type: beer Hx Substance Use: No Review of Systems Review of Systems: All systems reviewed & are unremarkable except as noted in HPI & below Physical Exam Constitutional: WD/WN, vitals as above no acute distress and not ill appearing sitting up in bed eating dinner, pleasant Respiratory: normal respiratory effort, lungs clear to auscultation Cardiovascular: RRR, no murmur, no edema Gastrointestinal (Abdomen): Inspection/Auscultation: abdomen normal to inspection; abdomen not distended Percussion/Palpation: + abdomen tender (very mild RUQ on deep palpation) and abdomen soft; no guarding and abdomen not rigid Skin: no rashes, warm and dry Psychiatric: A+Ox3, euthymic affect Results & Data Vital Signs (Past 12 Hours) Vital Signs Temp Pulse Pulse Resp BP BP Pulse Ox 12/04/19 15:14 85 22 92 12/04/19 14:41 37.4 C 81 24 155/91 H 92 12/04/19 10:31 78 22 91 12/04/19 10:30 78 21 192/80 H 90 12/04/19 10:17 81 19 93 12/04/19 10:16 83 16 170/78 H 91 12/04/19 10:00 79 22 90 12/04/19 09:31 77 16 92 12/04/19 09:30 79 17 177/66 H 90 12/04/19 09:18 66 12 114/74 98 12/04/19 09:00 78 80 22 177/70 H 99 12/04/19 08:54 80 21 161/78 H 91 12/04/19 08:30 76 22 92 12/04/19 08:01 78 20 91 12/04/19 08:00 81 17 148/75 H 95 12/04/19 07:46 77 13 154/71 H 90 12/04/19 07:45 82 17 12/04/19 07:30 80 17 154/70 H 93 12/04/19 06:52 38.2 C H 84 21 151/79 H 91 Laboratory Results 12/04/19 12/04/19 12/04/19 Range/Units 11:20 10:07 10:03 WBC (4.8-10.8) K/uL RBC (4.7-6.1) M/uL Hgb (14.0-18.0) g/dL Hct (42-52) % MCV (80-100) fL MCH (25-34) pg MCHC (32-36) g/dL RDW Std Deviation (36.4-46.3) fL RDW Coeff of Nav (11.5-14.5) % Plt Count (130-400) K/uL MPV (7.4-10.4) fL Immature Gran % (Auto) % Neut % (Auto) % Lymph % (Auto) % Roberts % (Auto) % Eos % (Auto) % Baso % (Auto) % Neut # (Auto) (1.4-6.5) K/uL Lymph # (Auto) (1.2-3.4) K/uL Roberts # (Auto) (0.11-0.59) K/uL Eos # (Auto) (0-0.5) K/uL Baso # (Auto) (0-0.2) K/uL Immature Gran # (Auto) (0.00-0.02) K/uL Sodium (136-145) mmol/L Potassium (3.5-5.1) mmol/L Chloride (98-107) mmol/L Carbon Dioxide (21-32) mmol/L Anion Gap (3-11) BUN (7-18) mg/dl Creatinine (0.6-1.4) mg/dl Est Cr Clr Drug Dosing Est GFR ( Amer) Est GFR (Non-Af Amer) BUN/Creatinine Ratio (10-20) Glucose (70-99) mg/dl Lactate (0.4-2.0) mmol/L Calcium (8.5-10.1) mg/dl Iron (35-175) mcg/dl TIBC (250-450) mcg/dl Ferritin (8-388) ng/ml Total Bilirubin (0.2-1) mg/dl AST (15-37) U/L ALT (12-78) U/L Alkaline Phosphatase (45-117) U/L Troponin I (0-0.045) ng/ml NT-Pro-B Natriuret Pep (0-1800) pg/ml Total Protein (6.4-8.2) gm/dl Albumin (3.4-5.0) gm/dl Globulin (2.5-4.0) gm/dl Albumin/Globulin Ratio (0.9-2) Vitamin B12 354 (211-911) pg/ml Folate 15.87 (>5.38) ng/ml Procalcitonin (0-0.5) ng/ml Urine Color Yellow Urine Appearance Cloudy A (Clear) Urine pH 5.0 (4.5-7.5) Ur Specific [place] 1.020 (1.000-1.030) Urine Protein 2+ H (Negative) Urine Glucose (UA) Trace H (Negative) Urine Ketones Negative (Negative) Urine Blood Negative (Negative) Urine Nitrite Negative (Negative) Urine Bilirubin Negative (Negative) Urine Urobilinogen Negative (Negative) Ur Leukocyte Esterase Negative (Negative) Urine WBC (Auto) 1-5 (0-5) /hpf Urine RBC (Auto) 0-4 (0-4) /hpf U Hyaline Cast (Auto) 1-5 (0-5) /lpf U Epithel Cells (Auto) 10-20 H (0-5) /lpf Urine Bacteria (Auto) Negative (Negative) Urine Yeast Budding A (None Prsent) COVID-19 PCR NEGATIVE (Negative) 12/04/19 12/04/19 12/04/19 Range/Units 10:03 08:16 08:14 WBC (4.8-10.8) K/uL RBC (4.7-6.1) M/uL Hgb (14.0-18.0) g/dL Hct (42-52) % MCV (80-100) fL MCH (25-34) pg MCHC (32-36) g/dL RDW Std Deviation (36.4-46.3) fL RDW Coeff of Nav (11.5-14.5) % Plt Count (130-400) K/uL MPV (7.4-10.4) fL Immature Gran % (Auto) % Neut % (Auto) % Lymph % (Auto) % Roberts % (Auto) % Eos % (Auto) % Baso % (Auto) % Neut # (Auto) (1.4-6.5) K/uL Lymph # (Auto) (1.2-3.4) K/uL Roberts # (Auto) (0.11-0.59) K/uL Eos # (Auto) (0-0.5) K/uL Baso # (Auto) (0-0.2) K/uL Immature Gran # (Auto) (0.00-0.02) K/uL Sodium (136-145) mmol/L Potassium (3.5-5.1) mmol/L Chloride (98-107) mmol/L Carbon Dioxide (21-32) mmol/L Anion Gap (3-11) BUN (7-18) mg/dl Creatinine (0.6-1.4) mg/dl Est Cr Clr Drug Dosing Est GFR ( Amer) Est GFR (Non-Af Amer) BUN/Creatinine Ratio (10-20) Glucose (70-99) mg/dl Lactate 1.0 (0.4-2.0) mmol/L Calcium (8.5-10.1) mg/dl Iron (35-175) mcg/dl TIBC (250-450) mcg/dl Ferritin (8-388) ng/ml Total Bilirubin (0.2-1) mg/dl AST (15-37) U/L ALT (12-78) U/L Alkaline Phosphatase (45-117) U/L Troponin I (0-0.045) ng/ml NT-Pro-B Natriuret Pep 8516 H (0-1800) pg/ml Total Protein (6.4-8.2) gm/dl Albumin (3.4-5.0) gm/dl Globulin (2.5-4.0) gm/dl Albumin/Globulin Ratio (0.9-2) Vitamin B12 (211-911) pg/ml Folate (>5.38) ng/ml Procalcitonin 0.26 (0-0.5) ng/ml Urine Color Urine Appearance (Clear) Urine pH (4.5-7.5) Ur Specific [place] (1.000-1.030) Urine Protein (Negative) Urine Glucose (UA) (Negative) Urine Ketones (Negative) Urine Blood (Negative) Urine Nitrite (Negative) Urine Bilirubin (Negative) Urine Urobilinogen (Negative) Ur Leukocyte Esterase (Negative) Urine WBC (Auto) (0-5) /hpf Urine RBC (Auto) (0-4) /hpf U Hyaline Cast (Auto) (0-5) /lpf U Epithel Cells (Auto) (0-5) /lpf Urine Bacteria (Auto) (Negative) Urine Yeast (None Prsent) COVID-19 PCR (Negative) 12/04/19 12/04/19 12/04/19 Range/Units 08:14 08:14 08:14 WBC 15.19 H (4.8-10.8) K/uL RBC 2.67 L (4.7-6.1) M/uL Hgb 8.0 L (14.0-18.0) g/dL Hct 24.8 L (42-52) % MCV 92.9 (80-100) fL MCH 30.0 (25-34) pg MCHC 32.3 (32-36) g/dL RDW Std Deviation 46.5 H (36.4-46.3) fL RDW Coeff of Nav 13.7 (11.5-14.5) % Plt Count 370 (130-400) K/uL MPV 10.0 (7.4-10.4) fL Immature Gran % (Auto) 1.0 % Neut % (Auto) 72.8 % Lymph % (Auto) 11.5 % [place] % (Auto) 13.6 % Eos % (Auto) 0.8 % Baso % (Auto) 0.3 % Neut # (Auto) 11.08 H (1.4-6.5) K/uL Lymph # (Auto) 1.74 (1.2-3.4) K/uL [place] # (Auto) 2.06 H (0.11-0.59) K/uL Eos # (Auto) 0.12 (0-0.5) K/uL Baso # (Auto) 0.04 (0-0.2) K/uL Immature Gran # (Auto) 0.15 H (0.00-0.02) K/uL Sodium 137 (136-145) mmol/L Potassium 3.4 L (3.5-5.1) mmol/L Chloride 105 (98-107) mmol/L Carbon Dioxide 26 (21-32) mmol/L Anion Gap 7.0 (3-11) BUN 19 H (7-18) mg/dl Creatinine 1.59 H (0.6-1.4) mg/dl Est Cr Clr Drug Dosing Not Reportable Est GFR ( Amer) 44.3 Est GFR (Non-Af Amer) 38.2 BUN/Creatinine Ratio 12.1 (10-20) Glucose 193 H (70-99) mg/dl Lactate (0.4-2.0) mmol/L Calcium 8.2 L (8.5-10.1) mg/dl Iron 16 L (35-175) mcg/dl TIBC 194 L (250-450) mcg/dl Ferritin 359.4 (8-388) ng/ml Total Bilirubin 0.3 (0.2-1) mg/dl AST 14 L (15-37) U/L ALT 26 (12-78) U/L Alkaline Phosphatase 75 (45-117) U/L Troponin I 0.031 (0-0.045) ng/ml NT-Pro-B Natriuret Pep (0-1800) pg/ml Total Protein 6.9 (6.4-8.2) gm/dl Albumin 2.2 L (3.4-5.0) gm/dl Globulin 4.7 H (2.5-4.0) gm/dl Albumin/Globulin Ratio 0.5 L (0.9-2) Vitamin B12 (211-911) pg/ml Folate (>5.38) ng/ml Procalcitonin (0-0.5) ng/ml Urine Color Urine Appearance (Clear) Urine pH (4.5-7.5) Ur Specific [place] (1.000-1.030) Urine Protein (Negative) Urine Glucose (UA) (Negative) Urine Ketones (Negative) Urine Blood (Negative) Urine Nitrite (Negative) Urine Bilirubin (Negative) Urine Urobilinogen (Negative) Ur Leukocyte Esterase (Negative) Urine WBC (Auto) (0-5) /hpf Urine RBC (Auto) (0-4) /hpf U Hyaline Cast (Auto) (0-5) /lpf U Epithel Cells (Auto) (0-5) /lpf Urine Bacteria (Auto) (Negative) Urine Yeast (None Prsent) COVID-19 PCR (Negative) Diagnostic Findings US abdomen limited HISTORY: 89 years-old Male eval gallbladder acute right upper quadrant abdominal pain COMPARISON: CTA abdomen and pelvis 11/25/2019 TECHNIQUE: Multiple real-time sonographic images of the abdominal right upper quadrant were obtained assessing grayscale appearance and color flow FINDINGS: Visualized pancreas is unremarkable. Increased echogenicity of the liver suggests hepatic steatosis. No hepatic mass lesion. Common bile duct is normal, 5 mm. The gallbladder is distended. The bladder wall is thickened and edematous measuring up to 5 mm. Possible mucosal septations near the gallbladder fundus. Cholelithiasis with mild layering sludge. Ringdown artifact of the gallbladder fundus may reflect adenomyomatosis. Trace pericholecystic fluid. Sonographic Casas sign reported as negative. Multiple right-sided renal cysts redemonstrated. IMPRESSION: 1. Cholelithiasis with gallbladder distention and edematous thickened wall is noted in conjunction with trace pericholecystic fluid suspicious for acute cholecystitis. 2. No biliary ductal dilation. 3. Hepatic steatosis.
[2019-12-04] MEDS: INSULIN ASPART 100 UNITS/ML 3 ML PEN SC SCH ×2 (17:17→20:40)
--- NOTE | 2019-12-04 19:37 | Pharmacy Report ---
Pharmacy Abx Initial Consult - Date of Service December 04, 2019 - Pharmacy Dosing Scope Date of Consult: 12/03 Consultation requested by: Vicente Pharmacy is consulted to initiate vancomycin IV/PO dosing therapy, order appropriate labs and adjust drug dose/frequency. - Subjective The patient is a 89 year old M admitted on 12/04/19 11:45. - Objective Height: 5 ft 9 in Weight: 88.7 kg Vital Signs (Past 12hrs): Vital Signs Temp Pulse Pulse Resp BP BP Pulse Ox 12/04/19 19:04 37.0 C 78 24 165/85 H 94 12/04/19 15:14 85 22 92 12/04/19 14:41 37.4 C 81 24 155/91 H 92 12/04/19 10:31 78 22 91 12/04/19 10:30 78 21 192/80 H 90 12/04/19 10:17 81 19 93 12/04/19 10:16 83 16 170/78 H 91 12/04/19 10:00 79 22 90 12/04/19 09:31 77 16 92 12/04/19 09:30 79 17 177/66 H 90 12/04/19 09:18 66 12 114/74 98 12/04/19 09:00 78 80 22 177/70 H 99 12/04/19 08:54 80 21 161/78 H 91 12/04/19 08:30 76 22 92 12/04/19 08:01 78 20 91 12/04/19 08:00 81 17 148/75 H 95 12/04/19 07:46 77 13 154/71 H 90 12/04/19 07:45 82 17 Lab Results (24hrs): Laboratory Tests (24 Hours) 12/04/19 12/04/19 12/04/19 08:16 08:14 08:14 WBC 15.19 H Neut # (Auto) 11.08 H Creatinine 1.59 H Est Cr Clr Drug Dosing Not Reportable Procalcitonin 0.26 Micro Results: 12/04/19 11:20 Urine Culture - Pending Urine,Clean Catch 12/04/19 08:34 Aerobic Blood Culture - Pending Blood Anaerobic Blood Culture - Pending 12/04/19 08:36 Aerobic Blood Culture - Pending Blood Anaerobic Blood Culture - Pending - Risk Factors for Resistance * Resident in a [facility] or extended-care facility * Hospitalization for 48 hours or more within the past 90 days * Antimicrobial use within the last 90 days - augmentin - Assessment & Plan Assessment 89 year old M with possible pneumonia/choleycysitis. Recently hospitalized with acute choleycystitis and currently on augmentin outpatient. Blood cultures pending currently. Surgery consulted and would not recommend surgical intervention for acute choleystitis but rather transfer to tertiary center for percutaneous choleycstostomy tube placement. Plan Vancomycin IV * Received loading dose of vancomycin 2000 mg (~23 mg/kg) in the ED this AM * Patient not candidate for AUC dosing d/t Scr elevation on admission / up to 1.59 - baseline closer to 1.3 mg/dL * Will dose with vancomycin 1500 mg (~16 mg/kg) iv q 24 hrs * Estimated kinetics: t1/2 ~ 21 hrs, ke~0.03, CrCl ~35 ml/min * Will plan to order trough if continued >48 hrs Zosyn * 3.375 gm iv q 8 hrs - appropriate for CrCl >20 ml/min Pharmacy will continue to follow and will adjust dose/frequency as necessary. Thank you.
[2019-12-04] MEDS ORDERED: COUGH DROP (SUGAR FREE) LOZ 24 LOZ/1 BOX BUCCAL ONE (20:53)
[2019-12-04 21:35] LABS: Hematocrit (blood only) 27.1 % (42-52); Hemoglobin 8.6 g/dL (14.0-18.0)
[2019-12-04] MEDS: PIPERACILLIN/TAZOBACTAM 3.375 GM in DEXTROSE 5% 100 ML IV SCH (22:29)
[2019-12-05] MEDS ORDERED: PIPERACILLIN/TAZOBACTAM 3.375 GM in DEXTROSE 5% 100 ML IV SCH
[2019-12-05] MEDS: ACETAMINOPHEN 325 MG TAB PO PRN ×2 (00:17→22:17)
--- NOTE | 2019-12-05 01:55 | Communication Note ---
Date of Service: December 05, 2019 Patient noted to have episodic bradycardia around 1:30 AM as per RN. Cardiac rate 30s, SBP 160s as per RN. Second-degree AV block Mobitz type II on the monitor as per RN. Patient asymptomatic as per RN. serum crea 1.79 from 1.59 AP Episodic bradycardia 2AVB Mobitz type 2 on the monitor as per RN ARF on CKD Hold beta-meli for now Cardiology consult RE episodic bradycardia Hold Lasix, ARB for now given kidney dysfunction Will relay to AM provider.
[2019-12-05 02:26] LABS: Basophils # (auto) 0.03 K/uL (0-0.2); Basophils % (auto) 0.2 %; Eosinophils # (auto) 0.11 K/uL (0-0.5); Eosinophils % (auto) 0.6 %; Hematocrit (blood only) 24.6 % (42-52); Hemoglobin 7.8 g/dL (14.0-18.0); Immature Granulocytes # (auto) 0.15 K/uL (0.00-0.02); Immature Granulocytes % (auto) 0.9 %; Lymphocytes % (auto) 10.9 %; Mean Corpuscular Hemoglobin 29.2 pg (25-34); Mean Corpuscular Hgb Conc 31.7 g/dL (32-36); Mean Corpuscular Volume 92.1 fL (80-100); Monocytes # (auto) 1.85 K/uL (0.11-0.59); Monocytes % (auto) 10.6 %; Neutrophils # (auto) 13.36 K/uL (1.4-6.5); Neutrophils % (auto) 76.8 %; Platelet Count 406 K/uL (130-400); RDW Coefficient of Variation 13.8 % (11.5-14.5); RDW Standard Deviation 46.8 fL (36.4-46.3); Red Blood Count 2.67 M/uL (4.7-6.1)
[2019-12-05 02:33] LABS: Base Excess ABG 1.2 mEq/L (-9-1.8); HCO3 ABG 25 mmol/L (19-24); Oxygen Saturation ABG 95.2 % (90-95); PCO2 ABG 37 mmHg (35-46); PO2 ABG 80 mmHg (80-95); pH ABG 7.45 (7.35-7.45)
[2019-12-05 02:35] LABS: Allen Test Pos (Pos)
[2019-12-05 02:44] LABS: RBC Morphology Unremarkable
[2019-12-05 02:49] LABS: Partial Thromboplastin Ratio 1.1
[2019-12-05 03:31] LABS: Albumin Globulin Ratio 0.5 (0.9-2); Albumin Level 2.1 gm/dl (3.4-5.0); BUN Creatinine Ratio 12.6 (10-20); Bilirubin,Total 0.4 mg/dl (0.2-1); Calcium 8.1 mg/dl (8.5-10.1); Creatinine Clr Calc Pharmacy 31.4 ml/min; Est GFR (African American) 38.4; Est GFR (Non-African American) 33.1; Globulin 4.6 gm/dl (2.5-4.0); Magnesium 1.7 mg/dl (1.8-2.4); Potassium 3.7 mmol/L (3.5-5.1); Total Protein 6.7 gm/dl (6.4-8.2)
[2019-12-05 03:33] LABS: Thyroid Stimulating Hormone 1.81 uIu/ml (0.300-4.500)
[2019-12-05] MEDS ORDERED: POTASSIUM CHLORIDE 20 MEQ TABCR PO ONE (04:15)
[2019-12-05] MEDS ORDERED: MAGNESIUM SULFATE / D5W 1 GM/100 ML BAG IV ONE (04:30)
[2019-12-05] MEDS: PIPERACILLIN/TAZOBACTAM 3.375 GM in DEXTROSE 5% 100 ML IV SCH ×2 (05:23→17:17)
[2019-12-05 05:56] LABS: Estimated Average Glucose 186 mg/dl; Hemoglobin A1C 8.1 % (4.5-5.6)
--- NOTE | 2019-12-05 06:38 | Electrocardiogram Report ---
Test Reason : Blood Pressure : / mmHG Vent. Rate : 083 BPM Atrial Rate : 083 BPM P-R Int : 220 ms QRS Dur : 142 ms QT Int : 426 ms P-R-T Axes : 088 -26 -15 degrees QTc Int : 500 ms Sinus rhythm with 1st degree A-V block with Premature atrial complexes Right bundle branch block Abnormal ECG When compared with ECG of 25-NOV-2019 07:59, Premature atrial complexes are now Present Confirmed by Franco Enrique ([id number]) on 12/05/2019 6:37:54 AM Referred By: REFERRED SELF Confirmed By:Franco Enrique
[2019-12-05] MEDS: ALBUT/IPRATROP 3MG/0.5MG NEB 3 ML VIAL NEB SCH ×5 (07:05→23:25)
[2019-12-05] MEDS ORDERED: FLUTICASONE/VILANTEROL 100/25MCG 14 PUFFS/INHALER INH SCH (09:00)
[2019-12-05] MEDS ORDERED: MAGNESIUM OXIDE 400 MG TAB PO SCH (09:00)
[2019-12-05] MEDS ORDERED: LOSARTAN POTASSIUM 25 MG TAB PO SCH (09:00)
--- NOTE | 2019-12-05 09:58 | Cardiology Consultation ---
Date of Consultation December 05, 2019 Assessment & Plan (1) AV block, 2nd degree: 2. Acute cholecystitis 3. Hypertension 4. Mild volume overload 5. Acute on chronic renal insufficiency 6. Anemia 7. COPD Patient with periods of asymptomatic second-degree AV block on telemetry overnight and this morning. Appears to be a mix of Mobitz type I and some episodes of type II. Episodes are brief and again not associated with symptoms or changes in hemodynamics. Recommend continuing to hold beta-meli. Maintain normal electrolytes. No indication for pacemaker at this time. Minimal pulmonary congestion on exam. Consider additional dose of IV Lasix today. For hypertension would continue to hold atenolol, ARB. Would add hydralazine for inpatient blood pressure control. We will continue to follow. Thank you for allowing us to participate in the care of this patient. Please contact with any questions. History of Present Illness Attending Physician: Karri Garcia MD History of Present Illness Mr. Colon is an 89 year old male with history of infrarenal abdominal aortic aneurysm, hypertension, COPD, type 2 diabetes, GERD, CKD, carotid artery s tenosis, mitral regurgitation and history of prostate cancer. Patient known to me from the outpatient setting. Inpatient consultation today in the setting of bradycardia questionable AV block. Patient previously followed for gradually increasing infrarenal AAA, peak diameter 6.2 cm. We have previously discussed elective repair but was interested in avoiding additional surgeries and additional surveillance discontinued. Patient presented to [facility] last month with new abdominal pain. Imaging suggestive of acute cholecystitis and was transferred to the [facility] for consideration of cholecystectomy versus percutaneous drainage. Patient managed with IV antibiotics and managed conservatively. Has been home for 4 days on p.o. antibiotics. Returned last night with worsening shortness of breath, cough and ongoing abdominal pain. Denies chest pain, palpitations or presyncope. Denies subjective fevers. Imaging on arrival again suggestive of acute cholecystitis. Labs consistent wit h leukocytosis, mild acute on chronic renal insufficiency, worsening anemia and elevated BNP. Chest x-ray showed minimal interstitial changes. Repeat ECG showed unchanged right bundle branch block. Echocardiogram showed preserved LV function. Overnight on telemetry had episode of heart rates to the low 30s which appeared to be second-degree AV block, Mobitz type II. Patient sleeping and asymp tomatic. This morning another episode of type I versus type II AV block and again asymptomatic. Allergies Allergy/AdvReac Type Severity Reaction Status Date / Time No Known Drug Allergies Allergy Verified 12/04/19 07:21 Home Medications Home Medications Medication Instructions Recorded Confirmed Type albuterol sulfate [Ventolin HFA] 2 puff INHALATION Q6H PRN 08/05/18 12/04/19 History amlodipine 10 mg PO QAM 08/05/18 12/04/19 History glipizide 2.5 mg PO BID 08/05/18 12/04/19 History levalbuterol HCl 0.63 mg INHALATION Q6H PRN 08/05/18 12/04/19 History losartan 100 mg PO QAM 08/05/18 12/04/19 History pantoprazole 40 mg PO QAM 08/05/18 12/04/19 History magnesium 200 mg tablet 200 mg PO QAM 01/01/19 12/04/19 History triamcinolone acetonide 55 mcg 2 spray INTRANASAL QAM PRN 01/01/19 12/04/19 History nasal spray aerosol atenolol 25 mg tablet 25 mg PO QAM #90 tab 02/19/19 12/04/19 Rx amoxicillin-pot clavulanate 1 tab PO BID 12/04/19 12/04/19 History budesonide-formoterol 2 puff INHALATION Q12H 12/04/19 12/04/19 History Patient History Medical History Abdominal aortic aneurysm (AAA) greater than 5.5 cm in diameter in male (Chronic) COPD exacerbation (Chronic) Diabetes mellitus (Chronic) GERD (gastroesophageal reflux disease) (Chronic) HTN (hypertension) (Chronic) Hypertension (Chronic) Kidney stones (Chronic) Prostate cancer (Chronic) Reactive airway disease (Chronic) Spinal stenosis (Chronic) Surgical History H/O colonoscopy (Chronic) History of cataract surgery (Chronic) Hx of cataract surgery (Chronic) Hx of lumbosacral spine surgery (Chronic) Social History Preferred Language: Amharic Communication Ability: Effective Visual Impairment: Limited Hearing Ability: Use of Hearing Aid 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 Escort Required: No Beliefs That Will Affect Care: None marital status: Current Living Situation: Spouse and Family Current Living Situation Comment: with and dtr Other Information That Helps Us Care for You: No Feels Safe at Home: Yes Safety Concerns: Feels Safe At This Time Smoking Status: Former smoker Hx Alcohol Use: Yes Alcohol type: beer Hx Substance Use: No Review of Systems Review of Systems: All systems reviewed & are unremarkable except as noted in HPI & below Physical Exam Physical Exam: General: Comfortable, no acute distress Eyes: Sclerae anicteric, extraocular movements intact HENT: Oropharynx clear mucous membranes moist Neck: Normal carotid upstrokes, no bruits. No JVD. Lungs: Few crackles at bases bilaterally Cardiac: Regular rate and rhythm, no murmurs Vascular: 2+ radial bilaterally Abdomen: Soft, minimal tenderness in right upper quadrant Extremities: Well perfused, no peripheral edema Skin: No rashes or lesions. Neuro: Nonfocal Psych: Alert orient x3, normal affect and mood Results & Data ([facility]) Vital Signs (Past 12 Hours) Vital Signs Temp Pulse Resp BP BP Pulse Ox 12/05/19 07:05 77 18 92 12/05/19 06:58 97.9 F 77 24 183/78 H 180/71 H 91 12/05/19 03:43 99.1 F 71 20 118/55 L 94 12/05/19 01:42 99.1 F 76 21 167/78 H 91 12/04/19 23:23 100.6 F H 81 22 158/84 H 94 PG Care Time/CCT Total # of Minutes Spent Total Time Spent with Patient: Total time spent is greater than 50% in coordination of care (as documented) at patient's floor/unit and/or counseling patient: Coding Level of Care Code 67533 Initial Inpt Care Lvl 3 Diagnoses AV block, 2nd degree I44.1
[2019-12-05] MEDS ORDERED: VANCOMYCIN HCL 1,500 MG in SODIUM CHLORIDE 0.9% 500 ML IV SCH (10:00)
[2019-12-05] MEDS: HEPARIN SOD 5,000 UNIT/0.5 ML VIAL SQ SCH ×2 (10:23→17:30)
[2019-12-05] MEDS: FLUTICASONE/VILANTEROL 100/25MCG 14 PUFFS/INHALER INH SCH (10:25)
[2019-12-05] MEDS: INSULIN ASPART 100 UNITS/ML 3 ML PEN SC SCH ×4 (10:27→20:44)
[2019-12-05] MEDS: ATENOLOL 25 MG TABLET PO SCH (11:51)
[2019-12-05] MEDS ORDERED: SINCALIDE IV SCH (13:30)
[2019-12-05] MEDS ORDERED: SODIUM CHLORIDE 0.9% IV SCH (13:30)
--- NOTE | 2019-12-05 14:04 | Surgery Progress Note ---
Date of Service December 05, 2019 Assessment & Plan (1) Acute cholecystitis: 89 year-old with recent transfer from our ED to [facility] on 11/25/2019 for acute cholecystitis for percutaneous cholecystostomy tube who presented to ED on 12/04/2019 with complaint of shortness of breath and lower extremity edema. Uncertain why he did not have the drain placed in his gallbladder out in [place]. Ultrasound showed gallstones/sludge, wall thickening at 5 mm, and mild pericholecystic fluid concerning for acute cholecystitis. T. bili and lfts wnl. Leukcytosis of 15k. Febrile in ED at 38.2. 12/05/2019: Patient still denying abdominal pain Leukocytosis increased to 17K while on IV Zosyn and Vancomycin no abdominal pain on examination febrile last night ,t max 38.1 HIDA scan ordered today Plan: Given patients age, comorbidities, and AAA would not recommend surgical intervention for acute cholecystitis but rather transfer to tertiary center percutaneous cholecystostomy tube placement. Patient is currently completely asymptomatic in regards to cholecystitis and pretty benign abdominal examination other than mild RUQ tenderness on deep palpation. Uncertain if his sepsis is secondary to respiratory complications or acute cholecystitis. HIDA scan ordered today to rule out cystic duct obstruction. If there is cystic duct obstruction, he would need percutaneous cholecystectomy tube which would require transfer to tertiary center. continue IV Abx continue medical management (2) Sepsis: Etiology respiratory (pneumonia) vs gastrointestinal (acute cholecystitis) is unknown at this point. Patient is not having abdominal pain, nausea or vomiting from gallbadder standpoint but he was recently treated in [place] with IV Zosyn and Vancomycin and transitioned to oral abx once discharged. He is an elderly male with diabetes which can mask severity of acute cholecystitis at times. HIDA scan ordered to rule out cystic duct obstruction, will await results refer to plan above. Dr. Erickson has seen and examined pt, agrees with above. Subjective feeling fine other than shortness of breath at times no abdominal pain no nausea or vomiting, has not had breakfast this morning no difficulty urinating Physical Exam Constitutional: WD/WN, vitals as above no acute distress and not ill appe aring Respiratory: normal respiratory effort; no respiratory distress, no labored breathing and no retractions oxygen via nasal cannula Gastrointestinal (Abdomen): Inspection/Auscultation: abdomen normal to inspection; abdomen not distended Percussion/Palpation: abdomen soft; abdomen nontender, no guarding and abdomen not rigid Skin: no rashes, warm and dry Psychiatric: Orientation: alert and oriented x 3 Results & Data Vital Signs (Past 12 Hours) Vital Signs Temp Pulse Pulse Resp BP BP Pulse Ox 12/05/19 11:17 37.1 C 81 20 159/81 H 93 12/05/19 11:06 75 18 93 12/05/19 08:00 70 12/05/19 07:05 77 18 92 12/05/19 06:58 36.6 C 77 24 183/78 H 180/71 H 91 12/05/19 03:43 37.3 C 71 20 118/55 L 94 Laboratory Results 12/05/19 12/05/19 12/05/19 Range/Units 11:56 07:20 02:15 WBC (4.8-10.8) K/uL RBC (4.7-6.1) M/uL Hgb (14.0-18.0) g/dL Hct (42-52) % MCV (80-100) fL MCH (25-34) pg MCHC (32-36) g/dL RDW Std Deviation (36.4-46.3) fL RDW Coeff of Nav (11.5-14.5) % Plt Count (130-400) K/uL MPV (7.4-10.4) fL Immature Gran % (Auto) % Neut % (Auto) % Lymph % (Auto) % Kings % (Auto) % Eos % (Auto) % Baso % (Auto) % Neut # (Auto) (1.4-6.5) K/uL Lymph # (Auto) (1.2-3.4) K/uL Kings # (Auto) (0.11-0.59) K/uL Eos # (Auto) (0-0.5) K/uL Baso # (Auto) (0-0.2) K/uL Immature Gran # (Auto) (0.00-0.02) K/uL RBC Morphology APTT (21.0-31.0) Seconds PTT Ratio ABG pH 7.45 (7.35-7.45) ABG pCO2 37 (35-46) mmHg ABG pO2 80 (80-95) mmHg ABG HCO3 25 H (19-24) mmol/L ABG O2 Saturation 95.2 H (90-95) % ABG Base Excess 1.2 (-9-1.8) mEq/L Sang Test Pos (Pos) Barometric Pressure 731.8 mm/Hg Oxygen Given 3 L Sodium (136-145) mmol/L Potassium (3.5-5.1) mmol/L Chloride (98-107) mmol/L Carbon Dioxide (21-32) mmol/L Anion Gap (3-11) BUN (7-18) mg/dl Creatinine (0.6-1.4) mg/dl Est Cr Clr Drug Dosing ml/min Est GFR ( Amer) Est GFR (Non-Af Amer) BUN/Creatinine Ratio (10-20) Glucose (70-99) mg/dl POC Glucose 192 H 181 H (70-99) mg/dl Estimat Average Glucose mg/dl Hemoglobin A1c (4.5-5.6) % Calcium (8.5-10.1) mg/dl Magnesium (1.8-2.4) mg/dl Total Bilirubin (0.2-1) mg/dl AST (15-37) U/L ALT (12-78) U/L Alkaline Phosphatase (45-117) U/L Total Protein (6.4-8.2) gm/dl Albumin (3.4-5.0) gm/dl Globulin (2.5-4.0) gm/dl Albumin/Globulin Ratio (0.9-2) TSH (0.300-4.500) uIu/ml Nasal Screen MRSA (PCR) (Negative) 12/05/19 12/05/19 12/05/19 Range/Units 02:15 02:14 02:14 WBC (4.8-10.8) K/uL RBC (4.7-6.1) M/uL Hgb (14.0-18.0) g/dL Hct (42-52) % MCV (80-100) fL MCH (25-34) pg MCHC (32-36) g/dL RDW Std Deviation (36.4-46.3) fL RDW Coeff of Nav (11.5-14.5) % Plt Count (130-400) K/uL MPV (7.4-10.4) fL Immature Gran % (Auto) % Neut % (Auto) % Lymph % (Auto) % Kings % (Auto) % Eos % (Auto) % Baso % (Auto) % Neut # (Auto) (1.4-6.5) K/uL Lymph # (Auto) (1.2-3.4) K/uL Kings # (Auto) (0.11-0.59) K/uL Eos # (Auto) (0-0.5) K/uL Baso # (Auto) (0-0.2) K/uL Immature Gran # (Auto) (0.00-0.02) K/uL RBC Morphology APTT 31.0 (21.0-31.0) Seconds PTT Ratio 1.1 ABG pH (7.35-7.45) ABG pCO2 (35-46) mmHg ABG pO2 (80-95) mmHg ABG HCO3 (19-24) mmol/L ABG O2 Saturation (90-95) % ABG Base Excess (-9-1.8) mEq/L Sang Test (Pos) Barometric Pressure mm/Hg Oxygen Given Sodium 137 (136-145) mmol/L Potassium 3.7 (3.5-5.1) mmol/L Chloride 103 (98-107) mmol/L Carbon Dioxide 26 (21-32) mmol/L Anion Gap 8.0 (3-11) BUN 23 H (7-18) mg/dl Creatinine 1.79 H (0.6-1.4) mg/dl Est Cr Clr Drug Dosing 31.4 ml/min Est GFR ( Amer) 38.4 Est GFR (Non-Af Amer) 33.1 BUN/Creatinine Ratio 12.6 (10-20) Glucose 179 H (70-99) mg/dl POC Glucose (70-99) mg/dl Estimat Average Glucose 186 mg/dl Hemoglobin A1c 8.1 H (4.5-5.6) % Calcium 8.1 L (8.5-10.1) mg/dl Magnesium 1.7 L (1.8-2.4) mg/dl Total Bilirubin 0.4 (0.2-1) mg/dl AST 20 (15-37) U/L ALT 29 (12-78) U/L Alkaline Phosphatase 72 (45-117) U/L Total Protein 6.7 (6.4-8.2) gm/dl Albumin 2.1 L (3.4-5.0) gm/dl Globulin 4.6 H (2.5-4.0) gm/dl Albumin/Globulin Ratio 0.5 L (0.9-2) TSH 1.810 (0.300-4.500) uIu/ml Nasal Screen MRSA (PCR) (Negative) 12/05/19 12/04/19 12/04/19 Range/Units 02:14 20:56 20:33 WBC 17.40 H (4.8-10.8) K/uL RBC 2.67 L (4.7-6.1) M/uL Hgb 7.8 L 8.6 L (14.0-18.0) g/dL Hct 24.6 L 27.1 L (42-52) % MCV 92.1 (80-100) fL MCH 29.2 (25-34) pg MCHC 31.7 L (32-36) g/dL RDW Std Deviation 46.8 H (36.4-46.3) fL RDW Coeff of Nav 13.8 (11.5-14.5) % Plt Count 406 H (130-400) K/uL MPV 10.0 (7.4-10.4) fL Immature Gran % (Auto) 0.9 % Neut % (Auto) 76.8 % Lymph % (Auto) 10.9 % Kings % (Auto) 10.6 % Eos % (Auto) 0.6 % Baso % (Auto) 0.2 % Neut # (Auto) 13.36 H (1.4-6.5) K/uL Lymph # (Auto) 1.90 (1.2-3.4) K/uL Kings # (Auto) 1.85 H (0.11-0.59) K/uL Eos # (Auto) 0.11 (0-0.5) K/uL Baso # (Auto) 0.03 (0-0.2) K/uL Immature Gran # (Auto) 0.15 H (0.00-0.02) K/uL RBC Morphology Unremarkable APTT (21.0-31.0) Seconds PTT Ratio ABG pH (7.35-7.45) ABG pCO2 (35-46) mmHg ABG pO2 (80-95) mmHg ABG HCO3 (19-24) mmol/L ABG O2 Saturation (90-95) % ABG Base Excess (-9-1.8) mEq/L Sang Test (Pos) Barometric Pressure mm/Hg Oxygen Given Sodium (136-145) mmol/L Potassium (3.5-5.1) mmol/L Chloride (98-107) mmol/L Carbon Dioxide (21-32) mmol/L Anion Gap (3-11) BUN (7-18) mg/dl Creatinine (0.6-1.4) mg/dl Est Cr Clr Drug Dosing ml/min Est GFR ( Amer) Est GFR (Non-Af Amer) BUN/Creatinine Ratio (10-20) Glucose (70-99) mg/dl POC Glucose 153 H (70-99) mg/dl Estimat Average Glucose mg/dl Hemoglobin A1c (4.5-5.6) % Calcium (8.5-10.1) mg/dl Magnesium (1.8-2.4) mg/dl Total Bilirubin (0.2-1) mg/dl AST (15-37) U/L ALT (12-78) U/L Alkaline Phosphatase (45-117) U/L Total Protein (6.4-8.2) gm/dl Albumin (3.4-5.0) gm/dl Globulin (2.5-4.0) gm/dl Albumin/Globulin Ratio (0.9-2) TSH (0.300-4.500) uIu/ml Nasal Screen MRSA (PCR) (Negative) 12/04/19 12/04/19 Range/Units 17:07 16:44 WBC (4.8-10.8) K/uL RBC (4.7-6.1) M/uL Hgb (14.0-18.0) g/dL Hct (42-52) % MCV (80-100) fL MCH (25-34) pg MCHC (32-36) g/dL RDW Std Deviation (36.4-46.3) fL RDW Coeff of Nav (11.5-14.5) % Plt Count (130-400) K/uL MPV (7.4-10.4) fL Immature Gran % (Auto) % Neut % (Auto) % Lymph % (Auto) % Kings % (Auto) % Eos % (Auto) % Baso % (Auto) % Neut # (Auto) (1.4-6.5) K/uL Lymph # (Auto) (1.2-3.4) K/uL Kings # (Auto) (0.11-0.59) K/uL Eos # (Auto) (0-0.5) K/uL Baso # (Auto) (0-0.2) K/uL Immature Gran # (Auto) (0.00-0.02) K/uL RBC Morphology APTT (21.0-31.0) Seconds PTT Ratio ABG pH (7.35-7.45) ABG pCO2 (35-46) mmHg ABG pO2 (80-95) mmHg ABG HCO3 (19-24) mmol/L ABG O2 Saturation (90-95) % ABG Base Excess (-9-1.8) mEq/L Sang Test (Pos) Barometric Pressure mm/Hg Oxygen Given Sodium (136-145) mmol/L Potassium (3.5-5.1) mmol/L Chloride (98-107) mmol/L Carbon Dioxide (21-32) mmol/L Anion Gap (3-11) BUN (7-18) mg/dl Creatinine (0.6-1.4) mg/dl Est Cr Clr Drug Dosing ml/min Est GFR ( Amer) Est GFR (Non-Af Amer) BUN/Creatinine Ratio (10-20) Glucose (70-99) mg/dl POC Glucose 207 H (70-99) mg/dl Estimat Average Glucose mg/dl Hemoglobin A1c (4.5-5.6) % Calcium (8.5-10.1) mg/dl Magnesium (1.8-2.4) mg/dl Total Bilirubin (0.2-1) mg/dl AST (15-37) U/L ALT (12-78) U/L Alkaline Phosphatase (45-117) U/L Total Protein (6.4-8.2) gm/dl Albumin (3.4-5.0) gm/dl Globulin (2.5-4.0) gm/dl Albumin/Globulin Ratio (0.9-2) TSH (0.300-4.500) uIu/ml Nasal Screen MRSA (PCR) Negative (Negative)
--- NOTE | 2019-12-05 14:46 | Hospitalist Progress Note ---
Date of Service December 05, 2019 Assessment & Plan (1) Sepsis: Presented with fever and shortness of breath with low saturation Noted to have leukocytosis Sepsis secondary to bilateral basal infiltration doubt any acute cholecystitis Has been on intravenous Zosyn and vancomycin Will discontinue vancomycin and continue with Zosyn we will add doxycycline to cover for atypicals Clinically has been improving Heart block Noted to have bradycardia with Mobitz type I/II heart block No cardiac pain and/or distress Appreciate cardiology input and recommendation Will hold beta-meli for now Start hydralazine for high blood pressure (2) Pneumonia of both lower lobes: This is an 89-year-old male who has significant PMH of T2DM, HTN, HLD, AAA infrarenal 6.3 x 5.4 cm nonsurgical candidate, COPD, CKD stage III, carotid artery stenosis, renal artery stenosis, history of prostate cancer, GERD, hepatic steatosis, history of rectus sheath hematoma who presents to ED secondary to worsening cough, shortness of breath and lower extremity edema x3 days. Has been getting intravenous Zosyn and will add daptomycin (3) Cholecystitis: Patient with recent diagnosis of acute cholecystitis Transfer to tertiary care center [facility] in [place] Was treated conservatively with IV antibiotics, WBC peaked at 25,000 and at discharge was 11 K LFTS WNL Treated with Vanco and IV Zosyn and discharged home on oral Augmentin twice daily Ultrasound did not show thickened gallbladder wall with possibility of cholecystitis Hepatobiliary scan is pending Appreciate surgery input and recommendation Clinically he is much better (4) CHF (congestive heart failure): Acute CHF of unspecified type due to no baseline echo in records, but likely diastolic pt with volume overload on exam and reports of orthopnea probnp [id number] Give Lasix IV 20mg x 1 and start 40mg oral Lasix daily Echo showed EF of 55 to 60%, moderate concentric LV hypertrophy, basal septum is thickened and angulated consistent with sigmoid septum, aortic valve sclerosis moderate without stenosis, mild MR and trace TR. Estimated systolic pulmonary artery Pressure is 34 mmHg Now euvolemic (5) Anemia: H&H 8.0 and 24.8 Iron 16, ferritin 359, TIBC 194 Anemia of renal disease No signs or symptoms of bleeding Monitor H&H, check fecal occult blood Hemoglobin is 7.8 as of 12/05/2019 (6) COPD (chronic obstructive pulmonary disease): With acute exacerbation given increasing shortness of breath and sputum production Continue Symbicort and DuoNeb Incentive spirometry No role for corticosteroids at this point, but monitor (7) Abdominal aortic aneurysm (AAA) greater than 5.5 cm in diameter in male: Follows vascular and [facility] [place] Recent slight increase in size 6.3 x 5.4 cm infrarenal aortic aneurysm Not surgical candidate maintain good BP control (8) Diabetes mellitus: Last A1C 8.0 09/2018 repeat A1C in a.m. hold glipizide Insulin sliding scale per protocol (9) HTN (hypertension): Blood pressure remains elevated Lisinopril and metoprolol are on hold for increasing creatinine and also recent diagnosis of Mobitz type I/II heart block Hydralazine has been added (10) CKD (chronic kidney disease) stage 3, GFR 30-59 ml/min: baseline Cr 1.3-1.5 BUN/creatinine 19 and 1.59 Monitor (11) Bilateral renal artery stenosis: Patient underwent CTA abdomen pelvis on 11/24 which revealed severe bilateral renal artery stenosis He also has known further vascular disease with carotid artery stenosis and enlarging AAA At [facility] he was started on aspirin 81 mg daily; however, this was not continued Resume ASA 81mg daily, recommend starting statin when medically stable Reduce losartan from 100mg to 25mg. Risk outweighs benefit with ARB given need to control BP in setting of AAA Consider discontinuing losartan all together if rise in cr (12) DVT prophylaxis: SQ heparin Disposition: admit to PCU, case management consulted Follow up: PCP Dr. Lambert at [facility] upon discharge Admission and Anticipated Discharge Date Admission Date: December 04, 2019 Subjective The patient was seen and examined in telemetry unit He is an 89-year-old male with significant complicated past medical history as mentioned in the H&P was admitted yesterday with sepsis likely secondary to bibasilar pneumonia He has been feeling little bit better today Denies any abdominal pain and/or distention, no nausea and or vomiting, no fever and/or chills Review of Systems Review of Systems: All systems reviewed and are unremarkable except as noted below Respiratory: + cough; no dyspnea Gastrointestinal: no abdominal pain, no bloating, no nausea and no vomiting Physical Exam Physical Exam: Lying in bed comfortably Constitutional: well developed and well nourished; no acute distress and not ill appearing Eyes: PERRL, conjunctivae normal, anicteric sclerae ENMT: external ear and nose normal, oropharynx normal Neck: trachea midline, no thyromegaly Respiratory: normal respiratory effort; no respiratory distress Auscultation: + diminished lung sounds (Minimal bibasilar crackles) Cardiovascular: Rate/Rhythm: regular rate and regular rhythm Heart Sounds: + murmur Extremities: + pedal edema (1+ bilaterally more on the left than the right) Gastrointestinal (Abdomen): Inspection/Auscultation: normal bowel sounds; abdomen not distended Percussion/Palpation: abdomen soft; abdomen nontender Musculoskeletal: No acute arthritis involving any joints Neurologic: moves all extremities; no focal motor deficits Results & Data Results & Data ([facility]) Vital Signs (Past 12 Hours) Vital Signs Temp Pulse Pulse Resp BP BP Pulse Ox 12/05/19 11:17 37.1 C 81 20 159/81 H 93 12/05/19 11:06 75 18 93 12/05/19 08:00 70 12/05/19 07:05 77 18 92 12/05/19 06:58 36.6 C 77 24 183/78 H 180/71 H 91 12/05/19 03:43 37.3 C 71 20 118/55 L 94 Laboratory Results Short CBC 12/04/19 12/05/19 Range/Units 20:56 02:14 WBC 17.40 H (4.8-10.8) K/uL Hgb 8.6 L 7.8 L (14.0-18.0) g/dL Hct 27.1 L 24.6 L (42-52) % Plt Count 406 H (130-400) K/uL BMP 12/05/19 02:14 Sodium 137 Potassium 3.7 Chloride 103 Carbon Dioxide 26 BUN 23 H Creatinine 1.79 H Glucose 179 H Calcium 8.1 L Liver Function 12/05/19 Range/Units 02:14 Total Bilirubin 0.4 (0.2-1) mg/dl AST 20 (15-37) U/L ALT 29 (12-78) U/L Alkaline Phosphatase 72 (45-117) U/L Albumin 2.1 L (3.4-5.0) gm/dl Medications Administered Current Inpatient Medications Acetaminophen (Tylenol) 650 mg PO Q4H PRN PRN Reason: Pain or Fever Stop: 01/03/20 14:40 Last Admin: 12/05/19 00:17 Dose: 650 mg Documented by: Al Hydrox/Mg Hydrox/Simethicone (Maalox) 15 ml PO Q4H PRN PRN Reason: Dyspepsia Stop: 01/03/20 14:40 Albuterol (Duoneb) 3 ml NEB QIDR [facility] Stop: 01/03/20 14:59 Last Admin: 12/05/19 11:06 Dose: 3 ml Documented by: Amlodipine Besylate (Norvasc) 10 mg PO QAM [facility] Stop: 01/04/20 08:59 Aspirin (Ecotrin Ectab) 81 mg PO DAILY [facility] Stop: 01/04/20 08:59 Atenolol (Tenormin) 25 mg PO QAM [facility] Stop: 01/03/20 14:40 Last Admin: 12/05/19 11:51 Dose: Not Given Documented by: Dextrose (Dextrose 50%) 25 - 50 ml IV UD PRN; Protocol PRN Reason: Hypoglycemia Protocol Stop: 01/03/20 14:40 Fluticasone/Vilanterol (Breo Ellipta 100/25 Mcg Inh) 1 puffs INH DAILY [facility] Stop: 01/04/20 08:59 Last Admin: 12/05/19 10:25 Dose: 1 puffs Documented by: Furosemide (Lasix) 40 mg PO QAM [facility] Stop: 01/03/20 14:40 Last Admin: 12/04/19 15:43 Dose: 40 mg Documented by: Glucagon (Glucagen) 1 mg SQ UD PRN; Protocol PRN Reason: Hypoglycemia Protocol Stop: 01/03/20 14:40 Glucose (Dex4 Glucose) 4 - 8 tabs PO UD PRN; Protocol PRN Reason: Hypoglycemia Protocol Stop: 01/03/20 14:40 Glucose (Glucose 40%) 15 - 30 gm PO UD PRN; Protocol PRN Reason: Hypoglycemia Protocol Stop: 01/03/20 14:40 Heparin Sodium (Porcine) (Heparin Sodium (Porcine)) 5,000 units SQ Q8H [facility] Stop: 01/03/20 15:59 Last Admin: 12/05/19 10:23 Dose: 5,000 units Documented by: Piperacillin Sod/Tazobactam (Sod 3.375 gm/ Dextrose) 115 mls @ 28.75 mls/hr IV Q8H [facility]ISSA; Protocol Stop: 12/11/19 21:59 Last Infusion: 12/05/19 09:55 Dose: Infused Documented by: Vancomycin HCl 1,500 mg/ (Sodium Chloride) 530 mls @ 200 mls/hr IV Q24H [facility] Stop: 12/12/19 09:59 Last Admin: 12/05/19 10:27 Dose: 200 mls/hr Documented by: Insulin Aspart (Novolog Flexpen) 0 units SC ACHS [facility] Stop: 01/03/20 16:29 Last Admin: 12/05/19 10:27 Dose: 1 units Documented by: Magnesium Hydroxide (Milk Of Magnesia) 30 ml PO Q12H PRN PRN Reason: Constipation Stop: 01/03/20 14:40 Magnesium Oxide (Mag-Ox) 400 mg PO QAM [facility] Stop: 01/04/20 08:59 Miscellaneous (Carbohydrates For Hypoglycemia) 15 - 30 gm PO UD PRN PRN Reason: Hypoglycemia Protocol Stop: 01/03/20 14:40 Miscellaneous Information (Consult) 1 ea N/A UD PRN PRN Reason: Consult Stop: 01/03/20 14:40 Miscellaneous Information (Consult) 1 ea N/A UD PRN PRN Reason: Consult Stop: 01/03/20 14:40 Pantoprazole Sodium (Protonix) 40 mg PO QAM [facility] Stop: 01/03/20 14:40 Last Admin: 12/04/19 15:31 Dose: 40 mg Documented by: Polyethylene Glycol (Miralax Powder Packet) 17 gm PO DAILY PRN PRN Reason: Constipation Stop: 01/03/20 14:40 (1) Pneumonia of both lower lobes Pneumonia type: due to unspecified organism Qualified Code(s): J18.9 - Pneumonia, unspecified organism
--- NOTE | 2019-12-05 15:06 | Nuclear Medicine Report ---
NM hepatobiliary EF CLINICAL HISTORY: 89 years-old Male with cholecystitis. Acute right upper quadrant abdominal pain TECHNIQUE: Following the intravenous administration of 5.3 mCi of technetium-99m Choletec, sequentia l abdominal images were obtained. In order to evaluate the contractile response of the gallbladder, 1.85 mcg of Kinevac was administered by slow intravenous infusion over 30 minutes starting approximat kayley 60 minutes after the administration of the radiopharmaceutical. Sequential imaging was continued for 45 minutes after the start of the Kinevac infusion. COMPARISON: Abdominal ultrasound 12/04/2019 FINDINGS: There is prompt, uniform accumulation of the tracer by the liver. There is normal filling of the int rahepatic ducts, common bile duct and gallbladder and normal excretion of the tracer into the duodenu m. There is suboptimal contraction of the gallbladder. The calculated gallbladder ejection fraction is 16% (normal >40%). There is moderate enterogastric reflux. IMPRESSION: 1. Decreased contractile response of the gallbladder to Kinevac infusion. 2. Moderate enterogastric reflux. ACT 112: Negative or not required by law. The above report was generated using voice recognition software. It may contain grammatical, syntax o r spelling errors. Electronically signed by: Waylon Morillo M.D. 12/05/2019 3:04 PM
[2019-12-05] MEDS: AMLODIPINE BESYLATE 5 MG TAB PO SCH (16:03)
[2019-12-05] MEDS: MAGNESIUM OXIDE 400 MG TAB PO SCH (16:04)
[2019-12-05] MEDS: PANTOprazole 40 MG TAB PO SCH (16:05)
[2019-12-05] MEDS: ASPIRIN 81 MG ECTAB PO SCH (16:05)
[2019-12-05] MEDS ORDERED: Nursing to Pharmacy Communication SCH (17:15)
[2019-12-05] MEDS: DOXYCYCLINE HYCLATE 100 MG in DEXTROSE 5% 100 ML IV SCH ×2 (19:46→20:38)
--- NOTE | 2019-12-05 22:54 | Electrocardiogram Report ---
Test Reason : Blood Pressure : / mmHG Vent. Rate : 073 BPM Atrial Rate : 073 BPM P-R Int : 236 ms QRS Dur : 140 ms QT Int : 454 ms P-R-T Axes : 024 -13 019 degrees QTc Int : 500 ms Sinus rhythm with 1st degree A-V block Right bundle branch block Abnormal ECG When compared with ECG of 04-DEC-2019 07:34, Premature atrial complexes are no longer Present Confirmed by Franco Enrique ([id number]) on 12/05/2019 10:54:12 PM Referred By: REFERRED SELF Confirmed By:Franco Enrique
[2019-12-06] MEDS: HEPARIN SOD 5,000 UNIT/0.5 ML VIAL SQ SCH ×3 (00:24→15:54)
[2019-12-06] MEDS: PIPERACILLIN/TAZOBACTAM 3.375 GM in DEXTROSE 5% 100 ML IV SCH ×3 (00:24→16:11)
[2019-12-06] MEDS: DOXYCYCLINE HYCLATE 100 MG in DEXTROSE 5% 100 ML IV SCH ×2 (05:22→18:58)
[2019-12-06 06:22] LABS: Basophils # (auto) 0.03 K/uL (0-0.2); Basophils % (auto) 0.2 %; Eosinophils # (auto) 0.18 K/uL (0-0.5); Eosinophils % (auto) 1.1 %; Hemoglobin 8.6 g/dL (14.0-18.0); Immature Granulocytes # (auto) 0.08 K/uL (0.00-0.02); Immature Granulocytes % (auto) 0.5 %; Lymphocytes # (auto) 1.78 K/uL (1.2-3.4); Lymphocytes % (auto) 10.5 %; Mean Corpuscular Hemoglobin 29.9 pg (25-34); Mean Corpuscular Hgb Conc 31.9 g/dL (32-36); Mean Corpuscular Volume 93.8 fL (80-100); Mean Platelet Volume 10.4 fL (7.4-10.4); Monocytes # (auto) 1.83 K/uL (0.11-0.59); Monocytes % (auto) 10.8 %; Neutrophils # (auto) 13.08 K/uL (1.4-6.5); Neutrophils % (auto) 76.9 %; Platelet Count 477 K/uL (130-400); RDW Coefficient of Variation 13.7 % (11.5-14.5); RDW Standard Deviation 47.5 fL (36.4-46.3); Red Blood Count 2.88 M/uL (4.7-6.1); White Blood Count 16.98 K/uL (4.8-10.8)
[2019-12-06] MEDS: ALBUT/IPRATROP 3MG/0.5MG NEB 3 ML VIAL NEB SCH ×4 (06:48→19:14)
[2019-12-06 06:57] LABS: BUN Creatinine Ratio 13.1 (10-20); Calcium 8.8 mg/dl (8.5-10.1); Creatinine Clr Calc Pharmacy 32.8 ml/min; Est GFR (African American) 39.4; Potassium 3.7 mmol/L (3.5-5.1)
[2019-12-06] MEDS: INSULIN ASPART 100 UNITS/ML 3 ML PEN SC SCH ×4 (07:51→21:36)
[2019-12-06] MEDS: PANTOprazole 40 MG TAB PO SCH (07:57)
[2019-12-06] MEDS: ASPIRIN 81 MG ECTAB PO SCH (07:57)
[2019-12-06] MEDS: MAGNESIUM OXIDE 400 MG TAB PO SCH (07:58)
[2019-12-06] MEDS: AMLODIPINE BESYLATE 5 MG TAB PO SCH (07:58)
[2019-12-06] MEDS: FLUTICASONE/VILANTEROL 100/25MCG 14 PUFFS/INHALER INH SCH (07:59)
--- NOTE | 2019-12-06 11:27 | Surgery Progress Note ---
Date of Service December 06, 2019 Assessment & Plan (1) Acute cholecystitis: 89 year-old with recent transfer from our ED to [facility] on 11/25/2019 for acute cholecystitis for percutaneous cholecystostomy tube who presented to ED on 12/04/2019 with complaint of shortness of breath and lower extremity edema. Uncertain why he did not have the drain placed in his gallbladder out in [place]. Ultrasound showed gallstones/sludge, wall thickening at 5 mm, and mild pericholecystic fluid concerning for acute cholecystitis. T. bili and lfts wnl. Leukcytosis of 15k. Febrile in ED at 38.2. 12/05/2019: Patient still denying abdominal pain Leukocytosis increased to 17K while on IV Zosyn and Vancomycin no abdominal pain on examination febrile last night ,t max 38.1 HIDA scan ordered today 12/06/2019: No abdominal pain, n/v abdominal exam benign HIDA scan with no cystic duct obstruction but decrease EF at 16% Mild improvement of leukocytosis to 16K Plan: No evidence of cystis duct obstruction on HIDA scan so likely does not need cholecystostomy tube at this time. Would continue antibiotics as he did have acute cholecystitis during his admission in [place] No surgical intervention required at this time and would not be a surgical candidate. If there is any concern for increase cholecystitis would need cholecystostomy tube. continue medical management (2) Sepsis: Etiology likely secondary to respiratory than galllbadder as HIDA scan not showing cystic duct obstruction leukocytosis stable to mildly improved today with IV Zosyn and now Doxycycline plan as above. Subjective denies of any abdominal pain, nausea or vomiting tolerated breakfast without any abdominal pain breathing not great today, had breathing treatment had bowel movement Physical Exam Constitutional: WD/WN, vitals as above + obese; not ill appearing Respiratory: no respiratory distress and no labored breathing oxygen via nasal cannula, expiratory wheeze present Gastrointestinal (Abdomen): Inspection/Auscultation: abdomen normal to inspection; abdomen not distended Percussion/Palpation: abdomen soft; abdomen nontender, no guarding and abdomen not rigid Skin: no rashes, warm and dry Results & Data Vital Signs (Past 12 Hours) Vital Signs Temp Pulse Pulse Resp BP Pulse Ox 12/06/19 11:03 93 H 18 92 12/06/19 07:20 36.9 C 84 20 152/96 H 94 12/06/19 06:51 80 20 91 12/06/19 02:51 36.9 C 80 22 161/83 H 90 12/05/19 23:28 89 22 89 L Laboratory Results 12/06/19 12/06/19 12/06/19 Range/Units 07:49 05:38 05:38 WBC 16.98 H (4.8-10.8) K/uL RBC 2.88 L (4.7-6.1) M/uL Hgb 8.6 L (14.0-18.0) g/dL Hct 27.0 L (42-52) % MCV 93.8 (80-100) fL MCH 29.9 (25-34) pg MCHC 31.9 L (32-36) g/dL RDW Std Deviation 47.5 H (36.4-46.3) fL RDW Coeff of Nav 13.7 (11.5-14.5) % Plt Count 477 H (130-400) K/uL MPV 10.4 (7.4-10.4) fL Immature Gran % (Auto) 0.5 % Neut % (Auto) 76.9 % Lymph % (Auto) 10.5 % [place] % (Auto) 10.8 % Eos % (Auto) 1.1 % Baso % (Auto) 0.2 % Neut # (Auto) 13.08 H (1.4-6.5) K/uL Lymph # (Auto) 1.78 (1.2-3.4) K/uL [place] # (Auto) 1.83 H (0.11-0.59) K/uL Eos # (Auto) 0.18 (0-0.5) K/uL Baso # (Auto) 0.03 (0-0.2) K/uL Immature Gran # (Auto) 0.08 H (0.00-0.02) K/uL Sodium 135 L (136-145) mmol/L Potassium 3.7 (3.5-5.1) mmol/L Chloride 102 (98-107) mmol/L Carbon Dioxide 25 (21-32) mmol/L Anion Gap 8.0 (3-11) BUN 23 H (7-18) mg/dl Creatinine 1.75 H (0.6-1.4) mg/dl Est Cr Clr Drug Dosing 32.8 ml/min Est GFR ( Amer) 39.4 Est GFR (Non-Af Amer) 34.0 BUN/Creatinine Ratio 13.1 (10-20) Glucose 163 H (70-99) mg/dl POC Glucose 194 H (70-99) mg/dl Calcium 8.8 (8.5-10.1) mg/dl Magnesium 2.0 (1.8-2.4) mg/dl 12/05/19 12/05/19 12/05/19 Range/Units 20:26 16:13 11:56 WBC (4.8-10.8) K/uL RBC (4.7-6.1) M/uL Hgb (14.0-18.0) g/dL Hct (42-52) % MCV (80-100) fL MCH (25-34) pg MCHC (32-36) g/dL RDW Std Deviation (36.4-46.3) fL RDW Coeff of Nav (11.5-14.5) % Plt Count (130-400) K/uL MPV (7.4-10.4) fL Immature Gran % (Auto) % Neut % (Auto) % Lymph % (Auto) % [place] % (Auto) % Eos % (Auto) % Baso % (Auto) % Neut # (Auto) (1.4-6.5) K/uL Lymph # (Auto) (1.2-3.4) K/uL [place] # (Auto) (0.11-0.59) K/uL Eos # (Auto) (0-0.5) K/uL Baso # (Auto) (0-0.2) K/uL Immature Gran # (Auto) (0.00-0.02) K/uL Sodium (136-145) mmol/L Potassium (3.5-5.1) mmol/L Chloride (98-107) mmol/L Carbon Dioxide (21-32) mmol/L Anion Gap (3-11) BUN (7-18) mg/dl Creatinine (0.6-1.4) mg/dl Est Cr Clr Drug Dosing ml/min Est GFR ( Amer) Est GFR (Non-Af Amer) BUN/Creatinine Ratio (10-20) Glucose (70-99) mg/dl POC Glucose 249 H 184 H 192 H (70-99) mg/dl Calcium (8.5-10.1) mg/dl Magnesium (1.8-2.4) mg/dl Diagnostic Findings NM hepatobiliary EF CLINICAL HISTORY: 89 years-old Male with cholecystitis. Acute right upper quadrant abdominal pain TECHNIQUE: Following the intravenous administration of 5.3 mCi of technetium- 99m Choletec, sequential abdominal images were obtained. In order to evaluate the contractile response of the gallbladder, 1.85 mcg of Kinevac was administered by slow intravenous infusion over 30 minutes starting approximately 60 minutes after the administration of the radiopharmaceutical. Sequential imaging was continued for 45 minutes after the start of the Kinevac infusion. COMPARISON: Abdominal ultrasound 12/04/2019 FINDINGS: There is prompt, uniform accumulation of the tracer by the liver. There is normal filling of the intrahepatic ducts, common bile duct and gallbladder and normal excretion of the tracer into the duodenum. There is suboptimal contraction of the gallbladder. The calculated gallbladder ejection fraction is 16% (normal >40%). There is moderate enterogastric reflux. IMPRESSION: 1. Decreased contractile response of the gallbladder to Kinevac infusion. 2. Moderate enterogastric reflux.
[2019-12-06] MEDS: methylPREDNISolone 40 MG in SYRINGE 0 ML IV SCH ×2 (11:58→20:30)
--- NOTE | 2019-12-06 14:55 | Hospitalist Progress Note ---
Date of Service December 06, 2019 Assessment & Plan (1) Sepsis: Presented with fever and shortness of breath with low saturation Noted to have leukocytosis Sepsis secondary to bilateral basal infiltration doubt any acute cholecystitis Has been on intravenous Zosyn and vancomycin Will discontinue vancomycin and continue with Zosyn we will add doxycycline to cover for atypicals Showing improvement but remains mildly short of breath Heart block Noted to have bradycardia with Mobitz type I/II heart block No cardiac pain and/or distress Appreciate cardiology input and recommendation Will hold beta-meli for now Start hydralazine for high blood pressure Heart rate is stable and no more arrhythmias (2) Pneumonia of both lower lobes: This is an 89-year-old male who has significant PMH of T2DM, HTN, HLD, AAA infrarenal 6.3 x 5.4 cm nonsurgical candidate, COPD, CKD stage III, carotid artery stenosis, renal artery stenosis, history of prostate cancer, GERD, hepatic steatosis, history of rectus sheath hematoma who presents to ED secondary to worsening cough, shortness of breath and lower extremity edema x3 days. Has been on intravenous Zosyn and doxycycline (3) Cholecystitis: Patient with recent diagnosis of acute cholecystitis Transfer to tertiary care center [facility] in [place] Was treated conservatively with IV antibiotics, WBC peaked at 25,000 and at discharge was 11 K LFTS WNL Treated with Vanco and IV Zosyn and discharged home on oral Augmentin twice daily Ultrasound did not show thickened gallbladder wall with possibility of cholecystitis Hepatobiliary scan is not showing any obstruction but he does have reduced EF Appreciate surgery input and recommendation No surgical intervention and will continue conservative management (4) CHF (congestive heart failure): Acute CHF of unspecified type due to no baseline echo in records, but likely diastolic pt with volume overload on exam and reports of orthopnea probnp [id number] Give Lasix IV 20mg x 1 and start 40mg oral Lasix daily Echo showed EF of 55 to 60%, moderate concentric LV hypertrophy, basal septum is thickened and angulated consistent with sigmoid septum, aortic valve sclerosis moderate without stenosis, mild MR and trace TR. Estimated systolic pulmonary artery Pressure is 34 mmHg Now euvolemic (5) Anemia: H&H 8.0 and 24.8 Iron 16, ferritin 359, TIBC 194 Anemia of renal disease No signs or symptoms of bleeding Monitor H&H, check fecal occult blood Hemoglobin is 7.8 as of 12/05/2019 (6) COPD (chronic obstructive pulmonary disease): With acute exacerbation given increasing shortness of breath and sputum production Continue Symbicort and DuoNeb Incentive spirometry Has been complaining of more wheezing and shortness of breath Likely has exacerbation and will add intravenous Solu-Medrol (7) Abdominal aortic aneurysm (AAA) greater than 5.5 cm in diameter in male: Follows vascular [place] [facility] Recent slight increase in size 6.3 x 5.4 cm infrarenal aortic aneurysm Not surgical candidate maintain good BP control (8) Diabetes mellitus: Last A1C 8.0 09/2018 repeat A1C in a.m. hold glipizide Insulin sliding scale per protocol (9) HTN (hypertension): Blood pressure remains elevated Lisinopril and metoprolol are on hold for increasing creatinine and also recent diagnosis of Mobitz type I/II heart block Hydralazine has been added (10) CKD (chronic kidney disease) stage 3, GFR 30-59 ml/min: baseline Cr 1.3-1.5 BUN/creatinine 19 and 1.59 Monitor (11) Bilateral renal artery stenosis: Patient underwent CTA abdomen pelvis on 11/24 which revealed severe bilateral renal artery stenosis He also has known further vascular disease with carotid artery stenosis and enlarging AAA At [facility] he was started on aspirin 81 mg daily; however, this was not continued Resume ASA 81mg daily, recommend starting statin when medically stable Reduce losartan from 100mg to 25mg. Risk outweighs benefit with ARB given need to control BP in setting of AAA Consider discontinuing losartan all together if rise in cr (12) DVT prophylaxis: SQ heparin Disposition: admit to PCU, case management consulted Follow up: PCP Dr. Lambert at [facility] upon discharge Discussed with the in detail Admission and Anticipated Discharge Date Admission Date: December 04, 2019 Subjective The patient was seen and examined in telemetry unit He is an 89-year-old male with significant complicated past medical history as mentioned in the H&P was admitted yesterday with sepsis likely secondary to bib asilar pneumonia He has been feeling little bit better today Denies any abdominal pain and/or distention, no nausea and or vomiting, no fever and/or chills 12/06/2019 The patient was seen and examined in telemetry unit He complains to have wheezing with shortness of breath but denies any chest pain No arrhythmias noted in the monitor Denies any fever and/or chills Review of Systems Review of Systems: All systems reviewed and are unremarkable except as noted below Respiratory: + cough and + dyspnea Physical Exam Physical Exam: Lying in bed with moderate discomfort due to shortness of breath Constitutional: well developed and well nourished; no acute distress and not ill appearing Eyes: PERRL, conjunctivae normal, anicteric sclerae ENMT: external ear and nose normal, oropharynx normal Neck: trachea midline, no thyromegaly Respiratory: + respiratory distress (Mild) Auscultation: + diminished lung sounds (Minimal bibasilar crackles) and + wheezes (Bilateral wheezing) Cardiovascular: Rate/Rhythm: regular rate and regular rhythm Heart Sounds: + murmur Extremities: + pedal edema (1+ bilaterally more on the left than the right) Gastrointestinal (Abdomen): Inspection/Auscultation: normal bowel sounds; abdomen not distended Percussion/Palpation: abdomen soft; abdomen nontender Musculoskeletal: No acute arthritis involving any joints Neurologic: moves all extremities; no focal motor deficits Results & Data Results & Data ([facility]) Vital Signs (Past 12 Hours) Vital Signs Temp Pulse Pulse Pulse Resp BP Pulse Ox 12/06/19 12:09 36.7 C 92 H 22 152/77 H 95 12/06/19 11:03 93 H 18 92 12/06/19 08:00 85 12/06/19 07:20 36.9 C 84 20 152/96 H 94 12/06/19 06:51 80 20 91 12/06/19 02:51 36.9 C 80 22 161/83 H 90 Laboratory Results Short CBC 12/06/19 Range/Units 05:38 WBC 16.98 H (4.8-10.8) K/uL Hgb 8.6 L (14.0-18.0) g/dL Hct 27.0 L (42-52) % Plt Count 477 H (130-400) K/uL BMP 12/06/19 05:38 Sodium 135 L Potassium 3.7 Chloride 102 Carbon Dioxide 25 BUN 23 H Creatinine 1.75 H Glucose 163 H Calcium 8.8 Medications Administered Current Inpatient Medications Acetaminophen (Tylenol) 650 mg PO Q4H PRN PRN Reason: Pain or Fever Stop: 01/03/20 14:40 Last Admin: 12/05/19 22:17 Dose: 650 mg Documented by: Al Hydrox/Mg Hydrox/Simethicone (Maalox) 15 ml PO Q4H PRN PRN Reason: Dyspepsia Stop: 01/03/20 14:40 Albuterol (Duoneb) 3 ml NEB QIDR [facility] Stop: 01/03/20 14:59 Last Admin: 12/06/19 11:02 Dose: 3 ml Documented by: Amlodipine Besylate (Norvasc) 10 mg PO QAM [facility] Stop: 01/04/20 08:59 Last Admin: 12/06/19 07:58 Dose: 10 mg Documented by: Aspirin (Ecotrin Ectab) 81 mg PO DAILY [facility] Stop: 01/04/20 08:59 Last Admin: 12/06/19 07:57 Dose: 81 mg Documented by: Atenolol (Tenormin) 25 mg PO QAM [facility] Stop: 01/03/20 14:40 Last Admin: 12/05/19 11:51 Dose: Not Given Documented by: Dextrose (Dextrose 50%) 25 - 50 ml IV UD PRN; Protocol PRN Reason: Hypoglycemia Protocol Stop: 01/03/20 14:40 Fluticasone/Vilanterol (Breo Ellipta 100/25 Mcg Inh) 1 puffs INH DAILY [facility] Stop: 01/04/20 08:59 Last Admin: 12/06/19 07:59 Dose: 1 puffs Documented by: Furosemide (Lasix) 40 mg PO QAM [facility] Stop: 01/03/20 14:40 Last Admin: 12/04/19 15:43 Dose: 40 mg Documented by: Glucagon (Glucagen) 1 mg SQ UD PRN; Protocol PRN Reason: Hypoglycemia Protocol Stop: 01/03/20 14:40 Glucose (Dex4 Glucose) 4 - 8 tabs PO UD PRN; Protocol PRN Reason: Hypoglycemia Protocol Stop: 01/03/20 14:40 Glucose (Glucose 40%) 15 - 30 gm PO UD PRN; Protocol PRN Reason: Hypoglycemia Protocol Stop: 01/03/20 14:40 Heparin Sodium (Porcine) (Heparin Sodium (Porcine)) 5,000 units SQ Q8H [facility] Stop: 01/03/20 15:59 Last Admin: 12/06/19 07:52 Dose: 5,000 units Documented by: Piperacillin Sod/Tazobactam (Sod 3.375 gm/ Dextrose) 115 mls @ 28.75 mls/hr IV Q8H [facility]; Protocol Stop: 12/11/19 21:59 Last Admin: 12/06/19 10:02 Dose: 28.8 mls/hr Documented by: Doxycycline Hyclate 100 mg/ (Dextrose) 110 mls @ 50 mls/hr IV Q12H [facility] Stop: 12/12/19 17:59 Last Infusion: 12/06/19 07:35 Dose: Infused Documented by: Methylprednisolone 40 mg/ (Syringe) 0.64 mls @ 1.5 mls/min IV BID [facility] Stop: 01/05/20 10:44 Last Admin: 12/06/19 11:58 Dose: 1.5 mls/min Documented by: Insulin Aspart (Novolog Flexpen) 0 units SC ACHS [facility] Stop: 01/03/20 16:29 Last Admin: 12/06/19 11:58 Dose: 4 units Documented by: Magnesium Hydroxide (Milk Of Magnesia) 30 ml PO Q12H PRN PRN Reason: Constipation Stop: 01/03/20 14:40 Magnesium Oxide (Mag-Ox) 400 mg PO QAM [facility] Stop: 01/04/20 08:59 Last Admin: 12/06/19 07:58 Dose: 400 mg Documented by: Miscellaneous (Carbohydrates For Hypoglycemia) 15 - 30 gm PO UD PRN PRN Reason: Hypoglycemia Protocol Stop: 01/03/20 14:40 Miscellaneous Information (Consult) 1 ea N/A UD PRN PRN Reason: Consult Stop: 01/03/20 14:40 Pantoprazole Sodium (Protonix) 40 mg PO QAM [facility] Stop: 01/03/20 14:40 Last Admin: 12/06/19 07:57 Dose: 40 mg Documented by: Polyethylene Glycol (Miralax Powder Packet) 17 gm PO DAILY PRN PRN Reason: Constipation Stop: 01/03/20 14:40 (1) Pneumonia of both lower lobes Pneumonia type: due to unspecified organism Qualified Code(s): J18.9 - Pneumonia, unspecified organism
[2019-12-06] MEDS: INSULIN GLARGINE SOLOSTAR 100 UNITS/ML 3 ML PEN SC SCH (22:46)
[2019-12-07] MEDS: ALBUT/IPRATROP 3MG/0.5MG NEB 3 ML VIAL NEB SCH ×5 (00:35→19:17)
[2019-12-07] MEDS: PIPERACILLIN/TAZOBACTAM 3.375 GM in DEXTROSE 5% 100 ML IV SCH ×2 (00:56→09:01)
[2019-12-07] MEDS: HEPARIN SOD 5,000 UNIT/0.5 ML VIAL SQ SCH ×3 (00:57→16:41)
--- NOTE | 2019-12-07 04:45 | Electrocardiogram Report ---
Test Reason : Blood Pressure : / mmHG Vent. Rate : 086 BPM Atrial Rate : 086 BPM P-R Int : 206 ms QRS Dur : 136 ms QT Int : 418 ms P-R-T Axes : 016 -10 000 degrees QTc Int : 500 ms Normal sinus rhythm Right bundle branch block Abnormal ECG When compared with ECG of 05-DEC-2019 06:44, LA interval has decreased Confirmed by Franco Enrique ([id number]) on 12/07/2019 4:45:18 AM Referred By: REFERRED SELF Confirmed By:Frnaco Enrique
[2019-12-07] MEDS: DOXYCYCLINE HYCLATE 100 MG in DEXTROSE 5% 100 ML IV SCH (05:46)
[2019-12-07 06:47] LABS: Hematocrit (blood only) 27.4 % (42-52); Hemoglobin 8.5 g/dL (14.0-18.0); Immature Granulocytes # (auto) 0.15 K/uL (0.00-0.02); Immature Granulocytes % (auto) 0.7 %; Lymphocytes % (auto) 3.9 %; Mean Corpuscular Hemoglobin 28.8 pg (25-34); Mean Corpuscular Volume 92.9 fL (80-100); Mean Platelet Volume 10.5 fL (7.4-10.4); Monocytes # (auto) 0.74 K/uL (0.11-0.59); Monocytes % (auto) 3.6 %; Neutrophils # (auto) 19.07 K/uL (1.4-6.5); Neutrophils % (auto) 91.8 %; Platelet Count 571 K/uL (130-400); RDW Coefficient of Variation 13.6 % (11.5-14.5); RDW Standard Deviation 45.6 fL (36.4-46.3); Red Blood Count 2.95 M/uL (4.7-6.1); White Blood Count 20.76 K/uL (4.8-10.8)
[2019-12-07 07:23] LABS: BUN Creatinine Ratio 19.6 (10-20); Creatinine Clr Calc Pharmacy 31.5 ml/min; Est GFR (African American) 37.3; Est GFR (Non-African American) 32.2; Phosphorus 2.7 mg/dl (2.5-4.9); Potassium 4.1 mmol/L (3.5-5.1)
[2019-12-07] MEDS: INSULIN ASPART 100 UNITS/ML 3 ML PEN SC SCH ×4 (07:33→21:14)
[2019-12-07] MEDS: FLUTICASONE/VILANTEROL 100/25MCG 14 PUFFS/INHALER INH SCH (07:35)
[2019-12-07] MEDS: PANTOprazole 40 MG TAB PO SCH (07:36)
[2019-12-07] MEDS: AMLODIPINE BESYLATE 5 MG TAB PO SCH (07:36)
[2019-12-07] MEDS: MAGNESIUM OXIDE 400 MG TAB PO SCH (07:36)
[2019-12-07] MEDS: methylPREDNISolone 40 MG in SYRINGE 0 ML IV SCH ×2 (07:37→21:15)
[2019-12-07] MEDS: ASPIRIN 81 MG ECTAB PO SCH (07:37)
--- NOTE | 2019-12-07 11:33 | Surgery Progress Note ---
Date of Service December 07, 2019 Assessment & Plan (1) Acute cholecystitis: 89 year-old with recent transfer from our ED to [facility] on 11/25/2019 for acute cholecystitis for percutaneous cholecystostomy tube (which was not placed) who presented to ED on 12/04/2019 with complaint of shortness of breath and lower extremity edema. Ultrasound showed gallstones/sludge, wall thickening at 5 mm, and mild pericholecystic fluid concerning for acute cholecystitis. T. bili and lfts wnl. 12/05/2019: Patient still denying abdominal pain Leukocytosis increased to 17K while on IV Zosyn and Vancomycin no abdominal pain on examination febrile last night ,t max 38.1 HIDA scan ordered today 12/06/2019: No abdominal pain, n/v abdominal exam benign HIDA scan with no cystic duct obstruction but decrease EF at 16% Mild improvement of leukocytosis to 16K 12/07/2019: no abdominal pain, n/v leukocytosis increased to 20K however received IV steroids yesterday tolerating diet HIDA without cystic duct obstruction Plan: No evidence of cystis duct obstruction on HIDA scan so does not need cholecystostomy tube at this time. Would continue antibiotics as he did have acute cholecystitis during his admission in [place] No surgical intervention required at this time. If there is any concern for increase cholecystitis would need transfer to [facility] for cholecystostomy tube given age, extensive comorbidities. continue medical management He should adhere to low fat diet Our services signing off, call with questions or concerns (2) Sepsis: Etiology likely secondary to respiratory than gallbadder as HIDA scan not showing cystic duct obstruction leukocytosis increased today (likely secondary to IV steroids) plan as above. Dr. Erickson was present during my examination and agrees with above. Subjective feeling better today no abdominal pain, n/v tolerated breakfast this morning without abdominal pain, n/v breathing better today Physical Exam Constitutional: WD/WN, vitals as above + obese; not ill appearing Respiratory: no respiratory distress and no labored breathing Auscultation: no wheezes oxygen via nasal cannula Gastrointestinal (Abdomen): Inspection/Auscultation: abdomen not distended Percussion/Palpation: abdomen soft; abdomen nontender, no guarding and abdomen not rigid Skin: no rashes, warm and dry Psychiatric: A+Ox3, euthymic affect Results & Data Vital Signs (Past 12 Hours) Vital Signs Temp Pulse Pulse Resp BP Pulse Ox 12/07/19 11:10 97 H 16 92 12/07/19 11:08 36.5 C 90 22 133/84 92 12/07/19 07: 36.4 C L 90 18 149/78 H 93 12/07/19 06:59 97 H 20 91 12/07/19 02:57 36.7 C 90 22 155/72 H 92 12/07/19 00:35 97 H 22 93 12/07/19 00:27 94 H 12/06/19 23:44 36.7 C 91 H 20 151/72 H 92 Laboratory Results 12/07/19 12/07/19 12/07/19 Range/Units 11:28 11:27 07:20 WBC (4.8-10.8) K/uL RBC (4.7-6.1) M/uL Hgb (14.0-18.0) g/dL Hct (42-52) % MCV (80-100) fL MCH (25-34) pg MCHC (32-36) g/dL RDW Std Deviation (36.4-46.3) fL RDW Coeff of Nav (11.5-14.5) % Plt Count (130-400) K/uL MPV (7.4-10.4) fL Immature Gran % (Auto) % Neut % (Auto) % Lymph % (Auto) % [place] % (Auto) % Eos % (Auto) % Baso % (Auto) % Neut # (Auto) (1.4-6.5) K/uL Lymph # (Auto) (1.2-3.4) K/uL [place] # (Auto) (0.11-0.59) K/uL Eos # (Auto) (0-0.5) K/uL Baso # (Auto) (0-0.2) K/uL Immature Gran # (Auto) (0.00-0.02) K/uL Sodium (136-145) mmol/L Potassium (3.5-5.1) mmol/L Chloride (98-107) mmol/L Carbon Dioxide (21-32) mmol/L Anion Gap (3-11) BUN (7-18) mg/dl Creatinine (0.6-1.4) mg/dl Est Cr Clr Drug Dosing ml/min Est GFR ( Amer) Est GFR (Non-Af Amer) BUN/Creatinine Ratio (10-20) Glucose (70-99) mg/dl POC Glucose 313 H* 307 H* 287 H (70-99) mg/dl Calcium (8.5-10.1) mg/dl Phosphorus (2.5-4.9) mg/dl Magnesium (1.8-2.4) mg/dl 12/07/19 12/07/19 12/07/19 Range/Units 07:19 06:10 06:10 WBC 20.76 H (4.8-10.8) K/uL RBC 2.95 L (4.7-6.1) M/uL Hgb 8.5 L (14.0-18.0) g/dL Hct 27.4 L (42-52) % MCV 92.9 (80-100) fL MCH 28.8 (25-34) pg MCHC 31.0 L (32-36) g/dL RDW Std Deviation 45.6 (36.4-46.3) fL RDW Coeff of Nav 13.6 (11.5-14.5) % Plt Count 571 H (130-400) K/uL MPV 10.5 H (7.4-10.4) fL Immature Gran % (Auto) 0.7 % Neut % (Auto) 91.8 % Lymph % (Auto) 3.9 % [place] % (Auto) 3.6 % Eos % (Auto) 0.0 % Baso % (Auto) 0.0 % Neut # (Auto) 19.07 H (1.4-6.5) K/uL Lymph # (Auto) 0.80 L (1.2-3.4) K/uL [place] # (Auto) 0.74 H (0.11-0.59) K/uL Eos # (Auto) 0.00 (0-0.5) K/uL Baso # (Auto) 0.00 (0-0.2) K/uL Immature Gran # (Auto) 0.15 H (0.00-0.02) K/uL Sodium 135 L (136-145) mmol/L Potassium 4.1 (3.5-5.1) mmol/L Chloride 102 (98-107) mmol/L Carbon Dioxide 24 (21-32) mmol/L Anion Gap 9.0 (3-11) BUN 36 H D (7-18) mg/dl Creatinine 1.83 H (0.6-1.4) mg/dl Est Cr Clr Drug Dosing 31.5 ml/min Est GFR ( Amer) 37.3 Est GFR (Non-Af Amer) 32.2 BUN/Creatinine Ratio 19.6 (10-20) Glucose 275 H (70-99) mg/dl POC Glucose 301 H* (70-99) mg/dl Calcium 9.0 (8.5-10.1) mg/dl Phosphorus 2.7 (2.5-4.9) mg/dl Magnesium 2.0 (1.8-2.4) mg/dl 12/06/19 12/06/19 12/06/19 Range/Units 20:40 16:27 16:24 WBC (4.8-10.8) K/uL RBC (4.7-6.1) M/uL Hgb (14.0-18.0) g/dL Hct (42-52) % MCV (80-100) fL MCH (25-34) pg MCHC (32-36) g/dL RDW Std Deviation (36.4-46.3) fL RDW Coeff of Nav (11.5-14.5) % Plt Count (130-400) K/uL MPV (7.4-10.4) fL Immature Gran % (Auto) % Neut % (Auto) % Lymph % (Auto) % [place] % (Auto) % Eos % (Auto) % Baso % (Auto) % Neut # (Auto) (1.4-6.5) K/uL Lymph # (Auto) (1.2-3.4) K/uL [place] # (Auto) (0.11-0.59) K/uL Eos # (Auto) (0-0.5) K/uL Baso # (Auto) (0-0.2) K/uL Immature Gran # (Auto) (0.00-0.02) K/uL Sodium (136-145) mmol/L Potassium (3.5-5.1) mmol/L Chloride (98-107) mmol/L Carbon Dioxide (21-32) mmol/L Anion Gap (3-11) BUN (7-18) mg/dl Creatinine (0.6-1.4) mg/dl Est Cr Clr Drug Dosing ml/min Est GFR ( Amer) Est GFR (Non-Af Amer) BUN/Creatinine Ratio (10-20) Glucose (70-99) mg/dl POC Glucose 338 H* 303 H* 302 H* (70-99) mg/dl Calcium (8.5-10.1) mg/dl Phosphorus (2.5-4.9) mg/dl Magnesium (1.8-2.4) mg/dl 12/06/19 Range/Units 11:33 WBC (4.8-10.8) K/uL RBC (4.7-6.1) M/uL Hgb (14.0-18.0) g/dL Hct (42-52) % MCV (80-100) fL MCH (25-34) pg MCHC (32-36) g/dL RDW Std Deviation (36.4-46.3) fL RDW Coeff of Nav (11.5-14.5) % Plt Count (130-400) K/uL MPV (7.4-10.4) fL Immature Gran % (Auto) % Neut % (Auto) % Lymph % (Auto) % [place] % (Auto) % Eos % (Auto) % Baso % (Auto) % Neut # (Auto) (1.4-6.5) K/uL Lymph # (Auto) (1.2-3.4) K/uL [place] # (Auto) (0.11-0.59) K/uL Eos # (Auto) (0-0.5) K/uL Baso # (Auto) (0-0.2) K/uL Immature Gran # (Auto) (0.00-0.02) K/uL Sodium (136-145) mmol/L Potassium (3.5-5.1) mmol/L Chloride (98-107) mmol/L Carbon Dioxide (21-32) mmol/L Anion Gap (3-11) BUN (7-18) mg/dl Creatinine (0.6-1.4) mg/dl Est Cr Clr Drug Dosing ml/min Est GFR ( Amer) Est GFR (Non-Af Amer) BUN/Creatinine Ratio (10-20) Glucose (70-99) mg/dl POC Glucose 184 H (70-99) mg/dl Calcium (8.5-10.1) mg/dl Phosphorus (2.5-4.9) mg/dl Magnesium (1.8-2.4) mg/dl
--- NOTE | 2019-12-07 12:08 | Hospitalist Progress Note ---
Date of Service December 07, 2019 Assessment & Plan (1) Sepsis: Presented with fever and shortness of breath with low saturation Noted to have leukocytosis Sepsis secondary to bilateral basal infiltration doubt any acute cholecystitis Has been on intravenous Zosyn and vancomycin Will discontinue vancomycin and continue with Zosyn we will add doxycycline to cover for atypicals Showing improvement but remains mildly short of breath Clinically much better will discharge on Augmentin to finish a total of 10 days course of antibiotic Heart block Noted to have bradycardia with Mobitz type I/II heart block No cardiac pain and/or distress Appreciate cardiology input and recommendation Will hold beta-meli for now Start hydralazine for high blood pressure Heart rate is stable and no more arrhythmias (2) Pneumonia of both lower lobes: This is an 89-year-old male who has significant PMH of T2DM, HTN, HLD, AAA infrarenal 6.3 x 5.4 cm nonsurgical candidate, COPD, CKD stage III, carotid artery stenosis, renal artery stenosis, history of prostate cancer, GERD, hepatic steatosis, history of rectus sheath hematoma who presents to ED secondary to worsening cough, shortness of breath and lower extremity edema x3 days. Has been on intravenous Zosyn and doxycycline Will continue with oral Augmentin to cover GI and doxycycline to cover atypicals (3) Cholecystitis: Patient with recent diagnosis of acute cholecystitis Transfer to tertiary care center [place] in [place] Was treated conservatively with IV antibiotics, WBC peaked at 25,000 and at discharge was 11 K LFTS WNL Treated with Vanco and IV Zosyn and discharged home on oral Augmentin twice daily Ultrasound did not show thickened gallbladder wall with possibility of cholecystitis Hepatobiliary scan is not showing any obstruction but he does have reduced EF Appreciate surgery input and recommendation No surgical intervention and will continue conservative management Continue with Augmentin for a total of 10 days of antibiotics (4) CHF (congestive heart failure): Acute CHF of unspecified type due to no baseline echo in records, but likely diastolic pt with volume overload on exam and reports of orthopnea probnp 8516 Give Lasix IV 20mg x 1 and start 40mg oral Lasix daily Echo showed EF of 55 to 60%, moderate concentric LV hypertrophy, basal septum is thickened and angulated consistent with sigmoid septum, aortic valve sclerosis moderate without stenosis, mild MR and trace TR. Estimated systolic pulmonary artery Pressure is 34 mmHg Now euvolemic (5) Anemia: H&H 8.0 and 24.8 Iron 16, ferritin 359, TIBC 194 Anemia of renal disease No signs or symptoms of bleeding Monitor H&H, check fecal occult blood Hemoglobin is 7.8 as of 12/05/2019 (6) COPD (chronic obstructive pulmonary disease): With acute exacerbation given increasing shortness of breath and sputum production Continue Symbicort and DuoNeb Incentive spirometry Has been complaining of more wheezing and shortness of breath Likely has exacerbation and will add intravenous Solu-Medrol No more wheezing and the shortness of breath is at his baseline We will start with oral prednisone 40 mg daily with tapering dose Will get to do steps O2 saturation before discharge PT and OT evaluation before discharge (7) Abdominal aortic aneurysm (AAA) greater than 5.5 cm in diameter in male: Follows vascular and [facility] cardiology Recent slight increase in size 6.3 x 5.4 cm infrarenal aortic aneurysm Not surgical candidate maintain good BP control (8) Diabetes mellitus: Last A1C 8.0 09/2018 repeat A1C in a.m. hold glipizide Insulin sliding scale per protocol (9) HTN (hypertension): Blood pressure remains elevated Lisinopril and metoprolol are on hold for increasing creatinine and also recent diagnosis of Mobitz type I/II heart block Hydralazine has been added (10) CKD (chronic kidney disease) stage 3, GFR 30-59 ml/min: baseline Cr 1.3-1.5 BUN/creatinine 19 and 1.59 Monitor (11) Bilateral renal artery stenosis: Patient underwent CTA abdomen pelvis on 11/24 which revealed severe bilateral renal artery stenosis He also has known further vascular disease with carotid artery stenosis and enlarging AAA [place] he was started on aspirin 81 mg daily; however, this was not continued Resume ASA 81mg daily, recommend starting statin when medically stable Reduce losartan from 100mg to 25mg. Risk outweighs benefit with ARB given need to control BP in setting of AAA Consider discontinuing losartan all together if rise in cr (12) DVT prophylaxis: SQ heparin Disposition: admit to PCU, case management consulted Follow up: PCP Dr. Lambert at [facility] upon discharge Discussed with the in detail Likely will discharge this afternoon Admission and Anticipated Discharge Date Admission Date: December 04, 2019 Subjective The patient was seen and examined in telemetry unit He is an 89-year-old male with significant complicated past medical history as mentioned in the H&P was admitted yesterday with sepsis likely secondary to bibasilar pneumonia He has been feeling little bit better today Denies any abdominal pain and/or distention, no nausea and or vomiting, no fever and/or chills 12/06/2019 The patient was seen and examined in telemetry unit He complains to have wheezing with shortness of breath but denies any chest pain No arrhythmias noted in the monitor Denies any fever and/or chills 12/07/2019 Patient was seen and examined in telemetry unit He has been feeling a lot better and is back to his baseline Denies any increasing shortness of breath and does not have any wheezing Will need to have a 12 steps O2 saturation before discharge this afternoon Review of Systems Review of Systems: All systems reviewed and are unremarkable except as noted below Respiratory: + dyspnea on exertion; no cough and no dyspnea Physical Exam Physical Exam: Lying in bed with minimal shortness of breath Constitutional: well developed and well nourished; no acute distress and not ill appearing Eyes: PERRL, conjunctivae normal, anicteric sclerae ENMT: external ear and nose normal, oropharynx normal Neck: trachea midline, no thyromegaly Respiratory: + respiratory distress (Minimal distress) Auscultation: + diminished lung sounds (Minimal bibasilar crackles); no wheezes Cardiovascular: Rate/Rhythm: regular rate and regular rhythm Heart Sounds: + murmur Extremities: + pedal edema (1+ bilaterally more on the left than the right) Gastrointestinal (Abdomen): Inspection/Auscultation: normal bowel sounds; abdomen not distended Percussion/Palpation: abdomen soft; abdomen nontender Musculoskeletal: No acute arthritis involving any joints Neurologic: moves all extremities; no focal motor deficits Alert, awake and oriented x3 Results & Data Results & Data ([facility]) Vital Signs (Past 12 Hours) Vital Signs Temp Pulse Pulse Resp BP Pulse Ox 12/07/19 11:10 97 H 16 92 12/07/19 11:08 36.5 C 90 22 133/84 92 12/07/19 07:20 36.4 C L 90 18 149/78 H 93 12/07/19 06:59 97 H 20 91 12/07/19 02:57 36.7 C 90 22 155/72 H 92 12/07/19 00:35 97 H 22 93 12/07/19 00:27 94 H Laboratory Results Short CBC 07/10/20 Range/Units 06:10 WBC 20.76 H (4.8-10.8) K/uL Hgb 8.5 L (14.0-18.0) g/dL Hct 27.4 L (42-52) % Plt Count 571 H (130-400) K/uL BMP 12/07/19 06:10 Sodium 135 L Potassium 4.1 Chloride 102 Carbon Dioxide 24 BUN 36 H D Creatinine 1.83 H Glucose 275 H Calcium 9.0 Medications Administered Current Inpatient Medications Acetaminophen (Tylenol) 650 mg PO Q4H PRN PRN Reason: Pain or Fever Stop: 01/03/20 14:40 Last Admin: 12/05/19 22:17 Dose: 650 mg Documented by: Al Hydrox/Mg Hydrox/Simethicone (Maalox) 15 ml PO Q4H PRN PRN Reason: Dyspepsia Stop: 01/03/20 14:40 Albuterol (Duoneb) 3 ml NEB QIDR [facility] Stop: 01/03/20 14:59 Last Admin: 12/07/19 11:10 Dose: 3 ml Documented by: Amlodipine [facility]ylate ([facility]vasc) [facility] [place]: 01/04/20 08:59 Last Admin: 12/07/19 07:36 Dose: 10 mg Documented by: Aspirin (Ecotrin Ectab) 81 mg PO DAILY [facility] Stop: 01/04/20 08:59 Last Admin: 12/07/19 07:37 Dose: 81 mg Documented by: Atenolol (Tenormin) 25 mg PO QAM [facility] Stop: 01/03/20 14:40 Last Admin: 12/05/19 11:51 Dose: Not Given Documented by: Dextrose (Dextrose 50%) 25 - 50 ml IV UD PRN; Protocol PRN Reason: Hypoglycemia Protocol Stop: 01/03/20 14:40 Fluticasone/Vilanterol (Breo Ellipta 100/25 Mcg Inh) 1 puffs INH DAILY [facility] Stop: 01/04/20 08:59 Last Admin: 12/07/19 07:35 Dose: 1 puffs Documented by: Furosemide (Lasix) 40 mg PO QAM [facility] Stop: 01/03/20 14:40 Last Admin: 12/04/19 15:43 Dose: 40 mg Documented by: Glucagon (Glucagen) 1 mg SQ UD PRN; Protocol PRN Reason: Hypoglycemia Protocol Stop: 01/03/20 14:40 Glucose (Dex4 Glucose) 4 - 8 tabs PO UD PRN; Protocol PRN Reason: Hypoglycemia Protocol Stop: 01/03/20 14:40 Glucose (Glucose 40%) 15 - 30 gm PO UD PRN; Protocol PRN Reason: Hypoglycemia Protocol Stop: 01/03/20 14:40 Heparin Sodium (Porcine) (Heparin Sodium (Porcine)) 5,000 units SQ Q8H [facility] Stop: 01/03/20 15:59 Last Admin: 12/07/19 07:35 Dose: 5,000 units Documented by: Piperacillin Sod/Tazobactam (Sod 3.375 gm/ Dextrose) 115 mls @ 28.75 mls/hr IV Q8H [facility]; Protocol Stop: 12/11/19 21:59 Last Admin: 12/07/19 09:01 Dose: 28.8 mls/hr Documented by: Doxycycline Hyclate 100 mg/ (Dextrose) 110 mls @ 50 mls/hr IV Q12H [facility] Stop: 12/12/19 17:59 Last Infusion: 12/07/19 09:00 Dose: Infused Documented by: Methylprednisolone 40 mg/ (Syringe) 0.64 mls @ 1.5 mls/min IV BID [facility] Stop: 01/05/20 10:44 Last Admin: 12/07/19 07:37 Dose: 1.5 mls/min Documented by: Insulin Aspart (Novolog Flexpen) 0 units SC ACHS [facility] Stop: 01/03/20 16:29 Last Admin: 12/07/19 11:46 Dose: 14 units Documented by: Insulin Glargine (Lantus Solostar Pen) 10 units SC HS [facility] Stop: 01/05/20 22:29 Last Admin: 12/06/19 22:46 Dose: 10 units Documented by: Magnesium Hydroxide (Milk Of Magnesia) 30 ml PO Q12H PRN PRN Reason: Constipation Stop: 01/03/20 14:40 Magnesium Oxide (Mag-Ox) 400 mg PO QAM [facility] Stop: 01/04/20 08:59 Last Admin: 12/07/19 07:36 Dose: 400 mg Documented by: Miscellaneous (Carbohydrates For Hypoglycemia) 15 - 30 gm PO UD PRN PRN Reason: Hypoglycemia Protocol Stop: 01/03/20 14:40 Miscellaneous Information (Consult) 1 ea N/A UD PRN PRN Reason: Consult Stop: 01/03/20 14:40 Pantoprazole Sodium (Protonix) 40 mg PO QAM [facility] Stop: 01/03/20 14:40 Last Admin: 12/07/19 07:36 Dose: 40 mg Documented by: Polyethylene Glycol (Miralax Powder Packet) 17 gm PO DAILY PRN PRN Reason: Constipation Stop: 01/03/20 14:40 (1) Pneumonia of both lower lobes Pneumonia type: due to unspecified organism Qualified Code(s): J18.9 - Pneumonia, unspecified organism
[2019-12-07] MEDS ORDERED: LANTUS PER UNIT CHARGE SQ STA (14:02)
[2019-12-07] MEDS: AMOXICILLIN/CLAVULANATE 875 MG TAB PO SCH (16:41)
[2019-12-07] MEDS: INSULIN GLARGINE SOLOSTAR 100 UNITS/ML 3 ML PEN SC SCH (21:14)
[2019-12-07] MEDS: DOXYCYCLINE HYCLATE 100 MG CAP PO SCH (21:15)
[2019-12-08] MEDS: HEPARIN SOD 5,000 UNIT/0.5 ML VIAL SQ SCH ×2 (00:36→07:46)
[2019-12-08] MEDS: INSULIN ASPART 100 UNITS/ML 3 ML PEN SC SCH ×3 (07:44→14:34)
[2019-12-08] MEDS: DOXYCYCLINE HYCLATE 100 MG CAP PO SCH (07:47)
[2019-12-08] MEDS: FLUTICASONE/VILANTEROL 100/25MCG 14 PUFFS/INHALER INH SCH (07:48)
[2019-12-08] MEDS: AMOXICILLIN/CLAVULANATE 875 MG TAB PO SCH (07:48)
[2019-12-08] MEDS: MAGNESIUM OXIDE 400 MG TAB PO SCH (07:49)
[2019-12-08] MEDS: AMLODIPINE BESYLATE 5 MG TAB PO SCH (07:49)
[2019-12-08] MEDS: ASPIRIN 81 MG ECTAB PO SCH (07:50)
[2019-12-08] MEDS: PANTOprazole 40 MG TAB PO SCH (07:50)
[2019-12-08] MEDS: methylPREDNISolone 40 MG in SYRINGE 0 ML IV SCH (07:52)
[2019-12-08] MEDS: ALBUT/IPRATROP 3MG/0.5MG NEB 3 ML VIAL NEB SCH ×2 (08:00→11:21)
[2019-12-08 09:55] LABS: BUN Creatinine Ratio 25.5 (10-20); Calcium 8.9 mg/dl (8.5-10.1); Creatinine Clr Calc Pharmacy 32.9 ml/min; Est GFR (African American) 39.4; Potassium 4.3 mmol/L (3.5-5.1)
[2019-12-08 10:09] LABS: Beta-Hydroxybutyrate 4.17 mg/dl (0.2-2.81)
--- NOTE | 2019-12-08 13:08 | Hospitalist Progress Note ---
Date of Service December 08, 2019 Assessment & Plan (1) Sepsis: Presented with fever and shortness of breath with low saturation Noted to have leukocytosis Sepsis secondary to bilateral basal infiltration doubt any acute cholecystitis Has been on intravenous Zosyn and vancomycin Will discontinue vancomycin and continue with Zosyn we will add doxycycline to cover for atypicals Showing improvement but remains mildly short of breath Clinically much better will discharge on Augmentin to finish a total of 10 days course of antibiotic Remains asymptomatic and will be discharged home this afternoon Heart block Noted to have bradycardia with Mobitz type I/II heart block No cardiac pain and/or distress Appreciate cardiology input and recommendation Will hold beta-meli for now Start hydralazine for high blood pressure Heart rate is stable and no more arrhythmias We will continue hydralazine as an outpatient and hold beta-meli (2) Pneumonia of both lower lobes: This is an 89-year-old male who has significant PMH of T2DM, HTN, HLD, AAA in frarenal 6.3 x 5.4 cm nonsurgical candidate, COPD, CKD stage III, carotid artery stenosis, renal artery stenosis, history of prostate cancer, GERD, hepatic steatosis, history of rectus sheath hematoma who presents to ED secondary to worsening cough, shortness of breath and lower extremity edema x3 days. Has been on intravenous Zosyn and doxycycline Will continue with oral Augmentin to cover GI and doxycycline to cover atypicals (3) Cholecystitis: Patient with recent diagnosis of acute cholecystitis Transfer to tertiary care center [place] in [place] Was treated conservatively with IV antibiotics, WBC peaked at 25,000 and at discharge was 11 K LFTS WNL Treated with Vanco and IV Zosyn and discharged home on oral Augmentin twice daily Ultrasound did not show thickened gallbladder wall with possibility of cholecystitis Hepatobiliary scan is not showing any obstruction but he does have reduced EF Appreciate surgery input and recommendation No surgical intervention and will continue conservative management Continue with Augmentin for a total of 10 days of antibiotics No abdominal symptoms as of this morning (4) CHF (congestive heart failure): Acute CHF of unspecified type due to no baseline echo in records, but likely diastolic pt with volume overload on exam and reports of orthopnea probnp 8516 Give Lasix IV 20mg x 1 and start 40mg oral Lasix daily Echo showed EF of 55 to 60%, moderate concentric LV hypertrophy, basal septum is thickened and angulated consistent with sigmoid septum, aortic valve sclerosis moderate without stenosis, mild MR and trace TR. Estimated systolic pulmonary artery Pressure is 34 mmHg Now euvolemic (5) Anemia: H&H 8.0 and 24.8 Iron 16, ferritin 359, TIBC 194 Anemia of renal disease No signs or symptoms of bleeding Monitor H&H, check fecal occult blood Hemoglobin is 7.8 as of 12/05/2019 (6) COPD (chronic obstructive pulmonary disease): With acute exacerbation given increasing shortness of breath and sputum production Continue Symbicort and DuoNeb Incentive spirometry Has been complaining of more wheezing and shortness of breath Likely has exacerbation and will add intravenous Solu-Medrol No more wheezing and the shortness of breath is at his baseline We will start with oral prednisone 40 mg daily with tapering dose Will get to do steps O2 saturation before discharge PT and OT evaluation before discharge Will be discharged home this afternoon (7) Abdominal aortic aneurysm (AAA) greater than 5.5 cm in diameter in male: Follows vascular [place] [facility] [place] Recent slight increase in size 6.3 x 5.4 cm infrarenal aortic aneurysm Not surgical candidate maintain good BP control (8) Diabetes mellitus: Last A1C 8.0 09/2018 repeat A1C in a.m. hold glipizide Insulin sliding scale per protocol (9) HTN (hypertension): Blood pressure remains elevated Lisinopril and metoprolol are on hold for increasing creatinine and also recent diagnosis of Mobitz type I/II heart block Hydralazine has been added (10) CKD (chronic kidney disease) stage 3, GFR 30-59 ml/min: baseline Cr 1.3-1.5 BUN/creatinine 19 and 1.59 Monitor (11) Bilateral renal artery stenosis: Patient underwent CTA abdomen pelvis on 11/24 which revealed severe bilateral adelia al artery stenosis He also has known further vascular disease with carotid artery stenosis and enlarging AAA At [place] he was started on aspirin 81 mg daily; however, this was not continued Resume ASA 81mg daily, recommend starting statin when medically stable Reduce losartan from 100mg to 25mg. Risk outweighs benefit with ARB given need to control BP in setting of AAA Consider discontinuing losartan all together if rise in cr (12) DVT prophylaxis: SQ heparin Disposition: admit to PCU, case management consulted Follow up: PCP Dr. Lambert at [facility] upon discharge Discussed with the in detail Will be discharged home this afternoon Admission and Anticipated Discharge Date Admission Date: December 04, 2019 Subjective The patient was seen and examined in telemetry unit He is an 89-year-old male with significant complicated past medical history as mentioned in the H&P was admitted yesterday with sepsis likely secondary to bibasilar pneumonia He has been feeling little bit better today Denies any abdominal pain and/or distention, no nausea and or vomiting, no fever and/or chills 12/06/2019 The patient was seen and examined in telemetry unit He complains to have wheezing with shortness of breath but denies any chest pain No arrhythmias noted in the monitor Denies any fever and/or chills 12/07/2019 Patient was seen and examined in telemetry unit He has been feeling a lot better and is back to his baseline Denies any increasing shortness of breath and does not have any wheezing Will need to have a 12 steps O2 saturation before discharge this afternoon 12/08/2019 The patient was seen and examined in presence of the He is completely different person today Denies any wheezing and has minimal shortness of breath at rest He feels he is at his baseline and wants to go home Review of Systems Review of Systems: All systems reviewed and are unremarkable except as noted below Respiratory: + dyspnea on exertion; no cough and no dyspnea Physical Exam Physical Exam: Sitting on a chair without any acute distress Constitutional: well developed, well nourished and + obese; no acute distress and not ill appearing Eyes: PERRL, conjunctivae normal, anicteric sclerae ENMT: external ear and nose normal, oropharynx normal Neck: trachea midline, no thyromegaly Respiratory: + respiratory distress (Minimal distress at rest) Auscultation: + diminished lung sounds (Minimal bibasilar crackles); no wheezes Cardiovascular: Rate/Rhythm: regular rate and regular rhythm Heart Sounds: + murmur Extremities: + pedal edema (Trace edema bilaterally) Gastrointestinal (Abdomen): Inspection/Auscultation: normal bowel sounds; abdomen not distended Percussion/Palpation: abdomen soft; abdomen nontender Musculoskeletal: No acute arthritis involving any joints Neurologic: moves all extremities; no focal motor deficits Alert, awake and oriented x3 Lymphatic: no cervical or axillary lymphadenopathy Results & Data Results & Data ([facility]) Vital Signs (Past 12 Hours) Vital Signs Temp Pulse Pulse Resp BP Pulse Ox 12/08/19 11:22 95 H 20 90 12/08/19 11:12 36.6 C 101 H 26 H 151/76 H 12/08/19 10:49 87 L 12/08/19 08:00 100 H 22 89 L 12/08/19 07:20 36.6 C 102 H 24 141/97 H 89 L 12/08/19 04:47 36.8 C 114 H 22 153/91 H 91 Laboratory Results [facility] 12/08/19 08:59 Sodium 134 L Potassium 4.3 Chloride 103 Carbon Dioxide 22 BUN 45 H Creatinine 1.75 H Glucose 304 H* Calcium 8.9 Medications Administered Current Inpatient Medications Acetaminophen (Tylenol) 650 mg PO Q4H PRN PRN Reason: Pain or Fever Stop: 01/03/20 14:40 Last Admin: 12/05/19 22:17 Dose: 650 mg Documented by: Al Hydrox/Mg Hydrox/Simethicone (Maalox) 15 ml PO Q4H PRN PRN Reason: Dyspepsia Stop: 01/03/20 14:40 Albuterol (Duoneb) 3 ml NEB QIDR [facility] Stop: 01/03/20 14:59 Last Admin: 12/08/19 11:21 Dose: 3 ml Documented by: Amlodipine Besylate (Norvasc) 10 mg PO QAM [facility] Stop: 01/04/20 08:59 Last Admin: 12/08/19 07:49 Dose: 10 mg Documented by: Amoxicillin/Clavulanate Potassium (Augmentin 875mg) 1 tab PO BIDM [facility] Stop: 12/17/19 16:59 Last Admin: 12/08/19 07:48 Dose: 1 tab Documented by: Aspirin (Ecotrin Ectab) 81 mg PO DAILY [facility] Stop: 01/04/20 08:59 Last Admin: 12/08/19 07:50 Dose: 81 mg Documented by: Atenolol (Tenormin) 25 mg PO QAM [facility] Stop: 01/03/20 14:40 Last Admin: 12/05/19 11:51 Dose: Not Given Documented by: Dextrose (Dextrose 50%) 25 - 50 ml IV UD PRN; Protocol PRN Reason: Hypoglycemia Protocol Stop: 01/03/20 14:40 Doxycycline Hyclate (Vibramycin) 100 mg PO BID [facility]; Protocol Stop: 12/12/19 20:59 Last Admin: 12/08/19 07:47 Dose: 100 mg Documented by: Fluticasone/Vilanterol (Breo Ellipta 100/25 Mcg Inh) 1 puffs INH DAILY [facility] Stop: 01/04/20 08:59 Last Admin: 12/08/19 07:48 Dose: 1 puffs Documented by: Furosemide (Lasix) 40 mg PO QAM [facility] Stop: 01/03/20 14:40 Last Admin: 12/04/19 15:43 Dose: 40 mg Documented by: Glucagon (Glucagen) 1 mg SQ UD PRN; Protocol PRN Reason: Hypoglycemia Protocol Stop: 01/03/20 14:40 Glucose (Dex4 Glucose) 4 - 8 tabs PO UD PRN; Protocol PRN Reason: Hypoglycemia Protocol Stop: 01/03/20 14:40 Glucose (Glucose 40%) 15 - 30 gm PO UD PRN; Protocol PRN Reason: Hypoglycemia Protocol Stop: 01/03/20 14:40 Heparin Sodium (Porcine) (Heparin Sodium (Porcine)) 5,000 units SQ Q8H [facility] Stop: 01/03/20 15:59 Last Admin: 12/08/19 07:46 Dose: 5,000 units Documented by: Methylprednisolone 40 mg/ (Syringe) 0.64 mls @ 1.5 mls/min IV BID [facility] Stop: 01/05/20 10:44 Last Admin: 12/08/19 07:52 Dose: 1.5 mls/min Documented by: Insulin Aspart (Novolog Flexpen) 0 units SC ACHS [facility] Stop: 01/03/20 16:29 Last Admin: 12/08/19 11:45 Dose: 15 units Documented by: Insulin Glargine (Lantus Solostar Pen) 10 units SC HS [facility] Stop: 01/05/20 22:29 Last Admin: 12/07/19 21:14 Dose: 10 units Documented by: Magnesium Hydroxide (Milk Of Magnesia) 30 ml PO Q12H PRN PRN Reason: Constipation Stop: 01/03/20 14:40 Magnesium Oxide (Mag-Ox) 400 mg PO QAM [facility] Stop: 01/04/20 08:59 Last Admin: 12/08/19 07:49 Dose: 400 mg Documented by: Miscellaneous (Carbohydrates For Hypoglycemia) 15 - 30 gm PO UD PRN PRN Reason: Hypoglycemia Protocol Stop: 01/03/20 14:40 Pantoprazole Sodium (Protonix) 40 mg PO QAM [facility] Stop: 01/03/20 14:40 Last Admin: 12/08/19 07:50 Dose: 40 mg Documented by: Polyethylene Glycol (Miralax Powder Packet) 17 gm PO DAILY PRN PRN Reason: Constipation Stop: 01/03/20 14:40 (1) Pneumonia of both lower lobes Pneumonia type: due to unspecified organism Qualified Code(s): J18.9 - Pneumonia, unspecified organism
--- NOTE | 2019-12-09 08:03 | Discharge Summary ---
Date of Service December 09, 2019 Admission HPI Per Admitting Provider This is an 89-year-old male who has significant PMH of T2DM, HTN, HLD, AAA infrarenal 6.3 x 5.4 cm nonsurgical candidate, COPD, CKD stage III, carotid artery stenosis, renal artery stenosis, history of prostate cancer, GERD, hepatic steatosis, history of rectus sheath hematoma who presents to ED secondary to worsening cough, shortness of breath and lower extremity edema x3 days. Of significance patient was seen and evaluated in the ED on 11/24 and transferred to [facility] secondary to acute cholecystitis. Given his significant AAA it was felt he would benefit from tertiary center due to possible need for PERC tube placement. He was admitted from 11/24 to 11/30/2019. He was initially treated with IV Zosyn however WBC increased to 25,000 and therefore vancomycin was added. MRSA swab was negative therefore vancomycin was discontinued and he continued treatment with Zosyn with improvement in abdominal pain and leukocytosis. On day of discharge his WBC was 11k. According to records per family surgery was not preferred and therefore he was treated conservatively, a percutaneous drain was considered if he did not improve. He was discharged home on oral Augmentin twice a day for 10 days. He has been compliant with antibiotics. According to patient and his symptoms have worsened over the past 3 days including increasing shortness of breath, productive cough of brown sputum, orthopnea, increased lower extremity swelling and general malaise. He denies feeling feverish, chills, sweats, lightheadedness, dizziness, syncope, chest pain, shortness breath at rest, nausea, vomiting, abdominal pain, diarrhea, melena, hematochezia, dysuria, increased urgency or frequency with urination, hematuria. In ED patient was significantly hypertensive and febrile at 38.2. His O2 satu rations were approximately 91% on room air. Per CMS guidelines he did meet sepsis criteria with leukocytosis and fever. Chest x-ray concerning for bibasilar pneumonitis. Lab work notable for WBC 15.1 9K, H&H 8.0 24.8, K3.4, BUN 19, creatinine 1.59, glucose 193, lactic acid 1.0, troponin 0.031, procalcitonin 0.26. COVID-19 PCR negative. He did receive broad-spectrum IV antibiotics with vancomycin and cefepime. Admission Exam Per Admitting Provider Physical Exam: Constitutional: WD/WN, elderly, M, vitals as above, NAD, sitting up in bed, pleasant, conversing easily Head: Normocephalic, Atraumatic Eyes: PERRL, conjunctivae normal, anicteric sclerae ENMT: b/l hearing aides intact, external ear and nose normal, oropharynx normal Neck: trachea midline, no thyromegaly normal visual inspection Respiratory: increased respiratory effort, lungs clear to auscultation, bibasilar crackles noted with prolonged exp phase, no wheeze or rhonchi. No accessory muscle use Cardiovascular: RRR, 2/6 SJ noted RUSB, b/l +1 pretibial edema, no erythema, negative homans, b/l pedal pulse +1 Vessels: no JVD or carotid bruit Chest: normal inspection of chest Abdomen:protuberant abd, normal bowel sounds, firm, nontender, no hepatosplenomegaly Musculoskeletal: no cyanosis or clubbing, extremities motor strength 5/5 Skin: no rashes, warm and dry normal turgor Neurologic: PERRL, EOMI, accommodation nl, no face palsy, no dysarthria CN's II-XI intact bilaterally and moves all extremities Psychiatric: A+Ox3, euthymic affect Lymphatic: no cervical or axillary lymphadenopathy : deferred Principal Diagnosis Pneumonia involving both lower lobes, possible acute cholecystitis, bradyarrhythmia with Mobitz type I/II heart block, CHF, COPD. Diabetes type 2, CKD Discharge Exam Constitutional well developed, well nourished and + obese; no acute distress and not ill appearing Eyes PERRL, conjunctivae normal, anicteric sclerae ENMT external ear and nose normal, oropharynx normal Neck trachea midline, no thyromegaly Respiratory + respiratory distress (Minimal distress at rest) Auscultation: + diminished lung sounds (Minimal bibasilar crackles); no wheezes Cardiovascular Rate/Rhythm: regular rate and regular rhythm Heart Sounds: + murmur Extremities: + pedal edema (Trace edema bilaterally) Gastrointestinal (Abdomen) Inspection/Auscultation: normal bowel sounds; abdomen not distended Percussion/Palpation: abdomen soft; abdomen nontender Neurologic moves all extremities; no focal motor deficits Lymphatic no cervical or axillary lymphadenopathy Discharge Data Allergies Allergy/AdvReac Type Severity Reaction Status Date / Time No Known Drug Allergies Allergy Verified 12/04/19 07:21 Consultations 12/04/19 09:50 ED Decision to Admit Stat 12/04/19 14:41 Consult Case Management - Discharge Planning Routine 12/04/19 14:47 Consult General Surgery Routine 12/05/19 05:53 Consult Cardiology Routine Ordered Studies 12/04/19 12:07 US abdomen limited Routine US venous doppler LE Stat Hospital Course (1) Sepsis: Presented with fever and shortness of breath with low saturation Noted to have leukocytosis Sepsis secondary to bilateral basal infiltration doubt any acute cholecystitis Has been on intravenous Zosyn and vancomycin Will discontinue vancomycin and continue with Zosyn we will add doxycycline to cover for atypicals Showing improvement but remains mildly short of breath Clinically much better will discharge on Augmentin to finish a total of 10 days course of antibiotic Remains asymptomatic and will be discharged home this afternoon Heart block Noted to have bradycardia with Mobitz type I/II heart block No cardiac pain and/or distress Appreciate cardiology input and recommendation Will hold beta-meli for now Start hydralazine for high blood pressure Heart rate is stable and no more arrhythmias We will continue hydralazine as an outpatient and hold beta-meli (2) Pneumonia of both lower lobes: This is an 89-year-old male who has significant PMH of T2DM, HTN, HLD, AAA infrarenal 6.3 x 5.4 cm nonsurgical candidate, COPD, CKD stage III, carotid artery stenosis, renal artery stenosis, history of prostate cancer, GERD, hepatic steatosis, history of rectus sheath hematoma who presents to ED secondary to worsening cough, shortness of breath and lower extremity edema x3 days. Has been on intravenous Zosyn and doxycycline Will continue with oral Augmentin to cover GI and doxycycline to cover atypicals (3) Cholecystitis: Patient with recent diagnosis of acute cholecystitis Transfer to tertiary care center [facility] in [place] Was treated conservatively with IV antibiotics, WBC peaked at 25,000 and at discharge was 11 K LFTS WNL Treated with Vanco and IV Zosyn and discharged home on oral Augmentin twice daily Ultrasound did not show thickened gallbladder wall with possibility of cholecystitis Hepatobiliary scan is not showing any obstruction but he does have reduced EF Appreciate surgery input and recommendation No surgical intervention and will continue conservative management Continue with Augmentin for a total of 10 days of antibiotics No abdominal symptoms as of this morning (4) CHF (congestive heart failure): Acute CHF of unspecified type due to no baseline echo in records, but likely diastolic pt with volume overload on exam and reports of orthopnea probnp [id number] Give Lasix IV 20mg x 1 and start 40mg oral Lasix daily Echo showed EF of 55 to 60%, moderate concentric LV hypertrophy, basal septum is thickened and angulated consistent with sigmoid septum, aortic valve sclerosis moderate without stenosis, mild MR and trace TR. Estimated systolic pulmonary artery Pressure is 34 mmHg Now euvolemic (5) Anemia: H&H 8.0 and 24.8 Iron 16, ferritin 359, TIBC 194 Anemia of renal disease No signs or symptoms of bleeding Monitor H&H, check fecal occult blood Hemoglobin is 7.8 as of 12/05/2019 (6) COPD (chronic obstructive pulmonary disease): With acute exacerbation given increasing shortness of breath and sputum production Continue Symbicort and DuoNeb Incentive spirometry Has been complaining of more wheezing and shortness of breath Likely has exacerbation and will add intravenous Solu-Medrol No more wheezing and the shortness of breath is at his baseline We will start with oral prednisone 40 mg daily with tapering dose Will get to do steps O2 saturation before discharge PT and OT evaluation before discharge Will be discharged home this afternoon (7) Abdominal aortic aneurysm (AAA) greater than 5.5 cm in diameter in male: Follows vascular and [facility] cardiology Recent slight increase in size 6.3 x 5.4 cm infrarenal aortic aneurysm Not surgical candidate maintain good BP control (8) Diabetes mellitus: Last A1C 8.0 09/2018 repeat A1C in a.m. hold glipizide Insulin sliding scale per protocol (9) HTN (hypertension): Blood pressure remains elevated Lisinopril and metoprolol are on hold for increasing creatinine and also recent diagnosis of Mobitz type I/II heart block Hydralazine has been added (10) CKD (chronic kidney disease) stage 3, GFR 30-59 ml/min: baseline Cr 1.3-1.5 BUN/creatinine 19 and 1.59 Monitor (11) Bilateral renal artery stenosis: Patient underwent CTA abdomen pelvis on 11/24 which revealed severe bilateral renal artery stenosis He also has known further vascular disease with carotid artery stenosis and en larging AAA At [facility] he was started on aspirin 81 mg daily; however, this was not continued Resume ASA 81mg daily, recommend starting statin when medically stable Reduce losartan from 100mg to 25mg. Risk outweighs benefit with ARB given need to control BP in setting of AAA Consider discontinuing losartan all together if rise in cr (12) DVT prophylaxis: SQ heparin Disposition: admit to PCU, case management consulted Follow up: PCP Dr. Lambert at [facility] upon discharge Discussed with the in detail Will be discharged home this afternoon Total Time Total Time Spent Total Time Spent (In Minutes): 35 minutes Total Time Includes: Examination of the Patient, Discharge Planning, Medication Reconciliation and Communication With Other Providers Discharge Plan Discharge Items Patient Disposition: Home - Home Health Services Reason For Visit: SEPSIS, PNA Discharge Diagnosis: Pneumonia involving both lower lobes, possible acute cholecystitis, bradyarrhythmia with Mobitz type I/II heart block, CHF, COPD. 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 in about 1 to 2 weeks Pending Studies at Discharge: No Stand-Alone Forms: My [employer], Smoking Cessation Medications and DC Order Prescriptions: New furosemide 40 mg Tablet 40 mg PO QAM 30 Days Qty: 30 RF: 0 doxycycline hyclate 100 mg Capsule 100 mg PO BID 5 Days Qty: 10 RF: 0 aspirin 81 mg Tablet,Delayed Release (Dr/Ec) 81 mg PO DAILY 30 Days Qty: 30 RF: 0 Lactinex 1 million cell tablet,chewable 1 tab PO BID Qty: 30 RF: 0 hydralazine 25 mg tablet 25 mg PO BID Qty: 60 RF: 0 prednisone 20 mg tablet 20 mg PO DAILY 3 Days Qty: 3 RF: 0 Continued magnesium 200 mg tablet 200 mg PO QAM RF: 0 levalbuterol HCl 0.63 mg/3 mL solution for nebulization 0.63 mg Inhalation Q6H PRN (Reason: Shortness Of Breath Or Wheezing) RF: 0 amlodipine 10 mg tablet 10 mg PO QAM RF: 0 pantoprazole 40 mg tablet,delayed release (DR/EC) 40 mg PO QAM RF: 0 albuterol sulfate [Ventolin HFA] 90 mcg/actuation Hfa Aerosol Inhaler 2 puff INHALATION Q6H PRN (Reason: Shortness Of Breath Or Wheezing) RF: 0 glipizide 5 mg tablet 2.5 mg PO BID RF: 0 triamcinolone acetonide [Nasacort] 55 mcg aerosol,spray 2 spray Intranasal QAM PRN (Reason: Congestion) RF: 0 budesonide-formoterol 160-4.5 mcg/actuation Hfa Aerosol Inhaler 2 puff INHALATION Q12H RF: 0 amoxicillin-pot clavulanate 875-125 mg tablet 1 tab PO BID 5 Days Qty: 10 RF: 0 Discontinued atenolol 25 mg tablet 25 mg PO QAM Qty: 90 RF: 3 losartan 100 mg tablet 100 mg PO QAM RF: 0 Discharge Orders: Discharge Order (Routine); Ordered 12/08/19 Ordered By: Karri Garcia Admission Data Admit Date/Time: 12/04/19 11:45 Attending Provider: Karri Garcia Admit Provider: Joaquin Lincoln Primary Care Provider: Shawn Lambert Other Providers: Joaquin Lincoln ; Skip Joy ; Tierney Rosario ; Karan Beltran ; Noemi Holman ; Bereket Jaquez ; Boogie Booth ; Idalia Paulino ; Willian Coleman ; Anny Early ; Jamie Martinez Jr ; Dash Erickson ; Jeannette Castillo ; Pranav Toscano ; [facility] Other Interventions: Discharge Summary Assessment (RN) Last Done: 12/08/19 14:30 DC Date/Time DO NOT enter until pt leaves facility: 12/08/19 16:04
== END 2019-12-08 16:04 | disposition home health service (06) | DRG 871 ==
LOC: ED 06:49 → 2E 11:45 → SUATTDRO 11:45 → 2E 13:06

== ENCOUNTER 2019-12-24 12:51 | Inpatient (IN) ==
[2019-12-24] MEDS ORDERED: ALBUT/IPRATROP 3MG/0.5MG NEB 3 ML VIAL NEB STA (14:21)
--- NOTE | 2019-12-24 14:28 | Emergency Department Note ---
History of Present Illness General Chief complaint: Shortness of Breath/Dyspnea Stated complaint: SOB,RECTAL BLEEDING Time Seen by Provider: 12/24/19 14:02 Source: patient and family Mode of arrival: ambulatory Limitations: no limitations History of Present Illness Provider complaint: Shortness of breath, GI bleed Onset (ago): week(s) 1 Location: abdomen Radiation: non-radiation Maximum Pain Intensity: 3 Quality: + dull Relieved By: + none Exacerbated By: + eating Associated symptoms: + cough, + loss of appetite, + shortness of breath and + weakness; no chest pain and no fever/chills Treatments prior to arrival: none This is an 89-year-old male who presents from home with his due to persistent worsening symptoms. Patient has been hospitalized twice over the last month, initially for concern for acute cholecystitis, and then secondarily for pneumonia. Patient has a long and complicated past medical history. Patient finished his antibiotics 5 days ago. Patient chronically wears oxygen at home at 6 L/min. says even with his oxygen he has been persistently m ore short of breath with any exertion or movement. He has had lower extremity edema ever since being discharged despite daily use of Lasix and fluid restriction. They deny fevers or chills or any known sick contacts. Other than the hospitalization, no potential for exposure to any coronavirus positive individual. She states no change in his sputum or cough. Patient states he has intermittent abdominal pain that he initially attributed to the antibiotics, however since being off the antibiotics it is persistent. Patient states it is worse with eating and he has vomited several times. No blood in the emesis. He is also noticed small black appearing stools. states when she was helping him get up off the toilet she noticed that there was blood in addition. Patient does have a prior history of hemorrhoids, last colonoscopy was many years ago at which time he had polyps. No other blood thinners in addition to the aspirin 81 mg daily. Patient does have a history of anemia. Pt seen during a time of high acuity and national emergency pandemic while wearing PPE. Home Medications Home Medications Medication Instructions Recorded Confirmed Type albuterol sulfate [Ventolin HFA] 2 puff INHALATION Q6H PRN 08/05/18 12/24/19 History amlodipine 10 mg PO QAM 08/05/18 12/24/19 History glipizide 2.5 mg PO BID 08/05/18 12/24/19 History levalbuterol HCl 0.63 mg INHALATION Q6H PRN 08/05/18 12/24/19 History pantoprazole 40 mg PO QAM 08/05/18 12/24/19 History magnesium 200 mg tablet 200 mg PO QAM 01/01/19 12/24/19 History triamcinolone acetonide 55 mcg 2 spray INTRANASAL QAM PRN 01/01/19 12/24/19 History nasal spray aerosol aspirin 81 mg PO DAILY 30 Days #30 tab 12/08/19 12/24/19 Rx furosemide 40 mg PO QAM 30 Days #30 tab 12/08/19 12/24/19 Rx hydralazine 25 mg PO BID #60 tab 12/08/19 12/24/19 Rx fluticasone furoate-vilanterol 0 inh INHALATION BID 12/24/19 12/24/19 History [Breo Ellipta] Allergies Allergy/AdvReac Type Severity Reaction Status Date / Time No Known Drug Allergies Allergy Verified 12/24/19 15:40 Past Med/Surg History Medical History Abdominal aortic aneurysm (AAA) greater than 5.5 cm in diameter in male (Chronic) COPD exacerbation (Chronic) Diabetes mellitus (Chronic) GERD (gastroesophageal reflux disease) (Chronic) HTN (hypertension) (Chronic) Hypertension (Chronic) Kidney stones (Chronic) Prostate cancer (Chronic) Reactive airway disease (Chronic) Spinal stenosis (Chronic) Surgical History H/O colonoscopy (Chronic) History of cataract surgery (Chronic) Hx of cataract surgery (Chronic) Hx of lumbosacral spine surgery (Chronic) Social History Smoking Status: Former smoker Tobacco Type: Cigarettes Hx Alcohol Use: Yes Alcohol type: beer Hx Substance Use: No Preferred Language: Hebrew Communication Ability: Effective Visual Impairment: Limited Hearing Ability: Use of Hearing Aid Lead Customer Service Representative Required: No Beliefs That Will Affect Care: None marital status: Current Living Situation: Spouse and Family Current Living Situation Comment: with and dtr How many Children do You have: 5 Other Information That Helps Us Care for You: No Feels Safe at Home: Yes Safety Concerns: Feels Safe At This Time Review of Systems See HPI for pertinent positives & negatives. and A total of 10 systems reviewed and were otherwise negative Physical Exam Vital Signs Vital Signs - 24 hr 12/24/19 12:53 12/24/19 14:17 12/24/19 14:30 Temperature 37.3 C Temperature Source Oral Pulse Rate 108 H 100 H 96 H Pulse Rate [Apical] 100 H Pulse Rate from SpO2 Sensor 100 H 95 H Pulse Rhythm Regular Pulse Rhythm [Apical] Regular Pulse Strength [Apical] Normal Respiratory Rate 20 25 H 24 Respiratory Effort / Characteristics Spontaneous Short of Breath Respiratory Depth Normal Respiratory Pattern Regular Blood Pressure 139/72 126/68 122/63 Blood Pressure [Left Arm] 126/68 Blood Pressure Mean 94 83 74 Blood Pressure Mean [Left Arm] 87 Blood Pressure Position [Left Arm] Semi-fowlers Pulse Oximetry 94 95 96 Oxygen Delivery Method Nasal Cannula Nasal Cannula Oxygen Flow Rate 6 6 Sepsis Recent Fever Within 48 Hours No Sepsis New/Unexplained Change in Mental Status No Sepsis Action Taken by Nursing No Action Required 12/24/19 14:50 12/24/19 14:51 12/24/19 15:00 Temperature Temperature Source Pulse Rate 96 H Pulse Rate [Apical] 93 H Pulse Rate from SpO2 Sensor 97 H Pulse Rhythm Pulse Rhythm [Apical] Pulse Strength [Apical] Respiratory Rate 16 24 Respiratory Effort / Characteristics Non-Labored Spontaneous Respiratory Depth Respiratory Pattern Blood Pressure 129/67 Blood Pressure [Left Arm] Blood Pressure Mean 91 Blood Pressure Mean [Left Arm] Blood Pressure Position [Left Arm] Pulse Oximetry 93 94 93 Oxygen Delivery Method Nasal Cannula Nasal Cannula Oxygen Flow Rate 6 6 Sepsis Recent Fever Within 48 Hours Sepsis New/Unexplained Change in Mental Status Sepsis Action Taken by Nursing 12/24/19 15:30 12/24/19 16:00 12/24/19 16:30 Temperature Temperature Source Pulse Rate 96 H 97 H 99 H Pulse Rate [Apical] Pulse Rate from SpO2 Sensor 94 H 94 H 98 H Pulse Rhythm Pulse Rhythm [Apical] Pulse Strength [Apical] Respiratory Rate 24 23 25 H Respiratory Effort / Characteristics Respiratory Depth Respiratory Pattern Blood Pressure 120/64 140/74 143/72 H Blood Pressure [Left Arm] Blood Pressure Mean 79 95 100 Blood Pressure Mean [Left Arm] Blood Pressure Position [Left Arm] Pulse Oximetry 92 90 91 Oxygen Delivery Method Nasal Cannula Oxygen Flow Rate Sepsis Recent Fever Within 48 Hours Sepsis New/Unexplained Change in Mental Status Sepsis Action Taken by Nursing 12/24/19 17:00 Temperature Temperature Source Pulse Rate 101 H Pulse Rate [Apical] Pulse Rate from SpO2 Sensor 102 H Pulse Rhythm Pulse Rhythm [Apical] Pulse Strength [Apical] Respiratory Rate 25 H Respiratory Effort / Characteristics Respiratory Depth Respiratory Pattern Blood Pressure 141/72 H Blood Pressure [Left Arm] Blood Pressure Mean 101 Blood Pressure Mean [Left Arm] Blood Pressure Position [Left Arm] Pulse Oximetry 90 Oxygen Delivery Method Oxygen Flow Rate Sepsis Recent Fever Within 48 Hours Sepsis New/Unexplained Change in Mental Status Sepsis Action Taken by Nursing GENERAL: alert, well appearing, well nourished, no distress, non-toxic, wearing oxygen via nc EYE EXAM: normal conjunctiva, PERRL and EOM's grossly intact OROPHARYNX: no exudate, no erythema, lips, buccal mucosa, and tongue normal and mucous membranes are moist NECK: supple, no nuchal rigidity, no adenopathy, non-tender LUNGS: Clear but decreased to auscultation. Normal chest wall mechanics, no r/r, faint exp wheeze b/l HEART: no murmurs, S1 normal and S2 normal ABDOMEN: abdomen soft, non-tender, normo-active bowel sounds, no masses, no rebound or guarding. RECTAL: Rectal exam performed at bedside with tech Beatris present as well as patient's , no obvious external hemorrhoids, no anal fissure, minimal stool in rectal vault was brown, guaiac negative on testing BACK: Back is symmetrical on inspection and there is no deformity, no midline tenderness, no CVA tenderness. SKIN: no rashes and no bruising UPPER EXTREMITIES: upper extremities are grossly normal. FROM, nml pulses b/l. LOWER EXTREMITIES: 1+ pitting edema. FROM, nml pulses b/l. NEURO EXAM: Normal sensorium, cranial nerves II-XII grossly intact, normal speech, no gross weakness of arms, no gross weakness of legs. Gross sensation intact. Course Course 1525: Pt updated on reults. They do not wish to be transferred back to the [place] [facility] again. 1550: Discussed with Xochitl Henderson Hospitalist service. Administered Medications Insulin Aspart (Novolog Flexpen) 0 units SC ACHS MARISSA Stop: 01/23/20 20:59 Last Admin: 12/24/19 21:04 Dose: 2 units Documented by: [id number] Cosigned by: [id number] Insulin Glargine (Lantus Solostar Pen) 10 units SC BID MARISSA Stop: 01/23/20 20:59 Last Admin: 12/24/19 21:05 Dose: 10 units Documented by: [id number] Cosigned by: [id number] Discontinued Medications Albuterol (Duoneb) 3 ml NEB NOW STA Stop: 12/24/19 14:22 Last Admin: 12/24/19 14:50 Dose: 3 ml Documented by: [id number] Furosemide (Lasix) 40 mg IV NOW STA Stop: 12/24/19 17:30 Last Admin: 12/24/19 18:11 Dose: 40 mg Documented by: [id number] Cefepime HCl (Maxipime) 2,000 mg in 20 mls @ 5 mls/min IV NOW STA Stop: 12/24/19 15:21 Last Admin: 12/24/19 16:55 Dose: 5 mls/min Documented by: [id number] Vancomycin HCl 1,750 mg/ (Sodium Chloride) 535 mls @ 200 mls/hr IV NOW ONE Stop: 12/24/19 17:58 Last Infusion: 12/24/19 18:00 Dose: 0 mls/hr Documented by: [id number] Admin: 12/24/19 17:00 Dose: 200 mls/hr Documented by: [id number] Aztreonam 2,000 mg/ Dextrose 110 mls @ 110 mls/hr IV NOW STA Stop: 12/24/19 17:04 Last Infusion: 12/24/19 18:00 Dose: 0 mls/hr Documented by: [id number] Admin: 12/24/19 17:00 Dose: 110 mls/hr Documented by: [id number] Furosemide 20 mg/ Syringe 2 mls @ 4 mls/min IV ONE ONE Stop: 12/24/19 20:46 Last Admin: 12/24/19 21:06 Dose: 4 mls/min Documented by: [id number] Potassium Chloride (Klor-Con M20) 40 meq PO NOW STA Stop: 12/24/19 17:30 Last Admin: 12/24/19 18:11 Dose: 40 meq Documented by: [id number] Potassium Chloride (Brandy Ciel Elix) 20 meq PO NOW STA Stop: 12/24/19 20:26 Last Admin: 12/24/19 21:06 Dose: 20 meq Documented by: [id number] Medical Decision Making Differential Diagnosis Differential diagnosis includes etiologies such as diverticulosis, AVM, coagulopathy, colitis, inflammatory bowel disease, malignancy, Corine-Simon tear, esophagitis, peptic ulcer disease, variceal bleed, gastritis, epistaxis, fissure, hemorrhoids, pneumonia, bronchitis, COPD/Asthma exacerbation, pneumothorax, pulmonary embolism, congestive heart failure, acute coronary syndrome Medical Records Attestation: I reviewed the patient's medical records. Home Medications Current Medication List: was personally reviewed by ne Laboratory Data Attestation: I reviewed the patient's lab results. Result diagrams: 12/24/19 14:23 12/24/19 14:23 Lab Results 12/24/19 12/24/19 12/24/19 Range/Units 14:23 14:23 14:23 WBC 15.46 H (4.8-10.8) K/uL RBC 2.94 L (4.7-6.1) M/uL Hgb 8.6 L (14.0-18.0) g/dL Hct 27.2 L (42-52) % MCV 92.5 (80-100) fL MCH 29.3 (25-34) pg MCHC 31.6 L (32-36) g/dL RDW Std Deviation 48.7 H (36.4-46.3) fL RDW Coeff of Nav 14.4 (11.5-14.5) % Plt Count 378 (130-400) K/uL MPV 10.0 (7.4-10.4) fL Immature Gran % (Auto) 0.3 % Neut % (Auto) 75.7 % Lymph % (Auto) 10.8 % [place] % (Auto) 11.0 % Eos % (Auto) 1.9 % Baso % (Auto) 0.3 % Neut # (Auto) 11.71 H (1.4-6.5) K/uL Lymph # (Auto) 1.67 (1.2-3.4) K/uL [place] # (Auto) 1.70 H (0.11-0.59) K/uL Eos # (Auto) 0.29 (0-0.5) K/uL Baso # (Auto) 0.04 (0-0.2) K/uL Immature Gran # (Auto) 0.05 H (0.00-0.02) K/uL PT (9.0-12.0) Seconds INR (0.9-1.1) Sodium 138 (136-145) mmol/L Potassium 3.4 L (3.5-5.1) mmol/L Chloride 102 (98-107) mmol/L Carbon Dioxide 29 (21-32) mmol/L Anion Gap 7.0 (3-11) BUN 24 H (7-18) mg/dl Creatinine 1.54 H (0.6-1.4) mg/dl Est Cr Clr Drug Dosing 37.2 ml/min Est GFR ( Amer) 46.0 Est GFR (Non-Af Amer) 39.7 BUN/Creatinine Ratio 15.3 (10-20) Glucose 124 H (70-99) mg/dl Lactate (0.4-2.0) mmol/L Calcium 8.5 (8.5-10.1) mg/dl Magnesium 1.7 L (1.8-2.4) mg/dl Total Bilirubin 0.2 (0.2-1) mg/dl AST 17 (15-37) U/L ALT 26 (12-78) U/L Alkaline Phosphatase 85 (45-117) U/L Troponin I 0.163 H* (0-0.045) ng/ml NT-Pro-B Natriuret Pep 55936 H (0-1800) pg/ml Total Protein 7.2 (6.4-8.2) gm/dl Albumin 2.2 L (3.4-5.0) gm/dl Globulin 5.0 H (2.5-4.0) gm/dl Albumin/Globulin Ratio 0.4 L (0.9-2) Lipase 52 L (73-393) U/L Procalcitonin (0-0.5) ng/ml COVID-19 PCR (Negative) Blood Type O Positive Antibody Screen NEGATIVE 12/24/19 12/24/19 12/24/19 Range/Units 14:23 14:34 16:53 WBC (4.8-10.8) K/uL RBC (4.7-6.1) M/uL Hgb (14.0-18.0) g/dL Hct (42-52) % MCV (80-100) fL MCH (25-34) pg MCHC (32-36) g/dL RDW Std Deviation (36.4-46.3) fL RDW Coeff of Nav (11.5-14.5) % Plt Count (130-400) K/uL MPV (7.4-10.4) fL Immature Gran % (Auto) % Neut % (Auto) % Lymph % (Auto) % [place] % (Auto) % Eos % (Auto) % Baso % (Auto) % Neut # (Auto) (1.4-6.5) K/uL Lymph # (Auto) (1.2-3.4) K/uL [place] # (Auto) (0.11-0.59) K/uL Eos # (Auto) (0-0.5) K/uL Baso # (Auto) (0-0.2) K/uL Immature Gran # (Auto) (0.00-0.02) K/uL PT 11.2 (9.0-12.0) Seconds INR 1.1 (0.9-1.1) Sodium (136-145) mmol/L Potassium (3.5-5.1) mmol/L Chloride (98-107) mmol/L Carbon Dioxide (21-32) mmol/L Anion Gap (3-11) BUN (7-18) mg/dl Creatinine (0.6-1.4) mg/dl Est Cr Clr Drug Dosing ml/min Est GFR ( Amer) Est GFR (Non-Af Amer) BUN/Creatinine Ratio (10-20) Glucose (70-99) mg/dl Lactate 0.9 (0.4-2.0) mmol/L Calcium (8.5-10.1) mg/dl Magnesium (1.8-2.4) mg/dl Total Bilirubin (0.2-1) mg/dl AST (15-37) U/L ALT (12-78) U/L Alkaline Phosphatase (45-117) U/L Troponin I (0-0.045) ng/ml NT-Pro-B Natriuret Pep (0-1800) pg/ml Total Protein (6.4-8.2) gm/dl Albumin (3.4-5.0) gm/dl Globulin (2.5-4.0) gm/dl Albumin/Globulin Ratio (0.9-2) Lipase (73-393) U/L Procalcitonin 0.11 (0-0.5) ng/ml COVID-19 PCR (Negative) Blood Type Antibody Screen 12/24/19 Range/Units 16:55 WBC (4.8-10.8) K/uL RBC (4.7-6.1) M/uL Hgb (14.0-18.0) g/dL Hct (42-52) % MCV (80-100) fL MCH (25-34) pg MCHC (32-36) g/dL RDW Std Deviation (36.4-46.3) fL RDW Coeff of Nav (11.5-14.5) % Plt Count (130-400) K/uL MPV (7.4-10.4) fL Immature Gran % (Auto) % Neut % (Auto) % Lymph % (Auto) % [place] % (Auto) % Eos % (Auto) % Baso % (Auto) % Neut # (Auto) (1.4-6.5) K/uL Lymph # (Auto) (1.2-3.4) K/uL [place] # (Auto) (0.11-0.59) K/uL Eos # (Auto) (0-0.5) K/uL Baso # (Auto) (0-0.2) K/uL Immature Gran # (Auto) (0.00-0.02) K/uL PT (9.0-12.0) Seconds INR (0.9-1.1) Sodium (136-145) mmol/L Potassium (3.5-5.1) mmol/L Chloride (98-107) mmol/L Carbon Dioxide (21-32) mmol/L Anion Gap (3-11) BUN (7-18) mg/dl Creatinine (0.6-1.4) mg/dl Est Cr Clr Drug Dosing ml/min Est GFR ( Amer) Est GFR (Non-Af Amer) BUN/Creatinine Ratio (10-20) Glucose (70-99) mg/dl Lactate (0.4-2.0) mmol/L Calcium (8.5-10.1) mg/dl Magnesium (1.8-2.4) mg/dl Total Bilirubin (0.2-1) mg/dl AST (15-37) U/L ALT (12-78) U/L Alkaline Phosphatase (45-117) U/L Troponin I (0-0.045) ng/ml NT-Pro-B Natriuret Pep (0-1800) pg/ml Total Protein (6.4-8.2) gm/dl Albumin (3.4-5.0) gm/dl Globulin (2.5-4.0) gm/dl Albumin/Globulin Ratio (0.9-2) Lipase (73-393) U/L Procalcitonin (0-0.5) ng/ml COVID-19 PCR NEGATIVE (Negative) Blood Type Antibody Screen Imaging Data Radiologist's Impression: XR chest 1V portable CLINICAL HISTORY: sob dyspnea COMPARISON STUDY: 12/04/2019 FINDINGS: Interval diffuse parenchymal infiltrates of the left upper lung, right midlung, as well as small bilateral pleural effusions. This appearance may be inflammatory although asymmetric pulmonary edema is considered. Mild cardiomegaly. IMPRESSION: Diffuse bilateral parenchymal infiltrates versus asymmetric pulmonary edema. Small bilateral pleural effusions. ACT 112: Negative or not required by law. The above report was generated using voice recognition software. It may contain grammatical, syntax or spelling errors. Electronically signed by: Skip Alfonso M.D. 12/24/2019 2:40 PM ECG Data Attestation: I personally reviewed and interpreted this ECG as follows: Indication: + SOB/dyspnea Rate (beats per minute): 100 Rhythm: + normal sinus ECG Intervals/blocks: + Right Bundle branch block and + Prolonged QT ECG [place]: + Normal Blood Pressure Blood Pressure Findings: Elevated blood pressure Blood Pressure Disposition: further management by hospitalist [facility] Narrative This is an elderly patient with a complicated past medical history complaining of increased shortness of breath. Patient has been off antibiotics for 5 days after recent pneumonia. Patient does wear home oxygen due to chronic hypoxemia in the setting of a known history of COPD. Labs drawn and sent on the patient on chest x-ray performed. Patient found to have bilateral pneumonia with accompanying leukocytosis. Patient's H&H is stable compared to prior as he does have a chronic history of anemia. Patient's troponin was elevated which is new as he does not have a history of chronic troponin elevations. While this may be secondary to his chronic kidney disease, patient does have multiple risk factors for coronary artery disease and patient has a history of CHF. Patient's chest x-ray did not show acute pulmonary edema, BNP was markedly elevated, again unclear how much the patient's chronic kidney disease is contributing to this. Patient denied any recent noncompliance, states he has been taking his medications including a diuretic as prescribed. Given patient's recent admission, he was covered for possible healthcare associated pneumonia. No other evidence of bacteremia/sepsis. Patient's lactic acid and pro calcitonin were reassuring. Blood cultures are drawn and sent as a precaution. When I discussed the case with the hospitalist, they requested coronavirus testing in addition. This was also sent. Patient and were kept up-to-date on all results and were in agreement with plan. Patient was well-appearing here while at rest, remained hemodynamically stable. An order was placed for continuous cardiac monitoring. The monitor shows a rate of _100 with _sinus tachycardia_ rhythm. Impression & Plan Dyspnea, Pneumonia, Anemia, Chronic respiratory failure with hypoxia, on home oxygen therapy, Elevated troponin Discharge Plan Visit Data *Final* Discharge Date/Time: 12/24/19 19:21 Chief Complaint: Shortness of Breath/Dyspnea Stated Complaint: SOB,RECTAL BLEEDING ED Provider: Bernadette Schwartz Discharge Problem: Dyspnea, Pneumonia, Anemia, Chronic respiratory failure with hypoxia, on home oxygen therapy, Elevated troponin Patient Disposition: Admitted As Inpatient Discharge Instructions Interventions: ED Discharge Assessment Last Done: 12/24/19 19:21 Discharge Problem: Dyspnea Qualifiers: Dyspnea type: dyspnea on exertion Qualified Code(s): R06.00 - Dyspnea, unspecified Pneumonia Qualifiers: Pneumonia type: due to unspecified organism Laterality: bilateral Lung location: lower lobe of lung Qualified Code(s): J18.9 - Pneumonia, unspecified organism Anemia Qualifiers: Anemia type: iron deficiency Iron deficiency anemia type: unspecified iron deficiency Qualified Code(s): D50.9 - Iron deficiency anemia, unspecified
--- NOTE | 2019-12-24 14:42 | XRay Report ---
XR chest 1V portable CLINICAL HISTORY: sob dyspnea COMPARISON STUDY: 12/04/2019 FINDINGS: Interval diffuse parenchymal infiltrates of the left upper lung, right midlung, as well as small bilateral pleural effusions. This appearance may be inflammatory although asymmetric pulmonary edema is considered. Mild cardiomegaly. IMPRESSION: Diffuse bilateral parenchymal infiltrates versus asymmetric pulmonary edema. Small bilat eral pleural effusions. ACT 112: Negative or not required by law. The above report was generated using voice recognition software. It may contain grammatical, syntax or spelling errors. Electronically signed by: Skip Alfonso M.D. 12/24/2019 2:40 PM
[2019-12-24 14:43] LABS: Basophils # (auto) 0.04 K/uL (0-0.2); Basophils % (auto) 0.3 %; Eosinophils # (auto) 0.29 K/uL (0-0.5); Eosinophils % (auto) 1.9 %; Hematocrit (blood only) 27.2 % (42-52); Hemoglobin 8.6 g/dL (14.0-18.0); Immature Granulocytes # (auto) 0.05 K/uL (0.00-0.02); Immature Granulocytes % (auto) 0.3 %; Lymphocytes # (auto) 1.67 K/uL (1.2-3.4); Lymphocytes % (auto) 10.8 %; Mean Corpuscular Hemoglobin 29.3 pg (25-34); Mean Corpuscular Hgb Conc 31.6 g/dL (32-36); Mean Corpuscular Volume 92.5 fL (80-100); Neutrophils # (auto) 11.71 K/uL (1.4-6.5); Neutrophils % (auto) 75.7 %; Platelet Count 378 K/uL (130-400); RDW Coefficient of Variation 14.4 % (11.5-14.5); RDW Standard Deviation 48.7 fL (36.4-46.3); Red Blood Count 2.94 M/uL (4.7-6.1); White Blood Count 15.46 K/uL (4.8-10.8)
[2019-12-24 14:51] LABS: INR 1.1 (0.9-1.1); Prothrombin Time 11.2 Seconds (9.0-12.0)
[2019-12-24 14:59] LABS: Albumin Level 2.2 gm/dl (3.4-5.0); BUN Creatinine Ratio 15.3 (10-20); Calcium 8.5 mg/dl (8.5-10.1); Creatinine Clr Calc Pharmacy 37.2 ml/min; Est GFR (Non-African American) 39.7; Magnesium 1.7 mg/dl (1.8-2.4); Potassium 3.4 mmol/L (3.5-5.1)
[2019-12-24 15:16] LABS: Albumin Globulin Ratio 0.4 (0.9-2); Bilirubin,Total 0.2 mg/dl (0.2-1); Total Protein 7.2 gm/dl (6.4-8.2); Troponin I 0.163 ng/ml (0-0.045)
[2019-12-24] MEDS ORDERED: VANCOMYCIN HCL 1,750 MG in SODIUM CHLORIDE 0.9% 500 ML IV ONE (15:18)
[2019-12-24] MEDS ORDERED: VANCOMYCIN CONSULT ACTIVE PRN (15:18)
[2019-12-24] MEDS ORDERED: CEFEPIME 2,000 MG/20 ML VIAL IV STA (15:18)
--- NOTE | 2019-12-24 16:00 | XRay Report ---
XR KUB/Abdomen 1 view CLINICAL HISTORY: abd pain pain COMPARISON STUDY: 05/10/2011 FINDINGS: Nonobstructive bowel pattern. Several left renal calcifications as have been described prev iously. No significant right renal calcifications. Considerable degenerative change of the hips bilaterally. No well-defined evidence for fracture. Sign ificant degenerative change of the hips bilaterally. IMPRESSION: 1. Left renal nephrocalcinosis unchanged from the second patient's prior CT exam. 2. Degenerative and postoperative changes of the bony structures throughout. 3. Nonobstructive bowel pattern. ACT 112: Negative or not required by law. The above report was generated using voice recognition software. It may contain grammatical, syntax or spelling errors. Electronically signed by: Skip Alfonso M.D. 12/24/2019 3:59 PM
[2019-12-24] MEDS ORDERED: AZTREONAM 2,000 MG in DEXTROSE 5% 100 ML IV STA (16:05)
[2019-12-24] MEDS ORDERED: FUROSEMIDE 40 MG/4 ML VIAL IV STA (17:29)
[2019-12-24] MEDS ORDERED: POTASSIUM CHLORIDE 20 MEQ TABCR PO STA (17:29)
--- NOTE | 2019-12-24 17:44 | History & Physical Report ---
Date of Service December 24, 2019 Assessment & Plan (1) Acute and chronic respiratory failure with hypoxia: Pulmonary edema present on CXR. Do not suspect pneumonia as he recently had an extensive antibiotic course as treatment for pneumonia, he has not had any fevers or chills reported at home. He has, however, had an extensive bout with acute cholecystitis that began in late October and was treated medically for this with Zosyn while admitted to the [facility] (11/24-11/29). He did not undergo cholec ystectomy or percutaneous drain of the area, even with king evidence of acute cholecystitis. He currently is asymptomatic from that standpoint, denying any TTP in the RUQ area on exam and he has normal LFTs and bilirubin. This was also the case during the last admission. His WBC remains elevated and he has tachycardia, meeting SIRS criteria. With the untreated h/o acute cholecystitis, it is reasonable to cover him empirically with Zosyn pending blood cultures and clinical improvement. An intra-abdominal process that is ongoing may be contributing to his fluid overloaded state. KUB was unrevealing today. Minimal periumbilical abdominal tenderness on exam and pt was also reporting symptoms of some urinary retention. Gallegos placed and he reported a resolution of abdominal pain with the Gallegos taking the pressure off. Clinically he sounds overloaded with some weight gain reported, his BNP is 17K (up from 8K last admission) and his procalcitonin is normal. [place] frothy sputum is also consistent with pulmonary edema. He was given lasix 40mg IV with at least 600ml out in the first 2 hours. Pt reported feeling improved. (2) Abdominal pain: benign exam except for periumbilical area where prior lovenox injections were given. Some residual ecchymosis is still present. (3) Cholecystitis: Persistent elevation in WBC count with untreated recent acute cholecystitis. Will cover with Zosyn empirically, and have Surgery take a look at him. (4) Bilateral renal artery stenosis: Atherosclerotic disease present at multiple locations. Cont medical management with aspirin. Will add statin prior to dc. (5) CKD (chronic kidney disease) stage 3, GFR 30-59 ml/min: At baseline. (6) Anemia: Stable from recent levels. Some rectal bleeding reported however, the FOBT in the ER was negative with brown stool in the rectal vault on exam and no evidence of hmorrhoids. (7) COPD (chronic obstructive pulmonary disease): chronic, stable. Continues on home oxygen. (8) Diabetes mellitus: hold oral meds, cont basal bolus insulin dosing while inpatient. (9) DVT prophylaxis: History of Present Illness Chief Complaint: shortness of breath Primary Care Provider: Shawn Lambert MD 89 yo M who was recently admitted to [facility] presented for progressive shortness of breath. He reports coughing that is productive of a pink-tinged sputum. Denies fevers or chills. Ogilvie well when he was discharged from the hospital, and then progressively became worse. Doesn't have a scale at home; states cannot afford to buy one. We discussed the importance of tracking his weight. Since discharge he went to a medical appointment at the [facility] in [place], and hasn't travelled otherwise. Denies any sick contacts. Covid from 12/03 was negative. Another Covid test is currently pending. He also reports some vomiting and nausea that has persisted, and reports some hematochezia yesterday. He currently reports being hungry and is requesting food. interestingly points out that his urinary flow has decreased significantly since discharge despite the addition of Lasix 40mg PO daily at discharge. The patient agrees that he hasn't been able to urinate well. Pt reports early satiety with eating. Allergies Allergy/AdvReac Type Severity Reaction Status Date / Time No Known Drug Allergies Allergy Verified 12/24/19 15:40 Home Medications Home Medications Medication Instructions Recorded Confirmed Type albuterol sulfate [Ventolin HFA] 2 puff INHALATION Q6H PRN 08/05/18 12/24/19 History amlodipine 10 mg PO QAM 08/05/18 12/24/19 History glipizide 2.5 mg PO BID 08/05/18 12/24/19 History levalbuterol HCl 0.63 mg INHALATION Q6H PRN 08/05/18 12/24/19 History pantoprazole 40 mg PO QAM 08/05/18 12/24/19 History magnesium 200 mg tablet 200 mg PO QAM 01/01/19 12/24/19 History triamcinolone acetonide 55 mcg 2 spray INTRANASAL QAM PRN 01/01/19 12/24/19 History nasal spray aerosol aspirin 81 mg PO DAILY 30 Days #30 tab 12/08/19 12/24/19 Rx furosemide 40 mg PO QAM 30 Days #30 tab 12/08/19 12/24/19 Rx hydralazine 25 mg PO BID #60 tab 12/08/19 12/24/19 Rx fluticasone furoate-vilanterol 0 inh INHALATION BID 12/24/19 12/24/19 History [Breo Ellipta] Past Med/Surg History Medical History Abdominal aortic aneurysm (AAA) greater than 5.5 cm in diameter in male (Chronic) COPD exacerbation (Chronic) Diabetes mellitus (Chronic) GERD (gastroesophageal reflux disease) (Chronic) HTN (hypertension) (Chronic) Hypertension (Chronic) Kidney stones (Chronic) Prostate cancer (Chronic) Reactive airway disease (Chronic) Spinal stenosis (Chronic) Surgical History H/O colonoscopy (Chronic) History of cataract surgery (Chronic) Hx of cataract surgery (Chronic) Hx of lumbosacral spine surgery (Chronic) Social History Smoking Status: Former smoker Tobacco Type: Cigarettes Hx Alcohol Use: Yes Alcohol type: beer Hx Substance Use: No Preferred Language: Algerian Communication Ability: Effective Visual Impairment: Limited Hearing Ability: Use of Hearing Aid Owner Oral Surgeon Required: No Beliefs That Will Affect Care: None marital status: Current Living Situation: Spouse and Family Current Living Situation Comment: with and dtr How many Children do You have: 5 Other Information That Helps Us Care for You: No Feels Safe at Home: Yes Safety Concerns: Feels Safe At This Time Review of Systems Review of Systems: All systems reviewed & are unremarkable except as noted in Subjective Physical Exam Physical Exam: CONSTITUTIONAL: WNWD, vitals as above, generally well- appearing EYES: PERRL, normal conjunctivae, no scleral icterus ENT: external ear and nose normal, oropharynx clear, MMM NECK: trachea midline RESPIRATORY: crackles throughout all lung baldwin. Increased respiratory effort. CARDIOVASCULAR: regular rate and rhythm, S1 and 2 heard without murmurs, gallops or rubs, no JVD, no peripheral edema, no hepatojugular reflux present CHEST: inspection of chest was normal GASTROINTESTINAL: normal bowel sounds, soft, mild periumbilical tenderness, no RUQ tenderness, no epigastric tenderness, nondistended. MUSCULOSKELETAL: strength 5/5 throughout, head is normocephalic and atraumatic, neck supple, normal palpation of chest wall without tenderness SKIN: warm and dry, small area of ecchymosis from recent Lovenox injections is in the periumbilical area that is tender. NEUROLOGIC: No facial palsy, no dysarthria. CN 2-12 grossly intact, normal cognition, normal speech, no tremor, no gross focal deficit. PSYCHIATRIC: alert cooperative and oriented to person, place and time. Results & Data Results & Data ([facility]) Vital Signs (Past 12 Hours) Vital Signs Temp Pulse Pulse Resp BP BP Pulse Ox 12/24/19 16:30 99 H 25 H 143/72 H 91 12/24/19 16:00 97 H 23 140/74 90 12/24/19 15:30 96 H 24 120/64 92 12/24/19 15:00 96 H 24 129/67 93 12/24/19 14:51 93 H 16 94 12/24/19 14:50 93 12/24/19 14:30 96 H 24 122/63 96 12/24/19 14:17 100 H 100 H 25 H 126/68 126/68 95 12/24/19 12:53 37.3 C 108 H 20 139/72 94 Laboratory Results Short CBC 12/24/19 Range/Units 14:23 WBC 15.46 H (4.8-10.8) K/uL Hgb 8.6 L (14.0-18.0) g/dL Hct 27.2 L (42-52) % Plt Count 378 (130-400) K/uL BMP 12/24/19 14:23 Sodium 138 Potassium 3.4 L Chloride 102 Carbon Dioxide 29 BUN 24 H Creatinine 1.54 H Glucose 124 H Calcium 8.5 Cardiac Enzymes 12/24/19 Range/Units 14:23 Troponin I 0.163 H* (0-0.045) ng/ml Liver Function 12/24/19 Range/Units 14:23 Total Bilirubin 0.2 (0.2-1) mg/dl AST 17 (15-37) U/L ALT 26 (12-78) U/L Alkaline Phosphatase 85 (45-117) U/L Albumin 2.2 L (3.4-5.0) gm/dl Diagnostic Findings XR chest 1V portable CLINICAL HISTORY: sob dyspnea COMPARISON STUDY: 12/04/2019 FINDINGS: Interval diffuse parenchymal infiltrates of the left upper lung, right midlung, as well as small bilateral pleural effusions. This appearance may be inflammatory although asymmetric pulmonary edema is considered. Mild cardiomegaly. IMPRESSION: Diffuse bilateral parenchymal infiltrates versus asymmetric pulmonary edema. Small bilateral pleural effusions. Medications Administered received Vanc IV, Aztreonam IV, Lasix 40 IV, KCl 40 MEq and gallegos was placed in ER. Code Status & VTE Plan Code Status FULL CODE VTE Prophylaxis Plan VTE Prophylaxis will be ordered: Yes (1) Anemia Anemia type: iron deficiency Iron deficiency anemia type: unspecified iron deficiency Qualified Code(s): D50.9 - Iron deficiency anemia, unspecified
[2019-12-24 18:34] LABS: Appearance Urine Clear (Clear); Bacteria Urine Automated Negative (Negative); Bilirubin Urine Negative (Negative); Blood Urine Negative (Negative); Color Urine Yellow; Glucose Urine UA Negative (Negative); Ketones Urine Negative (Negative); Leukocyte Esterase Urine Negative (Negative); Nitrite Urine Negative (Negative); Protein Urine 1+ (Negative); Specific Gravity Urine 1.015 (1.000-1.030); Urobilinogen Urine Negative (Negative)
[2019-12-24] MEDS ORDERED: POLYETHYLENE (MIRALAX) 17 GM PACK PO PRN (19:47)
[2019-12-24] MEDS ORDERED: GLUCAGON FOR INJ 1 MG VIAL SQ PRN (19:47)
[2019-12-24] MEDS ORDERED: DEXTROSE 50% 50 ML SYRINGE IV PRN (19:47)
[2019-12-24] MEDS ORDERED: ACETAMINOPHEN 325 MG TAB PO PRN (19:47)
[2019-12-24] MEDS ORDERED: GLUCOSE 40% GEL 15 GM TUBE PO PRN (19:47)
[2019-12-24] MEDS ORDERED: CARBOHYDRATES FOR HYPOGLYCEMIA PO PRN (19:47)
[2019-12-24] MEDS ORDERED: GLUCOSE 10 TABS/TUBE PO PRN (19:47)
[2019-12-24] MEDS ORDERED: XOPENEX/ATROVENT 0.63mg/0.5MG NEB COMBO NEB PRN (20:23)
[2019-12-24] MEDS ORDERED: POTASSIUM CHLORIDE 20 MEQ/15 ML UDC PO STA (20:25)
[2019-12-24] MEDS ORDERED: IPRATROPIUM BROMIDE NEB SOLN 0.02% 2.5 ML VIAL INH PRN (20:30)
[2019-12-24] MEDS ORDERED: LEVALBUTEROL HCL 0.63 MG/3 ML NEB NEB PRN (20:30)
[2019-12-24] MEDS ORDERED: FUROSEMIDE 20 MG in SYRINGE 0 ML IV ONE (20:45)
[2019-12-24] MEDS: INSULIN ASPART 100 UNITS/ML 3 ML PEN SC SCH (21:04)
[2019-12-24] MEDS: INSULIN GLARGINE SOLOSTAR 100 UNITS/ML 3 ML PEN SC SCH (21:05)
--- NOTE | 2019-12-24 21:10 | Pharmacy Report ---
Pharmacy Abx Initial Consult - Date of Service December 24, 2019 - Pharmacy Dosing Scope Date of Consult: 12/23 Consultation requested by: Dr. Valentino Pharmacy is consulted to initiate vancomycin IV/PO dosing therapy, order appropriate labs and adjust drug dose/frequency. - Subjective The patient is a 89 year old M admitted on 12/24/19 17:40. - Objective Height: 5 ft 9 in Weight: 87.8 kg Vital Signs (Past 12hrs): Vital Signs Temp Pulse Pulse Resp BP BP Pulse Ox 12/24/19 19:40 36.6 C 87 26 H 138/91 88 L 12/24/19 19:21 103 H 22 144/78 H 91 12/24/19 18:30 103 H 22 144/78 H 91 12/24/19 18:24 103 H 21 149/71 H 92 12/24/19 17:00 101 H 25 H 141/72 H 90 12/24/19 16:30 99 H 25 H 143/72 H 91 12/24/19 16:00 97 H 23 140/74 90 12/24/19 15:30 96 H 24 120/64 92 12/24/19 15:00 96 H 24 129/67 93 12/24/19 14:51 93 H 16 94 12/24/19 14:50 93 12/24/19 14:30 96 H 24 122/63 96 12/24/19 14:17 100 H 100 H 25 H 126/68 126/68 95 12/24/19 12:53 37.3 C 108 H 20 139/72 94 Lab Results (24hrs): Laboratory Tests (24 Hours) 12/24/19 12/24/19 12/24/19 14:34 14:23 14:23 WBC 15.46 H Neut # (Auto) 11.71 H Creatinine 1.54 H Est Cr Clr Drug Dosing 37.2 Procalcitonin 0.11 Micro Results: 12/24/19 16:53 Aerobic Blood Culture - Pending Blood Anaerobic Blood Culture - Pending 12/24/19 15:17 Aerobic Blood Culture - Pending Blood Anaerobic Blood Culture - Pending - Risk Factors for Resistance * Hospitalization for 48 hours or more within the past 90 days * Antimicrobial use within the last 90 days [vancomycin] - Assessment & Plan Assessment 89 year old male admitted with shortness of breath. Recently admitted to hospital 12/03-12/07. Started on vancomycin Plan Vancomycin IV * Received loading dose of vancomycin 1750 mg x 1 (~20 mg/kg) * Will start maintenance dose of vancomycin dose of 1500 mg (~16 mg/kg) iv q 24 hrs * Estimated kinetics: t1/2~20 hrs, ke~0.03 hr-1, Crcl ~37 ml/min * Will plan to order trough if continued >48 hrs Pharmacy will continue to follow and will adjust dose/frequency as necessary. Thank you.
[2019-12-24] MEDS ORDERED: PIPERACILL/TAZOBAC CONSULT ACTIVE PRN (23:42)
[2019-12-24] MEDS ORDERED: PIPERACILLIN/TAZOBACTAM 3.375 GM in DEXTROSE 5% 100 ML IV ONE (23:45)
[2019-12-25] MEDS: MAGNESIUM SULFATE / D5W 1 GM/100 ML BAG IV SCH ×4 (01:27→13:49)
[2019-12-25 01:53] LABS: Hematocrit (blood only) 28.5 % (42-52); Hemoglobin 9.1 g/dL (14.0-18.0); Mean Corpuscular Hgb Conc 31.9 g/dL (32-36); Mean Corpuscular Volume 90.8 fL (80-100); Mean Platelet Volume 10.8 fL (7.4-10.4); Platelet Count 352 K/uL (130-400); RDW Coefficient of Variation 14.5 % (11.5-14.5); RDW Standard Deviation 48.2 fL (36.4-46.3); Red Blood Count 3.14 M/uL (4.7-6.1); White Blood Count 14.62 K/uL (4.8-10.8)
[2019-12-25 02:14] LABS: Calcium 8.3 mg/dl (8.5-10.1); Est GFR (African American) 43.9; Est GFR (Non-African American) 37.9; Magnesium 1.6 mg/dl (1.8-2.4); Potassium 4.1 mmol/L (3.5-5.1)
[2019-12-25] MEDS: PIPERACILLIN/TAZOBACTAM 3.375 GM in DEXTROSE 5% 50 ML IV SCH ×3 (05:57→21:32)
[2019-12-25] MEDS ORDERED: FUROSEMIDE 40 MG in SYRINGE 0 ML IV ONE (06:30)
[2019-12-25] MEDS: INSULIN ASPART 100 UNITS/ML 3 ML PEN SC SCH ×4 (08:30→21:30)
--- NOTE | 2019-12-25 08:30 | Surgery Consultation ---
Date of Consultation December 25, 2019 Assessment & Plan (1) Cholecystitis, chronic: The patient at this time appears fairly comfortable and has symptoms of chronic cholecystitis but no acute cholecystitis at this time Primary issue is pulmonary with pulmonary edema My point of view he can have a diet low fat as tolerated We will follow along with you In summary the patient has chronic cholecystitis cholelithiasis at this time no surgical intervention is needed Present on Admission?: Yes History of Present Illness Reason for Consultation: Possible gallbladder pathology Attending Physician: Joanne Valentino, DO History of Present Illness This 89-year-old gentleman with significant number of comorbid conditions was seen by surgery on 12/04/2019 for possibility of acute cholecystitis documented cholelithiasis although the HIDA scan did not show any acute component the p atient was treated with therapy with antibiotics and actually discharged with antibiotics for 10-day course the recommendation of surgery at that time was to follow-up with the ME clinic in [place] for possibility of placing cholecystostomy tube The patient was discharged on 12/09/2019 home and the patient stated that he went to [place] for the possibility of this tube placement and they just sent him back home He is admitted at this time likely pulmonary edema and is presently being treated for that We are asked to consult regarding his past history of cholelithiasis The patient denies any abdominal pain or nausea at this time Allergies Allergy/AdvReac Type Severity Reaction Status Date / Time No Known Drug Allergies Allergy Verified 12/24/19 15:40 Home Medications Home Medications Medication Instructions Recorded Confirmed Type albuterol sulfate [Ventolin HFA] 2 puff INHALATION Q6H PRN 08/05/18 12/24/19 History amlodipine 10 mg PO QAM 08/05/18 12/24/19 History glipizide 2.5 mg PO BID 08/05/18 12/24/19 History levalbuterol HCl 0.63 mg INHALATION Q6H PRN 08/05/18 12/24/19 History pantoprazole 40 mg PO QAM 08/05/18 12/24/19 History magnesium 200 mg tablet 200 mg PO QAM 01/01/19 12/24/19 History triamcinolone acetonide 55 mcg 2 spray INTRANASAL QAM PRN 01/01/19 12/24/19 History nasal spray aerosol aspirin 81 mg PO DAILY 30 Days #30 tab 12/08/19 12/24/19 Rx furosemide 40 mg PO QAM 30 Days #30 tab 12/08/19 12/24/19 Rx hydralazine 25 mg PO BID #60 tab 12/08/19 12/24/19 Rx fluticasone furoate-vilanterol 0 inh INHALATION BID 12/24/19 12/24/19 History [Brechas Jangta] Patient History Medical History Abdominal aortic aneurysm (AAA) greater than 5.5 cm in diameter in male (Chronic) COPD exacerbation (Chronic) Diabetes mellitus (Chronic) GERD (gastroesophageal reflux disease) (Chronic) HTN (hypertension) (Chronic) Hypertension (Chronic) Kidney stones (Chronic) Prostate cancer (Chronic) Reactive airway disease (Chronic) Spinal stenosis (Chronic) Surgical History H/O colonoscopy (Chronic) History of cataract surgery (Chronic) Hx of cataract surgery (Chronic) Hx of lumbosacral spine surgery (Chronic) Social History Smoking Status: Former smoker Tobacco Type: Cigarettes Hx Alcohol Use: Yes Alcohol type: beer Hx Substance Use: No Preferred Language: Setswana Communication Ability: Effective Visual Impairment: Limited Hearing Ability: Use of Hearing Aid 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: No Beliefs That Will Affect Care: None marital status: Current Living Situation: Spouse and Family Current Living Situation Comment: with and dtr How many Children do You have: 5 Other Information That Helps Us Care for You: No Feels Safe at Home: Yes Safety Concerns: Feels Safe At This Time Physical Exam Physical Exam: Patient is sitting in bed 90 degree with CPAP BiPAP delivery system 60% FiO2 the O2 sat is 97 The abdomen significant protuberant with no abdominal findings no right upper quadrant tenderness or masses Results & Data Vital Signs (Past 12 Hours) Vital Signs Temp Pulse Pulse Resp BP Pulse Ox 12/25/19 08:16 36.8 C 98 H 20 138/73 93 12/25/19 04:18 92 H 12/25/19 03:29 36.7 C 102 H 20 136/68 91 12/25/19 02:45 84 20 97 12/25/19 00:09 36.4 C L 95 H 18 134/75 95 12/24/19 21:03 103 H 20 95 Lab was noted including white count PG Care Time/CCT Total # of Minutes Spent Total Time Spent with Patient: Total time spent is greater than 50% in coordination of care (as documented) at patient's floor/unit and/or counseling patient: Coding Level of Care Code 41019 Initial Inpt Care Lvl 3 Diagnoses Cholecystitis, chronic K81.1
[2019-12-25] MEDS: INSULIN GLARGINE SOLOSTAR 100 UNITS/ML 3 ML PEN SC SCH ×2 (08:31→21:29)
[2019-12-25] MEDS: ASPIRIN 81 MG ECTAB PO SCH (08:32)
[2019-12-25] MEDS: MAGNESIUM OXIDE 400 MG TAB PO SCH (08:32)
[2019-12-25] MEDS: PANTOprazole 40 MG TAB PO SCH (08:32)
[2019-12-25] MEDS ORDERED: NON-FORMULARY MEDICATION (Magnesium 200 MG) PO SCH (09:00)
--- NOTE | 2019-12-25 09:33 | Ultrasound Report ---
US liver CLINICAL HISTORY: h/o acute cholecystitis, elevated WBC COMPARISON STUDY: 12/04/2019 FINDINGS: The study was difficult from a technical standpoint as the patient was unable to cooperate with breath-holding. In addition there are limited acoustic windows in this patient with a relatively large body habitus. The gallbladder contained multiple calculi. The technologist reported a negative sonographic Casas s ign. There are nonspecific areas of gallbladder wall thickening. The common bile duct is mildly dilated measuring 8 mm. The pancreas was not visualized. Evaluation the liver was limited but no definite hepatic masses were delineated. There is no right-sided hydronephrosis. There are multiple right renal cysts largest of which measure s 6 cm. IMPRESSION: 1. Technically limited study 2. Cholelithiasis. Mildly dilated common bile duct measuring 8 mm 3. Focal areas, of gallbladder wall thickening. ACT 112: Negative or not required by law. Electronically signed by: Ameya Chatman M.D. 12/25/2019 9:31 AM
--- NOTE | 2019-12-25 09:40 | XRay Report ---
XR chest 1V portable CLINICAL HISTORY: pulm edema reevaluation COMPARISON STUDY: 12/24/2019 FINDINGS: The heart is enlarged. There are small bilateral pleural effusions. There are bilateral pul monary airspace opacities, pulmonary edema versus a multifocal pneumonia.[ IMPRESSION: Persistent multifocal airspace opacities, pulmonary edema versus multifocal pneumonia. Sm all bilateral pleural effusions. ACT 112: Negative or not required by law. Electronically signed by: Ameya Chatman M.D. 12/25/2019 9:38 AM
[2019-12-25] MEDS: ENOXAPARIN INJ 40 MG/0.4 ML SYR SQ SCH (10:20)
[2019-12-25] MEDS: FLUTICASONE/VILANTEROL 100/25MCG 14 PUFFS/INHALER INH SCH (10:21)
--- NOTE | 2019-12-25 11:22 | Cardiology Consultation ---
Date of Consultation December 25, 2019 Assessment & Plan (1) Acute and chronic respiratory failure with hypoxia: He presents with acute respiratory failure. Some of his data suggest CHF but most do not. His BNP is elevated but that may be nonspecific, his chest x- ray appears more patchy and diffuse than we normally see with heart failure although it is possible. His weights are little hard to interpret since they fluctuate somewhat however it does not appear that he has gained significant weight. He does not have significant peripheral edema. He was diuresed and although he did not have a large negative fluid status his chest x-ray looks worse this morning. His LV function appears to me to be reduced, although not severely, which could be secondary to his acute presentation or other than a cause but may contribute. Although his shortness of breath may be multifactorial I would suggest pulmonary evaluation as well as a possible infectious etiology. (2) CHF (congestive heart failure): He may have some degree of congestive heart failure but the data are contradictory, especially at lack of response to diuresis with worsening of his chest x-ray findings although he was not diuresed a lot. His kidney function is relatively stable although creatinine is slightly up today. He does have some element of left ventricular dysfunction now. I would agree with continued diuresis but would not be overly aggressive, and watch closely for hypotension or worsening renal function. (3) Elevated troponin: He has a mildly elevated troponin which is in the range consistent with demand ischemia, plus there is no specific trend. Even with his left ventricular dysfunction I would not consider invasive evaluation. (4) CKD (chronic kidney disease) stage 3, GFR 30-59 ml/min: He does have chronic kidney disease, his creatinine has increased slightly but is minimally elevated. I would watch this closely with ongoing diuresis. History of Present Illness Reason for Consultation: Shortness of breath, CHF Attending Physician: Joanne Valentino, History of Present Illness This is an 89-year-old gentleman who has a history of abdominal aortic aneurysm, hypertension, COPD, diabetes, chronic kidney disease, carotid artery stenosis and prostate cancer. He also has been having difficulty with cholecystitis which is being managed conservatively. During an admission in early November 2019 he had heart rates in the 30s which appeared to be second-degree AV block Mobitz type II and therefore beta-blockers were held. To my knowledge she has not had symptoms of bradycardia. He was discharged from that admission on December 08, 2019. He presented here on December 24, 2019 with an acute onset of shortness of breath. He was evaluated in the emergency room where COVID testing was negative. He did have an infiltrate on chest x-ray and an elevated BNP possibly consistent with fluid overload. He was diuresed with intravenous Lasix, although based on his intake and output he did not lose lot of fluid. His weight last admission is similar to what it is this admission, if they are accurate his weight has dropped somewhat this admission as well by several kilograms. At the time my evaluation he is on BiPAP, he is little bit difficult to communicate with in part because he is hard of hearing and in part because his speaking is muffled by the BiPAP and my speaking is muffled by mask analyzer but he does not seem able to give me a very coherent history of shortness of breath. I cannot get a sense for when it started, he denies having chest pain, he tells me he did have some leg edema but as I understand it he did not have it on admission to speak of and that may be historical. He is having some abdominal discomfort. Allergies Allergy/AdvReac Type Severity Reaction Status Date / Time No Known Drug Allergies Allergy Verified 12/24/19 15:40 Home Medications Home Medications Medication Instructions Recorded Confirmed Type albuterol sulfate [Ventolin HFA] 2 puff INHALATION Q6H PRN 08/05/18 12/24/19 History amlodipine 10 mg PO QAM 08/05/18 12/24/19 History glipizide 2.5 mg PO BID 08/05/18 12/24/19 History levalbuterol HCl 0.63 mg INHALATION Q6H PRN 08/05/18 12/24/19 History pantoprazole 40 mg PO QAM 08/05/18 12/24/19 History magnesium 200 mg tablet 200 mg PO QAM 01/01/19 12/24/19 History triamcinolone acetonide 55 mcg 2 spray INTRANASAL QAM PRN 01/01/19 12/24/19 History nasal spray aerosol aspirin 81 mg PO DAILY 30 Days #30 tab 12/08/19 12/24/19 Rx furosemide 40 mg PO QAM 30 Days #30 tab 12/08/19 12/24/19 Rx hydralazine 25 mg PO BID #60 tab 12/08/19 12/24/19 Rx fluticasone furoate-vilanterol 0 inh INHALATION BID 12/24/19 12/24/19 History [Breo Ellipta] Patient History Medical History Abdominal aortic aneurysm (AAA) greater than 5.5 cm in diameter in male (Chronic) COPD exacerbation (Chronic) Diabetes mellitus (Chronic) GERD (gastroesophageal reflux disease) (Chronic) HTN (hypertension) (Chronic) Hypertension (Chronic) Kidney stones (Chronic) Prostate cancer (Chronic) Reactive airway disease (Chronic) Spinal stenosis (Chronic) Surgical History H/O colonoscopy (Chronic) History of cataract surgery (Chronic) Hx of cataract surgery (Chronic) Hx of lumbosacral spine surgery (Chronic) Social History Smoking Status: Former smoker Tobacco Type: Cigarettes Hx Alcohol Use: Yes Alcohol type: beer Hx Substance Use: No Preferred Language: Khmer Communication Ability: Effective Visual Impairment: Limited Hearing Ability: Use of Hearing Aid [employer] Required: No Beliefs That Will Affect Care: None marital status: Current Living Situation: Spouse and Family Current Living Situation Comment: with and dtr How many Children do You have: 5 Other Information That Helps Us Care for You: No Feels Safe at Home: Yes Safety Concerns: Feels Safe At This Time Review of Systems Review of Systems: All systems reviewed & are unremarkable except as noted in HPI & below and Other The review of systems was negative however communication was difficult and I am not sure that it is accurate. Physical Exam Physical Exam: Constitutional: Alert, cooperative and in moderate respiratory distress. He is sitting upright in bed on BiPAP. HEENT: Unremarkable Neck: No jugular venous distention, carotid pulses are normal and equal bilaterally without bruits. Pulmonary: Diffuse crackles on auscultation bilaterally. Cardiac: Regular rhythm with no significant murmur, gallop or rub. Abdomen: Soft, nontender with normal bowel sounds. Extremities: No edema. Distal pulses intact. Neurologic: No focal findings. Gait is steady. Skin: No rash, ecchymoses or petechiae. Results & Data ([facility]) Vital Signs (Past 12 Hours) Vital Signs Temp Pulse Pulse Resp BP Pulse Ox 12/25/19 11:18 102 H 32 H 96 12/25/19 08:16 36.8 C 98 H 20 138/73 93 12/25/19 04:18 92 H 12/25/19 03:29 36.7 C 102 H 20 136/68 91 12/25/19 02:45 84 20 97 12/25/19 00:09 36.4 C L 95 H 18 134/75 95 Laboratory Results Cardiac Enzymes 12/24/19 12/24/19 12/25/19 Range/Units 14:23 20:12 01:34 AST 17 (15-37) U/L Troponin I 0.163 H* 0.165 H* 0.173 H* (0-0.045) ng/ml Coagulation 12/24/19 Range/Units 14:23 PT 11.2 (9.0-12.0) Seconds CBC 12/24/19 12/25/19 Range/Units 14:23 01:34 WBC 15.46 H 14.62 H (4.8-10.8) K/uL RBC 2.94 L 3.14 L (4.7-6.1) M/uL Hgb 8.6 L 9.1 L (14.0-18.0) g/dL Hct 27.2 L 28.5 L (42-52) % Plt Count 378 352 (130-400) K/uL Neut # (Auto) 11.71 H (1.4-6.5) K/uL Lymph # (Auto) 1.67 (1.2-3.4) K/uL [place] # (Auto) 1.70 H (0.11-0.59) K/uL Eos # (Auto) 0.29 (0-0.5) K/uL Baso # (Auto) 0.04 (0-0.2) K/uL Comprehensive Metabolic Panel 12/24/19 12/25/19 Range/Units 14:23 01:34 Sodium 138 138 (136-145) mmol/L Potassium 3.4 L 4.1 D (3.5-5.1) mmol/L Chloride 102 103 (98-107) mmol/L Carbon Dioxide 29 31 (21-32) mmol/L BUN 24 H 24 H (7-18) mg/dl Creatinine 1.54 H 1.60 H (0.6-1.4) mg/dl Glucose 124 H 183 H (70-99) mg/dl Calcium 8.5 8.3 L (8.5-10.1) mg/dl AST 17 (15-37) U/L ALT 26 (12-78) U/L Alkaline Phosphatase 85 (45-117) U/L Total Protein 7.2 (6.4-8.2) gm/dl Albumin 2.2 L (3.4-5.0) gm/dl Intake and Output 12/24/19 12/25/19 12/25/19 22:59 06:59 14:59 Intake Total 550 / 861.667 311.667 / 861.667 65 / 65 Output Total 750 / 1200 450 / 1200 Balance -200 / -338.333 -138.333 / -338.333 65 / 65 Intake: IV 310 / 621.667 311.667 / 621.667 65 / 65 Azactam 2,000 mg In D5 100 ml @ 110 / 110 110 mls/hr IV NOW STA Rx#: [id number] MAGNESIUM SULFATE / D5W 1 gm In 196.667 / 196.667 100 ml @ 50 mls/hr IV Q2H MARISSA Rx#:[id number] Zosyn 3.375 gm In D5 100 ml @ 115 / 115 230 mls/hr IV NOW ONE Rx#: [id number] Zosyn 3.375 gm In D5w 50 ml @ 65 / 65 16.25 mls/hr IV Q8H MARISSA Rx#: [id number] Vancomycin HCl 1,750 mg In Nss 200 / 200 500 ml @ 200 mls/hr IV NOW ONE Rx#:[id number] Oral 240 / 240 0 / 240 Output: Urine Amount (Catheter) 750 / 1200 450 / 1200 Strong/Indwelling 750 / 1200 450 / 1200 Other: Other Intake Source NPO Weight 87.8 kg 86.3 kg Diagnostic Findings Electrocardiograms: His electrocardiograms this admission have shown sinus rhythm and sinus tachycardia with PACs. Right bundle branch block is present without acute changes. The computer interpretation is atrial fibrillation but that is erroneous. Telemetry monitoring: Sinus rhythm and sinus tachycardia, no evidence of AV block or atrial fibrillation. Echocardiogram: I reviewed his echocardiogram at the bedside as it was being done. There does appear to be some degree of left ventricular dysfunction although it is not severe. It appears global in nature. Formal interpretation to follow. PG Care Time/CCT Total # of Minutes Spent Total Time Spent with Patient: Total time spent is greater than 50% in coordination of care (as documented) at patient's floor/unit and/or counseling patient: Coding Level of Care Code 54006 Initial Inpt Care Lvl 3 Diagnoses Acute and chronic respiratory failure with hypoxia J96.21 CHF (congestive heart failure) I50.9 Elevated troponin R79.89 CKD (chronic kidney disease) stage 3, GFR 30-59 ml/min N18.3
--- NOTE | 2019-12-25 11:56 | Electrocardiogram Report ---
Test Reason : Blood Pressure : / mmHG Vent. Rate : 100 BPM Atrial Rate : 100 BPM P-R Int : 176 ms QRS Dur : 134 ms QT Int : 386 ms P-R-T Axes : -05 017 -26 degrees QTc Int : 497 ms Sinus rhythm with Premature atrial complexes Right bundle branch block Abnormal ECG When compared with ECG of 06-DEC-2019 07:06, Premature atrial complexes are now Present T wave inversion more evident in Anterior leads Confirmed by Leon Owen ([id number]) on 12/25/2019 11:56:03 AM Referred By: Confirmed By:Leon Owen
--- NOTE | 2019-12-25 11:57 | Electrocardiogram Report ---
Test Reason : Blood Pressure : / mmHG Vent. Rate : 108 BPM Atrial Rate : 111 BPM P-R Int : 000 ms QRS Dur : 130 ms QT Int : 372 ms P-R-T Axes : 000 025 002 degrees QTc Int : 498 ms Sinus tachycardia with premature ventricular or aberrantly conducted complexes Right bundle branch block Abnormal ECG When compared with ECG of 24-DEC-2019 14:13, (unconfirmed) No significant change Confirmed by Leon Owen ([id number]) on 12/25/2019 11:57:04 AM Referred By: REFERRED SELF Confirmed By:Leon Owen
--- NOTE | 2019-12-25 11:57 | Electrocardiogram Report ---
Test Reason : Blood Pressure : / mmHG Vent. Rate : 106 BPM Atrial Rate : 107 BPM P-R Int : 000 ms QRS Dur : 128 ms QT Int : 368 ms P-R-T Axes : 000 048 -10 degrees QTc Int : 488 ms Poor data quality, interpretation may be adversely affected Sinus tachycardia Premature atrial complexes Right bundle branch block Abnormal ECG When compared with ECG of 24-DEC-2019 20:03, (unconfirmed) No significant change Confirmed by Leon Owen ([id number]) on 12/25/2019 11:57:43 AM Referred By: REFERRED SELF Confirmed By:Leon Owen
[2019-12-25] MEDS: FUROSEMIDE 40 MG in SYRINGE 0 ML IV SCH ×2 (12:03→23:51)
[2019-12-25 12:09] LABS: Base Excess ABG 5.2 mEq/L (-9-1.8); HCO3 ABG 30 mmol/L (19-24); Oxygen Saturation ABG 86.3 % (90-95); PCO2 ABG 47 mmHg (35-46); PO2 ABG 55 mmHg (80-95); pH ABG 7.43 (7.35-7.45)
[2019-12-25 12:10] LABS: Allen Test Pos (Pos)
[2019-12-25] MEDS ORDERED: PERFLUTREN LIPID MICROSPHERE (DEFINITY) IV ONE (12:29)
--- NOTE | 2019-12-25 14:45 | Pulmonary Consultation ---
Date of Consultation December 25, 2019 Assessment & Plan (1) Acute and chronic respiratory failure with hypoxia: Impression: 89-year-old male with diastolic dysfunction admitted with diffuse pulmonary infiltrates and pleural effusion and markedly elevated BNP. I agree with cardiology that he does not appear overtly fluid overloaded on clinical exam however the pattern does appear to be more consistent with hydrostatic pulmonary edema than non-hydrostatic pulmonary edema. Alveolar hemorrhage would also be in the differential. Review his medication list does not reveal any medications which would be consistent with an acute lung injury he has no other occupational or environmental exposures and he has no eosinophilia. In addition the course is fairly rapid as he had a CT scan performed about a month ago demonstrating normal pulmonary parenchyma without evidence of significant interstitial disease. Recommendations: 1. Would continue diuresis. Strict attention to kidney function and volume status. 2. Continue to wean oxygen as tolerated to defend oxygen saturation 88 to 90%. 3. The patient does have evidence on recent blood gas of hypercarbia with a PCO2 of 47. Prior PCO2 about 3 weeks ago was only 37. CPAP/BiPAP can definitely be considered in the inpatient setting. We could consider an outpatient sleep study however given the patient's advanced age and his expres sed reluctance to pursue noninvasive positive pressure ventilation, I am not sure that this needs to be conducted. 4. Patient is mildly anemic and alveolar hemorrhage may have a similar pattern. He did have 1+ blood noted on his urinalysis. Platelet count has been stable. He is not on anticoagulants. His sputum does not appear blood-tinged. We could consider bronchoscopy with BAL however the patient's respiratory status is quite tenuous currently and to pursue this may result in intubation. Discussion with the patient reveals that he would like to avoid intubation would actually like t o be a DO NOT RESUSCITATE DO NOT INTUBATE which I would certainly think is reasonable. Would not recommend steroids at this point in time. Consider limited serological evaluation for possible alveolar hemorrhage. We will continue to follow and reassess. Feel free to contact us with questions or concerns. The above recommendations and plan were discussed with the patient. Questions were answered to the best my ability. He expressed understanding and is in agreement with plan as outlined (2) Abnormal CT scan of lung: (3) Dyspnea: Dyspnea type: dyspnea on exertion Qualified Code(s): R06.00 - Dyspnea, unspecified History of Present Illness Attending Physician: Joanne Valentino, DO History of Present Illness Asked by hospitalist to evaluate patient with hypoxemic respiratory failure and diffuse bilateral pulmonary infiltrates. History is obtained from discussion with the hospitalist as well as review the electronic medical record and interview the patient. Patient is an 89-year-old male with a fairly complex medical history. He has a history of chronic cholecystitis and was recently admitted to the hospital. He was to undergo cholecystostomy tube but apparently this was never performed instead is been managed conservatively. He presented to the emergency room with increasing shortness of breath. It was felt that his x-ray appeared to be consistent with pulmonary edema. His BNP was elevated. He had new bilateral pleural effusions. Prior CT scan last month did not demonstrate significant structural lung disease or parenchymal lung disease. Patient was diuresed with Lasix and has been weaned off of BiPAP to oxygen mask. He believes his breathing is better. He continues to cough and expectorate some clear phlegm. Cardiology was consulted and felt that his abnormalities on imaging and hypoxemic respiratory failure were out of proportion to his volume status which prompted a pulmonary consultation. Patient has remote history of tobacco abuse but quit smoking over 40 years ago. 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 He states that after being discharged from the hospital during his last hospit alization he has been on oxygen anywhere between 5 and 6 L/min chronically. He is not enthusiastic about being on BiPAP and when CODE STATUS is discussed, he states he would not want to be intubated or undergo CPR. Apparently he and his have discussed this in the past. Unclear if he has advanced directive forms completed. Allergies Allergy/AdvReac Type Severity Reaction Status Date / Time No Known Drug Allergies Allergy Verified 12/24/19 15:40 Home Medications Home Medications Medication Instructions Recorded Confirmed Type albuterol sulfate [Ventolin HFA] 2 puff INHALATION Q6H PRN 08/05/18 12/24/19 History amlodipine 10 mg PO QAM 08/05/18 12/24/19 History glipizide 2.5 mg PO BID 08/05/18 12/24/19 History levalbuterol HCl 0.63 mg INHALATION Q6H PRN 08/05/18 12/24/19 History pantoprazole 40 mg PO QAM 08/05/18 12/24/19 History magnesium 200 mg tablet 200 mg PO QAM 01/01/19 12/24/19 History triamcinolone acetonide 55 mcg 2 spray INTRANASAL QAM PRN 01/01/19 12/24/19 History nasal spray aerosol aspirin 81 mg PO DAILY 30 Days #30 tab 12/08/19 12/24/19 Rx furosemide 40 mg PO QAM 30 Days #30 tab 12/08/19 12/24/19 Rx hydralazine 25 mg PO BID #60 tab 12/08/19 12/24/19 Rx fluticasone furoate-vilanterol 0 inh INHALATION BID 12/24/19 12/24/19 History [Breo Ellipta] Patient History Medical History Abdominal aortic aneurysm (AAA) greater than 5.5 cm in diameter in male (Chronic) COPD exacerbation (Chronic) Diabetes mellitus (Chronic) GERD (gastroesophageal reflux disease) (Chronic) HTN (hypertension) (Chronic) Hypertension (Chronic) Kidney stones (Chronic) Prostate cancer (Chronic) Reactive airway disease (Chronic) Spinal stenosis (Chronic) Surgical History H/O colonoscopy (Chronic) History of cataract surgery (Chronic) Hx of cataract surgery (Chronic) Hx of lumbosacral spine surgery (Chronic) Social History Smoking Status: Former smoker Tobacco Type: Cigarettes Hx Alcohol Use: Yes Alcohol type: beer Hx Substance Use: No Preferred Language: Armenian Communication Ability: Effective Visual Impairment: Limited Hearing Ability: Use of Hearing Aid [employer] Required: No Beliefs That Will Affect Care: None marital status: Current Living Situation: Spouse and Family Current Living Situation Comment: with and dtr How many Children do You have: 5 Other Information That Helps Us Care for You: No Feels Safe at Home: Yes Safety Concerns: Feels Safe At This Time Review of Systems Review of Systems: Please refer to hospitalist note and admission H&P. I have no additions or deletions. Physical Exam Physical Exam: CONSTITUTIONAL: WNWD, vitals as above, generally well-appearin g EYES: PERRL, normal conjunctivae, no scleral icterus ENT: external ear and nose normal, oropharynx clear, MMM NECK: trachea midline RESPIRATORY: crackles throughout all lung baldwin. Increased respiratory effort. CARDIOVASCULAR: regular rate and rhythm, S1 and 2 heard without murmurs, gallops or rubs, no JVD, no peripheral edema, no hepatojugular reflux present CHEST: inspection of chest was normal GASTROINTESTINAL: normal bowel sounds, soft, mild periumbilical tenderness, no RUQ tenderness, no epigastric tenderness, nondistended. MUSCULOSKELETAL: strength 5/5 throughout, head is normocephalic and atraumatic, neck supple, normal palpation of chest wall without tenderness SKIN: warm and dry, small area of ecchymosis from recent Lovenox injections is in the periumbilical area that is tender. NEUROLOGIC: No facial palsy, no dysarthria. CN 2-12 grossly intact, normal cognition, normal speech, no tremor, no gross focal deficit. PSYCHIATRIC: alert cooperative and oriented to person, place and time. Results & Data Results & Data ([facility]) Vital Signs (Past 12 Hours) Vital Signs Temp Pulse Pulse Resp BP Pulse Ox 12/25/19 11:53 36.3 C L 98 H 20 136/77 89 L 12/25/19 11:36 88 L 12/25/19 11:18 102 H 32 H 96 12/25/19 08:16 36.8 C 98 H 20 138/73 93 12/25/19 04:18 92 H 12/25/19 03:29 36.7 C 102 H 20 136/68 91 12/25/19 02:45 84 20 97 Laboratory Results 12/25/19 01:34 12/25/19 01:34 AB.43/40 Initial troponin 0 0.165 increased to 0.173 Initial BMP 17,732, up to date is 17,575 Procalcitonin 0.11 COVID-19 PCR negative Urinalysis unremarkable with the exception of 1+ protein Diagnostic Findings Chest x-ray was independently reviewed. It demonstrates diffuse bilateral airspace opacities with small bilateral pleural effusions. Echocardiogram from 12/04/2019 showed an EF of 55-60 with concentric LVH mild mitral regurgitation and grade 1 diastolic dysfunction. Follow-up echo is currently pending PG Care Time/CCT Total # of Minutes Spent Total Time Spent with Patient: Total time spent is greater than 50% in regional education coordinator rdination of care (as documented) at patient's floor/unit and/or counseling patient: Coding Level of Care Code 61684 Initial Inpt Care Lvl 3 Diagnoses Acute and chronic respiratory failure with hypoxia J96.[address] scan of lung R91.8 Dyspnea R06.00 Dyspnea type: dyspnea on exertion
[2019-12-25] MEDS: VANCOMYCIN HCL 1,500 MG in SODIUM CHLORIDE 0.9% 500 ML IV SCH (15:53)
--- NOTE | 2019-12-25 18:47 | XCELERA ---
[id number]
--- NOTE | 2019-12-25 19:07 | Hospitalist Progress Note ---
Date of Service December 25, 2019 Assessment & Plan (1) Acute and chronic respiratory failure with hypoxia: Pulmonary edema present on CXR. Reduced EF to 45% that is new. Per cardiology, this is unlikely a new cardiac event. Suspect pulmonary process and they were consulted. Cont vanc/zosyn. Cont diuretics. (2) Acute systolic (congestive) heart failure: Cont diuresis efforts. (3) Demand ischemia: in setting of tachycardia and new cardiomyopathy. (4) Abdominal pain: benign exam except for periumbilical area where prior lovenox injections were given. Some residual ecchymosis is still present. Previous abdominal pain has resolved. (5) AV block, 2nd degree: h/o Mobitz Type II block on BB which is contraindicated. Will add this to allergy list. (6) Cholecystitis: no urgent surgical intervention needed at this time per gen surgeon, and he may progress to a low fat diet. (7) Bilateral renal artery stenosis: Atherosclerotic disease present at multiple locations. Cont medical management with aspirin. Will add statin prior to dc. (8) CKD (chronic kidney disease) stage 3, GFR 30-59 ml/min: At baseline. No changes despite diuresis (9) Anemia: Stable from recent levels. Some rectal bleeding reported however, the FOBT in the ER was negative with brown stool in the rectal vault on exam and no evidence of hemorrhoids. Cont to monitor (10) COPD (chronic obstructive pulmonary disease): chronic, stable. Continues on home oxygen reported recently as 6LPM in the last month. (11) Diabetes mellitus: hold oral meds, cont basal bolus insulin dosing while inpatient. (12) DVT prophylaxis: Lovenox Full Code Dispo-cont PCU monitoring. Await pulm recs. Joanne Valentino DO [facility] Hospitalist Admission and Anticipated Discharge Date Admission Date: December 24, 2019 Subjective Not much better today still somewhat short of breath not a significant amount of diuresis with Lasix, but he is net negative tolerating PO afebrile Review of Systems Review of Systems: All systems reviewed & are unremarkable except as noted in Subjective Physical Exam Physical Exam: CONSTITUTIONAL: WNWD, vitals as above, generally well-appe aring EYES: normal conjunctivae, no scleral icterus ENT: external ear and nose normal, oropharynx clear, MMM NECK: trachea midline RESPIRATORY: crackles throughout all lung baldwin. Increased respiratory effort. CARDIOVASCULAR: regular rate and rhythm, S1 and 2 heard without murmurs, gallops or rubs, no JVD, no peripheral edema, no hepatojugular reflux present CHEST: inspection of chest was normal GASTROINTESTINAL: normal bowel sounds, soft, periumbilical tenderness has resolved, no RUQ tenderness, no epigastric tenderness, nondistended. MUSCULOSKELETAL: strength 5/5 throughout, head is normocephalic and atraumatic, neck supple, normal palpation of chest wall without tenderness SKIN: warm and dry NEUROLOGIC: No facial palsy, no dysarthria. CN 2-12 grossly intact, normal cognition, normal speech, no tremor, no gross focal deficit. PSYCHIATRIC: alert cooperative and oriented to person, place and time. Results & Data Results & Data ([facility]) Vital Signs (Past 12 Hours) Vital Signs Temp Pulse Pulse Resp BP Pulse Ox 12/25/19 15:36 36.8 C 97 H 18 141/62 H 96 12/25/19 11:53 36.3 C L 98 H 20 136/77 89 L 12/25/19 11:36 88 L 12/25/19 11:18 102 H 32 H 96 12/25/19 08:16 36.8 C 98 H 20 138/73 93 Laboratory Results Short CBC 12/25/19 Range/Units 01:34 WBC 14.62 H (4.8-10.8) K/uL Hgb 9.1 L (14.0-18.0) g/dL Hct 28.5 L (42-52) % Plt Count 352 (130-400) K/uL BMP 12/25/19 01:34 Sodium 138 Potassium 4.1 D Chloride 103 Carbon Dioxide 31 BUN 24 H Creatinine 1.60 H Glucose 183 H Calcium 8.3 L Cardiac Enzymes 12/24/19 12/25/19 Range/Units 20:12 01:34 Troponin I 0.165 H* 0.173 H* (0-0.045) ng/ml Medications Administered Current Inpatient Medications Acetaminophen (Tylenol) 650 mg PO Q4H PRN PRN Reason: Pain or Fever Stop: 01/23/20 19:46 Aspirin (Ecotrin Ectab) 81 mg PO DAILY MARISSA Stop: 01/24/20 08:59 Last Admin: 12/25/19 08:32 Dose: 81 mg Documented by: Dextrose (Dextrose 50%) 25 - 50 ml IV UD PRN; Protocol PRN Reason: Hypoglycemia Protocol Stop: 01/23/20 19:46 Enoxaparin Sodium (Lovenox) 40 mg SQ QAM MARISSA Stop: 01/24/20 08:59 Last Admin: 12/25/19 10:20 Dose: 40 mg Documented by: Fluticasone/Vilanterol (Breo Ellipta 100/25 Mcg Inh) 1 puffs INH DAILY MARISSA Stop: 01/24/20 08:59 Last Admin: 12/25/19 10:21 Dose: Not Given Documented by: Glucagon (Glucagen) 1 mg SQ UD PRN; Protocol PRN Reason: Hypoglycemia Protocol Stop: 01/23/20 19:46 Glucose (Dex4 Glucose) 4 - 8 tabs PO UD PRN; Protocol PRN Reason: Hypoglycemia Protocol Stop: 01/23/20 19:46 Glucose (Glucose 40%) 15 - 30 gm PO UD PRN; Protocol PRN Reason: Hypoglycemia Protocol Stop: 01/23/20 19:46 Vancomycin HCl 1,500 mg/ (Sodium Chloride) 530 mls @ 200 mls/hr IV Q24H MARISSA Stop: 01/01/20 15:59 Last Infusion: 12/25/19 18:30 Dose: Infused Documented by: Piperacillin Sod/Tazobactam (Sod 3.375 gm/ Dextrose) 65 mls @ 16.25 mls/hr IV Q8H [facility]; Protocol Stop: 01/01/20 05:59 Last Infusion: 12/25/19 17:33 Dose: Infused Documented by: Furosemide 40 mg/ Syringe 4 mls @ 4 mls/min IV Q12H MARISSA Stop: 01/24/20 11:44 Last Admin: 12/25/19 12:03 Dose: 4 mls/min Documented by: Insulin Aspart (Novolog Flexpen) 0 units SC ACHS MARISSA Stop: 01/23/20 20:59 Last Admin: 12/25/19 16:58 Dose: 7 units Documented by: Insulin Glargine (Lantus Solostar Pen) 10 units SC BID MARISSA Stop: 01/23/20 20:59 Last Admin: 12/25/19 08:31 Dose: 10 units Documented by: Ipratropium Cardinal (Atrovent 0.02% 0.5mg/2.5ml) 0.5 mg INH Q4H PRN PRN Reason: Shortness Of Breath Or Wheezing Stop: 01/23/20 20:29 Levalbuterol HCl (Xopenex 0.63 Mg/3 Ml Neb) 0.63 mg NEB Q4H PRN PRN Reason: Shortness Of Breath Or Wheezing Stop: 01/23/20 20:29 Magnesium Oxide (Mag-Ox) 400 mg PO QAM [facility] Stop: 01/24/20 08:59 Last Admin: 12/25/19 08:32 Dose: 400 mg Documented by: Miscellaneous (Carbohydrates For Hypoglycemia) 15 - 30 gm PO UD PRN PRN Reason: Hypoglycemia Protocol Stop: 01/23/20 19:46 Miscellaneous Information (Consult) 1 ea N/A UD PRN PRN Reason: Consult Stop: 01/23/20 15:17 Miscellaneous Information (Consult) 1 ea N/A UD PRN PRN Reason: Consult Stop: 01/23/20 23:41 Pantoprazole Sodium (Protonix) [facility] Stop: 01/24/20 08:59 Last Admin: 12/25/19 08:32 Dose: 40 mg Documented by: Polyethylene Glycol (Miralax Powder Packet) 17 gm PO DAILY PRN PRN Reason: Constipation Stop: 01/23/20 19:46 (1) Anemia Anemia type: iron deficiency Iron deficiency anemia type: unspecified iron deficiency Qualified Code(s): D50.9 - Iron deficiency anemia, unspecified
[2019-12-26 00:01] LABS: Base Excess ABG 2.8 mEq/L (-9-1.8); HCO3 ABG 29 mmol/L (19-24); Oxygen Saturation ABG 86.3 % (90-95); PCO2 ABG 56 mmHg (35-46); PO2 ABG 60 mmHg (80-95); pH ABG 7.34 (7.35-7.45)
[2019-12-26 00:05] LABS: Allen Test Pos (Pos)
[2019-12-26 01:30] LABS: Base Excess ABG 3.6 mEq/L (-9-1.8); HCO3 ABG 30 mmol/L (19-24); Oxygen Saturation ABG 89.4 % (90-95); PCO2 ABG 53 mmHg (35-46); PO2 ABG 66 mmHg (80-95); pH ABG 7.37 (7.35-7.45)
[2019-12-26 01:31] LABS: Allen Test Pos (Pos)
[2019-12-26 05:59] LABS: Hematocrit (blood only) 29.2 % (42-52); Hemoglobin 8.6 g/dL (14.0-18.0); Mean Corpuscular Hemoglobin 27.2 pg (25-34); Mean Corpuscular Hgb Conc 29.5 g/dL (32-36); Mean Corpuscular Volume 92.4 fL (80-100); Mean Platelet Volume 9.8 fL (7.4-10.4); Platelet Count 462 K/uL (130-400); RDW Coefficient of Variation 14.3 % (11.5-14.5); RDW Standard Deviation 48.8 fL (36.4-46.3); Red Blood Count 3.16 M/uL (4.7-6.1)
[2019-12-26] MEDS: PIPERACILLIN/TAZOBACTAM 3.375 GM in DEXTROSE 5% 50 ML IV SCH ×3 (06:01→23:05)
[2019-12-26 06:29] LABS: BUN Creatinine Ratio 15.4 (10-20); Calcium 8.5 mg/dl (8.5-10.1); Creatinine Clr Calc Pharmacy 31.5 ml/min; Est GFR (African American) 38.6; Est GFR (Non-African American) 33.3; Magnesium 2.4 mg/dl (1.8-2.4); Potassium 4.2 mmol/L (3.5-5.1)
[2019-12-26] MEDS: ASPIRIN 81 MG ECTAB PO SCH (07:19)
[2019-12-26] MEDS: MAGNESIUM OXIDE 400 MG TAB PO SCH (07:20)
[2019-12-26] MEDS: PANTOprazole 40 MG TAB PO SCH (07:20)
[2019-12-26] MEDS: ENOXAPARIN INJ 40 MG/0.4 ML SYR SQ SCH (07:21)
[2019-12-26] MEDS: FLUTICASONE/VILANTEROL 100/25MCG 14 PUFFS/INHALER INH SCH ×2 (07:21→07:22)
[2019-12-26] MEDS: INSULIN ASPART 100 UNITS/ML 3 ML PEN SC SCH ×4 (08:14→20:47)
[2019-12-26] MEDS: INSULIN GLARGINE SOLOSTAR 100 UNITS/ML 3 ML PEN SC SCH ×2 (08:16→17:30)
--- NOTE | 2019-12-26 09:41 | XRay Report ---
XR chest 1V portable HISTORY: 89 years-old Male HYPOXIC RESPIRATORY FAILURE acute respiratory failure COMPARISON: Chest radiograph 12/25/2019 TECHNIQUE: Portable AP view of the chest FINDINGS: Cardiac silhouette is enlarged. Extensive bilateral mixed interstitial and alveolar opacities redemon strated. Small pleural effusions. There is no significant change from yesterday's study. IMPRESSION: 1. Cardiomegaly with unchanged extensive bilateral mixed interstitial and alveolar opacities suggesti ve of pulmonary edema versus multifocal pneumonia. 2. Small pleural effusions. ACT 112: Negative or not required by law. The above report was generated using voice recognition software. It may contain grammatical, syntax o r spelling errors. Electronically signed by: Waylon Morillo M.D. 12/26/2019 9:40 AM
--- NOTE | 2019-12-26 10:01 | Pulmonology Progress Note ---
Date of Service December 26, 2019 Assessment & Plan (1) Acute and chronic respiratory failure with hypoxia: Impression: 89-year-old male with diastolic dysfunction admitted with diffuse pulmonary infiltrates and pleural effusion and markedly elevated BNP. There is no significant lower extremity edema today. Alveolar hemorrhage would also be in the differential. Review his medication list does not reveal any medications which would be consistent with an acute lung injury he has no other occupational or environmental exposures and he has no eosinophilia. In addition the course is fairly rapid as he had a CT scan performed about a month ago demonstrating normal pulmonary parenchyma without evidence of significant interstitial disease. Recommendations: This appears to be multifactorial. Continue diuresis as tolerated. Patient is currently 1.4 L negative. Continue strict I's and O's Chest x-ray this morning appears to be worsening and left pleural effusion appears to be increased. Check a noncontrast chest CT to compare to prior CT from 1 month ago Today is day #2 of vancomycin and Zosyn Procalcitonin 0.11 (0-0.5) (2) Abnormal CT scan of lung: Repeat CT scan noncontrast today (3) Hemoptysis: This seems to be resolved. Review of tissue shows yellow sputum with no evidence of blood tinge Serological studies have been ordered and are pending to rule out vasculitis/alveolar hemorrhage Continue to monitor Due to increased oxygen requirements bronchoscopy may result in endotracheal intubation. Await CT results. Should the patient require bronchoscopy, he is at high risk for endotracheal intubation and mechanical ventilation. (4) COPD (chronic obstructive pulmonary disease): Patient smokes approximately 2-1/2 packs of cigarettes per day for 30 years and quit smoking in 1979 Most recent pulmonary function tests that I can find are from 2010 PFT revealed findings in 2011 consistent with essentially normal spirometry. FEV1 was 2.79 liters, 99% of predicted. FEV1/FVC ratio was 74%. Peak flow rate was 449 liters per minute, 105% of predicted. 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 We will hold on starting steroids until we are able to review the CT scan. Continue outpatient work-up Thank you very much for including us in the care of this patient. We will continue to follow along with you. Please refer to Dr. Downey's addendum for further recommendations. Admission and Anticipated Discharge Date Admission Date: December 24, 2019 Supervising Physician Co-Signing Physician Notes Patient seen and examined. Discussed with DOUGLAS lewis. Patient and family interviewed at bedside. Patient is had increasing respiratory symptoms with increased work of breathing. This is despite additional diuresis. CT of the chest demonstrates diffuse parenchymal lung disease with bilateral pleural effusions. Certainly fluid ove rload would be on the differential however must also consider other infectious and inflammatory etiologies. Pulmonary hemorrhage, organizing pneumonia, and other inflammatory lung conditions all remain in the differential. I discussed with the patient that ideally we would like to pursue bronchoscopy however the patient is too unstable to consider invasive procedures and this would likely require intubation which the patient would like to avoid. We discussed continuing current management including diuretics, antibiotics, and the addition of high-dose steroids in the event that this is some steroid responsive diffuse parenchymal lung disease. The patient understands the risks of proceeding with empiric therapy and is agreeable to proceed. We did readdress CODE STATUS. The patient is clear that he would not want CPR or ACLS in the event of a cardiac arrest. He also states that he would not want to be put on a ventilator in the event that his respiratory status should decline. I will go ahead and change his status to DO NOT INTUBATE DO NOT RESUSCITATE. I discussed with respiratory therapy trialing him on high flow nasal cannula/Vapotherm to see if we can offload some of his work of breathing. He is not particularly enthusiastic about continuing with noninvasive positive pr essure ventilation. 35 minutes Subjective Attending: Dr. Downey Is an 89-year-old male that was admitted with shortness of breath and hemoptysis and thought to have congestive heart failure. He had an elevated BNP and was seen by cardiology who feels that this is most likely more pulmonary than cardiac in etiology. Chest x-ray does appear to have increased pulmonary edema and some pleural effusion. Repeat chest x-ray this morning shows increasing left pleural effusion as well as bilateral consolidation. Procalcitonin is negative. Patient reports no further hemoptysis. Sputum collected appears to be yellow with no blood tingeing of mucus. Patient continues to complain of shortness of breath and said that he had a poor night last night. He was put on BiPAP which he claims he did not tolerate very well. He denies any fever or chills. He has no chest pain. Review of Systems Review of Systems: All systems reviewed & are unremarkable except as noted in HPI & below Physical Exam Physical Exam: GENERAL : No acute distress but does appear to be short of breath. EYES: No icterus, gaze conjugate NOSE: No evidence of epistaxis MOUTH: No lesions or candidiasis NECK: Supple. No appreciation of stridor LUNGS: Bibasilar crackles with some fine wheezes in the upper baldwin posteriorly HEART: Regular, rate controlled ABDOMEN: Soft, NT, ND, BS Present EXTREMITIES: No LE edema, pedal pulses intact and equal bilaterally NEURO: A&OX3 Results & Data Results & Data ([facility]) Vital Signs (Past 12 Hours) Vital Signs Temp Pulse Pulse Resp BP Pulse Ox 12/26/19 08:03 36.8 C 106 H 23 127/75 96 12/26/19 08:00 81 12/26/19 03:28 85 17 89 L 12/26/19 03:26 36.5 C 94 H 16 145/73 H 92 12/26/19 01:15 97 H 12/26/19 00:31 96 H 25 H 90 12/25/19 23:58 36.4 C L 98 H 20 147/75 H 89 L 12/25/19 22:42 96 H 21 88 L Laboratory Results 12/26/19 05:38 12/26/19 05:38 12/25/19 12/25/19 12/26/19 11:56 23:50 01:18 ABG pH 7.43 7.34 L 7.37 ABG pCO2 47 H 56 H 53 H ABG pO2 55 L 60 L 66 L ABG HCO3 30 H 29 H 30 H ABG O2 Saturation 86.3 L 86.3 L 89.4 L ABG Base Excess 5.2 H 2.8 H 3.6 H Diagnostic Findings XR chest 1V portable CLINICAL HISTORY: pulm edema reevaluation COMPARISON STUDY: 12/24/2019 FINDINGS: The heart is enlarged. There are small bilateral pleural effusions. There are bilateral pulmonary airspace opacities, pulmonary edema versus a multifocal pneumonia.[ IMPRESSION: Persistent multifocal airspace opacities, pulmonary edema versus multifocal pneumonia. Small bilateral pleural effusions. Electronically signed by: Ameya Chatman M.D. 12/25/2019 9:38 AM PG Care Time/CCT Total # of Minutes Spent Total Time Spent with Patient: Total time spent is greater than 50% in coordination of care (as documented) at patient's floor/unit and/or counseling patient: 40 minutes including discussion with patient, other providers. Coding Level of Care Code None Diagnoses Acute and chronic respiratory failure with hypoxia J96.[address] scan of lung R91.8 Hemoptysis R04.2 COPD (chronic obstructive pulmonary disease) J44.9 Time Spent (min) 39 Comment 39 minutes critical care time managing evaluating and stabilizing patient
--- NOTE | 2019-12-26 11:40 | CT Scan Report ---
CT chest wo con CT DOSE: 750.72 mGycm CLINICAL HISTORY: 89 years-old Male with Increased hypoxia, worsening CXR. Hypoxia with extensive bi lateral opacities TECHNIQUE: Multiaxial CT images of the chest were performed without contrast. A dose lowering techni que was utilized adhering to the principles of ALARA. COMPARISON: Chest radiograph of same day and also 12/25/2019, 12/24/2019 FINDINGS: Unremarkable thyroid. Mildly enlarged paratracheal lymph nodes measure up to 10 mm in short axis. Enl arged subcarinal lymph nodes measure up to 1.2 cm. Moderate cardiomegaly. Trace pericardial effusion. Coronary artery and aortic annular calcifications. Calcified plaque of the thoracic aorta. Moderate layering pleural effusions. No pneumothorax. Mild emphysema. Extensive bilateral multisegmen tammie and multilobar patchy groundglass and consolidative opacities with mild intermixed intralobular s eptal thickening. Consolidation with air bronchograms is most pronounced in the upper lobes. Respirat ory motion artifact limits the study. Central airways are patent. Small hiatal hernia. Hepatic steatosis. Unremarkable soft tissues. The bones appear intact. IMPRESSION: 1. Cardiomegaly with moderate pleural effusions. 2. Extensive bilateral consolidative and groundglass opacities within a multilobar distribution sugge sts multifocal pneumonia. Areas of associated intralobular septal thickening likely represent superim posed pulmonary edema. 3. Emphysema. 4. Hepatic steatosis. ACT 112: Negative or not required by law. Electronically signed by: Waylon Morillo M.D. 12/26/2019 11:38 AM
[2019-12-26] MEDS: FUROSEMIDE 40 MG in SYRINGE 0 ML IV SCH ×2 (12:24→20:47)
[2019-12-26] MEDS: VANCOMYCIN HCL 1,500 MG in SODIUM CHLORIDE 0.9% 500 ML IV SCH (16:15)
[2019-12-26] MEDS: methylPREDNISolone 125 MG in SYRINGE 0 ML IV SCH (17:21)
--- NOTE | 2019-12-26 19:03 | Hospitalist Progress Note ---
Date of Service December 26, 2019 Assessment & Plan (1) Acute and chronic respiratory failure with hypoxia: After diuresis and two days, he is still working to breathe and not much improved. He has no peripheral edema and doesn't care for the BIPAP mask. WBC count remains elevated despite abx and CRP is elevated indicating an active inflammatory process. CT chest today reveals multifocal patchy areas concerning for a primary lung source, such as multifocal pneumonia. Pulmonology is on héctor afsaneh and has started some steroids. He continues on the Vanc and Zosyn. However, after receiving the Vancomycin at 1600, and being transitioned to Vapotherm this afternoon, he is now working hard to breathe and is oxygenating in the low 80s. I have requested that respiratory place him back on the BIPAP to help improve his work of breathing. I have also retimed his Lasix to be redosed now as the vancomycin just given was 500cc over about 2 hours-a large fluid bolus for this man with an EF 45% who is already in respiratory distress. With a negative MRSA nasal swab, and out of concern for nephrotoxicity, especially in light of continued diuresis efforts with intravenous lasix, I have stopped the Vancomycin. Cont BIPAP support. I changed resuscitation status order to DNR/DNI. (2) COPD (chronic obstructive pulmonary disease): currently in respiratory distress as above. Normal spirometry in the past. Respiratory distress is more likely to be related to a primary lung inflammatory process vs infection as above. Pulmonology is empirically starting him on steroids. If able, a repeat PFT study would be warranted at time of discharge. (3) Cholecystitis: chronic cholecystitis. Low fat diet as tolerated. Surgery did not advise the need for any surgical intervention at this time. (4) Bilateral renal artery stenosis: Atherosclerotic disease present at multiple locations. Cont medical management with aspirin. Will add statin prior to dc. (5) CKD (chronic kidney disease) stage 3, GFR 30-59 ml/min: At baseline, but expected to rise with continued diuresis efforts. (6) Anemia: Stable from recent levels. Some rectal bleeding reported however, the FOBT in the ER was negative with brown stool in the rectal vault on exam and no evidence of hemorrhoids. (7) Diabetes mellitus: hold oral meds, cont basal bolus insulin dosing while inpatient. Will tighten control and increase Lantus now that he is on IV steroids. (8) DVT prophylaxis: Lovenox DNR/DNI as discussed with the patient, the daughter at bedside and per Dr. Downey's note/conversations with the patient Dispo-cont PCU care DO Beatriz Ram Hospitalist Admission and Anticipated Discharge Date Admission Date: December 24, 2019 Subjective working to breathe more today CT chest is concerning for primary pulmonary process with superimposed pulmonary edema and pleural effusions Pulm on board and started steroids Continuing with diuresis efforts. Noted just received a dose of Vanc that wasn't concentrated and volume infused around 1600 was 530mls at a rate of 200/hr Also was just moved around by nursing -bed linen changes He is working to breathe this evening after a couple of hours on the Vapotherm Called respiratory to put him back on the BIPAP Retimed the Lasix to start now and again in 12 hours. Called to ensure she was aware of the DNR/DNI status, but she did not answer Daughter at bedside and confirmed with dad that he is a DNR/DNI and she would communicate his status with his . Review of Systems Review of Systems: Other (limited ROS as patient is currently in respiratory distress) Physical Exam Physical Exam: CONSTITUTIONAL: WNWD, vitals as above, generally ill- appearing, working to breathe EYES: normal conjunctivae, no scleral icterus ENT: external ear and nose normal, oropharynx clear, MMM NECK: trachea midline RESPIRATORY: crackles at left lung base. Increased respiratory effort and rate. CARDIOVASCULAR: regular rate and rhythm, S1 and 2 heard without murmurs, gallops or rubs, no JVD, no peripheral edema GASTROINTESTINAL: normal bowel sounds, soft, nontender, no RUQ tenderness, no epigastric tenderness, nondistended. MUSCULOSKELETAL: strength 5/5 throughout, head is normocephalic and atraumatic, neck supple, normal palpation of chest wall without tenderness SKIN: warm and dry NEUROLOGIC: No facial palsy, no dysarthria. CN 2-12 grossly intact, normal cognition, normal speech, no tremor, no gross focal deficit. PSYCHIATRIC: alert cooperative and oriented Results & Data Results & Data ([facility]) Vital Signs (Past 12 Hours) Vital Signs Temp Pulse Pulse Resp BP Pulse Ox 12/26/19 15:16 36.8 C 100 H 22 115/69 85 L 12/26/19 11:27 36.6 C 106 H 23 119/73 85 L 12/26/19 08:03 36.8 C 106 H 23 127/75 96 12/26/19 08:00 81 Laboratory Results Short CBC 12/26/19 Range/Units 05:38 WBC 16.40 H (4.8-10.8) K/uL Hgb 8.6 L (14.0-18.0) g/dL Hct 29.2 L (42-52) % Plt Count 462 H (130-400) K/uL BMP 12/26/19 05:38 Sodium 137 Potassium 4.2 Chloride 100 Carbon Dioxide 31 BUN 27 H Creatinine 1.78 H Glucose 157 H Calcium 8.[address] chest wo con CT DOSE: 750.72 mGycm CLINICAL HISTORY: 89 years-old Male with Increased hypoxia, worsening CXR. Hypoxia with extensive bilateral opacities TECHNIQUE: Multiaxial CT images of the chest were performed without contrast. A dose lowering technique was utilized adhering to the principles of ALARA. COMPARISON: Chest radiograph of same day and also 12/25/2019, 12/24/2019 FINDINGS: Unremarkable thyroid. Mildly enlarged paratracheal lymph nodes measure up to 10 mm in short axis. Enlarged subcarinal lymph nodes measure up to 1.2 cm. Moderate cardiomegaly. Trace pericardial effusion. Coronary artery and aortic annular calcifications. Calcified plaque of the thoracic aorta. Moderate layering pleural effusions. No pneumothorax. Mild emphysema. Extensive bilateral multisegmental and multilobar patchy groundglass and consolidative opacities with mild intermixed intralobular septal thickening. Consolidation with air bronchograms is most pronounced in the upper lobes. Respiratory motion artifact limits the study. Central airways are patent. Small hiatal hernia. Hepatic steatosis. Unremarkable soft tissues. The bones appear intact. IMPRESSION: 1. Cardiomegaly with moderate pleural effusions. 2. Extensive bilateral consolidative and groundglass opacities within a multilobar distribution suggests multifocal pneumonia. Areas of associated intralobular septal thickening likely represent superimposed pulmonary edema. 3. Emphysema. 4. Hepatic steatosis. Medications Administered Current Inpatient Medications Acetaminophen (Tylenol) 650 mg PO Q4H PRN PRN Reason: Pain or Fever Stop: 01/23/20 19:46 Aspirin (Ecotrin Ectab) 81 mg PO DAILY MARISSA Stop: 01/24/20 08:59 Last Admin: 12/26/19 07:19 Dose: 81 mg Documented by: Dextrose (Dextrose 50%) 25 - 50 ml IV UD PRN; Protocol PRN Reason: Hypoglycemia Protocol Stop: 01/23/20 19:46 Enoxaparin Sodium (Lovenox) 40 mg SQ QAM MARISSA Stop: 01/24/20 08:59 Last Admin: 12/26/19 07:21 Dose: 40 mg Documented by: Fluticasone/Vilanterol (Breo Ellipta 100/25 Mcg Inh) 1 puffs INH DAILY MARISSA Stop: 01/24/20 08:59 Last Admin: 12/26/19 07:22 Dose: 1 puffs Documented by: Glucagon (Glucagen) 1 mg SQ UD PRN; Protocol PRN Reason: Hypoglycemia Protocol Stop: 01/23/20 19:46 Glucose (Dex4 Glucose) 4 - 8 tabs PO UD PRN; Protocol PRN Reason: Hypoglycemia Protocol Stop: 01/23/20 19:46 Glucose (Glucose 40%) 15 - 30 gm PO UD PRN; Protocol PRN Reason: Hypoglycemia Protocol Stop: 01/23/20 19:46 Piperacillin Sod/Tazobactam (Sod 3.375 gm/ Dextrose) 65 mls @ 16.25 mls/hr IV Q8H MARISSA; Protocol Stop: 01/01/20 05:59 Last Infusion: 12/26/19 17:07 Dose: Infused Documented by: Methylprednisolone 125 mg/ (Syringe) 2 mls @ 1.5 mls/min IV Q8H MARISSA Stop: 01/25/20 15:59 Last Admin: 12/26/19 17:21 Dose: 1.5 mls/min Documented by: Furosemide 40 mg/ Syringe 4 mls @ 4 mls/min IV Q12H MARISSA Stop: 01/25/20 18:59 Insulin Aspart (Novolog Flexpen) 0 units SC ACHS MARISSA Stop: 01/23/20 20:59 Last Admin: 12/26/19 17:29 Dose: 1 units Documented by: Insulin Glargine (Lantus Solostar Pen) 10 units SC BID [facility] Stop: 01/23/20 20:59 Last Admin: 12/26/19 17:30 Dose: 10 units Documented by: Ipratropium [place] (Atrovent 0.02% 0.5mg/2.5ml) 0.5 mg INH Q4H PRN PRN Reason: Shortness Of Breath Or Wheezing Stop: 01/23/20 20:29 Levalbuterol HCl (Xopenex 0.63 Mg/3 Ml Neb) 0.63 mg NEB Q4H PRN PRN Reason: Shortness Of Breath Or Wheezing Stop: 01/23/20 20:29 Magnesium Oxide (Mag-Ox) 400 mg PO QAM MARISSA Stop: 01/24/20 08:59 Last Admin: 12/26/19 07:20 Dose: 400 mg Documented by: Miscellaneous (Carbohydrates For Hypoglycemia) 15 - 30 gm PO UD PRN PRN Reason: Hypoglycemia Protocol Stop: 01/23/20 19:46 Miscellaneous Information (Consult) 1 ea N/A UD PRN PRN Reason: Consult Stop: 01/23/20 23:41 Pantoprazole Sodium (Protonix) 40 mg PO QAM MARISSA Stop: 01/24/20 08:59 Last Admin: 12/26/19 07:20 Dose: 40 mg Documented by: Polyethylene Glycol (Miralax Powder Packet) 17 gm PO DAILY PRN PRN Reason: Constipation Stop: 01/23/20 19:46 (1) Anemia Anemia type: iron deficiency Iron deficiency anemia type: unspecified iron deficiency Qualified Code(s): D50.9 - Iron deficiency anemia, unspecified
[2019-12-26] MEDS ORDERED: INSULIN GLARGINE SOLOSTAR 100 UNITS/ML 3 ML PEN SC ONE (19:30)
[2019-12-27] MEDS: methylPREDNISolone 125 MG in SYRINGE 0 ML IV SCH ×3 (01:16→17:43)
[2019-12-27] MEDS: PIPERACILLIN/TAZOBACTAM 3.375 GM in DEXTROSE 5% 50 ML IV SCH ×3 (05:59→22:16)
[2019-12-27 06:46] LABS: Hematocrit (blood only) 26.9 % (42-52); Hemoglobin 8.4 g/dL (14.0-18.0); Mean Corpuscular Hemoglobin 28.3 pg (25-34); Mean Corpuscular Hgb Conc 31.2 g/dL (32-36); Mean Corpuscular Volume 90.6 fL (80-100); Mean Platelet Volume 10.3 fL (7.4-10.4); Platelet Count 510 K/uL (130-400); RDW Coefficient of Variation 14.4 % (11.5-14.5); RDW Standard Deviation 47.6 fL (36.4-46.3); Red Blood Count 2.97 M/uL (4.7-6.1); White Blood Count 14.17 K/uL (4.8-10.8)
[2019-12-27 07:13] LABS: BUN Creatinine Ratio 20.3 (10-20); Calcium 8.6 mg/dl (8.5-10.1); Creatinine Clr Calc Pharmacy 28.2 ml/min; Est GFR (African American) 33.7; Est GFR (Non-African American) 29.1; Potassium 4.1 mmol/L (3.5-5.1)
[2019-12-27 07:23] LABS: C Reactive Protein 21.6 mg/dl (0-0.29)
[2019-12-27] MEDS: FUROSEMIDE 40 MG in SYRINGE 0 ML IV SCH ×2 (08:55→20:28)
[2019-12-27] MEDS: INSULIN ASPART 100 UNITS/ML 3 ML PEN SC SCH ×4 (08:55→20:26)
[2019-12-27] MEDS: INSULIN GLARGINE SOLOSTAR 100 UNITS/ML 3 ML PEN SC SCH ×2 (08:56→20:27)
[2019-12-27] MEDS: ENOXAPARIN INJ 40 MG/0.4 ML SYR SQ SCH (08:58)
[2019-12-27] MEDS: MAGNESIUM OXIDE 400 MG TAB PO SCH (08:58)
[2019-12-27] MEDS: ASPIRIN 81 MG ECTAB PO SCH (08:58)
[2019-12-27] MEDS: PANTOprazole 40 MG TAB PO SCH (08:59)
[2019-12-27] MEDS ORDERED: INSULIN GLARGINE SOLOSTAR 100 UNITS/ML 3 ML PEN SC SCH (09:00)
--- NOTE | 2019-12-27 09:15 | Electrocardiogram Report ---
Test Reason : Blood Pressure : / mmHG Vent. Rate : 089 BPM Atrial Rate : 089 BPM P-R Int : 198 ms QRS Dur : 126 ms QT Int : 354 ms P-R-T Axes : 014 -03 -17 degrees QTc Int : 430 ms Sinus rhythm with occasional Premature ventricular complexes Right bundle branch block T wave abnormality, consider lateral ischemia Abnormal ECG When compared with ECG of 25-DEC-2019 06:50, Premature ventricular complexes are now Present Premature atrial complexes are no longer Present Inverted T waves have replaced nonspecific T wave abnormality in Anterior leads QT has shortened Confirmed by Leon Owen ([id number]) on 12/27/2019 9:15:24 AM Referred By: REFERRED SELF Confirmed By:Leon Owen
--- NOTE | 2019-12-27 13:23 | Hospitalist Progress Note ---
Date of Service December 27, 2019 Assessment & Plan (1) Acute and chronic respiratory failure with hypoxia: Multifocal organizing pneumonia present on CT scan with elevation in inflammatory markers and worsening respiratory status. He appears to be responding to steroids which were started last evening. Doubt bacterial infection. Vanc was stopped to avoid excessive IVF. Zosyn continues for now. Consider BIOFIRE panel-will discuss with pulm. Reduced EF to 45% that is new. Per cardiology, this is unlikely a new cardiac event and no further investigation is warranted at this time. Cont BIPAP support with alternation to hi flow support as needed. Cont steroids per pulm recs. Awaiting autoimmune serologies. (2) Acute systolic (congestive) heart failure: Cont diuresis efforts. No changes in medications warranted at this time. (3) Demand ischemia: in setting of tachycardia and new cardiomyopathy. (4) AV block, 2nd degree: h/o Mobitz Type II block on BB which is contraindicated. Will add this to allergy list. (5) Cholecystitis: no urgent surgical intervention needed at this time per gen surgeon, and he may progress to a low fat diet. (6) Bilateral renal artery stenosis: Atherosclerotic disease present at multiple locations. Cont medical management with aspirin. Will add statin prior to dc. (7) CKD (chronic kidney disease) stage 3, GFR 30-59 ml/min: At baseline. No changes despite diuresis (8) Anemia: Stable from recent levels. Some rectal bleeding reported however, the FOBT in the ER was negative with brown stool in the rectal vault on exam and no evidence of hemorrhoids. Cont to monitor. Likely 2/2/ chronic disease and frequent phlebotomy with multiple recent hospitalizations in the past two months. (9) COPD (chronic obstructive pulmonary disease): chronic, stable. Continues on home oxygen reported recently as 6LPM in the last month. (10) Diabetes mellitus: hold oral meds, cont basal bolus insulin dosing while inpatient. uncontrolled, but insulin already tightened overnight. Cont to monitor. (11) DVT prophylaxis: Lovenox Full Code Dispo-cont PCU monitoring. Improving on steroids. Joanne Valentino DO [facility] Hospitalist Admission and Anticipated Discharge Date Admission Date: December 24, 2019 Subjective increased respiratory distress initially this morning on initial trial of Hi flow was oxygenating in the mid 80s despite 100% O2 at 40L Improved now and patient appears more comfortable, and was able to even eat some lunch Denies pain denies coughing, although feels like he needs to but is unable to expectorate. Review of Systems Review of Systems: All systems reviewed & are unremarkable except as noted in Subjective Physical Exam Physical Exam: CONSTITUTIONAL: WNWD, vitals as above, generally well- appearing EYES: normal conjunctivae, no scleral icterus ENT: external ear and nose normal, oropharynx clear, MMM NECK: trachea midline RESPIRATORY: crackles throughout all lung [place]. Respiratory effort is slightly increased but is improved overall. CARDIOVASCULAR: regular rate and rhythm, S1 and 2 heard without murmurs, gallops or rubs, no JVD, no peripheral edema. CHEST: inspection of chest was normal GASTROINTESTINAL: normal bowel sounds, soft, nontender, nondistended. MUSCULOSKELETAL: strength 5/5 throughout, head is normocephalic and atraumatic, neck supple, normal palpation of chest wall without tenderness SKIN: warm and dry NEUROLOGIC: No facial palsy, no dysarthria. CN 2-12 grossly intact, normal cognition, normal speech, no tremor, no gross focal deficit. PSYCHIATRIC: alert and cooperative. Results & Data Results & Data ([facility]) Vital Signs (Past 12 Hours) Vital Signs Temp Pulse Pulse Pulse Resp BP BP 12/27/19 12:06 36.6 C 95 H 23 128/68 12/27/19 11:25 94 H 22 12/27/19 10:36 12/27/19 08:33 22 12/27/19 08:06 37.0 C 99 H 22 132/75 12/27/19 07:43 99 H 25 H 12/27/19 07:19 88 12/27/19 03:04 95 H 24 12/27/19 02:45 36.6 C 92 H 20 145/74 H Pulse Ox 12/27/19 12:06 90 12/27/19 11:25 94 12/27/19 10:36 90 12/27/19 08:33 94 12/27/19 08:06 99 12/27/19 07:43 85 L 12/27/19 07:19 12/27/19 03:04 94 12/27/19 02:45 89 L Laboratory Results Short CBC 12/27/19 Range/Units 05:35 WBC 14.17 H (4.8-10.8) K/uL Hgb 8.4 L (14.0-18.0) g/dL Hct 26.9 L (42-52) % Plt Count 510 H (130-400) K/uL BMP 12/27/19 05:35 Sodium 138 Potassium 4.1 Chloride 101 Carbon Dioxide 28 BUN 40 H Creatinine 1.99 H Glucose 209 H Calcium 8.6 Medications Administered Current Inpatient Medications Acetaminophen (Tylenol) 650 mg PO Q4H PRN PRN Reason: Pain or Fever Stop: 01/23/20 19:46 Aspirin (Ecotrin Ectab) 81 mg PO DAILY MARISSA Stop: 01/24/20 08:59 Last Admin: 12/27/19 08:58 Dose: 81 mg Documented by: Dextrose (Dextrose 50%) 25 - 50 ml IV UD PRN; Protocol PRN Reason: Hypoglycemia Protocol Stop: 01/23/20 19:46 Enoxaparin Sodium (Lovenox) 40 mg SQ QAM MARISSA Stop: 01/24/20 08:59 Last Admin: 12/27/19 08:58 Dose: 40 mg Documented by: Fluticasone/Vilanterol (Breo Ellipta 100/25 Mcg Inh) 1 puffs INH DAILY MARISSA Stop: 01/24/20 08:59 Last Admin: 12/26/19 07:22 Dose: 1 puffs Documented by: Glucagon (Glucagen) 1 mg SQ UD PRN; Protocol PRN Reason: Hypoglycemia Protocol Stop: 01/23/20 19:46 Glucose (Dex4 Glucose) 4 - 8 tabs PO UD PRN; Protocol PRN Reason: Hypoglycemia Protocol Stop: 01/23/20 19:46 Glucose (Glucose 40%) 15 - 30 gm PO UD PRN; Protocol PRN Reason: Hypoglycemia Protocol Stop: 01/23/20 19:46 Piperacillin Sod/Tazobactam (Sod 3.375 gm/ Dextrose) 65 mls @ 16.25 mls/hr IV Q8H MARISSA; Protocol Stop: 01/01/20 05:59 Last Infusion: 12/27/19 09:10 Dose: Infused Documented by: Methylprednisolone 125 mg/ (Syringe) 2 mls @ 1.5 mls/min IV Q8H MARISSA Stop: 01/25/20 15:59 Last Admin: 12/27/19 08:57 Dose: 1.5 mls/min Documented by: Furosemide 40 mg/ Syringe 4 mls @ 4 mls/min IV Q12H MARISSA Stop: 01/25/20 18:59 Last Admin: 12/27/19 08:55 Dose: 4 mls/min Documented by: Insulin Aspart (Novolog Flexpen) 0 units SC ACHS MARISSA Stop: 01/23/20 20:59 Last Admin: 12/27/19 11:59 Dose: 16 units Documented by: Insulin Glargine (Lantus Solostar Pen) 20 units SC BID [facility] Stop: 01/26/20 08:59 Last Admin: 12/27/19 08:56 Dose: 20 units Documented by: Ipratropium [place] (Atrovent 0.02% 0.5mg/2.5ml) 0.5 mg INH Q4H PRN PRN Reason: Shortness Of Breath Or Wheezing Stop: 01/23/20 20:29 Levalbuterol HCl (Xopenex 0.63 Mg/3 Ml Neb) 0.63 mg NEB Q4H PRN PRN Reason: Shortness Of Breath Or Wheezing Stop: 01/23/20 20:29 Magnesium Oxide (Mag-Ox) 400 mg PO QAM [facility] Stop: 01/24/20 08:59 Last Admin: 12/27/19 08:58 Dose: 400 mg Documented by: Miscellaneous (Carbohydrates For Hypoglycemia) 15 - 30 gm PO UD PRN PRN Reason: Hypoglycemia Protocol Stop: 01/23/20 19:46 Miscellaneous Information (Consult) 1 ea N/A UD PRN PRN Reason: Consult Stop: 01/23/20 23:41 Pantoprazole Sodium (Protonix) 40 mg PO QAM [facility] Stop: 01/24/20 08:59 Last Admin: 12/27/19 08:59 Dose: 40 mg Documented by: Polyethylene Glycol (Miralax Powder Packet) 17 gm PO DAILY PRN PRN Reason: Constipation Stop: 01/23/20 19:46 (1) Anemia Anemia type: iron deficiency Iron deficiency anemia type: unspecified iron deficiency Qualified Code(s): D50.9 - Iron deficiency anemia, unspecified
--- NOTE | 2019-12-27 13:26 | Pulmonology Progress Note ---
Date of Service December 27, 2019 Assessment & Plan (1) Acute and chronic respiratory failure with hypoxia: Impression: 89-year-old male with diastolic dysfunction admitted with diffuse pulmonary infiltrates and pleural effusion and markedly elevated BNP. There is no significant lower extremity edema today. Alveolar hemorrhage would also be in the differential. Review his medication list does not reveal any medications which would be consistent with an acute lung injury he has no other occupational or environmental exposures and he has no eosinophilia. In addition the course is fairly rapid as he had a CT scan performed about a month ago demonstrating normal pulmonary parenchyma without evidence of significant interstitial disease. Recommendations: This appears to be multifactorial. Continue diuresis as tolerated. Vp Of Product is creeping up and is now 1.99 from 1.54. Patient is currently 1.6 L negative. Continue strict I's and O's Noncontrast chest CT with diffuse parenchymal lung disease with bilateral pleural effusions Today is day #3 of Zosyn. Vancomycin was discontinued Procalcitonin 0.11 (0-0.5) (2) Abnormal CT scan of lung: Repeat CT scan noncontrast today (3) Hemoptysis: This seems to be resolved. Review of tissue shows yellow sputum with no evidence of blood tinge Serological studies have been ordered and are pending to rule out vasculiti s/alveolar hemorrhage and are still pending Continue to monitor Due to increased oxygen requirements bronchoscopy may result in endotracheal intubation and patient has deferred this option. Changed to DNR/DNI status yesterday Palliative consult may be appropriate (4) COPD (chronic obstructive pulmonary disease): Patient smoked approximately 2-1/2 packs of cigarettes per day for 30 years and quit smoking in 1979 Most recent pulmonary function tests that I can find are from 2010 PFT revealed findings in 2011 consistent with essentially normal spirometry. FEV1 was 2.79 liters, 99% of predicted. FEV1/FVC ratio was 74%. Peak flow rate was 449 liters per minute, 105% of predicted. 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 Would consider outpatient pulmonary function testing on discharge The patient has been on supplemental oxygen at home since discharge 12/09/2019 at 5 to 6 L/min via nasal cannula Titrate supplemental O2 between 88 and 92% SaO2 Continue bronchodilators. High dose methylprednisolone started 12/26/2019 at 125mg q8h Continue outpatient work-up Thank you very much for including us in the care of this patient. We will continue to follow along with you. Please refer to Dr. Downey's addendum for further recommendations. Admission and Anticipated Discharge Date Admission Date: December 24, 2019 Supervising Physician Co-Signing Physician Notes Patient seen and examined. EMR reviewed. Discussed with critical care AJAY. Agree with assessment and plan as noted. We are continuing to try and treat the patient for any reversible etiology. I do not think a bio fire would add much at this point time as it would be unlikely to oil changer. He is currently on empiric broad-spectrum antibiotics, steroids, and diuretics. If he fails to respond to this, it is unlikely that there is additional therapy that would be appropriate for him. The patient's son is at bedside and believes he is breathing easier than yesterday. He is currently maxed out on what we can supply through noninvasive means. He is not at all enthusiastic about consideration of noninvasive positive pressure ventilation and I suspect that if he were to deteriorate to that point, he would likely want to be kept comfortable and allowed to pass. Subjective Attending: Dr. Downey Patient seen and examined at bedside. He appears dyspneic. He was just on the bedpan and minimal exertion results and shortness of breath. The patient denies any hemoptysis today. He does have occasional sputum which is yellow. He has no fever or chills. He denies any nausea or vomiting. He denies any diarrhea. He has no chest pain or tightness. He does state that he was very restless last night and was unable to sleep well. He did try the BiPAP last night and eventually ended up on high flow oxygen. He is very weary. Review of Systems Review of Systems: All systems reviewed & are unremarkable except as noted in HPI & below Physical Exam Physical Exam: GENERAL : No acute distress EYES: No icterus, gaze conjugate NOSE: No evidence of epistaxis. MOUTH: No lesions or candidiasis. NECK: Supple LUNGS: Patient has bibasilar crackles. He is also very diminished. Respiratory effort is appropriate. HEART: Regular, rate controlled ABDOMEN: Soft, NT, ND, BS Present EXTREMITIES: No LE edema, pedal pulses intact NEURO: A&OX3 Results & Data Results & Data ([facility]) Vital Signs (Past 12 Hours) Vital Signs Temp Pulse Pulse Pulse Resp BP BP 07/30/20 12:06 36.6 C 95 H 23 128/68 12/27/19 11:25 94 H 22 12/27/19 10:36 12/27/19 08:33 22 12/27/19 08:06 37.0 C 99 H 22 132/75 12/27/19 07:43 99 H 25 H 12/27/19 07:19 88 12/27/19 03:04 95 H 24 12/27/19 02:45 36.6 C 92 H 20 145/74 H Pulse Ox 12/27/19 12:06 90 12/27/19 11:25 94 12/27/19 10:36 90 12/27/19 08:33 94 12/27/19 08:06 99 12/27/19 07:43 85 L 12/27/19 07:19 12/27/19 03:04 94 12/27/19 02:45 89 L Laboratory Results 12/27/19 05:35 12/27/19 05:[address] Chest 12/26/2019. PG Care Time/CCT Total # of Minutes Spent Total Time Spent with Patient: Total time spent is greater than 50% in coordination of care (as documented) at patient's floor/unit and/or counseling patient: 35 minutes including discussion with hospitalist team and nursing care team Coding Level of Care Code 01227 Subseq Hosp Care Lvl 3 Diagnoses Acute and chronic respiratory failure with hypoxia J96.[address] scan of lung R91.8 Hemoptysis R04.2 COPD (chronic obstructive pulmonary disease) J44.9 Time Spent (min) 35
--- NOTE | 2019-12-27 14:13 | XRay Report ---
XR chest 1V portable CLINICAL HISTORY: Hypoxia and acute respiratory failure dyspnea COMPARISON STUDY: 12/26/2019 FINDINGS: Diffuse bilateral parenchymal infiltrative change. Slight improvement in consolidative green ge of the left perihilar region. All remaining infiltrative changes are stable. IMPRESSION: 1. Diffuse multifocal infiltrative changes versus pulmonary edema. 2. Slight improvement in aeration left upper lobe. ACT 112: Negative or not required by law. The above report was generated using voice recognition software. It may contain grammatical, syntax or spelling errors. Electronically signed by: Skip Alfonso M.D. 12/27/2019 2:11 PM
--- NOTE | 2019-12-27 15:42 | Cardiology Progress Note ---
Date of Service December 27, 2019 Assessment & Plan (1) Acute and chronic respiratory failure with hypoxia: He presents with acute respiratory failure. Some of his data suggest CHF but most do not. His BNP is elevated but that may be nonspecific, his chest x- ray appears more patchy and diffuse than we normally see with heart failure although it is possible. His weights are little hard to interpret since they fluctuate somewhat however it does not appear that he has gained significant weight. He does not have significant peripheral edema. He was diuresed and although he did not have a large negative fluid balance he seems to be doing a little bit better with his oxygenation. His LV function is mildly reduced, although not severely, with ejection fraction of 40 to 45% which could be secondary to his acute presentation rather than a cause but may contribute. His shortness of breath may be multifactorial. (2) CHF (congestive heart failure): He may have some degree of congestive heart failure but the data are contradictory. His kidney function has been abnormal but relatively stable however his creatinine continues to gradually rise and is slightly up today. He does have some element of left ventricular dysfunction now. He may need ongoing diuresis but he seems to be becoming prerenal I do not think we can remove much more fluid, we need to watch closely for hypotension or worsening renal function. (3) Elevated troponin: He has a mildly elevated troponin which is in the range consistent with demand ischemia, plus there is no specific trend. Even with his left ventricular dysfunction I would not consider invasive evaluation. (4) CKD (chronic kidney disease) stage 3, GFR 30-59 ml/min: He does have chronic kidney disease, his creatinine has increased slightly but remains only minimally elevated. I would watch this closely with ongoing diuresis. Admission and Anticipated Discharge Date Admission Date: December 24, 2019 Subjective He continues to be short of breath with exertion. No chest discomfort or other cardiac complaints. Physical Exam Physical Exam: Constitutional: Alert, cooperative and in moderate respiratory distress. He is sitting upright in bed. HEENT: Unremarkable Neck: No jugular venous distention, carotid pulses are normal and equal bilaterally without bruits. Pulmonary: Diffuse crackles on auscultation bilaterally. Cardiac: Regular rhythm with no significant murmur, gallop or rub. Abdomen: Soft, nontender with normal bowel sounds. Extremities: No edema. Distal pulses intact. Neurologic: No focal findings. Gait is steady. Skin: No rash, ecchymoses or petechiae. Results & Data ([facility]) Vital Signs (Past 12 Hours) Vital Signs Temp Pulse Pulse Pulse Resp BP BP 12/27/19 15:11 36.6 C 96 H 22 133/66 12/27/19 12:06 36.6 C 95 H 23 128/68 12/27/19 11:25 94 H 22 12/27/19 10:36 12/27/19 08:33 22 12/27/19 08:06 37.0 C 99 H 22 132/75 12/27/19 07:43 99 H 25 H 12/27/19 07:19 88 Pulse Ox 12/27/19 15:11 90 12/27/19 12:06 90 12/27/19 11:25 94 12/27/19 10:36 90 12/27/19 08:33 94 12/27/19 08:06 99 12/27/19 07:43 85 L 12/27/19 07:19 Laboratory Results CBC 12/27/19 Range/Units 05:35 WBC 14.17 H (4.8-10.8) K/uL RBC 2.97 L (4.7-6.1) M/uL Hgb 8.4 L (14.0-18.0) g/dL Hct 26.9 L (42-52) % Plt Count 510 H (130-400) K/uL Comprehensive Metabolic Panel 12/27/19 Range/Units 05:35 Sodium 138 (136-145) mmol/L Potassium 4.1 (3.5-5.1) mmol/L Chloride 101 (98-107) mmol/L Carbon Dioxide 28 (21-32) mmol/L BUN 40 H (7-18) mg/dl Creatinine 1.99 H (0.6-1.4) mg/dl Glucose 209 H (70-99) mg/dl Calcium 8.6 (8.5-10.1) mg/dl Intake and Output 12/27/19 12/27/19 12/27/19 06:59 14:59 22:59 Intake Total 65 / 695 328.088 / 328.088 Output Total 400 / 1153 400 / 400 Balance -335 / -458 -71.912 / -71.912 Intake: IV 65 / 195 83.088 / 83.088 Zosyn 3.375 gm In D5w 50 ml @ 65 / 195 51.888 / 51.888 16.25 mls/hr IV Q8H MARISSA Rx#: [id number] Vancomycin HCl 1,500 mg In Nss 31.2 / 31.2 500 ml @ 200 mls/hr IV Q24H MARISSA Rx#:[id number] Oral 245 / 245 Output: Urine Amount (Catheter) 400 / 1150 400 / 400 Strong/Indwelling 400 / 1150 400 / 400 Other: Weight 88.4 kg Diagnostic Findings Telemetry: Sinus rhythm, no significant arrhythmia PG Care Time/CCT Total # of Minutes Spent Total Time Spent with Patient: Total time spent is greater than 50% in coordination of care (as documented) at patient's floor/unit and/or counseling patient: Coding Level of Care Code 22499 Subseq Hosp Care Lvl 2 Diagnoses Acute and chronic respiratory failure with hypoxia J96.21 CHF (congestive heart failure) I50.9 Elevated troponin R79.89 CKD (chronic kidney disease) stage 3, GFR 30-59 ml/min N18.3
[2019-12-27 23:27] LABS: Adenovirus PCR Not Detected (NotDetected); Bordetella parapertussis PCR Not Detected (NotDetected); Bordetella pertussis PCR Not Detected (NotDetected); Chlamydia pneumoniae PCR Not Detected (NotDetected); Coronavirus 229E PCR Not Detected (NotDetected); Coronavirus HKU1 PCR Not Detected (NotDetected); Coronavirus NL63 PCR Not Detected (NotDetected); Coronavirus OC43PCR Not Detected (NotDetected); Human Metapneumovirus PCR Not Detected (NotDetected); Influenza A PCR Not Detected (NotDetected); Influenza B PCR Not Detected (NotDetected); Mycoplasma pneumoniae PCR Not Detected (NotDetected); Parainfluenza Virus 1 PCR Not Detected (NotDetected); Parainfluenza Virus 2 PCR Not Detected (NotDetected); Parainfluenza Virus 3 PCR Not Detected (NotDetected); Parainfluenza Virus 4 PCR Not Detected (NotDetected); Respiratory Syncytial VirusPCR Not Detected (NotDetected); Rhinovirus/Enterovirus PCR Not Detected (NotDetected)
[2019-12-28] MEDS: methylPREDNISolone 125 MG in SYRINGE 0 ML IV SCH ×4 (00:01→23:36)
[2019-12-28] MEDS: PIPERACILLIN/TAZOBACTAM 3.375 GM in DEXTROSE 5% 50 ML IV SCH ×3 (05:56→21:30)
[2019-12-28] MEDS: FUROSEMIDE 40 MG in SYRINGE 0 ML IV SCH (05:59)
[2019-12-28] MEDS: MAGNESIUM OXIDE 400 MG TAB PO SCH (08:27)
[2019-12-28] MEDS: PANTOprazole 40 MG TAB PO SCH (08:27)
[2019-12-28] MEDS: INSULIN ASPART 100 UNITS/ML 3 ML PEN SC SCH ×4 (08:27→21:31)
[2019-12-28] MEDS: FLUTICASONE/VILANTEROL 100/25MCG 14 PUFFS/INHALER INH SCH (08:27)
[2019-12-28] MEDS: ASPIRIN 81 MG ECTAB PO SCH (08:27)
[2019-12-28] MEDS: ENOXAPARIN INJ 40 MG/0.4 ML SYR SQ SCH (08:29)
[2019-12-28] MEDS: INSULIN GLARGINE SOLOSTAR 100 UNITS/ML 3 ML PEN SC SCH ×2 (08:29→21:29)
[2019-12-28] MEDS ORDERED: MoRPHine SULFATE 2 MG/ML CARP IV PRN (08:36)
[2019-12-28] MEDS ORDERED: LANTUS PER UNIT CHARGE SQ STA (08:41)
[2019-12-28 09:49] LABS: Hemoglobin 8.6 g/dL (14.0-18.0); Immature Granulocytes # (auto) 0.05 K/uL (0.00-0.02); Immature Granulocytes % (auto) 0.3 %; Lymphocytes # (auto) 0.44 K/uL (1.2-3.4); Lymphocytes % (auto) 2.4 %; Mean Corpuscular Hgb Conc 30.7 g/dL (32-36); Mean Corpuscular Volume 91.2 fL (80-100); Mean Platelet Volume 10.2 fL (7.4-10.4); Monocytes # (auto) 0.82 K/uL (0.11-0.59); Monocytes % (auto) 4.5 %; Neutrophils # (auto) 16.97 K/uL (1.4-6.5); Neutrophils % (auto) 92.8 %; Platelet Count 622 K/uL (130-400); RDW Coefficient of Variation 14.6 % (11.5-14.5); RDW Standard Deviation 48.3 fL (36.4-46.3); Red Blood Count 3.07 M/uL (4.7-6.1); White Blood Count 18.28 K/uL (4.8-10.8)
[2019-12-28 10:32] LABS: BUN Creatinine Ratio 27.6 (10-20); Calcium 8.3 mg/dl (8.5-10.1); Creatinine Clr Calc Pharmacy 24.9 ml/min; Est GFR (African American) 28.9; Magnesium 2.1 mg/dl (1.8-2.4); Potassium 3.4 mmol/L (3.5-5.1)
[2019-12-28 10:46] LABS: Beta-Hydroxybutyrate 1.9 mg/dl (0.2-2.81)
--- NOTE | 2019-12-28 12:03 | Pulmonology Progress Note ---
Date of Service December 28, 2019 Assessment & Plan (1) Acute and chronic respiratory failure with hypoxia: Impression: 89-year-old male with diastolic dysfunction admitted with diffuse pulmonary infiltrates and pleural effusion and markedly elevated BNP. There is no significant lower extremity edema today. Alveolar hemorrhage would also be in the differential. Review his medication list does not reveal any medications which would be consistent with an acute lung injury he has no other occupational or environmental exposures and he has no eosinophilia. In addition the course is fairly rapid as he had a CT scan performed about a month ago demonstrating normal pulmonary parenchyma without evidence of significant interstitial disease. Recommendations: This appears to be multifactorial. Continue diuresis as tolerated. Repairing Calibrator is creeping up; 2.26. Patient is currently 2.1 L negative. Continue strict I's and O's Noncontrast chest CT with diffuse parenchymal lung disease with bilateral pleural effusions Today is day #4 of Zosyn. Vancomycin was discontinued Procalcitonin 0.11 (0-0.5) (2) Abnormal CT scan of lung: Repeat CT scan noncontrast with diffuse parenchymal changes Patient started on salvage steroid treatment. Today is day #3 of solumedrol 125 mg Q8H Oxygen requirements continue to be high Continue BiPAP and High Zaheer as tolerated Continue Zosyn (3) Hemoptysis: This seems to be resolved. Review of tissue shows yellow sputum with no evidence of blood tinge Serological studies have been ordered and are pending to rule out vasculitis/alveolar hemorrhage and are still pending as of 12/28/2019 Continue to monitor Due to increased oxygen requirements bronchoscopy may result in endotracheal intubation and patient has deferred this option. Changed to DNR/DNI status yesterday Palliative consult may be appropriate (4) COPD (chronic obstructive pulmonary disease): Patient smoked approximately 2-1/2 packs of cigarettes per day for 30 years and quit smoking in 1979 Most recent pulmonary function tests that I can find are from 2011 PFT revealed findings in 2011 consistent with essentially normal spirometry. FEV1 was 2.79 liters, 99% of predicted. FEV1/FVC ratio was 74%. Peak flow rate was 449 liters per minute, 105% of predicted. I do not see that he has been seen by egg separator in the [facility] system for [employer] or [facility] or [facility] [place] [facility] consider outpatient pulmonary function testing on discharge The patient has been on supplemental oxygen at home since discharge 12/09/2019 at 5 to 6 L/min via nasal cannula Titrate supplemental O2 between 88 and 92% SaO2 Continue bronchodilators. High dose methylprednisolone started 12/26/2019 at 125mg q8h Continue outpatient work-up Thank you very much for including us in the care of this patient. We will continue to follow along with you. Please refer to Dr. Downey's addendum for further recommendations. Admission and Anticipated Discharge Date Admission Date: December 24, 2019 Supervising Physician Co-Signing Physician Notes Patient seen and examined. EMR reviewed. Discussed with critical care AJAY. Agree with assessment and plan as noted. We are continuing to try and treat the patient for any reversible etiology. He is currently on empiric broad-spectrum antibiotics, steroids, and diuretics. If he fails to respond to this, it is unlikely that there is additional therapy edison t would be appropriate for him. May need to consider transition to palliative care if fails to respond. Subjective Attending: Dr. Downey Patient states that he has increased shortness of breath this morning. He try to use the BiPAP last night but there was too much of an air leak globally around the mask. He is on high flow supplemental oxygen this morning which seems to help but does not resolve his shortness of breath. He did request any medication to help with the shortness of breath and we talked about small doses of morphine sulfate which he agreed to. He denies any fever or chills. He has no hemoptysis over the last 2 days. He has no chest pain or tightness. His is present with him at the time of my examination and interview. Review of Systems Review of Systems: All systems reviewed & are unremarkable except as noted in HPI & below Physical Exam Physical Exam: GENERAL : Moderate distress. EYES: No icterus, gaze conjugate NOSE: No evidence of epistaxis. High flow catheter in place MOUTH: No lesions or candidiasis. Mucosa dry NECK: Supple LUNGS: Globally decreased breath sounds. Crackles at the bilateral bases. HEART: Regular, tachycardic ABDOMEN: Soft, NT, ND, BS Present EXTREMITIES: No LE edema, pedal pulses intact NEURO: A&OX3 Results & Data Results & Data ([facility]) Vital Signs (Past 12 Hours) Vital Signs Temp Pulse Pulse Resp BP Pulse Ox 12/28/19 11:49 90 22 90 12/28/19 07:51 36.7 C 111 H 25 H 142/83 H 90 12/28/19 07:34 94 H 12/28/19 07:04 102 H 22 90 12/28/19 03:44 36.8 C 98 H 20 146/73 H 88 L 12/28/19 03:14 94 H 22 91 Laboratory Results 12/28/19 09:37 12/28/19 09:37 Diagnostic Findings Repeat chest x-ray is pending PG Care Time/CCT Total # of Minutes Spent Total Time Spent with Patient: Total time spent is greater than 50% in coordination of care (as documented) at patient's floor/unit and/or counseling patient: 30 minutes Coding Level of Care Code 96471 Subseq Hosp Care Lvl 2 Diagnoses Acute and chronic respiratory failure with hypoxia J96.[address] scan of lung R91.8 Hemoptysis R04.2 COPD (chronic obstructive pulmonary disease) J44.9 Time Spent (min) 30
--- NOTE | 2019-12-28 12:53 | XRay Report ---
XR chest 1V portable CLINICAL HISTORY: Increased hypoxia COMPARISON STUDY: 12/27/2019 FINDINGS: Heart remains enlarged. There are small bilateral pleural effusions. There are persistent m ultifocal airspace opacities, similar to the preceding examination.[ IMPRESSION: Persistent multifocal airspace opacities, similar to prior studies. Small bilateral pleur al effusions. ACT 112: Negative or not required by law. Electronically signed by: Ameya Chatman M.D. 12/28/2019 12:52 PM
[2019-12-28] MEDS ORDERED: POTASSIUM CHLORIDE 20 MEQ TABCR PO STA (15:12)
--- NOTE | 2019-12-28 16:45 | Hospitalist Progress Note ---
Date of Service December 28, 2019 Assessment & Plan (1) Hchwg-so-thngjvc kidney injury: Stage III CKD at baseline. Not with DEEPAK 2/2 diuretic use which has been held. (2) Acute and chronic respiratory failure with hypoxia: Multifocal organizing pneumonia present on CT scan with elevation in inflammatory markers and worsening respiratory status, now improved after 36 hours of steroids. Vanc was stopped to avoid excessive IVF. Zosyn continues for now despite lower risk for bacterial etiology. Biofire panel negative for clear viral etiology. Reduced EF to 45% that is new. Per cardiology, this is unlikely a new cardiac event and no further investigation is warranted at this time. Cont BIPAP support with alternation to hi flow support as needed. Cont steroids per pulm recs. Awaiting autoimmune serologies. (3) Acute systolic (congestive) heart failure: More compensated at this time although that is skewed with the ongoing hypoxia and work of breathing related to lung disease. He has developed an DEEPAK 2/2 loop diuretic administration and this will be held. Trend BMP in am. (4) Demand ischemia: in setting of tachycardia and new cardiomyopathy. (5) AV block, 2nd degree: h/o Mobitz Type II block on BB which is contraindicated. Will add this to allergy list. (6) Cholecystitis: no urgent surgical intervention needed at this time per gen surgeon, and he may progress to a low fat diet. (7) Bilateral renal artery stenosis: Atherosclerotic disease present at multiple locations. Cont medical management with aspirin. Will add statin prior to dc. (8) Anemia: Stable from recent levels. Some rectal bleeding reported however, the FOBT in the ER was negative with brown stool in the rectal vault on exam and no evidence of hemorrhoids. Cont to monitor. Likely 2/2 chronic disease and frequent phlebotomy with multiple recent hospitalizations in the past two months. (9) COPD (chronic obstructive pulmonary disease): chronic, stable. Continues on home oxygen reported recently as 6LPM in the last month. (10) Diabetes mellitus: hold oral meds, cont basal bolus insulin dosing while inpatient. uncontrolled, but insulin already tightened overnight. Cont to monitor. (11) DVT prophylaxis: Heparin held in light of developing hemoptysis DNR/DNI Dispo-cont PCU monitoring. Improving on steroids. Palliative team consulted to discuss goals of care. Joanne Valentino DO [facility] Admission and Anticipated Discharge Date Admission Date: December 24, 2019 Subjective Pt reports breathing is terrible but improving slowly, scant hemoptysis present in bedside cup. He reported dyspnea symptoms to pulm team who placed him on morphine PRN He hasn't received a dose yet, and he was again counseled on the fact that m orphine helps symptoms but also comes with risks. He verbalized understanding and asked for just a small dose. He is completing 100% of his meals and blood sugar is starting to correct He remains on the solumedrol IV Review of Systems Review of Systems: All systems reviewed & are unremarkable except as noted in Subjective Physical Exam Physical Exam: CONSTITUTIONAL: WNWD, vitals as above, generally well- appearing EYES: normal conjunctivae, no scleral icterus ENT: external ear and nose normal, oropharynx clear, MMM NECK: trachea midline RESPIRATORY: Improved aeration and air movement throughout all lung baldwin. Respiratory effort is slightly increased but is improved overall. CARDIOVASCULAR: regular rate and rhythm, S1 and 2 heard without murmurs, gallops or rubs, no JVD, no peripheral edema. CHEST: inspection of chest was normal GASTROINTESTINAL: normal bowel sounds, soft, nontender, nondistended. MUSCULOSKELETAL: strength 5/5 throughout, head is normocephalic and atraumatic, neck supple, normal palpation of chest wall without tenderness SKIN: warm and dry NEUROLOGIC: No facial palsy, no dysarthria. CN 2-12 grossly intact, normal cognition, normal speech, no tremor, no gross focal deficit. PSYCHIATRIC: alert and cooperative. Results & Data Results & Data ([facility]) Vital Signs (Past 12 Hours) Vital Signs Temp Pulse Pulse Resp BP Pulse Ox 12/28/19 15:29 88 20 90 12/28/19 15:19 36.6 C 101 H 23 148/76 H 88 L 12/28/19 12:06 36.9 C 96 H 24 137/69 93 12/28/19 11:49 90 22 90 12/28/19 07:51 36.7 C 111 H 25 H 142/83 H 90 12/28/19 07:34 94 H 12/28/19 07:04 102 H 22 90 Laboratory Results Short CBC 12/28/19 Range/Units 09:37 WBC 18.28 H (4.8-10.8) K/uL Hgb 8.6 L (14.0-18.0) g/dL Hct 28.0 L (42-52) % Plt Count 622 H (130-400) K/uL BMP 12/28/19 09:37 Sodium 136 Potassium 3.4 L D Chloride 99 Carbon Dioxide 25 BUN 62 H D Creatinine 2.26 H Glucose 349 H* Calcium 8.3 L Medications Administered Current Inpatient Medications Acetaminophen (Tylenol) 650 mg PO Q4H PRN PRN Reason: Pain or Fever Stop: 01/23/20 19:46 Aspirin (Ecotrin Ectab) 81 mg PO DAILY MARISSA Stop: 01/24/20 08:59 Last Admin: 12/28/19 08:27 Dose: 81 mg Documented by: Dextrose (Dextrose 50%) 25 - 50 ml IV UD PRN; Protocol PRN Reason: Hypoglycemia Protocol Stop: 01/23/20 19:46 Enoxaparin Sodium (Lovenox) 40 mg SQ QAM MARISSA Stop: 01/24/20 08:59 Last Admin: 12/28/19 08:29 Dose: 40 mg Documented by: Fluticasone/Vilanterol (Breo Ellipta 100/25 Mcg Inh) 1 puffs INH DAILY MARISSA Stop: 01/24/20 08:59 Last Admin: 12/28/19 08:27 Dose: 1 puffs Documented by: Glucagon (Glucagen) 1 mg SQ UD PRN; Protocol PRN Reason: Hypoglycemia Protocol Stop: 01/23/20 19:46 Glucose (Dex4 Glucose) 4 - 8 tabs PO UD PRN; Protocol PRN Reason: Hypoglycemia Protocol Stop: 01/23/20 19:46 Glucose (Glucose 40%) 15 - 30 gm PO UD PRN; Protocol PRN Reason: Hypoglycemia Protocol Stop: 01/23/20 19:46 Piperacillin Sod/Tazobactam (Sod 3.375 gm/ Dextrose) 65 mls @ 16.25 mls/hr IV Q8H MARISSA; Protocol Stop: 01/01/20 05:59 Last Admin: 12/28/19 13:59 Dose: 28.8 mls/hr Documented by: Methylprednisolone 125 mg/ (Syringe) 2 mls @ 1.5 mls/min IV Q8H MARISSA Stop: 01/25/20 15:59 Last Admin: 12/28/19 08:27 Dose: 1.5 mls/min Documented by: Furosemide 40 mg/ Syringe 4 mls @ 4 mls/min IV Q12H MARISSA Stop: 01/25/20 18:59 Last Admin: 12/28/19 05:59 Dose: 4 mls/min Documented by: Insulin Aspart (Novolog Flexpen) 0 units SC ACHS MARISSA Stop: 01/23/20 20:59 Last Admin: 12/28/19 12:13 Dose: 19 units Documented by: Insulin Glargine (Lantus Solostar Pen) 25 units SC BID [facility] Stop: 01/27/20 20:59 Ipratropium [place] (Atrovent 0.02% 0.5mg/2.5ml) 0.5 mg INH Q4H PRN PRN Reason: Shortness Of Breath Or Wheezing Stop: 01/23/20 20:29 Levalbuterol HCl (Xopenex 0.63 Mg/3 Ml Neb) 0.63 mg NEB Q4H PRN PRN Reason: Shortness Of Breath Or Wheezing Stop: 01/23/20 20:29 Magnesium Oxide (Mag-Ox) 400 mg PO QAM [facility] Stop: 01/24/20 08:59 Last Admin: 12/28/19 08:27 Dose: 400 mg Documented by: Miscellaneous (Carbohydrates For Hypoglycemia) 15 - 30 gm PO UD PRN PRN Reason: Hypoglycemia Protocol Stop: 01/23/20 19:46 Miscellaneous Information (Consult) 1 ea N/A UD PRN PRN Reason: Consult Stop: 01/23/20 23:41 Morphine Sulfate (Morphine Sulfate) 2 mg IV Q3H PRN PRN Reason: Pain Stop: 01/11/20 08:35 Pantoprazole Sodium (Protonix) 40 mg PO QAM [facility] Stop: 01/24/20 08:59 Last Admin: 12/28/19 08:27 Dose: 40 mg Documented by: Polyethylene Glycol (Miralax Powder Packet) 17 gm PO DAILY PRN PRN Reason: Constipation Stop: 01/23/20 19:46 (1) Anemia Anemia type: iron deficiency Iron deficiency anemia type: unspecified iron deficiency Qualified Code(s): D50.9 - Iron deficiency anemia, unspecified
[2019-12-29] MEDS: PIPERACILLIN/TAZOBACTAM 3.375 GM in DEXTROSE 5% 50 ML IV SCH ×3 (05:37→21:53)
[2019-12-29] MEDS ORDERED: XOPENEX/ATROVENT 1.25mg/0.5MG NEB COMBO NEB STA (06:44)
[2019-12-29] MEDS ORDERED: MAGNESIUM SULFATE / D5W 1 GM/100 ML BAG IV ONE (06:45)
[2019-12-29] MEDS ORDERED: LEVALBUTEROL 1.25MG/0.5ML NEB INH STA (06:48)
[2019-12-29] MEDS ORDERED: IPRATROPIUM BROMIDE NEB SOLN 0.02% 2.5 ML VIAL INH STA (06:48)
[2019-12-29] MEDS: methylPREDNISolone 125 MG in SYRINGE 0 ML IV SCH ×3 (06:56→21:51)
[2019-12-29 07:01] LABS: Hematocrit (blood only) 28.5 % (42-52); Hemoglobin 8.9 g/dL (14.0-18.0); Immature Granulocytes # (auto) 0.05 K/uL (0.00-0.02); Immature Granulocytes % (auto) 0.3 %; Mean Corpuscular Hemoglobin 28.3 pg (25-34); Mean Corpuscular Hgb Conc 31.2 g/dL (32-36); Mean Corpuscular Volume 90.5 fL (80-100); Mean Platelet Volume 9.9 fL (7.4-10.4); Monocytes % (auto) 6.6 %; Neutrophils # (auto) 15.06 K/uL (1.4-6.5); Neutrophils % (auto) 90.1 %; Platelet Count 626 K/uL (130-400); RDW Coefficient of Variation 14.6 % (11.5-14.5); RDW Standard Deviation 47.9 fL (36.4-46.3); Red Blood Count 3.15 M/uL (4.7-6.1); White Blood Count 16.71 K/uL (4.8-10.8)
[2019-12-29 07:24] LABS: Allen Test Pos (Pos); Base Excess ABG 5.9 mEq/L (-9-1.8); HCO3 ABG 31 mmol/L (19-24); PCO2 ABG 50 mmHg (35-46); PO2 ABG 67 mmHg (80-95); pH ABG 7.42 (7.35-7.45)
--- NOTE | 2019-12-29 07:27 | XRay Report ---
XR chest 1V portable CLINICAL HISTORY: low o2 dyspnea COMPARISON STUDY: 12/28/2019 FINDINGS: Diffuse bilateral parenchymal infiltrative change. This is considered similar compared to t he prior study. Trace pleural effusions at both lung bases also unchanged. Moderate stable cardiomegaly. IMPRESSION: Unchanged exam. Diffuse bilateral parenchymal infiltrative change. ACT 112: Negative or not required by law. The above report was generated using voice recognition software. It may contain grammatical, syntax or spelling errors. Electronically signed by: Skip Alfonso M.D. 12/29/2019 7:26 AM
[2019-12-29 07:34] LABS: BUN Creatinine Ratio 31.7 (10-20); Calcium 8.5 mg/dl (8.5-10.1); Creatinine Clr Calc Pharmacy 27.6 ml/min; Est GFR (African American) 33.1; Est GFR (Non-African American) 28.6; Magnesium 2.4 mg/dl (1.8-2.4); Potassium 3.7 mmol/L (3.5-5.1)
[2019-12-29] MEDS: INSULIN ASPART 100 UNITS/ML 3 ML PEN SC SCH ×5 (08:07→20:38)
[2019-12-29] MEDS: INSULIN GLARGINE SOLOSTAR 100 UNITS/ML 3 ML PEN SC SCH ×2 (08:07→20:37)
[2019-12-29] MEDS: FLUTICASONE/VILANTEROL 100/25MCG 14 PUFFS/INHALER INH SCH (08:07)
[2019-12-29] MEDS: MAGNESIUM OXIDE 400 MG TAB PO SCH (08:08)
[2019-12-29] MEDS: ASPIRIN 81 MG ECTAB PO SCH (08:08)
[2019-12-29] MEDS: PANTOprazole 40 MG TAB PO SCH (08:08)
--- NOTE | 2019-12-29 08:20 | Pulmonology Progress Note ---
Date of Service December 29, 2019 Assessment & Plan (1) Abnormal CT scan of lung: lImpression: 89-year-old male with diastolic dysfunction admitted with diffuse pulmonary infiltrates and pleural effusion and markedly elevated BNP. Differential is broad to include infectious, inflammatory etiologies. Review his medication list does not reveal any medications which would be consistent with an acute lung injury he has no other occupational or environmental exposures and he has no eosinophilia. In addition the course is fairly rapid as he had a CT scan performed about a month ago demonstrating normal pulmonary parenchyma without evidence of significant interstitial disease. He is being empirically treated for all potentially reversible causes including infectious, inflammatory, and hydrostatic issues. Unfortunately has not shown any significant improvement Recommendations: 1. Abnormal CT scan: Patient status is too unstable to consider bronchoscopy or biopsy. He is being treated for all potentially reversible causes. Patient is day #5 Zosyn with a negative procalcitonin. Would complete 5 days and then discontinue as this is unlikely to be infectious. He has been aggressively diuresed and had a bump in his serum creatinine to 2.2. It is better today slightly negative. He is day #4 high-dose Solu-Medrol without significant improvement. This may not be a reversible etiology. Biofire from yesterday was unrevealing. Serologies are still pending but the patient is already on steroids. I do not think he is a candidate for additional aggressive immunosuppression at this point time 2. Hypoxemia: Continue alternating between BiPAP and noninvasive positive pressure ventilation. Given the patient's lack of improvement, consultation with palliative care would be appropriate. If the patient elects to not pursue additional BiPAP, I think that is certainly reasonable given his lack of clinical improvement over the last 72 hours. 3. Hypercarbic respiratory failure: Continue Pap intermittently. If the patient recovers, consideration for outpatient sleep study may be appropriate. Management of the patient's other medical issues per primary service. Unfortunately, I think we have provided this patient everything that we can offer him at this point time and he does not appear to be clinically improving. Discussion of goals of therapy would be appropriate (2) Acute and chronic respiratory failure with hypoxia: (3) Dyspnea: Dyspnea type: dyspnea on exertion Qualified Code(s): R06.00 - Dyspnea, unspecified Admission and Anticipated Discharge Date Admission Date: December 24, 2019 Subjective Seen and examined. The patient states he is high flow this morning and put back on BiPAP. He does not like the BiPAP at all. It inhibits his ability to eat and drink. He is uncomfortable with the mask and would like to have it removed. He reports no chest pain. No fevers chills or night sweats. Diuretics made him 500 cc negative last 24 Review of Systems Review of Systems: unchanged from prior Physical Exam Physical Exam: CONSTITUTIONAL: WNWD, vitals as above, generally well- appearing EYES: PERRL, normal conjunctivae, no scleral icterus ENT: external ear and nose normal, oropharynx clear, MMM NECK: trachea midline RESPIRATORY: crackles throughout all lung baldwin. Increased respiratory effort. CARDIOVASCULAR: regular rate and rhythm, S1 and 2 heard without murmurs, gallops or rubs, no JVD, no peripheral edema, no hepatojugular reflux present CHEST: inspection of chest was normal GASTROINTESTINAL: normal bowel sounds, soft, mild periumbilical tenderness, no RUQ tenderness, no epigastric tenderness, nondistended. MUSCULOSKELETAL: strength 5/5 throughout, head is normocephalic and atraumatic, neck supple, normal palpation of chest wall without tenderness SKIN: warm and dry, small area of ecchymosis from recent Lovenox injections is in the periumbilical area that is tender. NEUROLOGIC: No facial palsy, no dysarthria. CN 2-12 grossly intact, normal cognition, normal speech, no tremor, no gross focal deficit. PSYCHIATRIC: alert cooperative and oriented to person, place and time. Results & Data Results & Data ([facility]) Vital Signs (Past 12 Hours) Vital Signs Temp Pulse Pulse Resp BP Pulse Ox 12/29/19 07:40 36.6 C 88 21 152/73 H 98 12/29/19 07:27 60 12/29/19 07:21 93 H 93 H 24 91 12/29/19 06:47 99 H 27 H 89 L 12/29/19 04:48 36.6 C 98 H 20 132/76 98 12/29/19 03:50 97 H 28 H 94 12/29/19 00:31 88 12/28/19 23:20 36.3 C L 93 H 20 151/77 H 92 12/28/19 22:50 96 H 24 92 Laboratory Results 12/29/19 06:41 12/29/19 06:41 Diagnostic Findings Chest x-ray from today was independently reviewed. It demonstrates persistent bilateral infiltrates not significantly proved. PG Care Time/CCT Total # of Minutes Spent Total Time Spent with Patient: Total time spent is greater than 50% in coordination of care (as documented) at patient's floor/unit and/or counseling patient: Coding Level of Care Code 72633 Subseq Hosp Care Lvl [address] scan of lung R91.8 Acute and chronic respiratory failure with hypoxia J96.21 Dyspnea R06.00 Dyspnea type: dyspnea on exertion
[2019-12-29] MEDS: IPRATROPIUM BROMIDE NEB SOLN 0.02% 2.5 ML VIAL INH SCH ×2 (12:35→18:52)
[2019-12-29] MEDS: LEVALBUTEROL 1.25MG/0.5ML NEB INH SCH ×2 (12:35→18:53)
[2019-12-29] MEDS ORDERED: XOPENEX/ATROVENT 1.25mg/0.5MG NEB COMBO NEB SCH (13:00)
--- NOTE | 2019-12-29 14:33 | Hospitalist Progress Note ---
Date of Service December 29, 2019 Assessment & Plan (1) Eerhj-rp-brnllhi kidney injury: Stage III CKD at baseline. Not with DEEPAK 2/2 diuretic use which has been held. Creat slightly improved today. (2) Acute and chronic respiratory failure with hypoxia: Multifocal organizing pneumonia present on CT scan with elevation in inflammatory markers and worsening respiratory status, now improved after addition of IV steroids. Vanc was stopped to avoid excessive IVF. STopping Zosyn 12/28 after 5 days. Not thought to be infectious etiolgoy. Biofire panel negative for clear viral etiology. Reduced EF to 45% that is new. Per cardiology, this is unlikely a new cardiac event and no further investigation is warranted at this time. Cont BIPAP support with alternation to hi flow support as needed. Cont steroids per pulm recs. Awaiting autoimmune serologies. Cont steroids. (3) Acute systolic (congestive) heart failure: Compensated at this time. Lungs are clear and improved work of breathing, no edema. Holding Lasix at this time in setting of DEEPAK. (4) Demand ischemia: in setting of tachycardia and new cardiomyopathy. No further inpatient workup per Cardiology. (5) AV block, 2nd degree: Noted h/o Mobitz Type II block on beta meli therapy which is contraindicated. (6) Cholecystitis: no urgent surgical intervention needed at this time per gen surgeon, and he may progress to a low fat diet. (7) Bilateral renal artery stenosis: Atherosclerotic disease present at multiple locations. Cont medical management with aspirin. Will add statin prior to dc. (8) Anemia: Stable from recent levels. Some rectal bleeding reported however, the FOBT in the ER was negative with brown stool in the rectal vault on exam and no evidence of hemorrhoids. Cont to monitor. Likely 2/2 chronic disease and frequent phlebotomy with multiple recent hospitalizations in the past two months. (9) COPD (chronic obstructive pulmonary disease): chronic, stable. Continues on home oxygen reported recently as 6LPM in the last month. (10) Diabetes mellitus: hold oral meds, cont basal bolus insulin dosing while inpatient. Controlled on tightened insulin. Cont to monitor. (11) DVT prophylaxis: Heparin held in light of developing hemoptysis. This is not present t zander. High risk for DVT. Resumed heparin now. DNR/DNI Dispo-cont PCU monitoring. Improving on steroids. Palliative team consulted to discuss goals of care. Joanne Valentino DO [facility] Hospitalist Admission and Anticipated Discharge Date Admission Date: December 24, 2019 Subjective currently on BIPAP Breathing well per his report he is alert and following instructions awaiting respiratory to place him back on hi flow currently oxygenating 93% and in no distress stopping Zosyn today continues on steroids glucose inpatient is at goal eating 100% of meals discussed with nurse concerns of aspirating food on BIPAP. Review of Systems Review of Systems: All systems reviewed & are unremarkable except as noted in Subjective Physical Exam Physical Exam: CONSTITUTIONAL: WNWD, vitals as above, generally well- appearing EYES: normal conjunctivae, no scleral icterus ENT: external ear and nose normal, oropharynx clear, BIPAP in place. NECK: trachea midline RESPIRATORY: CTA througout. Normal respiratory effort on supplemental oxygen via BIPAP CARDIOVASCULAR: regular rate and rhythm, S1 and 2 heard without murmurs, gallops or rubs, no JVD, no peripheral edema. CHEST: inspection of chest was normal GASTROINTESTINAL: normal bowel sounds, soft, nontender, nondistended. MUSCULOSKELETAL: strength 5/5 throughout, head is normocephalic and atraumatic, neck supple, normal palpation of chest wall without tenderness SKIN: warm and dry NEUROLOGIC: No facial palsy, no dysarthria. CN 2-12 grossly intact, normal cognition, normal speech, no tremor, no gross focal deficit. PSYCHIATRIC: alert and cooperative. Results & Data Results & Data ([facility]) Vital Signs (Past 12 Hours) Vital Signs Temp Pulse Pulse Resp BP Pulse Ox 12/29/19 12:38 90 22 90 12/29/19 12:10 36.6 C 93 H 18 142/73 H 91 12/29/19 11:00 96 H 21 89 L 12/29/19 07:40 36.6 C 88 21 152/73 H 98 12/29/19 07:27 60 12/29/19 07:21 93 H 93 H 24 91 12/29/19 06:47 99 H 27 H 89 L 12/29/19 04:48 36.6 C 98 H 20 132/76 98 12/29/19 03:50 97 H 28 H 94 Laboratory Results Short CBC 12/29/19 Range/Units 06:41 WBC 16.71 H (4.8-10.8) K/uL Hgb 8.9 L (14.0-18.0) g/dL Hct 28.5 L (42-52) % Plt Count 626 H (130-400) K/uL BMP 12/29/19 06:41 Sodium 139 Potassium 3.7 Chloride 101 Carbon Dioxide 31 BUN 64 H Creatinine 2.02 H Glucose 157 H Calcium 8.5 Diagnostic Findings XR chest 1V portable CLINICAL HISTORY: low o2 dyspnea COMPARISON STUDY: 12/28/2019 FINDINGS: Diffuse bilateral parenchymal infiltrative change. This is considered similar compared to the prior study. Trace pleural effusions at both lung bases also unchanged. Moderate stable cardiomegaly. IMPRESSION: Unchanged exam. Diffuse bilateral parenchymal infiltrative change. Medications Administered Current Inpatient Medications Acetaminophen (Tylenol) 650 mg PO Q4H PRN PRN Reason: Pain or Fever Stop: 01/23/20 19:46 Aspirin (Ecotrin Ectab) 81 mg PO DAILY MARISSA Stop: 01/24/20 08:59 Last Admin: 12/29/19 08:08 Dose: 81 mg Documented by: Dextrose (Dextrose 50%) 25 - 50 ml IV UD PRN; Protocol PRN Reason: Hypoglycemia Protocol Stop: 01/23/20 19:46 Enoxaparin Sodium (Lovenox) 40 mg SQ QAM MARISSA Stop: 01/24/20 08:59 Last Admin: 12/28/19 08:29 Dose: 40 mg Documented by: Fluticasone/Vilanterol (Breo Ellipta 100/25 Mcg Inh) 1 puffs INH DAILY MARISSA Stop: 01/24/20 08:59 Last Admin: 12/29/19 08:07 Dose: 1 puffs Documented by: Glucagon (Glucagen) 1 mg SQ UD PRN; Protocol PRN Reason: Hypoglycemia Protocol Stop: 01/23/20 19:46 Glucose (Dex4 Glucose) 4 - 8 tabs PO UD PRN; Protocol PRN Reason: Hypoglycemia Protocol Stop: 01/23/20 19:46 Glucose (Glucose 40%) 15 - 30 gm PO UD PRN; Protocol PRN Reason: Hypoglycemia Protocol Stop: 01/23/20 19:46 Piperacillin Sod/Tazobactam (Sod 3.375 gm/ Dextrose) 65 mls @ 16.25 mls/hr IV Q8H MARISSA; Protocol Stop: 12/30/19 05:59 Last Admin: 12/29/19 13:33 Dose: 17 mls/hr Documented by: Furosemide 40 mg/ Syringe 4 mls @ 4 mls/min IV Q12H [facility] Stop: 01/25/20 18:59 Last Admin: 12/28/19 05:59 Dose: 4 mls/min Documented by: Methylprednisolone 125 mg/ (Syringe) 2 mls @ 1.5 mls/min IV Q8H [facility] Stop: 01/28/20 06:44 Last Admin: 12/29/19 13:29 Dose: 1.5 mls/min Documented by: Insulin Aspart (Novolog Flexpen) 0 units SC ACHS MARISSA Stop: 01/23/20 20:59 Last Admin: 12/29/19 13:27 Dose: 7 units Documented by: Insulin Glargine (Lantus Solostar Pen) 25 units SC BID [facility] Stop: 01/27/20 20:59 Last Admin: 12/29/19 08:07 Dose: 25 units Documented by: Ipratropium Valentines (Atrovent 0.02% 0.5mg/2.5ml) 0.5 mg INH Q6R [facility] Stop: 01/28/20 12:59 Last Admin: 12/29/19 12:35 Dose: 0.5 mg Documented by: Levalbuterol HCl (Xopenex 1.25mg/0.5ml Neb) 1.25 mg INH Q6R [facility] Stop: 01/28/20 12:59 Last Admin: 12/29/19 12:35 Dose: 1.25 mg Documented by: Magnesium Oxide (Mag-Ox) 400 mg PO QAM [facility] Stop: 01/24/20 08:59 Last Admin: 12/29/19 08:08 Dose: 400 mg Documented by: Miscellaneous (Carbohydrates For Hypoglycemia) 15 - 30 gm PO UD PRN PRN Reason: Hypoglycemia Protocol Stop: 01/23/20 19:46 Miscellaneous Information (Consult) 1 ea N/A UD PRN PRN Reason: Consult Stop: 12/30/19 05:59 Morphine Sulfate (Morphine Sulfate) 2 mg IV Q3H PRN PRN Reason: Pain Stop: 01/11/20 08:35 Pantoprazole Sodium (Protonix) 40 mg PO QAM [facility] Stop: 01/24/20 08:59 Last Admin: 12/29/19 08:08 Dose: 40 mg Documented by: Polyethylene Glycol (Miralax Powder Packet) 17 gm PO DAILY PRN PRN Reason: Constipation Stop: 01/23/20 19:46 (1) Anemia Anemia type: iron deficiency Iron deficiency anemia type: unspecified iron deficiency Qualified Code(s): D50.9 - Iron deficiency anemia, unspecified
--- NOTE | 2019-12-29 20:12 | Communication Note ---
Date of Service: December 29, 2019 Notified by RN around 8 PM of hemoptysis episode. AP Recurrent hemoptysis Hold aspirin and heparin for now. Continue IV steroid Rx Will relay to AM provider.
[2019-12-29 20:36] LABS: Hemoglobin 8.6 g/dL (14.0-18.0)
[2019-12-29] MEDS ORDERED: HEPARIN SOD 5,000 UNIT/0.5 ML VIAL SQ SCH (22:00)
[2019-12-30] MEDS: IPRATROPIUM BROMIDE NEB SOLN 0.02% 2.5 ML VIAL INH SCH ×4 (01:19→19:25)
[2019-12-30] MEDS: LEVALBUTEROL 1.25MG/0.5ML NEB INH SCH ×4 (01:20→19:25)
[2019-12-30] MEDS ORDERED: methylPREDNISolone 125 MG in SYRINGE 0 ML IV SCH (04:40)
[2019-12-30] MEDS: methylPREDNISolone 125 MG in SYRINGE 0 ML IV SCH ×3 (05:39→22:18)
[2019-12-30 06:55] LABS: Hematocrit (blood only) 28.5 % (42-52); Hemoglobin 8.9 g/dL (14.0-18.0); Mean Corpuscular Hemoglobin 28.1 pg (25-34); Mean Corpuscular Hgb Conc 31.2 g/dL (32-36); Mean Corpuscular Volume 89.9 fL (80-100); Platelet Count 564 K/uL (130-400); RDW Coefficient of Variation 14.6 % (11.5-14.5); RDW Standard Deviation 47.8 fL (36.4-46.3); Red Blood Count 3.17 M/uL (4.7-6.1); White Blood Count 18.03 K/uL (4.8-10.8)
[2019-12-30 07:24] LABS: BUN Creatinine Ratio 38.7 (10-20); C Reactive Protein 3.95 mg/dl (0-0.29); Calcium 8.2 mg/dl (8.5-10.1); Creatinine Clr Calc Pharmacy 30.1 ml/min; Est GFR (African American) 37.1; Potassium 3.8 mmol/L (3.5-5.1)
[2019-12-30] MEDS: INSULIN ASPART 100 UNITS/ML 3 ML PEN SC SCH ×4 (08:35→20:18)
[2019-12-30] MEDS: INSULIN GLARGINE SOLOSTAR 100 UNITS/ML 3 ML PEN SC SCH (08:36)
[2019-12-30] MEDS: FLUTICASONE/VILANTEROL 100/25MCG 14 PUFFS/INHALER INH SCH (08:37)
[2019-12-30] MEDS: PANTOprazole 40 MG TAB PO SCH (08:39)
[2019-12-30] MEDS: MAGNESIUM OXIDE 400 MG TAB PO SCH (08:39)
--- NOTE | 2019-12-30 10:15 | Pulmonology Progress Note ---
Date of Service December 30, 2019 Assessment & Plan (1) Abnormal CT scan of lung: lImpression: 89-year-old male with diastolic dysfunction admitted with diffuse pulmonary infiltrates and pleural effusion and markedly elevated BNP. Differential is broad to include infectious, inflammatory etiologies. Review his medication list does not reveal any medications which would be consistent with an acute lung injury he has no other occupational or environmental exposures and he has no eosinophilia. In addition the course is fairly rapid as he had a CT scan performed about a month ago demonstrating normal pulmonary parenchyma without evidence of significant interstitial disease. He is being empirically treated for all potentially reversible causes including infectious, inflammatory, and hydrostatic issues. Unfortunately has not shown any significant improvement. He is now developed some hemoptysis and pulmonary hemorrhage certainly would be on the differential. He is being treated with high-dose steroids. His serologies are still pending. Recommendations: 1. Abnormal CT scan: Patient status is too unstable to consider bronchoscopy or biopsy. He is being treated for all potentially reversible causes. Patient is day #6 Zosyn with a negative procalcitonin. Would complete 5 days and then discontinue as this is unlikely to be infectious. He has been aggressively diuresed and had a bump in his serum creatinine to 2.2. It is better today slightly negative. He is day #5 high-dose Solu-Medrol without significant improvement. This may not be a reversible etiology. Biofire from yesterday was unrevealing. Serologies are still pending but the patient is already on stero ids. I do not think he is a candidate for additional aggressive immunosuppression at this point time. Cannot confirm alveolar hemorrhage without bronchoscopy which would likely require intubation and the patient may not be able to come off. Unclear whether he would be a candidate for plasmapheresis or Cytoxan if alveolar hemorrhage were to be present. Most recent urinalysis on the did show 5-10 red blood cells per high-power field. We will repeat urinalysis now. Holding all anticoagulation. The patient understands that he is not improving significantly and does not want escalation of care. 2. Hypoxemia: Continue alternating between BiPAP and noninvasive positive pressure ventilation. Given the patient's lack of improvement, consultation with palliative care would be appropriate. If the patient elects to not pursue additional BiPAP, I think that is certainly reasonable given his lack of clinical improvement over the last 72 hours. 3. Hypercarbic respiratory failure: Continue Pap intermittently. If the patient recovers, consideration for outpatient sleep study may be appropriate. Management of the patient's other medical issues per primary service. Unfortunately, I think we have provided this patient everything that we can offer him at this point time and he does not appear to be clinically improving. Discussion of goals of therapy would be appropriate (2) Acute and chronic respiratory failure with hypoxia: (3) Dyspnea: Dyspnea type: dyspnea on exertion Qualified Code(s): R06.00 - Dyspnea, unspecified Admission and Anticipated Discharge Date Admission Date: December 24, 2019 Subjective Patient seen and examined. EMR reviewed. He reports that he is not feeling better. He is been unable to be weaned off of high flow oxygen. He did start to experience some hemoptysis yesterday afternoon which has persisted throughout the night and this morning. Last time he coughed up blood was earlier this morning. Serologies are still pending. Review of Systems Review of Systems: Unchanged from prior Physical Exam Physical Exam: CONSTITUTIONAL: WNWD, vitals as above, generally well- appearing EYES: PERRL, normal conjunctivae, no scleral icterus ENT: external ear and nose normal, oropharynx clear, MMM NECK: trachea midline RESPIRATORY: crackles throughout all lung baldwin. Increased respiratory effort. CARDIOVASCULAR: regular rate and rhythm, S1 and 2 heard without murmurs, gallops or rubs, no JVD, no peripheral edema, no hepatojugular reflux present CHEST: inspection of chest was normal GASTROINTESTINAL: normal bowel sounds, soft, mild periumbilical tenderness, no RUQ tenderness, no epigastric tenderness, nondistended. MUSCULOSKELETAL: strength 5/5 throughout, head is normocephalic and atraumatic, neck supple, normal palpation of chest wall without tenderness SKIN: warm and dry, small area of ecchymosis from recent Lovenox injections is in the periumbilical area that is tender. NEUROLOGIC: No facial palsy, no dysarthria. CN 2-12 grossly intact, normal cognition, normal speech, no tremor, no gross focal deficit. PSYCHIATRIC: alert cooperative and oriented to person, place and time. Results & Data Results & Data ([facility]) Vital Signs (Past 12 Hours) Vital Signs Temp Pulse Pulse Pulse Resp BP Pulse Ox 12/30/19 08:04 36.6 C 110 H 21 153/84 H 88 L 12/30/19 07:29 97 H 26 H 89 L 12/30/19 04:20 84 26 H 90 12/30/19 03:32 61 20 88 L 12/30/19 03:26 36.5 C 93 H 19 145/79 H 86 L 12/30/19 01:48 86 24 88 L 12/30/19 01:20 85 14 91 12/29/19 23:37 36.5 C 111 H 20 141/78 H 90 12/29/19 23:00 89 12/29/19 22:30 89 20 93 Laboratory Results 12/30/19 06:40 12/30/19 06:40 INR now normal Diagnostic Findings No new films PG Care Time/CCT Total # of Minutes Spent Total Time Spent with Patient: Total time spent is greater than 50% in coordination of care (as documented) at patient's floor/unit and/or counseling patient: Coding Level of Care Code 42937 Subseq Hosp Care Lvl [address] scan of lung R91.8 Acute and chronic respiratory failure with hypoxia J96.21 Dyspnea R06.00 Dyspnea type: dyspnea on exertion Time Spent (min) 35
[2019-12-30 12:41] LABS: Appearance Urine Cloudy (Clear); Bilirubin Urine Negative (Negative); Blood Urine 3+ (Negative); Color Urine Yellow; Epithelial Cell Urine Auto 20-30 /lpf (0-5); Glucose Urine UA Negative (Negative); Ketones Urine Negative (Negative); Leukocyte Esterase Urine 1+ (Negative); Nitrite Urine Negative (Negative); Protein Urine 1+ (Negative); Specific Gravity Urine 1.018 (1.000-1.030); Urobilinogen Urine Negative (Negative)
[2019-12-30 12:54] LABS: Uric Acid Crystals Urine Present (None Prsent)
[2019-12-30 12:55] LABS: Bacteria Urine Automated 1+ (Negative); RBC Urine Automated >30 /hpf (0-4)
--- NOTE | 2019-12-30 14:59 | Hospitalist Progress Note ---
Date of Service December 30, 2019 Assessment & Plan (1) [id number]-[id number] kidney injury: Stage III CKD at baseline. Not with DEEPAK 2/2 diuretic use which has been held. Creat slightly improved today. (2) Acute and chronic respiratory failure with hypoxia: Multifocal organizing pneumonia present on CT scan with elevation in inflammatory markers and worsening respiratory status, now improved after addition of IV steroids. Vanc was stopped to avoid excessive IVF. Stopping Zosyn 12/28 after 5 days. Not thought to be infectious etiology. Biofire panel negative for clear viral etiology. Reduced EF to 45% that is new. Per cardiology, this is unlikely a new cardiac event and no further investigation is warranted at this time. Cont BIPAP support with alternation to hi flow support as needed. Cont steroids per pulm recs. Awaiting autoimmune serologies. Cont steroids. He is worsened clinically and open for a trial of morphine for air hunger. May transition to palliative care later today. Hemoptysis re-emerged overnight. (3) Acute systolic (congestive) heart failure: Compensated at this time. Lungs are clear and improved work of breathing, no edema. Holding Lasix at this time in setting of DEEPAK. (4) Demand ischemia: in setting of tachycardia and new cardiomyopathy. No further inpatient workup per Cardiology. (5) AV block, 2nd degree: Noted h/o Mobitz Type II block on beta meli therapy which is contraindicated. (6) Cholecystitis: no urgent surgical intervention needed at this time per gen surgeon, and he may progress to a low fat diet. (7) Bilateral renal artery stenosis: Atherosclerotic disease present at multiple locations. Cont medical management with aspirin. Will add statin prior to dc. (8) Anemia: Stable from recent levels. Some rectal bleeding reported however, the FOBT in the ER was negative with brown stool in the rectal vault on exam and no evidence of hemorrhoids. Cont to monitor. Likely 2/2 chronic disease and frequent phlebotomy with multiple recent hospitalizations in the past two months. (9) COPD (chronic obstructive pulmonary disease): chronic, stable. Continues on home oxygen reported recently as 6LPM in the last month. (10) Diabetes mellitus: hold oral meds, cont basal bolus insulin dosing while inpatient. Controlled on tightened insulin. Cont to monitor. (11) DVT prophylaxis: Heparin held in light of redevelopment of hemoptysis overnight DNR/DNI Dispo-cont PCU monitoring. Improving on steroids. Palliative team consulted to discuss goals of care. May need to transition to comfort care later today. Joanne Valentino DO [facility] Hospitalist Admission and Anticipated Discharge Date Admission Date: December 24, 2019 Subjective PT is working to breathe and reports significant air hunger is at bedside and is in tears. They are both feeling they are at a breaking point We discussed palliative therapies and decided on trying some morphine to see how this may help his symptoms. Review of Systems Review of Systems: All systems reviewed & are unremarkable except as noted in Subjective Physical Exam Physical Exam: CONSTITUTIONAL: WNWD, vitals as above, generally well- appearing EYES: normal conjunctivae, no scleral icterus ENT: external ear and nose normal, oropharynx clear RESPIRATORY: CTA throughout. Normal respiratory effort on supplemental oxygen via hi flow, significant work of breathing and conversational dyspnea present. CARDIOVASCULAR: regular rate and rhythm, S1 and 2 heard without murmurs, gallops or rubs, no JVD, no peripheral edema. CHEST: inspection of chest was normal GASTROINTESTINAL: normal bowel sounds, soft, nontender, nondistended. MUSCULOSKELETAL: strength 5/5 throughout, head is normocephalic and atraumatic, neck supple, normal palpation of chest wall without tenderness SKIN: warm and dry NEUROLOGIC: No facial palsy, no dysarthria. CN 2-12 grossly intact, normal cognition, normal speech, no tremor, no gross focal deficit. PSYCHIATRIC: alert and cooperative. Results & Data Results & Data ([facility]) Vital Signs (Past 12 Hours) Vital Signs Temp Pulse Pulse Pulse Resp BP Pulse Ox 12/30/19 13:05 105 H 22 91 12/30/19 12:03 36.2 C L 96 H 24 160/83 H 89 L 12/30/19 11:30 88 12/30/19 11:12 104 H 30 H 91 12/30/19 08:04 36.6 C 110 H 21 153/84 H 88 L 12/30/19 07:29 97 H 26 H 89 L 12/30/19 04:20 84 26 H 90 12/30/19 03:32 61 20 88 L 12/30/19 03:26 36.5 C 93 H 19 145/79 H 86 L Laboratory Results Short CBC 12/29/19 12/30/19 Range/Units 20:25 06:40 WBC 18.03 H (4.8-10.8) K/uL Hgb 8.6 L 8.9 L (14.0-18.0) g/dL Hct 28.0 L 28.5 L (42-52) % Plt Count 564 H (130-400) K/uL BMP 12/30/19 06:40 Sodium 142 Potassium 3.8 Chloride 105 Carbon Dioxide 29 BUN 71 H Creatinine 1.84 H Glucose 109 H Calcium 8.2 L Urine 12/30/19 Range/Units 12:00 Urine Color Yellow Urine Appearance Cloudy A (Clear) Urine pH 5.0 (4.5-7.5) Ur Specific [place] 1.018 (1.000-1.030) Urine Protein 1+ H (Negative) Urine Glucose (UA) Negative (Negative) Medications Administered Current Inpatient Medications Acetaminophen (Tylenol) 650 mg PO Q4H PRN PRN Reason: Pain or Fever Stop: 01/23/20 19:46 Aspirin (Ecotrin Ectab) 81 mg PO DAILY MARISSA Stop: 01/24/20 08:59 Last Admin: 12/29/19 08:08 Dose: 81 mg Documented by: Dextrose (Dextrose 50%) 25 - 50 ml IV UD PRN; Protocol PRN Reason: Hypoglycemia Protocol Stop: 01/23/20 19:46 Fluticasone/Vilanterol (Breo Ellipta 100/25 Mcg Inh) 1 puffs INH DAILY MARISSA Stop: 01/24/20 08:59 Last Admin: 12/30/19 08:37 Dose: 1 puffs Documented by: Glucagon (Glucagen) 1 mg SQ UD PRN; Protocol PRN Reason: Hypoglycemia Protocol Stop: 01/23/20 19:46 Glucose (Dex4 Glucose) 4 - 8 tabs PO UD PRN; Protocol PRN Reason: Hypoglycemia Protocol Stop: 01/23/20 19:46 Glucose (Glucose 40%) 15 - 30 gm PO UD PRN; Protocol PRN Reason: Hypoglycemia Protocol Stop: 01/23/20 19:46 Furosemide 40 mg/ Syringe 4 mls @ 4 mls/min IV Q12H MARISSA Stop: 01/25/20 18:59 Last Admin: 12/28/19 05:59 Dose: 4 mls/min Documented by: Methylprednisolone 125 mg/ (Syringe) 2 mls @ 1.5 mls/min IV Q8H MARISSA Stop: 01/28/20 21:59 Last Admin: 12/30/19 13:55 Dose: 1.5 mls/min Documented by: Insulin Aspart (Novolog Flexpen) 0 units SC ACHS MARISSA Stop: 01/23/20 20:59 Last Admin: 12/30/19 12:21 Dose: 5 units Documented by: Insulin Glargine (Lantus Solostar Pen) 25 units SC BID [facility] Stop: 01/27/20 20:59 Last Admin: 12/30/19 08:36 Dose: 25 units Documented by: Ipratropium [place] (Atrovent 0.02% 0.5mg/2.5ml) 0.5 mg INH Q6R [facility] Stop: 01/28/20 12:59 Last Admin: 12/30/19 13:05 Dose: 0.5 mg Documented by: Levalbuterol HCl (Xopenex 1.25mg/0.5ml Neb) 1.25 mg INH Q6R [facility] Stop: 01/28/20 12:59 Last Admin: 12/30/19 13:05 Dose: 1.25 mg Documented by: Magnesium Oxide (Mag-Ox) 400 mg PO QAM [facility] Stop: 01/24/20 08:59 Last Admin: 12/30/19 08:39 Dose: 400 mg Documented by: Miscellaneous (Carbohydrates For Hypoglycemia) 15 - 30 gm PO UD PRN PRN Reason: Hypoglycemia Protocol Stop: 01/23/20 19:46 Morphine Sulfate (Morphine Sulfate) 2 mg IV Q3H PRN PRN Reason: Pain Stop: 01/11/20 08:35 Last Admin: 12/30/19 13:28 Dose: 2 mg Documented by: Pantoprazole Sodium (Protonix) 40 mg PO QAM [facility] Stop: 01/24/20 08:59 Last Admin: 12/30/19 08:39 Dose: 40 mg Documented by: Polyethylene Glycol (Miralax Powder Packet) 17 gm PO DAILY PRN PRN Reason: Constipation Stop: 01/23/20 19:46 (1) Anemia Anemia type: iron deficiency Iron deficiency anemia type: unspecified iron deficiency Qualified Code(s): D50.9 - Iron deficiency anemia, unspecified
[2019-12-30] MEDS ORDERED: MoRPHine SULFATE 2 MG/ML CARP IV PRN (16:06)
[2019-12-30] MEDS: TRAMADOL HCL 50 MG TABLET PO PRN (19:49)
[2019-12-30] MEDS ORDERED: INSULIN GLARGINE SOLOSTAR 100 UNITS/ML 3 ML PEN SC ONE (20:45)
[2019-12-31] MEDS: IPRATROPIUM BROMIDE NEB SOLN 0.02% 2.5 ML VIAL INH SCH ×3 (01:16→13:08)
[2019-12-31] MEDS: LEVALBUTEROL 1.25MG/0.5ML NEB INH SCH ×3 (01:16→13:08)
[2019-12-31] MEDS: methylPREDNISolone 125 MG in SYRINGE 0 ML IV SCH (05:47)
[2019-12-31 06:51] LABS: Hematocrit (blood only) 28.8 % (42-52); Hemoglobin 9.1 g/dL (14.0-18.0); Mean Corpuscular Hemoglobin 28.4 pg (25-34); Mean Corpuscular Hgb Conc 31.6 g/dL (32-36); Mean Platelet Volume 10.1 fL (7.4-10.4); Nucleated RBC # (auto) 0.02 K/uL (0-0); Nucleated RBC % (auto) 0.1 %; Platelet Count 486 K/uL (130-400); RDW Coefficient of Variation 14.9 % (11.5-14.5); RDW Standard Deviation 48.5 fL (36.4-46.3); White Blood Count 16.92 K/uL (4.8-10.8)
[2019-12-31 07:17] LABS: BUN Creatinine Ratio 39.5 (10-20); C Reactive Protein 2.49 mg/dl (0-0.29); Calcium 8.6 mg/dl (8.5-10.1); Creatinine Clr Calc Pharmacy 33.4 ml/min; Est GFR (African American) 41.7; Potassium 3.7 mmol/L (3.5-5.1)
[2019-12-31] MEDS: INSULIN ASPART 100 UNITS/ML 3 ML PEN SC SCH (08:12)
[2019-12-31] MEDS ORDERED: INSULIN GLARGINE SOLOSTAR 100 UNITS/ML 3 ML PEN SC SCH (09:00)
[2019-12-31] MEDS ORDERED: DOCUSATE SODIUM/SENNA 50/8.6MG TAB PO SCH (09:00)
[2019-12-31] MEDS: TRAMADOL HCL 50 MG TABLET PO PRN (09:13)
[2019-12-31] MEDS: MAGNESIUM OXIDE 400 MG TAB PO SCH (09:15)
[2019-12-31] MEDS: PANTOprazole 40 MG TAB PO SCH (09:15)
[2019-12-31] MEDS: FLUTICASONE/VILANTEROL 100/25MCG 14 PUFFS/INHALER INH SCH (09:16)
--- NOTE | 2019-12-31 10:12 | Palliative Care Consultation ---
Date of Consultation December 31, 2019 Assessment & Plan (1) Goals of care, counseling/discussion: This is an 89 year old male who has been admitted to the [facility] with SOB, diastolic dysfunction and diffuse pulmonary infiltrates/pleural effusion and elevated BNP on 12/24/19. He was recently discharged to home from the hospital for sepsis and multiple other co-morbid conditions to be managed. on 12/09/19 . Additional PMH includes: bradycardia s/p Mobitz Type II, T2DM, HTN, HLD, AAA infrarenal 6.3 x 5.4 cm nonsurgical candidate, COPD, CKD stage III, carotid artery stenosis, renal artery stenosis, history of prostate cancer, GERD, hepatic steatosis, history of rectus sheath hematoma. He has recently had an abnormal chest CT that has prompted involvement of the Pulmonology team who have started him on a robust medication regime including high dose steroids, IV antibiotics and overt diuresis; however, he is not showing improvement. Per pulmonology, he is being treated for all reversible causes of his symptoms. The patient is alternating between BiPAP and Hi-Flow; however, again, this is not a residential solution for his underlying condition. A bronchoscopy with biopsy would be the next avenue of diagnostic investigation; however he is deemed too unstable at this time for such procedures. Some autoimmune serology remains pending. Palliative Care was consulted to discuss Goals of Care. -I met with the patient in room 231. He is in apparent distress with restlessness. He is moaning as well and can not position himself comfortable, currently in tripod position. Patient does have chronic back pain. -The patient is on 40L of Hi-Flow at 100%. His and his son, Julio Ruvalcaba are in the room with him. -Since yesterday the patient has had increased agitation and per nursing they have had difficulty reorienting him. With any slight movement, the patient desaturates to mid 70's. -I discussed goals of care with the patient and his family. All agreed he does not want Bipap nor intubation. Patient is a DNR/DNI. -The patient said "I am ready to go" and the family agrees they want him comfortable. -The nurse just provided him with a dose of IV Morphine. -We discussed end of life and different signs to look for. The patient is in tripod position, diaphragmatically breathing, mottling is present on both of his knees and feet, and he appears to have terminal agitation. -We discussed a Morphine drip which all parties were supportive of. I discussed the above with the Hospitalist, who is agreeable to starting a low Morphine drip with PRN dosing as appropriate. -Morphine gtt 250mg/mL. Start at 1mg/hour and titrate by 1 mg per hour based on increased restlessness, worsened labored breathing. Max of 10 mg/mL. Additional Morphine Q1 PRN as well. Close communication with nursing and encouraged contact with us as needed with any questions. -At this time, we will monitor closely. The hospitalist did discontinue non essential medications. We will continue Lasix for comfort and a Lidocaine patch for comfort as well. -As the patient progresses through the early active dying phase, I set the expectation that the patient life expectancy is likely hours to days. All parties are understanding of this. -Palliative Care will follow closely and monitor symptoms for appropriate management. -PPS: 10% Update: -Patient with increased restlessness and terminal agitation. The Morphine drip was increased after nursing spoke with Hospitalist and myself. -I went to visit the patient who had multiple family members at his bedside. -When I was in the room, he had an episode of emesis, dark bile. I ordered 4 mg of Zofran IV. 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 Ativan 0.5 mg IV ordered and a dose administered per nursing. -I reassured family, discussed end of life symptom presentation. When I returned again, the patient was more comfortable and appeared more restful. -Reassurance and education provided to staff as well. -Likely hours to 24 hours of life expectancy -Will continue to follow. (2) Acute systolic (congestive) heart failure: (3) Acute and chronic respiratory failure with hypoxia: (4) AV block, 2nd degree: (5) CKD (chronic kidney disease) stage 3, GFR 30-59 ml/min: History of Present Illness Reason for Consultation: Goals of care Requesting Physician: Dr. Valentino Attending Physician: Akbar Jackson MD History of Present Illness This is an 89 year old male who has been admitted to the [facility] with SOB, diastolic dysfunction and diffuse pulmonary infiltrates/pleural effusion and elevated BNP on 12/24/19. He was recently discharged to home from the hospital for sepsis and multiple other co-morbid conditions to be managed. on 12/09/19 . Additional PMH includes: bradycardia s/p Mobitz Type II, T2DM, HTN, HLD, AAA infrarenal 6.3 x 5.4 cm nonsurgical candidate, COPD, CKD stage III, carotid artery stenosis, renal artery stenosis, history of prostate cancer, GERD, hepatic steatosis, history of rectus sheath hematoma. He has recently had an abnormal chest CT that has prompted involvement of the Pulmonology team who have started him on a robust medication regime including high dose steroids, IV antibiotics and overt diuresis; however, he is not showing improvement. Per pulmonology, he is being treated for all reversible causes of his symptoms. The patient is alternating between BiPAP and Hi-Flow; however, again, this is not a residential solution for his underlying condition. A bronchoscopy with biopsy would be the next avenue of diagnostic investigation; however he is deemed too unstable at this time for such procedures. Some autoimmune serology remains pending. Palliative Care was consulted to discuss Goals of Care. Please see A/P for further details. Thank you kindly for involving the palliative care team. Allergies Allergy/AdvReac Type Severity Reaction Status Date / Time Beta-Blockers AdvReac Severe 2nd degree Verified 12/26/19 19:41 (Beta-Adrenergic Bloc AV block Home Medications Home Medications Medication Instructions Recorded Confirmed Type albuterol sulfate [Ventolin HFA] 2 puff INHALATION Q6H PRN 08/05/18 12/24/19 History amlodipine 10 mg PO QAM 08/05/18 12/24/19 History glipizide 2.5 mg PO BID 08/05/18 12/24/19 History levalbuterol HCl 0.63 mg INHALATION Q6H PRN 08/05/18 12/24/19 History pantoprazole 40 mg PO QAM 08/05/18 12/24/19 History magnesium 200 mg tablet 200 mg PO QAM 01/01/19 12/24/19 History triamcinolone acetonide 55 mcg 2 spray INTRANASAL QAM PRN 01/01/19 12/24/19 History nasal spray aerosol aspirin 81 mg PO DAILY 30 Days #30 tab 12/08/19 12/24/19 Rx furosemide 40 mg PO QAM 30 Days #30 tab 12/08/19 12/24/19 Rx hydralazine 25 mg PO BID #60 tab 12/08/19 12/24/19 Rx fluticasone furoate-vilanterol 0 inh INHALATION BID 12/24/19 12/24/19 History [Therese Tan] Patient History Medical History (Updated 12/31/19 @ 10:26 by DEBRA Lassiter) Abdominal aortic aneurysm (AAA) greater than 5.5 cm in diameter in male (Chronic) COPD exacerbation (Chronic) Diabetes mellitus (Chronic) GERD (gastroesophageal reflux disease) (Chronic) Goals of care, counseling/discussion HTN (hypertension) (Chronic) Hypertension (Chronic) Kidney stones (Chronic) Prostate cancer (Chronic) Reactive airway disease (Chronic) Spinal stenosis (Chronic) Surgical History H/O colonoscopy (Chronic) History of cataract surgery (Chronic) Hx of cataract surgery (Chronic) Hx of lumbosacral spine surgery (Chronic) Social History Smoking Status: Former smoker Tobacco Type: Cigarettes Hx Alcohol Use: Yes Alcohol type: beer Hx Substance Use: No Preferred Language: Kenyan Communication Ability: Effective Visual Impairment: Limited Hearing Ability: Use of Hearing Aid [employer] Manager Required: No Beliefs That Will Affect Care: None marital status: Current Living Situation: Spouse and Family Current Living Situation Comment: with and dtr How many Children do You have: 5 Other Information That Helps Us Care for You: No Feels Safe at Home: Yes Safety Concerns: Feels Safe At This Time Review of Systems Review of Systems: Unobtainable due to cognitive status Physical Exam Constitutional: + ill appearing, cooperative and + in distress ENMT: external ear and nose normal, oropharynx normal Neck: trachea midline, no thyromegaly Respiratory: + uses accessory muscles and + tripod positioning Auscultation: + diminished lung sounds Cardiovascular: Rate/Rhythm: + irregularly irregular Extremities: + abnormal capillary refill Gastrointestinal (Abdomen): Inspection/Auscultation: + abdomen distended and normal bowel sounds Percussion/Palpation: + abdomen tender and + abdomen rigid Skin: + mottling (bilateral knees and feet) Psychiatric: Orientation: alert and oriented x 3 Mood: + irritable mood (appears to be terminal agitation) Genitourinary: gallegos catheter dark yellow urine Results & Data Vital Signs (Past 12 Hours) Vital Signs Temp Pulse Pulse Pulse Resp BP Pulse Ox 12/31/19 08:55 85 22 90 12/31/19 07:54 113 H 21 94 12/31/19 07:29 36.4 C L 100 H 18 152/69 H 96 12/31/19 07:02 108 H 22 92 12/31/19 03:21 36.4 C L 110 H 20 154/90 H 91 12/31/19 03:10 107 H 26 H 90 12/31/19 01:33 98 H 24 90 12/31/19 01:18 97 H 24 87 L 12/31/19 00:56 93 H 12/30/19 23:10 36.5 C 109 H 18 161/84 H 92 PG Care Time/CCT Total # of Minutes Spent Total Time Spent with Patient: Total time spent is greater than 50% in coordination of care (as documented) at patient's floor/unit and/or counseling patient: 100 Coding Level of Care Code 38027 Inpt Consult Level 4 Diagnoses Goals of care, counseling/discussion Z71.89 Acute systolic (congestive) heart failure I50.21 Acute and chronic respiratory failure with hypoxia J96.21 AV block, 2nd degree I44.1 CKD (chronic kidney disease) stage 3, GFR 30-59 ml/min N18.3 Time Spent (min) 100 Time Spent Midlevel Total time spent 100 minutes with > 50% of that time spent assessing the patient, discussing goals of care and symptom management with patient, family members and IDT
[2019-12-31] MEDS ORDERED: bisacodyL 5 MG TABEC PO PRN (10:23)
[2019-12-31] MEDS ORDERED: bisacodyL 5 MG TABEC PO ONE (10:23)
[2019-12-31] MEDS ORDERED: POTASSIUM CHLORIDE 20 MEQ TABCR PO ONE (10:25)
[2019-12-31] MEDS ORDERED: MoRPHine SULFATE 2 MG/ML CARP IV PRN ×2 (10:29→12:36)
[2019-12-31] MEDS ORDERED: STAT IV Infusion **Titration per Protocol STA (10:29)
[2019-12-31] MEDS ORDERED: FUROSEMIDE 80 MG in SYRINGE 0 ML IV ONE (10:30)
[2019-12-31] MEDS ORDERED: LIDOCAINE 5% 1 PATCH TD SCH (10:30)
[2019-12-31] MEDS ORDERED: MoRPHine SULF/NSS 250 MG/250 ML BTL IV SCH (10:30)
--- NOTE | 2019-12-31 12:35 | Hospitalist Progress Note ---
Date of Service December 31, 2019 Assessment & Plan (1) Acute respiratory failure with hypoxia: Progressive hypoxic respiratory failure. Differential diagnosis includes: infection, pulmonary edema, inflammatory process. Pulmonary Medicine and Cardiology consulted. Worsening respiratory status despite broad spectrum antibiotics, high dose steroids, and diuretic therapy. [place] that invasive diagnostic evaluation (e.g., bronchoscopy) would be very high risk and not recommended. Patient experiencing hypoxic and dyspnea on high flow nasal O2 40 LPM with minimal exertion. BiPAP was applied, but he did not wish to continue it. Patient and family request transition to comfort measures only. (2) Goals of care, counseling/discussion: Worsening respiratory status with poor prognosis as outlined above. Patient and family request transition to comfort measures only. Palliative Care Team consulted. Admission and Anticipated Discharge Date Admission Date: December 24, 2019 Subjective Tachypneic and hypoxic with minimal exertion. Placed back on BiPAP this morning, but prefers not to wear it. Having some abdominal discomfort. Son visiting; he indicates that patient and family are ready to transition to comfort measures only. Physical Exam Constitutional: + acute distress and + ill appearing Respiratory: + labored breathing Auscultation: + rales and + wheezes Cardiovascular: Rate/Rhythm: regular rate, regular rhythm and + tachycardic Extremities: + edema Gastrointestinal (Abdomen): Percussion/Palpation: abdomen soft Psychiatric: Orientation: + not oriented x 3 Results & Data Results & Data ([facility]) Vital Signs (Past 12 Hours) Vital Signs Temp Pulse Pulse Pulse Resp BP Pulse Ox 12/31/19 08:55 85 22 90 12/31/19 07:54 113 H 21 94 12/31/19 07:29 36.4 C L 100 H 18 152/69 H 96 12/31/19 07:02 108 H 22 92 12/31/19 03:21 36.4 C L 110 H 20 154/90 H 91 12/31/19 03:10 107 H 26 H 90 12/31/19 01:33 98 H 24 90 12/31/19 01:18 97 H 24 87 L 12/31/19 00:56 93 H
[2019-12-31] MEDS ORDERED: LEVALBUTEROL 1.25MG/0.5ML NEB INH PRN (13:41)
[2019-12-31] MEDS ORDERED: IPRATROPIUM BROMIDE NEB SOLN 0.02% 2.5 ML VIAL INH PRN (13:41)
--- NOTE | 2019-12-31 13:57 | Pulmonology Progress Note ---
Date of Service December 31, 2019 Assessment & Plan (1) Abnormal CT scan of lung: lImpression: 89-year-old male with diastolic dysfunction admitted with diffuse pulmonary infiltrates and pleural effusion and markedly elevated BNP. Differential is broad to include infectious, inflammatory etiologies. Review his medication list does not reveal any medications which would be consistent with an acute lung injury he has no other occupational or environmental exposures and he has no eosinophilia. In addition the course is fairly rapid as he had a CT scan performed about a month ago demonstrating normal pulmonary parenchyma without evidence of significant interstitial disease. He is being empirically treated for all potentially reversible causes including infectious, inflammatory, and hydrostatic issues. Unfortunately has not shown any significant improvement. He is now developed some hemoptysis and pulmonary hemorrhage certainly would be on the differential. He is being treated with high-dose steroids. His serologies are still pending. Unfortunately, we have provided this patient everything that we can offer him at this point time and he does not appear to be clinically improving. Goals of therapy discussed with the family and at this time it is been decided that comfort measures only would be appropriate. Patient has been started on a morphine drip. This will be titrated to comfort. Family is aware and is at bedside with the patient. (2) Acute and chronic respiratory failure with hypoxia: This appears to be multifactorial. Patient converted to comfort measures only Thank you for including us in the care of this patient. We will sign off at this time. Please advise if there is anything else we can provide. (3) Dyspnea: Dyspnea type: dyspnea on exertion Qualified Code(s): R06.00 - Dyspnea, unspecified Admission and Anticipated Discharge Date Admission Date: December 24, 2019 Subjective Patient seen and examined. He is still alert and oriented but somewhat lethargic. He does complain of increased back pain as well as shortness of breath. His and children as well as 2 grandchildren are present. Patient is being made comfort measures only today and has been initiated with a heparin drip. Patient states he is fairly comfortable. Family states that they are aware of the care plan. We will continue with heparin drip as needed. Review of Systems Review of Systems: All systems reviewed & are unremarkable except as noted in HPI & below Physical Exam Physical Exam: GENERAL : No acute distress EYES: No icterus, gaze conjugate NOSE: No evidence of epistaxis MOUTH: No lesions or candidiasis NECK: Supple LUNGS: Decreased breath sounds. Crackles at the bases. Some rhonchi in the upper [place]. HEART: Regular, rate controlled ABDOMEN: Soft, NT, ND, BS Present EXTREMITIES: No LE edema, pedal pulses intact NEURO: A&OX3 Results & Data Results & Data ([facility]) Vital Signs (Past 12 Hours) Vital Signs Temp Pulse Pulse Pulse Resp BP Pulse Ox 12/31/19 12:55 84 22 100 12/31/19 08:55 85 22 90 12/31/19 07:54 113 H 21 94 12/31/19 07:29 36.4 C L 100 H 18 152/69 H 96 12/31/19 07:02 108 H 22 92 12/31/19 03:21 36.4 C L 110 H 20 154/90 H 91 12/31/19 03:10 107 H 26 H 90 Laboratory Results 12/31/19 06:05 12/31/19 06:05 Diagnostic Findings No additional images since December 29, 2019 PG Care Time/CCT Total # of Minutes Spent Total Time Spent with Patient: Total time spent is greater than 50% in coordination of care (as documented) at patient's floor/unit and/or counseling patient: 25 minutes including discussion with family Coding Level of Care Code 45192 Subseq Hosp Care Lvl [address] scan of lung R91.8 Acute and chronic respiratory failure with hypoxia J96.21 Dyspnea R06.00 Dyspnea type: dyspnea on exertion
[2019-12-31] MEDS ORDERED: LORazepam 0.5 MG/1 ML VIAL IV PRN (14:03)
[2019-12-31] MEDS ORDERED: ATROPINE SULFATE 1% OP SOLN 2 ML BTL SL PRN (14:50)
[2019-12-31] MEDS ORDERED: ONDANSETRON INJ 2 MG/ML 2 ML VIAL IV PRN (14:50)
--- NOTE | 2019-12-31 18:27 | Death Summary ---
Date of Service December 31, 2019 Pronouncement Note Date and Time of Date of : 12/31/19 Time of : 17:34 PCOD Preliminary cause of : Acute respiratory failure Additional Data Confirmation of : no pulse, no respirations, no heart sounds and pupils fixed and dilated Family: at bedside Attending physician: Akbar Jackson MD Was code activated?: No Autopsy requested?: No product examiner notified?: No
[2020-01-01 22:34] LABS: ANCA Screen Negative (Negative); Anti Nuclear Antibody Screen NEGATIVE (NEGATIVE); Anti-Glom Basement Antibody <1.0 AI (<1.0); Myeloperoxidase Ab <1.0 AI (<1.0); Proteinase-3 AB <1.0 AI (<1.0)
--- NOTE | 2020-01-13 11:33 | Discharge Summary ---
Date of Service Date of Admission: 12/24/19 Date of : 12/31/19 Admission HPI Per Admitting Provider 89 yo M who was recently admitted to [facility] presented for progressive shortness of breath. He reports coughing that is productive of a pink-tinged sputum. Denies fevers or chills. Arena well when he was discharged from the hospital, and then progressively became worse. Doesn't have a scale at home; states cannot afford to buy one. We discussed the importance of tracking his weight. Since discharge he went to a medical appointment at the [facility] in [place], and hasn't travelled otherwise. Denies any sick contacts. Covid from 12/03 was negative. Another Covid test is currently pending. He also reports some vomiting and nausea that has persisted, and reports some hematochezia yesterday. He currently reports being hungry and is requesting food. interestingly points out that his urinary flow has decreased significantly since discharge despite the addition of Lasix 40mg PO daily at discharge. The patient agrees that he hasn't been able to urinate well. Pt reports early satiety with eating. Principal Diagnosis acute hypoxic respiratory failure (etiology not determined) Discharge Data Allergies Allergy/AdvReac Type Severity Reaction Status Date / Time Beta-Blockers AdvReac Severe 2nd degree Verified 12/26/19 19:41 (Beta-Adrenergic Bloc AV block Consultations 12/24/19 15:52 ED Decision to Admit Stat 12/24/19 19:47 Consult Cardiology Routine Consult Case Management - Discharge Planning Routine 12/24/19 23:37 Consult General Surgery Routine 12/25/19 12:01 Consult Pulmonology Routine 12/28/19 13:17 Consult Palliative Care Routine Ordered Studies 12/25/19 08:00 US liver Routine 12/26/19 11:00 CT chest wo con Urgent Hospital Course (1) Acute respiratory failure with hypoxia: Progressive hypoxic respiratory failure. Differential diagnosis includes: infection, pulmonary edema, inflammatory process. Pulmonary Medicine and Cardiology consulted. Worsening respiratory status despite broad spectrum antibiotics, high dose steroids, and diuretic therapy. Chest x-ray showed bilateral pulmonary infiltrates. Blood cultures were negative. SARS-CoV-2 PCR negative. BioFire respiratory panel negative. Arena that invasive diagnostic evaluation (e.g., bronchoscopy) would be very high risk and not recommended. Patient experiencing hypoxic and dyspnea on high flow nasal O2 40 LPM with minimal exertion. BiPAP was applied, but he did not wish to continue it. Patient and family requested transition to comfort measures only. He 12/31/19 at 17:34 with family at bedside. Some studies sere pending at time of patient's : EDITH screen negative. ANCA screen negative. Anti-GMB antibodies negative. The etiology of his respiratory failure was not determined. (2) Goals of care, counseling/discussion: Worsening respiratory status with poor prognosis as outlined above. Patient and family requested transition to comfort measures only. Palliative Care Team consulted. (3) [id number] kidney injury: (4) Demand ischemia: (5) Acute systolic (congestive) heart failure: (6) Hemoptysis: (7) Cholecystitis, chronic: Total Time Total Time Spent Total Time Spent (In Minutes): 0 Discharge Plan Discharge Items Patient Disposition: Discharge Diagnosis: respiratory failure Addtl Attending Provider Instructions: .
== END 2019-12-31 17:34 | disposition expired | DRG 189 ==
LOC: ED 12:51 → SUATTDRO 17:40 → 2S 17:40